=== PATIENT | female | born 1965 | race Caucasian/White ===

== ENCOUNTER 2017-11-13 08:45 | Emergency (ER) | payer OTHER, MEDICAID, SELFPAY ==
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
[2017-11-13 08:58] VITALS: BMI 23.4
--- NOTE | 2017-11-13 09:51 | DI.RAD.S_ITS ---
PROCEDURE: XR LUMBAR SPINE 2-3V INDICATIONS: low back pain x3 days TECHNIQUE: 3 views of the lumbar spine were acquired. COMPARISON: [facility], CR, L-SPINE 2-3 VIEWS, 08/19/2007, 12:39. [facility], CR, L-SPINE 2-3 VIEWS, 07/17/2010, 22:30. FINDINGS: Bones: 5 taz-yaq-mxrurdw vertebrae are present. There is normal bony alignment. No vertebral body compression fractures. No suspicious bony lesions. The disc heights are well-preserved. Lower lumbar spine facet arthropathy is seen. Soft tissues: Overlying bowel gas pattern is normal. No suspicious soft tissue calcifications. Cholecystectomy clips are seen. IMPRESSION: Unremarkable imaging examination for age. No significant change from prior. Dictated by: Gordo Shabazz M.D. on 11/13/2017 at 9:11 Approved by: Gordo Shabazz M.D. on 11/13/2017 at 9:19
[2017-11-13] MEDS: diazePAM 5 MG TABLET PO (11:54)
[2017-11-13] MEDS: HYDROCODONE/ACET 5/325 TABLET 2 TAB PO (11:54)
[2017-11-13] MEDS: KETOROLAC 60 MG/2 ML VIAL 30 MG IM (11:55)
[2017-11-13 12:10] VITALS: BP 151/86; PULSE 72; RESP 16; O2SAT 100
== END 2017-11-13 12:26 | disposition home or self-care (01) ==
PROVIDERS: Emergency Provider Emergency Medicine
DX: M54.5 Low back pain (principal)
CPT/HCPCS: 72100; 81003; 96372; 99282; 99283; J1885

== ENCOUNTER 2020-04-10 10:50 | Emergency (ER) | payer OTHER, MEDICAID, SELFPAY ==
[2020-04-10 11:09] VITALS: BP 132/85; PULSE 89; RESP 15; TEMP 37; O2SAT 95; BMI 23.3
--- NOTE | 2020-04-10 11:22 | DI.RAD.S_ITS ---
PROCEDURE: XR HAND LT MIN 3V INDICATIONS: L thumb injury, pain, swelling TECHNIQUE: 3 views of the hand(s) acquired. COMPARISON: [facility], , XR HAND 3V LEFT, 10/05/1999, 12:45. FINDINGS: Bones: No fractures or dislocations. Carpal bones are normally aligned. No suspicious bony lesions. Degenerative changes are seen throughout, which are most prominent involving the 1st carpometacarpal joint. Milder degenerative changes are seen elsewhere. Soft tissues: No suspicious soft tissue calcifications. IMPRESSION: No displaced fractures are seen. Age-appropriate degenerative changes can be seen. Dictated by: Gordo Shabazz M.D. on 04/10/2020 at 10:55 Approved by: Gordo Shabazz M.D. on 04/10/2020 at 10:56
--- NOTE | 2020-04-10 11:40 | ED.UPPEXIN ---
HPI - Extremity Injury (Upper) <ROSI Parham - Last Filed: 04/11/20 02:06> General Chief Complaint: Extremity Injury, Upper Stated Complaint: THINKS SHE BROKE LEFT HAND THUMB Time Seen by Provider: 04/10/20 11:07 Source: patient Mode of arrival: Ambulatory Limitations: no limitations History of Present Illness HPI narrative: This is a 54-year-old male, current vapor, who is currently taking Suboxone and gabapentin for nerve pain presents to ED with her significant other with chief complain of left, non dominant hand, thumb pain since yesterday. Patient reports she started to work out again and was doing a push ups and while she could not do anymore and she fell and injured her thumb. She is not quite sure the exact mechanism of injury. She reports significant pain with movements and swelling and light bruise on base of affected thumb. Patient reports difficulty flexing and extending left thumb and making thumbs up or O sign. Patient reports intact sensation distally. Patient denies previous injury to affected hand or thumb in the past. She denies using ice pack or taking additional medications for pain at home. Related Data Home Medications Medication Instructions Recorded Confirmed gabapentin [Neurontin] 600 mg PO TID #0 02/19/16 11/13/17 buprenorphine-naloxone [Suboxone] film 04/10/20 Allergies Allergy/AdvReac Type Severity Reaction Status Date / Time codeine Allergy Unknown Verified 11/13/17 09:01 droperidol Allergy Unknown Verified 11/13/17 09:01 Sulfa (Sulfonamide Allergy Unknown Verified 11/13/17 09:01 Antibiotics) Review of Systems <ROSI Parham - Last Filed: 04/11/20 02:06> Review of Systems Narrative: General: Denies fever, chills, fatigue, malaise, sweats. Respiratory: Denies dyspnea, cough, wheezing, hemoptysis, sputum. Cardiovascular: Denies chest pain, palpitations, orthopnea, edema. Musculoskeletal: See HPI Skin: Denies rash, skin lesions, or other. Neurologic: Denies weakness, headache, numbness, change in speech, confusion, seizures, incoordination. Psychiatric: No concerning psychosocial issues. Patient History <ROSI Parham - Last Filed: 04/11/20 02:06> Medical History (Updated 04/10/20 @ 12:31 by ROSI Parham) Leg pain (Acute) TBI (traumatic brain injury) (Acute) Social History Smoking Status: Current some day smoker Smoking Status: Current some day smoker alcohol intake frequency: 0-2 drinks per day Substance Use Type: does not use Exam <ROSI Parham - Last Filed: 04/11/20 02:06> Narrative Exam Narrative: General appearance: well developed, well nourished, in no acute distress. Head: normocephalic, atraumatic, no scalp lesions, non-tender. ENT: Hearing grossly intact. Airway patent. Neck/Thyroid: neck supple, full range of motion, no visible masses or meningeal signs. No JVD, non-tender without lymphadenopathy. Skin: no suspicious rashes, lesions over visible areas. Warm and dry and appropriate color for ethnicity. Heart: no clubbing, no cyanosis, no edema. Lungs: Breathing even and unlabored. No stridor. No accessory muscles used. Able to speak in full sentences. Chest: normal shape and expansion. Abdomen: non-obese, non-distended. Neurologic: alert and oriented. Cognitive exam, [employer] and PNS grossly intact on informal exam. Psych: good eye contact, normal affect. Initial Vital Signs Initial Vital Signs: Vital Signs Temperature 98.6 F 04/10/20 11:09 Pulse Rate 89 04/10/20 11:09 Respiratory Rate 15 04/10/20 11:09 Blood Pressure 132/85 04/10/20 11:09 Pulse Oximetry 95 04/10/20 11:09 Extrem Left upper extremity: wrist Details: normal to inspection and normal ROM; no tenderness and no swelling and hand Details: abnormal to inspection, normal capillary refill, neuromotor exam abnormal Details: thumb opposition abnormal, thumb IP flexion abnormal and thumb ADduction abnormal, neurosensory exam normal, tenderness Location: of the thumb Location: at the MCP joint, at the proximal phalanx and on the dorsal aspect, vascular exam Details: radial pulse present and normal capillary refill, abnormal ROM of finger Details: pain with active ROM, pain with passive ROM and unable to flex or extend, swelling Location: of the thumb Location: at the MCP joint, at the proximal phalanx and on the dorsal aspect and ecchymosis Location: of the thumb; no crepitus <Micah Byers MD - Last Filed: 04/13/20 12:59> Initial Vital Signs Initial Vital Signs: Vital Signs Temperature 98.6 F 04/10/20 11:09 Pulse Rate 89 04/10/20 11:09 Respiratory Rate 15 04/10/20 11:09 Blood Pressure 132/85 04/10/20 11:09 Pulse Oximetry 95 04/10/20 11:09 Procedures <ROSI Parham - Last Filed: 04/11/20 02:06> Orthopedic Splinting/Casting Injury #1: Side: left Upper Extremity Injury Location: finger (proximal thumb and metacarpal) Upper Extremity Immobilizer: thumb spica (Prefabricated) Post splinting neuro exam: intact Post splinting vascular exam: intact Placed by: Nursing Scores <ROSI Parham - Last Filed: 04/11/20 02:06> GCS [place] coma scale eye opening: Spontaneous [place] coma scale verbal response: Orientated Sathish coma scale motor response: Obey commands Sathish coma scale total score: 15 Course <ROSI Parham - Last Filed: 04/11/20 02:06> Orders Ordered: ED Orders 04/10/20 11:22 XR hand LT min 3V Stat Complete Blood Count AUTO DIFF Stat Comprehensive Metabolic Panel Stat Lipase Stat Partial Thromboplastin Time Stat Prothrombin Time INR Stat Vital Signs Vital signs: Vital Signs - 8 hr 04/10/20 11:09 Temperature 98.6 F Pulse Rate 89 Respiratory Rate 15 Blood Pressure 132/85 Pulse Oximetry 95 <Micah Byers MD - Last Filed: 04/13/20 12:59> Orders Ordered: ED Orders 04/10/20 11:22 XR hand LT min 3V Stat Complete Blood Count AUTO DIFF Stat Comprehensive Metabolic Panel Stat Lipase Stat Partial Thromboplastin Time Stat Prothrombin Time INR Stat Vital Signs Vital signs: Vital Signs - 8 hr 04/10/20 11:09 Temperature 98.6 F Pulse Rate 89 Respiratory Rate 15 Blood Pressure 132/85 Pulse Oximetry 95 MDM - Extremity Injury (Upper) <ROSI Parham - Last Filed: 04/11/20 02:06> Differential Diagnosis Differential diagnosis: Likely other (Thumb fracture, thumb sprain/ strain) Medical Records Attestation: I reviewed the patient's medical records. Lab Data Result diagrams: 04/10/20 10:50 04/10/20 10:50 Labs: Lab Results 04/10/20 04/10/20 04/10/20 Range/Units 10:50 10:50 10:50 WBC Cancelled RBC Cancelled Hgb Cancelled Hct Cancelled MCV Cancelled MCH Cancelled MCHC Cancelled RDW Cancelled Plt Count Cancelled Neut % (Auto) Cancelled Lymph % (Auto) Cancelled [place] % (Auto) Cancelled Eos % (Auto) Cancelled Baso % (Auto) Cancelled Neut # (Auto) Cancelled Lymph # (Auto) Cancelled [place] # (Auto) Cancelled Eos # (Auto) Cancelled Baso # (Auto) Cancelled PT Cancelled INR Cancelled APTT Cancelled Sodium Cancelled Potassium Cancelled Chloride Cancelled Carbon Dioxide Cancelled BUN Cancelled Creatinine Cancelled Estimated GFR Cancelled BUN/Creatinine Ratio Cancelled Glucose Cancelled Calcium Cancelled Total Bilirubin Cancelled AST Cancelled ALT Cancelled Alkaline Phosphatase Cancelled Total Protein Cancelled Albumin Cancelled Globulin Cancelled Albumin/Globulin Ratio Cancelled Lipase Cancelled Imaging Data XR-Hand LT: Radiologist's Impression: [place] [id number] XRay Report Signed Patient: Jenni Rosales [facility]#: [id number] : 1965Acct:[id number] Age/Sex: 54 / FDate of Service: 04/10/20 Loc: ED Accession Number: [id number] Procedure: XR hand LT min 3V Ordering Provider: Howard Lewis PROCEDURE: XR HAND LT MIN 3V INDICATIONS: L thumb injury, pain, swelling TECHNIQUE: 3 views of the hand(s) acquired. COMPARISON: [facility], , XR HAND 3V LEFT, 10/05/1999, 12:45. FINDINGS: Bones: No fractures or dislocations. Carpal bones are normally aligned. No suspicious bony lesions. Degenerative changes are seen throughout, which are most prominent involving the 1st carpometacarpal joint. Milder degenerative changes are seen elsewhere. Soft tissues: No suspicious soft tissue calcifications. IMPRESSION: No displaced fractures are seen. Age-appropriate degenerative changes can be seen. Dictated by: Gordo Shabazz M.D. on 04/10/2020 at 10:55 Approved by: Gordo Shabazz M.D. on 04/10/2020 at 10:56 [facility] Narrative Medical decision making narrative: This is a 54-year-old female who presents to ED with left, non dominant hand, thumb and metacarpal pain and swelling after she was doing push of and somehow injured affected hand/finger. Sensation and pulses are intact distally. There was moderate swelling and ecchymosis to affected site. Patient had limited range of motion due to pain. X-ray test does not show acute findings such as fractures or dislocation. Patient provided with prefabricated thumb spica splint for comfort and immobilization. Advised to use RICE therapy and [id number] Tylenol and or Motrin as needed in addition to her pain medication Suboxone as needed. Patient advised to follow-up with primary care physician consider reimaging test if pain persists with limited range of motion in 10 days to 14 days. Patient provided with [facility] orthopedist information as needed follow up. Return precautions were discussed with patient and she verbalized understanding and agreement with the treatment plan. <Micah Byers MD - Last Filed: 04/13/20 12:59> Lab Data Labs: Lab Results 04/10/20 04/10/20 04/10/20 Range/Units 10:50 10:50 10:50 WBC Cancelled RBC Cancelled Hgb Cancelled Hct Cancelled MCV Cancelled MCH Cancelled MCHC Cancelled RDW Cancelled Plt Count Cancelled Neut % (Auto) Cancelled Lymph % (Auto) Cancelled [place] % (Auto) Cancelled Eos % (Auto) Cancelled Baso % (Auto) Cancelled Neut # (Auto) Cancelled Lymph # (Auto) Cancelled [place] # (Auto) Cancelled Eos # (Auto) Cancelled Baso # (Auto) Cancelled PT Cancelled INR Cancelled APTT Cancelled Sodium Cancelled Potassium Cancelled Chloride Cancelled Carbon Dioxide Cancelled BUN Cancelled Creatinine Cancelled Estimated GFR Cancelled BUN/Creatinine Ratio Cancelled Glucose Cancelled Calcium Cancelled Total Bilirubin Cancelled AST Cancelled ALT Cancelled Alkaline Phosphatase Cancelled Total Protein Cancelled Albumin Cancelled Globulin Cancelled Albumin/Globulin Ratio Cancelled Lipase Cancelled Discharge Plan Departure Patient Disposition: Home Clinical Impression: Left thumb sprain Qualifiers: Encounter type: initial encounter Sprain of finger site: unspecified site Qualified Code(s): S63.602A - Unspecified sprain of left thumb, initial encounter Discharge Date/Time: 04/10/20 12:44 Instructions: DI for Finger Sprain Activity Restrictions/Additional Instructions: You have been diagnosed with [left non dominant hand thumb pain likely from sprain. X-ray test does not show acute findings such as fractures or dislocations.]. What to do: *Take your medications as directed. Please use [id number] Tylenol and or Motrin as needed in addition to your daily Suboxone use. Please use cool pack on affected hand for next 2 days and use splint that has been provided to you for pain and immobilization. *Follow up with your primary care provider in 2-3 days, call for an appointment. Let them know you were seen in the ED and that we asked you to be seen in follow up. If pain persists greater than 10 days to 2 weeks, if you have decreased mobility on affected finger, you may be to follow-up with orthopedist. *Return to ED if you have any new, worsening, or concerning symptoms, such as [worsening pain, swelling, redness, weakness/tingling/numbness to affected hand or any acute concerns]. Prescriptions: No Action gabapentin [Neurontin] 300 MG capsule 600 mg PO TID Qty: 0 RF: 0 buprenorphine-naloxone [Suboxone] 8-2 mg film RF: 0 Referrals: [facility] [Provider Group] Ej Jimenez MD [Primary Care Provider] - <Micah Byers MD - Last Filed: 04/13/20 12:59> Cosign ED Attending Porshaature Attestation: I was immediately available in the department for consultation. This documentation has been reviewed and I agree with assessment and plan. Supervised by Micah Byers MD
== END 2020-04-10 12:44 | disposition home or self-care (01) ==
PROVIDERS: Emergency Provider Nurse Practitioner Family; PCP Family Medicine
DX: S63.602A Unspecified sprain of left thumb, initial encounter (principal)
CPT/HCPCS: 73130; 99283

== ENCOUNTER 2020-10-16 15:10 | Emergency (ER) | payer OTHER, MEDICAID, SELFPAY ==
[2020-10-16 15:21] VITALS: BP 165/102; PULSE 92; RESP 14; TEMP 36.3; O2SAT 98; BMI 25.0
--- NOTE | 2020-10-16 16:40 | ED.WOUNDLAC ---
HPI - Wound/Laceration General Chief Complaint: Wound/Laceration Stated Complaint: STEPPED ON A PIECE OF GLASS LEFT FOOT Time Seen by Provider: 10/16/20 16:40 Source: patient and family ( at bedside) Mode of arrival: Wheelchair Limitations: no limitations History of Present Illness HPI narrative: This is a 54-year-old female comes to the emergency department with complaint of laceration to the medial side of her left foot. Patient states that she was outside in their yd yesterday. She noticed a piece of glass picked it up and then realized that she had stepped and had a cut on her foot from a large decorative glass ball in their yard. Patient states that she did not think she needed stitches so she deferred until her son told her it needed to be evaluated. She thought there may be a piece of glass in the laceration but states it looks liked a white string. Her son told her he thought it may be tendon. Patient states that it is a little bit more painful today. She states it has been continuing to ooze and bleed intermittently. She denies any new numbness or tingling down her foot. She states she has had a little bit of discomfort and tingling her calf. Patient tetanus is not up-to-date. Patient is on Suboxone as well as Neurontin daily. She is allergic to sulfa. Related Data Home Medications Medication Instructions Recorded Confirmed gabapentin [Neurontin] 600 mg PO TID #0 02/19/16 11/13/17 buprenorphine-naloxone [Suboxone] film 04/10/20 Previous Rx's Medication Instructions Recorded cephalexin 500 mg PO QID #20 cap 10/16/20 Allergies Allergy/AdvReac Type Severity Reaction Status Date / Time codeine Allergy Unknown Verified 10/16/20 15:20 droperidol Allergy Unknown Verified 10/16/20 15:20 Sulfa (Sulfonamide Allergy Unknown Verified 10/16/20 15:20 Antibiotics) Review of Systems Review of Systems ROS Unobtainable: All systems reviewed & are unremarkable except as noted in HPI and below Patient History Medical History Leg pain TBI (traumatic brain injury) Social History Smoking Status: Current some day smoker Smoking Status: Current some day smoker alcohol intake frequency: 0-2 drinks per day Substance Use Type: does not use Exam Narrative Exam Narrative: GENERAL: Alert and oriented x three, well-nourished female in mild distress. HEENT: Head normocephalic, atraumatic, EOMI, pupils reactive, face symmetric, moist mucous membranes NECK: Supple, full range of motion EXTREMITIES: Normal range of motion, no clubbing or edema. Neurovascularly intact. Patient has a 1.5 cm laceration on the medial foot between the ankle and heel. Does appear to be through the subcutaneous. I am unable to visualize any obvious tendon or ligamentous involvement. Patient does not have any erythema, warmth or drainage noted. She has normal sensation throughout the foot. Cap refill less than 2 seconds in all 5 toes. Dorsalis pedis is 2+. Patient has full range of motion. NEUROLOGICAL: Cranial nerves II through XII grossly intact. Moving all extremities SKIN: Warm, dry, no petechiae, no rashes or lesions. Initial Vital Signs Initial Vital Signs: Vital Signs Temperature 97.3 F L 10/16/20 15:21 Pulse Rate 92 H 10/16/20 15:21 Respiratory Rate 14 10/16/20 15:21 Blood Pressure 165/102 H 10/16/20 15:21 Pulse Oximetry 98 10/16/20 15:21 Procedures Laceration Repair Laceration 1: Side (If applicable): left (foot) Description: linear Depth: simple, single layer Local Anesthetic: lidocaine 1% Amount of anesthesia used (mL): 2 Pre-repair: wound explored, irrigated extensively and deep structures intact Skin layer closed with: nylon Size (cm): 4-0 Number of sutures: 4 Technique: simple, interrupted Course Orders Ordered: ED Orders 10/16/20 16:51 XR foot LT min 3V Stat Discontinued Medications Diphtheria/Tetanus/Acell Pertussis (Tet,Diph,Pertuss(Acell),Vac/Pf 0.5 Ml Syringe) 0.5 ml IM .ONCE ONE Stop: 10/16/20 16:52 Last Admin: 10/16/20 17:36 Dose: 0.5 ml Documented by: Lidocaine/Sodium Bicarbonate (Lido 1%/Sod Bicarb 8.4% (10ml) 10 Ml Syringe) 10 ml INJ NOW ONE Stop: 10/16/20 16:52 Last Admin: 10/16/20 17:37 Dose: 10 ml Documented by: Vital Signs Vital signs: Vital Signs - 8 hr 10/16/20 15:21 Temperature 97.3 F L Pulse Rate 92 H Respiratory Rate 14 Blood Pressure 165/102 H Pulse Oximetry 98 [facility] - Wound/Laceration Imaging Data Extremity x-ray #1: Radiologist's Impression: [address] [id number] ReportSigned Patient: Jenni Rosales MMR#: [id number]: 1965Acct:[id number]/Sex: 54 / FDate of Service: 10/16/20Loc: EDAccession Number: [id number] Procedure: XR foot LT min 3V Ordering Provider: Daylin Martines D.O. PROCEDURE: XR FOOT LT MIN 3V INDICATIONS: lac medial heel/ankle from glass, ? FB TECHNIQUE: 3 views of the foot were acquired. COMPARISON: None. FINDINGS: Bones: No fractures or dislocations. No suspicious bony lesions. Soft tissues: No tibiotalar joint effusion. Achilles tendon appears normal. No radiopaque foreign bodies are seen. IMPRESSION: No radiopaque foreign bodies are seen. Dictated by: Gordo Shabazz M.D. on 10/16/2020 at 16:06 Approved by: Gordo Shabazz M.D. on 10/16/2020 at 16:06 [facility] Narrative Medical decision making narrative: This is a 54-year-old female who comes to the emergency department with complaint of laceration to the inside of the left foot. Patient laceration occurred yesterday, she is within 24 of laceration. She did wash it herself. The wound does not appear visibly dirty it was irrigated and repaired with plan for oral antibiotics and watchful waiting for infection. Discharge Plan Departure Patient Disposition: Home Clinical Impression: Laceration of foot Instructions: DI for Laceration Repair -- Simple Activity Restrictions/Additional Instructions: Follow up for removal of your sutures in 7-10 days. You may follow-up with primary care, urgent care or the emergency department. Take antibiotics until they are completely gone. Prescription to [facility] in [place]. Wound Care: Keep wound(s) clean and dry. Wash twice daily with soap and water only or if visibly dirty. Do not use over the counter products (alcohol or peroxide)on the wounds unless instructed by a physician. If wound condition worsens (increased/expanding redness, developing fluid blisters, or worsening pain), either contact your doctor for an urgent re-assessment , or return to the Emergency Department. Return to the Emergency Department for any new or worsening symptoms. Return to the ED, urgent care, or vist a primary care doctor for removal or suture or paulino in 7-10 days. Return if fever greater than 100.4 Fahrenheit, increased swelling, increasing pain or worsening symptoms such as increased discharge or spreading redness. Prescriptions: New cephalexin 500 mg capsule 500 mg PO QID Qty: 20 RF: 0 No Action gabapentin [Neurontin] 300 MG capsule 600 mg PO TID Qty: 0 RF: 0 buprenorphine-naloxone [Suboxone] 8-2 mg film RF: 0 Referrals: Ej Jimenez MD [Primary Care Provider] -
--- NOTE | 2020-10-16 16:51 | DI.RAD.S_ITS ---
PROCEDURE: XR FOOT LT MIN 3V INDICATIONS: lac medial heel/ankle from glass, ? FB TECHNIQUE: 3 views of the foot were acquired. COMPARISON: None. FINDINGS: Bones: No fractures or dislocations. No suspicious bony lesions. Soft tissues: No tibiotalar joint effusion. Achilles tendon appears normal. No radiopaque foreign bodies are seen. IMPRESSION: No radiopaque foreign bodies are seen. Dictated by: Gordo Shabazz M.D. on 10/16/2020 at 16:06 Approved by: Gordo Shabazz M.D. on 10/16/2020 at 16:06
[2020-10-16] MEDS: TET,DIPH,PERTUSS(ACELL),VAC/PF 0.5 ML SYRINGE IM (17:36)
[2020-10-16] MEDS: LIDO 1%/SOD BICARB 8.4% (10ML) 10 ML SYRINGE INJ (17:37)
--- NOTE | 2020-10-16 19:23 | PC.NURSE ---
bandaid used over pt sutures.
[2020-10-16 19:25] VITALS: BP 147/96; PULSE 85; RESP 16; O2SAT 98
== END 2020-10-16 18:35 | disposition home or self-care (01) ==
PROVIDERS: Emergency Provider Emergency Medicine; PCP Family Medicine
DX: S91.312A Laceration without foreign body, left foot, initial encounter (principal); W25.XXXA Contact with sharp glass, initial encounter; Z23 Encounter for immunization
CPT/HCPCS: 12001; 73630; 90471; 99283; 99284; 90715

== ENCOUNTER 2020-10-22 17:54 | Emergency (ER) | payer OTHER, MEDICAID, SELFPAY ==
--- NOTE | 2020-10-22 18:04 | ED_ITS ---
HPI - Extremity Injury (Lower) General Chief Complaint: Wound/Laceration Stated Complaint: LEFT ANKLE SWELLING Time Seen by Provider: 10/22/20 18:01 Source: patient Mode of arrival: Ambulatory Limitations: no limitations History of Present Illness HPI Narrative: 54-year-old female smoker with history of opioid abuse presents with a chief complaint of pain and swelling of her left ankle. She was seen and evaluated last week after haven cut her foot on a piece of broken glass. She was hoping it wouldn't need repair and delayed her arrival by upwards of 24 hours. Xray nor exam suggested foreign body. Discussion with patient regarding the risk of delayed closure was had and sutures were placed with ABX Rx. Patient states today she is having pain and some swelling. She denies drainage, redness, red streaks or systemic symptoms such as fever, chills nor nausea or vomiting. MD complaint: ankle injury Onset (ago): day(s) Type of Injury: laceration Place: street/outdoors Severity: mild Relieving factors: nothing Exacerbating factors: weight bearing Context: walking Associated symptoms: swelling and ambulatory Other symptoms: none Related Data Home Medications Medication Instructions Recorded Confirmed gabapentin [Neurontin] 600 mg PO TID #0 02/19/16 11/13/17 buprenorphine-naloxone [Suboxone] film 04/10/20 Previous Rx's Medication Instructions Recorded cephalexin 500 mg PO QID #20 cap 10/16/20 doxycycline hyclate 100 mg PO BID #20 tab 10/22/20 Allergies Allergy/AdvReac Type Severity Reaction Status Date / Time codeine Allergy Unknown Verified 10/16/20 15:20 droperidol Allergy Unknown Verified 10/16/20 15:20 Sulfa (Sulfonamide Allergy Unknown Verified 10/16/20 15:20 Antibiotics) Review of Systems Constitutional Constitutional: Denies chills, Denies fatigue, Denies fever(s), Denies frequent falls, Denies lethargy and Denies weakness Eyes Eyes: Denies change in vision, Denies eye discharge, Denies irritation and Denies loss of vision ENT Ears, Nose, Mouth, and Throat: Denies change in voice, Denies dizziness, Denies neck pain, Denies sore throat and Denies throat swelling Cardiovascular Cardiovascular: Denies chest pain, Denies irregular heart rhythm, Denies lightheadedness, Denies palpitations, Denies dyspnea, Denies dyspnea on exertion and Denies orthopnea Respiratory Respiratory: Denies cough, Denies dyspnea, Denies dyspnea on exertion and Denies wheezing Gastrointestinal Gastrointestinal: Denies abdominal pain, Denies change in bowel habits, Denies diarrhea, Denies nausea and Denies vomiting Musculoskeletal Musculoskeletal: Denies neck pain and Denies numbness Integumentary/Breasts Skin/Breast: Denies pruritus, Reports erythema, Denies rash and Reports wounds Neurologic Neurologic: Denies behavioral changes, Denies confusion, Denies dizziness, Denies frequent falls, Denies loss of vision, Denies numbness and Denies weakness Psychiatric Psychiatric: Denies anxiety, Denies behavioral changes, Denies confusion, Denies depression, Denies homicidal ideation and Denies suicidal ideation Endocrine Endocrine: Denies fatigue, Denies flushing and Denies palpitations Hematologic/Lymphatic Hematologic/Lymphatic: Denies easy bruising Allergic/Immunologic Allergic/Immunologic: Denies urticaria, Denies throat swelling and Denies wheezing Patient History Medical History Leg pain TBI (traumatic brain injury) Social History Smoking Status: Current some day smoker Smoking Status: Current some day smoker alcohol intake frequency: 0-2 drinks per day Substance Use Type: does not use Exam Narrative Exam Narrative: GEN: AOx3 and in mild distress EYES: Pupils are equal, round, and reactive to light and accommodation. Extraoccular muscles are intact bilaterally. There is no subconjunctival hemorrhage or exudate. CHEST: Lungs are clear to auscultation bilaterally and free of wheezes, rales, or rhonchi. Heart rate is regular rhythm, there are no murmurs, clicks, rubs, or gallops. There is no chest wall tenderness. ABD: Abdomen is soft and nontender. There is no guarding or rebound. Bowel sounds are normal in all 4 quadrants. There is no mass or organomegaly. EXT: Full but painful range of motion of left ankle with minimal swelling overl muriel medial malleolus, no erythema, warmth. There is very minor amount of dehiscence of the superior aspect of the wound with the drainage of a minimal amount of serous fluid. The upper 2 sutures were removed, area cleansed with chlorhexidine, probed and no foreign body noted. X-ray reviewed, no foreign body noted. Quick use of ultrasound and no obvious foreign body or fluid pockets noted. SKIN: Warm, pink, and dry. No erythema or rash Initial Vital Signs Initial Vital Signs: Vital Signs Temperature 98.4 F 10/22/20 18:11 Pulse Rate 92 H 10/22/20 18:11 Respiratory Rate 16 10/22/20 18:11 Blood Pressure 136/88 10/22/20 18:11 Pulse Oximetry 92 10/22/20 18:11 Course Vital Signs Vital signs: Vital Signs - 8 hr 10/22/20 18:11 Temperature 98.4 F Pulse Rate 92 H Respiratory Rate 16 Blood Pressure 136/88 Pulse Oximetry 92 MDM - Extremity Injury (Lower) MDM Narrative Medical decision making narrative: Patient with minimal wound infection and minor dehiscence after delayed wound closure. There is potential for small piece of glass but not detected by palpation, probing, ultrasound or x-ray. Sutures removed, antibiotics which, extensive return precautions given to the patient. Questions answered to their apparent satisfaction. Discharge Plan Departure Patient Disposition: Home Clinical Impression: Infected wound Laceration of foot Qualifiers: Encounter type: subsequent encounter Laterality: left Qualified Code(s): S91.312D - Laceration without foreign body, left foot, subsequent encounter Instructions: DI for Wound Infection Activity Restrictions/Additional Instructions: *You have been diagnosed with [mild infection of laceration, a few sutures were removed.] *What to do: *Take medications as directed: Stop taking her Keflex. Please start taking the doxycycline which has been sent to [email or web address] in [place] at your request *Follow up with your primary care provider in 2-3 days, call for an appointment. Let them know you were seen in the Emergency Department and that we ask that you be seen in follow up *Return to ER if you should have any new, worsening or concerning symptoms, such as [increasing redness, swelling or fever, shaking chills or other bothersome symptoms] Prescriptions: New doxycycline hyclate 100 mg tablet 100 mg PO BID Qty: 20 RF: 0 No Action gabapentin [Neurontin] 300 MG capsule 600 mg PO TID Qty: 0 RF: 0 buprenorphine-naloxone [Suboxone] 8-2 mg film RF: 0 cephalexin 500 mg capsule 500 mg PO QID Qty: 20 RF: 0 Referrals: Ej Jimenez MD [Primary Care Provider] -
[2020-10-22 18:11] VITALS: BP 136/88; PULSE 92; RESP 16; TEMP 36.9; O2SAT 92; BMI 23.3
== END 2020-10-22 18:49 | disposition home or self-care (01) ==
PROVIDERS: Emergency Provider Emergency Medicine; PCP Family Medicine
DX: S91.312A Laceration without foreign body, left foot, initial encounter (principal)
CPT/HCPCS: 99281; 99282

== ENCOUNTER 2020-10-26 15:58 | Emergency (ER) | payer OTHER, MEDICAID, SELFPAY ==
[2020-10-26 16:21] VITALS: BP 129/75; PULSE 93; RESP 16; TEMP 36.6; O2SAT 96; BMI 25.0
--- NOTE | 2020-10-26 17:05 | ED.LOWEXIN ---
HPI - Extremity Injury (Lower) General Chief Complaint: Extremity Injury, Lower Stated Complaint: stitches in foot, pain moving up Left leg Time Seen by Provider: 10/26/20 16:29 Source: patient Mode of arrival: Ambulatory Limitations: no limitations History of Present Illness HPI Narrative: Patient is a 54-year-old female here for evaluation of pain in her left leg. She states she has had a cut in her left leg he then was on antibiotics for that seems to have improved but over the past 24 hours she has noticed pain in her left knee that is then moved up to her left hip and then up to her left kidney. There has been no specific trauma. Related Data Home Medications Medication Instructions Recorded Confirmed gabapentin [Neurontin] 600 mg PO TID #0 02/19/16 11/13/17 buprenorphine-naloxone [Suboxone] film 04/10/20 Previous Rx's Medication Instructions Recorded cephalexin 500 mg PO QID #20 cap 10/16/20 doxycycline hyclate 100 mg PO BID #20 tab 10/22/20 Allergies Allergy/AdvReac Type Severity Reaction Status Date / Time codeine Allergy Unknown Verified 10/26/20 16:31 droperidol Allergy Unknown Verified 10/26/20 16:31 Sulfa (Sulfonamide Allergy Unknown Verified 10/26/20 16:31 Antibiotics) Review of Systems Constitutional Constitutional: Denies fever(s) and Denies headache(s) ENT Ears, Nose, Mouth, and Throat: Denies headache(s) Gastrointestinal Gastrointestinal: Denies abdominal pain Genitourinary Genitourinary: Denies dysuria Genitourinary: Denies dysuria and Denies vaginal discharge Musculoskeletal Comments: Left leg pain Integumentary/Breasts Comments: Cut to left foot Neurologic Neurologic: Denies behavioral changes and Denies headache(s) Psychiatric Psychiatric: Denies behavioral changes Hematologic/Lymphatic On Anticoagulants: No Allergic/Immunologic Allergic/Immunologic: Denies urticaria Patient History Medical History Leg pain TBI (traumatic brain injury) Social History Smoking Status: Current some day smoker Smoking Status: Current some day smoker alcohol intake frequency: 0-2 drinks per day Substance Use Type: prescription drug and other Exam Initial Vital Signs Initial Vital Signs: Vital Signs Temperature 97.8 F 10/26/20 16:21 Pulse Rate 93 H 10/26/20 16:21 Respiratory Rate 16 10/26/20 16:21 Blood Pressure 129/75 10/26/20 16:21 Pulse Oximetry 96 10/26/20 16:21 Const General: cooperative, comfortable and well developed Limitations: mental status not altered HENVA Head: normal to inspection and normocephalic Cardio Pulses: dorsalis pedis present on the left GI Palpation: soft Skin Other: The cut on the inside of her left foot appears well. There is 1 stitch still remaining there is no surrounding erythema. Neuro General: patient alert and patient awake Extrem Other: Patient has tenderness to palpation along the lateral quadriceps muscle from her knee up to her lateral hip. This is where she is describing the discomfort. Psych Appearance: grossly normal and well kempt Course Vital Signs Vital signs: Vital Signs - 8 hr 10/26/20 16:21 10/26/20 17:13 Temperature 97.8 F Pulse Rate 93 H 89 Respiratory Rate 16 14 Blood Pressure 129/75 123/81 Pulse Oximetry 96 89 L MDM - Extremity Injury (Lower) MDM Narrative Medical decision making narrative: I did remove the 1 remaining stitch. The wound looks well. No signs of infection. She is tender along the quadriceps muscle on the left and this is what brought her in. I suspect that her symptoms today are musculoskeletal. She does have a history of opioid abuse. She will take Tylenol/ibuprofen. We also discussed stretching. She is given return precautions. She expressed understanding and agreement. Discharge Plan Departure Patient Disposition: Home Clinical Impression: Strain of left quadriceps muscle Instructions: DI for Muscle Strain Activity Restrictions/Additional Instructions: With regard to the cut on your foot it does appear well. There are no signs of infections. You can shower like normal use soap and water like normal. With regard to your thigh and hip pain this is fairly consistent with a muscle spasm. I recommend stretching and heat/ice and also anti-inflammatories. Contact your primary provider for follow-up. Prescriptions: No Action gabapentin [Neurontin] 300 MG capsule 600 mg PO TID Qty: 0 RF: 0 buprenorphine-naloxone [Suboxone] 8-2 mg film RF: 0 cephalexin 500 mg capsule 500 mg PO QID Qty: 20 RF: 0 doxycycline hyclate 100 mg tablet 100 mg PO BID Qty: 20 RF: 0 Referrals: Jimenez,Ej, MD [Primary Care Provider] -
[2020-10-26 17:13] VITALS: BP 123/81; PULSE 89; RESP 14; O2SAT 89
== END 2020-10-26 17:15 | disposition home or self-care (01) ==
PROVIDERS: Emergency Provider Emergency Medicine; PCP Family Medicine
DX: S76.912A Strain of unspecified muscles, fascia and tendons at thigh level, left thigh, initial encounter (principal)
CPT/HCPCS: 99281

== ENCOUNTER 2020-11-24 19:46 | Observation (INO) | payer OTHER, MEDICAID, SELFPAY ==
[2020-11-24] VITALS (7 sets, daily range): BP systolic 118–140; BP diastolic 70–102; PULSE 88–100; RESP 12–18; TEMP 35.9–37.2; O2SAT 94–98; BMI 26.4; BMI 25.4
--- NOTE | 2020-11-24 20:01 | DI.CT.S_ITS ---
PROCEDURE: CT ANGIO HEAD AND NECK INDICATIONS: speech difficulty TECHNIQUE: After the administration of intravenous contrast, 1 mm thick sections acquired from the aortic arch through the [place] of Max. Post-contrast 4.5 mm thick sections then re-acquired from the foramen magnum to the vertex. 3-dimensional ynoatxm-ksxzxuthx-zaupwbliup (MIP) and/or volume rendering reformats were acquired of the central intracranial vasculature and neck separately. COMPARISON: [facility], CT, CT STROKE, 11/24/2020, 20:05. FINDINGS: Image quality: Excellent. BRAIN: CSF spaces: Ventricles are normal in size and shape. Basal cisterns are patent. No extra-axial fluid collections. Brain: No midline shift. No intracranial bleeds or masses. Fuentes-white matter interface appears intact. Skull and face: Calvarium and facial bones appear intact, without suspicious lesions. Orbits appear normal. Sinuses: Sinuses and mastoids are clear. HEAD CT ANGIOGRAPHY: Anterior circulation: Intracranial internal carotid arteries are normal in size and flow. The flow within the paired anterior cerebral arteries is normal and symmetric. The flow within the middle cerebral arteries is normal and symmetric. The anterior communicating artery is seen. No aneurysms are seen. Posterior circulation: Visualized portions of the vertebral arteries demonstrate normal caliber. The vertebral artery terminates in a right posterior inferior cerebral artery. Flow within the posterior cerebral arteries is normal and symmetric. No aneurysms are seen. Dural sinuses demonstrate normal postcontrast enhancement. NECK CT ANGIOGRAPHY: Carotid system: The great vessels demonstrate bovine variant anatomy as they arise from the aortic arch. The origins of the common carotid arteries appear patent. The common carotid arteries demonstrate normal caliber and courses. The bifurcation regions are both widely patent. The internal carotid arteries demonstrate normal calibers and courses. Posterior circulation: The origins of the vertebral arteries both appear widely patent. Patient is left vertebral artery dominant. The right vertebral artery is congenitally hypoplastic and terminates in a right posterior inferior cerebral artery. The more superior extracranial portions of both vertebral arteries also demonstrate normal courses and calibers. They join to form a normal appearing basilar artery. Soft tissues: Visualized neck soft tissues demonstrate no suspicious abnormalities. Bones: No suspicious bony lesions. Spine degenerative disc disease and facet arthropathy. Visualized cervical spine appears normally aligned. IMPRESSION: 1. No acute intracranial disease process. 2. No large vessel occlusion, vascular stenosis, vascular dissection or aneurysm. Any quantitative measurements of stenosis were performed using NASCET criteria. Dictated by: Simin Tomlinson MD, PhD on 11/24/2020 at 20:20 Approved by: Simin Tomlinson MD, PhD on 11/24/2020 at 20:27
--- NOTE | 2020-11-24 20:01 | DI.CT.S_ITS ---
PROCEDURE: CT STROKE INDICATIONS: speech difficulty TECHNIQUE: Noncontrast 4.5 mm thick angled axial sections acquired from the foramen magnum to the vertex, with coronal reformats. For radiation dose reduction, the following was used: automated exposure control, adjustment of mA and/or kV according to patient size. COMPARISON: None. FINDINGS: Image quality: Excellent. CSF spaces: Basal cisterns are patent. No extra-axial fluid collections. The ventricles are symmetric in size and shape. Brain: No intracranial bleeds or masses. There is cerebral volume loss for age, with resultant ventricular and sulcal prominence. There are periventricular and deep white matter chronic small vessel ischemic changes. There is intracranial internal carotid artery atherosclerosis. Skull and face: Calvarium and visualized facial bones appear intact, without suspicious lesions. Sinuses: Visualized sinuses and mastoids are clear. IMPRESSION: No acute intracranial disease process. This study fulfills neurological imaging criteria for inclusion or exclusion of acute stroke therapies based on available published neurological guidelines. Dictated by: Simin Tomlinson MD, PhD on 11/24/2020 at 20:11 Approved by: Simin Tomlinson MD, PhD on 11/24/2020 at 20:13
--- NOTE | 2020-11-24 20:07 | ED_ITS ---
HPI - Neuro Symptoms/Deficit General Chief Complaint: Neuro Symptoms/Deficit Stated Complaint: states stroke Time Seen by Provider: 11/24/20 20:01 Source: patient Mode of arrival: Wheelchair Limitations: altered mental status History of Present Illness HPI Narrative: Patient is a 54-year-old female who presents as a code stroke spouse states that her last known well was 7:00 p.m. she was sitting at the table eating pizza. He when out to the yd to do a few things by the time he came back she had some difficulty speaking and some generalized weakness. She admits to drinking 2 truly alcoholic beverages. As she is generally weak and has obvious speech difficulty and complains of her lips being numb. She is able to answer questions and follow commands. No prior history of stroke but has history of TBI. Patient also states that she has had diarrhea ongoing for the last 7 days. She has also been on antibiotics for a facial rash and wound infections including Keflex and doxycycline. Related Data Home Medications Medication Instructions Recorded Confirmed gabapentin [Neurontin] 600 mg PO TID #0 02/19/16 11/24/20 buprenorphine-naloxone [Suboxone] 8 film SUBLINGUAL TID 04/10/20 11/24/20 Allergies Allergy/AdvReac Type Severity Reaction Status Date / Time codeine Allergy Unknown Verified 10/26/20 16:31 droperidol Allergy Unknown Verified 10/26/20 16:31 Sulfa (Sulfonamide Allergy Unknown Verified 10/26/20 16:31 Antibiotics) Review of Systems Review of Systems ROS Unobtainable: All systems reviewed & are unremarkable except as noted in HPI and below Constitutional Constitutional: Denies chills, Denies fever(s), Denies lethargy and Denies weakness Cardiovascular Cardiovascular: Denies dyspnea and Denies dyspnea on exertion Respiratory Respiratory: Denies cough, Denies dyspnea, Denies dyspnea on exertion and Denies wheezing Gastrointestinal Gastrointestinal: Reports as per HPI, Denies abdominal pain, Denies change in bowel habits, Reports diarrhea, Denies nausea and Denies vomiting Musculoskeletal Musculoskeletal: Denies back pain, Denies arthralgias and Denies joint swelling Integumentary/Breasts Skin/Breast: Denies pruritus, Denies erythema, Denies rash and Denies wounds Neurologic Neurologic: Reports as per HPI and Denies weakness Allergic/Immunologic Allergic/Immunologic: Denies wheezing Patient History Medical History (Updated 11/24/20 @ 23:56 [facility] Alcohol abuse History of narcotic addiction Leg pain Peripheral neuropathy TBI (traumatic brain injury) Tobacco abuse Surgical History (Updated 11/24/20 @ 23:56 by AVANI Santizo-JAZMYNE) History of cholecystectomy Family History Mother History of recurrent TIAs Father Heart disease Social History household members: spouse Smoking Status: Current some day smoker Smoking Status: Current some day smoker alcohol intake frequency: 0-2 drinks per day Substance Use Type: prescription drug and other Exam Initial Vital Signs Initial Vital Signs: Vital Signs Temperature 98.9 F 11/24/20 19:50 Pulse Rate 93 H 11/24/20 19:50 Respiratory Rate 16 11/24/20 19:50 Blood Pressure 140/102 H 11/24/20 19:50 Pulse Oximetry 97 11/24/20 19:50 GENERAL: Alert female appears generally weak HEENT: Head atraumatic,EOMI, pupils reactive, left facial droop CARDIOVASCULAR: Regular rate and rhythm without murmurs, rubs or gallops. RESPIRATORY: Breath sounds equal bilaterally, no wheezes rales or rhonchi. ABDOMEN: Soft, nontender. Normoactive bowel sounds all 4 quadrants. No guarding or rebound. EXTREMITIES: Normal range of motion, no clubbing or edema. Neurovascularly in tact NEUROLOGICAL: Alert and oriented x4. Moving all extremities appears generally weak slurring of speech left facial droop right leg drifting to gurney SKIN: Warm, dry, no laceration, no petechiae, no rashes or lesions. Scores NIH Stroke Scale Level of Conciousness: Alert, keenly responsive Ask month/age: Answers both questions correctly. Open/close eyes, close hand: Performs both tasks correctly Best gaze horizontal: Normal Visual jaquez: No visual loss Facial palsy: Minor paralysis, flattened nasolabial fold, asymmetry on smiling Left arm drift: No drift for full 10 sec Right arm drift: No drift for full 10 sec Left leg drift: No drift for full 5 sec Right leg drift: Drifts down, not to bed Limb ataxia: Absent Sensory on face/arms/legs: Normal, no sensory loss Best language: Mild to moderate, slurs some words Dysarthria: Normal Extinction or inattention: No abnormality Total NIH Stroke scale score: 3 Course Orders Ordered: ED Orders 11/24/20 20:00 Complete Blood Count AUTO DIFF Stat Comprehensive Metabolic Panel Stat Ethanol (ETOH) Stat Troponin & CK Cardiac Panel Stat 11/24/20 20:[address] angio head and neck Stat EKG-12 Lead Stat 11/24/20 20:36 Clostridium Difficile Tox PCR Stat GI Panel (Film Array) Stat 11/24/20 20:45 Urinalysis and Microscopic Stat Urine Drug Screen, Rapid Stat 11/24/20 21:28 Consult to Discharge Planning Routine Consult to Occupational Therapy Evaluate & Treat Consult to Physical Therapy Evaluate & Treat Consult to Speech Therapy Evaluate & Treat MR stroke Stat Education, smoking cessation ONGOING 11/25/20 05:00 Complete Blood Count AUTO DIFF Routine Comprehensive Metabolic Panel Routine Hemoglobin A1C% w Est Avg Glu Routine Prothrombin Time INR Routine Troponin I Routine Acetaminophen (Acetaminophen 325 Mg Tablet) 650 mg PO Q6HR PRN PRN Reason: Fever/Mild Pain (1-3) Aspirin (Aspirin Ec 325 Mg Tablet) 325 mg PO DAILY [facility] Atorvastatin Calcium (Atorvastatin 20 Mg Tablet) 80 mg PO BEDTIME LAURA Clopidogrel Bisulfate (Clopidogrel 75 Mg Tablet) 75 mg PO DAILY [facility] Folic Acid (Folic Acid 1 Mg Tablet) 1 mg PO DAILY [facility] Gabapentin (Gabapentin 300 Mg Capsule) 600 mg PO TID [facility] Sodium Chloride (Normal Saline 0.9%) 1,000 mls @ 100 mls/hr IV CONT [facility] Last Admin: 11/24/20 22:58 Dose: 100 mls/hr Documented by: GISELA Multivitamins (Multivitamin 1 Tablet) 1 tab PO DAILY [facility] Naloxone HCl (Naloxone 0.4 Mg/Ml Vial) 0.2 mg IV Q2MIN PRN PRN Reason: Opiate Reversal (Buprenorphine- Naloxone [Suboxone] 8-2 Mg Film) 8 film SL TID [facility] Ondansetron HCl (Ondansetron 4 Mg/2 Ml Inj) 4 mg IV Q6HR PRN PRN Reason: Nausea And Vomiting Thiamine HCl (Thiamine 100 Mg Tablet) 100 mg PO DAILY [facility] Stop: 11/28/20 09:01 Discontinued Medications Aspirin (Aspirin 81 Mg Chew Tab) 324 mg PO NOW ONE Stop: 11/24/20 21:05 Last Admin: 11/24/20 21:07 Dose: 324 mg Documented by: MARVEL Sodium Chloride (Normal Saline 0.9%) 1,000 mls @ 1,000 mls/hr IV BOLUS ONE Stop: 11/24/20 21:47 Last Infusion: 11/24/20 22:08 Dose: 0 mls/hr Documented by: Admin: 11/24/20 20:55 Dose: 1,000 mls/hr Documented by: MARVEL Consultations Time: 20:24 Vital Signs Vital signs: Vital Signs - 8 hr 11/24/20 19:50 11/24/20 20:01 11/24/20 20:17 Temperature 98.9 F Pulse Rate 93 H 100 H 97 H Respiratory Rate 16 18 Blood Pressure 140/102 H 139/85 126/75 Pulse Oximetry 97 94 96 11/24/20 20:30 11/24/20 21:00 11/24/20 21:30 Temperature Pulse Rate 96 H 88 90 Respiratory Rate 13 12 12 Blood Pressure 121/72 124/70 118/71 Pulse Oximetry 95 97 MDM - Neuro Symptoms/Deficit Lab Data Attestation: I reviewed the patient's lab results. Result diagrams: 11/24/20 20:00 11/24/20 20:00 Labs: Lab Results 11/24/20 11/24/20 11/24/20 Range/Units 20:00 20:00 20:00 WBC 5.5 (4.5-11.0) X10^3/uL RBC 3.68 L (4.0-5.2) X10^6/uL Hgb 13.4 (12.0-16.0) g/dL Hct 38.9 (36-46) % MCV 105.9 H (80-100) fL MCH 36.4 H (26-34) PG MCHC 34.4 (30-36) % RDW 17.9 H (11.6-14.8) % Plt Count 159 (150-400) X10^3/uL Neut % (Auto) 40.8 L (50-75) % Lymph % (Auto) 47.8 H (25-40) % [place] % (Auto) 9.1 (3-14) % Eos % (Auto) 1.5 L (2-4) % Baso % (Auto) 0.8 (0-2) % Neut # (Auto) 2300 (5011-0260) /uL Lymph # (Auto) 2600 (1908-3261) /uL [place] # (Auto) 500 (0-900) /uL Eos # (Auto) 100 (0-450) /uL Baso # (Auto) 0 (0-100) /uL Sodium 137 (137-145) mmol/L Potassium 3.7 (3.4-5.1) mmol/L Chloride 100 (98-107) mmol/L Carbon Dioxide 27 (22-32) mmol/L BUN 8 (7-17) mg/dL Creatinine 0.53 (0.52-1.04) mg/dL Estimated GFR > 60.0 (>60) mL/min BUN/Creatinine Ratio 15.1 (6-22) Glucose 125 H (70-100) mg/dL Calcium 8.9 (8.4-10.2) mg/dL Magnesium 1.9 (1.6-2.3) mg/dL Total Bilirubin 0.4 (0.2-1.3) mg/dL AST 114 H (14-36) IU/L ALT 34 (<35) IU/L Alkaline Phosphatase 90 (38-126) U/L Total Creatine Kinase 68 (30-135) U/L CK-MB (CK-2) TNP CK-MB (CK-2) Rel Index TNP Troponin I 0.016 (0.01-0.034) ng/mL Total Protein 8.0 (6.3-8.2) g/dL Albumin 4.1 (3.5-5.0) g/dL Globulin 3.9 (1.7-4.1) g/dL Albumin/Globulin Ratio 1.1 (1.0-2.8) Urine Color Urine Appearance Urine pH (4.5-8.0) Ur Specific [place] (1.000-1.035) Urine Protein (Negative) Urine Glucose (UA) (Negative) g/dL Urine Ketones (NEGATIVE) Urine Occult Blood (Negative) Urine Nitrate (Negative) Urine Bilirubin (NEGATIVE) Urine Urobilinogen (0.2) E.U./dL Ur Leukocyte Esterase (NEGATIVE) Urine RBC (0-5/HPF) Urine WBC (0-5/HPF) Ur Squamous Epith Cells (0-5/HPF) Urine Bacteria (None) Ur Culture Indicated? Micro UA Comment U Opiates 300ng/mL cut (Negative) Ur Oxycodone Screen (Negative) Urine Methadone Screen (Negative) Ur Barbiturates Screen (Negative) U Tricyclic Antidepress (Negative) Ur Phencyclidine Scrn (Negative) Ur Amphetamines Screen (Negative) U Methamphetamines Scrn (Negative) Ur MDMA Scrn (Ecstasy) (Negative) U Benzodiazepines Scrn (Negative) Urine Cocaine Screen (Negative) U Marijuana (THC) Screen (Negative) Ethyl Alcohol 290 H ( - 10) mg/dL 11/24/20 11/24/20 Range/Units 20:45 20:45 WBC (4.5-11.0) X10^3/uL RBC (4.0-5.2) X10^6/uL Hgb (12.0-16.0) g/dL Hct (36-46) % MCV (80-100) fL MCH (26-34) PG MCHC (30-36) % RDW (11.6-14.8) % Plt Count (150-400) X10^3/uL Neut % (Auto) (50-75) % Lymph % (Auto) (25-40) % [place] % (Auto) (3-14) % Eos % (Auto) (2-4) % Baso % (Auto) (0-2) % Neut # (Auto) (3960-3961) /uL Lymph # (Auto) (2582-0033) /uL [place] # (Auto) (0-900) /uL Eos # (Auto) (0-450) /uL Baso # (Auto) (0-100) /uL Sodium (137-145) mmol/L Potassium (3.4-5.1) mmol/L Chloride (98-107) mmol/L Carbon Dioxide (22-32) mmol/L BUN (7-17) mg/dL Creatinine (0.52-1.04) mg/dL Estimated GFR (>60) mL/min BUN/Creatinine Ratio (6-22) Glucose (70-100) mg/dL Calcium (8.4-10.2) mg/dL Magnesium (1.6-2.3) mg/dL Total Bilirubin (0.2-1.3) mg/dL AST (14-36) IU/L ALT (<35) IU/L Alkaline Phosphatase (38-126) U/L Total Creatine Kinase (30-135) U/L CK-MB (CK-2) CK-MB (CK-2) Rel Index Troponin I (0.01-0.034) ng/mL Total Protein (6.3-8.2) g/dL Albumin (3.5-5.0) g/dL Globulin (1.7-4.1) g/dL Albumin/Globulin Ratio (1.0-2.8) Urine Color Yellow Urine Appearance Clear Urine pH 6.0 (4.5-8.0) Ur Specific [place] <=1.005 (1.000-1.035) Urine Protein Negative (Negative) Urine Glucose (UA) Negative (Negative) g/dL Urine Ketones Negative (NEGATIVE) Urine Occult Blood Negative (Negative) Urine Nitrate Negative (Negative) Urine Bilirubin Negative (NEGATIVE) Urine Urobilinogen 0.2 (0.2) E.U./dL Ur Leukocyte Esterase Negative (NEGATIVE) Urine RBC None seen (0-5/HPF) Urine WBC None seen (0-5/HPF) Ur Squamous Epith Cells 0-1 /hpf (0-5/HPF) Urine Bacteria None seen (None) Ur Culture Indicated? Cult not indicated Micro UA Comment Microscopic normal U Opiates 300ng/mL cut Negative (Negative) Ur Oxycodone Screen Negative (Negative) Urine Methadone Screen Negative (Negative) Ur Barbiturates Screen Negative (Negative) U Tricyclic Antidepress Negative (Negative) Ur Phencyclidine Scrn Negative (Negative) Ur Amphetamines Screen Negative (Negative) U Methamphetamines Scrn Negative (Negative) Ur MDMA Scrn (Ecstasy) Negative (Negative) U Benzodiazepines Scrn Negative (Negative) Urine Cocaine Screen Negative (Negative) U Marijuana (THC) Screen Negative (Negative) Ethyl Alcohol ( - 10) mg/dL Point of Care Testing Glucose POC [address] scan - head: Radiologist's Impression: PROCEDURE: CT STROKE INDICATIONS: speech difficulty TECHNIQUE: Noncontrast 4.5 mm thick angled axial sections acquired from the foramen magnum to the vertex, with coronal reformats. For radiation dose reduction, the following was used: automated exposure control, adjustment of mA and/or kV according to patient size. COMPARISON: None. FINDINGS: Image quality: Excellent. CSF spaces: Basal cisterns are patent. No extra-axial fluid collections. The ventricles are symmetric in size and shape. Brain: No intracranial bleeds or masses. There is cerebral volume loss for age, with resultant ventricular and sulcal prominence. There are periventricular and deep white matter chronic small vessel ischemic changes. There is intracranial internal carotid artery atherosclerosis. Skull and face: Calvarium and visualized facial bones appear intact, without suspicious lesions. Sinuses: Visualized sinuses and mastoids are clear. IMPRESSION: No acute intracranial disease process. This study fulfills neurological imaging criteria for inclusion or exclusion of acute stroke therapies based on available published neurological guidelines. Dictated by: Simin Tomlinson MD, PhD on 11/24/2020 at 20:11 Approved by: Simin Tomlinson MD, PhD on 11/24/2020 at 20:13 CTA - brain/neck: Radiologist's Impression: PROCEDURE: CT ANGIO HEAD AND NECK INDICATIONS: speech difficulty TECHNIQUE: After the administration of intravenous contrast, 1 mm thick sections acquired from the aortic arch through the [place] of [place]. Post-contrast 4.5 mm thick sections then re-acquired from the foramen magnum to the vertex. 3-dimensional dtscasc-tyebptmra-gstczwpkdy (MIP) and/or volume rendering reformats were acquired of the central intracranial vasculature and neck separately. COMPARISON: [facility], CT, CT STROKE, 11/24/2020, 20:05. FINDINGS: Image quality: Excellent. BRAIN: CSF spaces: Ventricles are normal in size and shape. Basal cisterns are patent. No extra-axial fluid collections. Brain: No midline shift. No intracranial bleeds or masses. Fuentes-white matter interface appears intact. Skull and face: Calvarium and facial bones appear intact, without suspicious lesions. Orbits appear normal. Sinuses: Sinuses and mastoids are clear. HEAD CT ANGIOGRAPHY: Anterior circulation: Intracranial internal carotid arteries are normal in size and flow. The flow within the paired anterior cerebral arteries is normal and symmetric. The flow within the middle cerebral arteries is normal and symmetric. The anterior communicating artery is seen. No aneurysms are seen. Posterior circulation: Visualized portions of the vertebral arteries demonstrate normal caliber. The vertebral artery terminates in a right posterior inferior cerebral artery. Flow within the posterior cerebral arteries is normal and symmetric. No aneurysms are seen. Dural sinuses demonstrate normal postcontrast enhancement. NECK CT ANGIOGRAPHY: Carotid system: The great vessels demonstrate bovine variant anatomy as they arise from the aortic arch. The origins of the common carotid arteries appear patent. The common carotid arteries demonstrate normal caliber and courses. The bifurcation regions are both widely patent. The internal carotid arteries demonstrate normal calibers and courses. Posterior circulation: The origins of the vertebral arteries both appear widely patent. Patient is left vertebral artery dominant. The right vertebral artery is congenitally hypoplastic and terminates in a right posterior inferior cerebral artery. The more superior extracranial portions of both vertebral arteries also demonstrate normal courses and calibers. They join to form a normal appearing basilar artery. Soft tissues: Visualized neck soft tissues demonstrate no suspicious abnormalities. Bones: No suspicious bony lesions. Spine degenerative disc disease and facet arthropathy. Visualized cervical spine appears normally aligned. IMPRESSION: 1. No acute intracranial disease process. 2. No large vessel occlusion, vascular stenosis, vascular dissection or ane urysm. Any quantitative measurements of stenosis were performed using NASCET criteria. Dictated by: Simin Tomlinson MD, PhD on 11/24/2020 at 20:20 Approved by: Simin Tomlinson MD, PhD on 11/24/2020 at 20:27 ECG Data Attestation: I personally reviewed and interpreted this ECG as follows: Interpretation: Normal sinus rhythm rate 95 p.r. interval [address] changes or T-wave inversions. MDM Narrative Medical decision making narrative: 2020 neurologist and stroke doctor discussed symptoms in test results. At this time patient does not have significant disability or warrant tPA. Patient's symptoms are also improving. Patient is having improving speech however she continues to have persistent left facial droop. She is actually a to get on the phone and play a game next. The patient is intoxicated with a blood alcohol of almost 300 this may be contributing to her slurred speech and weakness. However patient distant left facial droop with right lower extremity weakness greater than the left. Concern for still having a stroke. Discussed case with hospitalist who have flex patient for admission Discharge Plan Departure Patient Disposition: Admitted as Observation Clinical Impression: Transient cerebral ischemia, Alcohol intoxication Admit Date/Time: 11/24/20 21:31 Admit Provider: Renetta Bettencourt
[2020-11-24 20:23] LABS: Add Manual Diff / Slide Review NO; Basophils Absolute Auto 0 /uL (0-100); Basophils Percent Auto 0.8 % (0-2); Eosinophils Absolute Auto 100 /uL (0-450); Eosinophils Percent Auto 1.5 % (2-4); Hematocrit 38.9 % (36-46); Hemoglobin 13.4 g/dL (12.0-16.0); Lymphocytes Absolute Auto 2600 /uL (1100-4500); Lymphocytes Percent Auto 47.8 % (25-40); Mean Corpuscular HGB Conc 34.4 % (30-36); Mean Corpuscular Hemoglobin 36.4 PG (26-34); Mean Corpuscular Volume 105.9 fL (80-100); Monocytes Absolute Auto 500 /uL (0-900); Monocytes Percent Auto 9.1 % (3-14); Neutrophils Absolute Auto 2300 /uL (1500-7000); Neutrophils Percent Auto 40.8 % (50-75); Platelet Count 159 X10^3/uL (150-400); Red Blood Cell Count 3.68 X10^6/uL (4.0-5.2); Red Cell Distribution Width 17.9 % (11.6-14.8); White Blood Cell Count 5.5 X10^3/uL (4.5-11.0)
[2020-11-24 20:27] LABS: Alanine Aminotransferase 34 IU/L (<35); Albumin 4.1 g/dL (3.5-5.0); Albumin Globulin Ratio 1.1 (1.0-2.8); Alkaline Phosphatase 90 U/L (38-126); Aspartate Aminotransferase 114 IU/L (14-36); BUN Creatinine Ratio 15.1 (6-22); Bilirubin Total 0.4 mg/dL (0.2-1.3); Blood Urea Nitrogen 8 mg/dL (7-17); Calcium 8.9 mg/dL (8.4-10.2); Carbon Dioxide 27 mmol/L (22-32); Chloride 100 mmol/L (98-107); Creatine Kinase 68 U/L (30-135); Estimated Glomerular Filt Rate > 60.0 mL/min (>60); Ethanol (ETOH) 290 mg/dL; Globulin 3.9 g/dL (1.7-4.1); Glucose 125 mg/dL (70-100); HEMOLYSIS < 15 (0-50); Potassium 3.7 mmol/L (3.4-5.1); Sodium 137 mmol/L (137-145)
[2020-11-24 20:38] LABS: Troponin I 0.016 ng/mL (0.01-0.034)
[2020-11-24 20:51] LABS: Bacteria Urine None Seen; RBC Urine None Seen (0-5/HPF); WBC Urine None Seen (0-5/HPF)
[2020-11-24] MEDS: SODIUM CHLORIDE 0.9% 1,000 ML 1000 ML IV (20:55)
[2020-11-24] MEDS: ASPIRIN 81 MG CHEW TAB 324 MG PO (21:07)
[2020-11-24 21:11] LABS: Appearance Urine UA CLEAR; Bilirubin Urine UA NEGATIVE (NEGATIVE); Color Urine UA YELLOW; Glucose Urine UA NEGATIVE (Negative); Ketones Urine UA NEGATIVE (NEGATIVE); Leukocyte Esterase Urine UA NEGATIVE (NEGATIVE); Nitrite Urine UA NEGATIVE (Negative); Occult Blood Urine UA NEGATIVE (Negative); Protein Urine UA NEGATIVE (Negative); Specific Gravity Urine UA <=1.005 (1.000-1.035); Urobilinogen Urine UA 0.2 E.U./dL (0.2)
[2020-11-24 21:15] LABS: UR Morphine/Opiate cutoff 300 Negative (Negative); Ur Creatinine Normal (Normal); Ur Specific Gravity Normal (Normal); Urine Amphetamines Negative (Negative); Urine Barbiturates Negative (Negative); Urine Benzodiazepines Negative (Negative); Urine Cocaine Negative (Negative); Urine MDMA Negative (Negative); Urine Methadone Negative (Negative); Urine Methamphetamines Negative (Negative); Urine Oxycodone Negative (Negative); Urine Phencyclidine Negative (Negative); Urine Tetrahydrocannabinol Negative (Negative); Urine Tricyclic Antidepressant Negative (Negative); Urine pH Normal (Normal)
[2020-11-24 21:22] LABS: Culture Indicated Urine Cult Not Indicated; Squamous Epithelial Cell Urine 0-1 /HPF (0-5/HPF); Urine Comments Microscopic Normal
--- NOTE | 2020-11-24 21:28 | DI.MRI.S_ITS ---
PROCEDURE: MR STROKE Pre- and post-contrast brain MRI, non-contrast brain MR angiogram, pre- and postcontrast neck MR angiogram INDICATIONS: Presenting with speech difficulty. Clinical concern for Stroke TECHNIQUE: Brain: Noncontrast axial T1 spin echo, axial T2 fast spin echo, sagittal and axial FLAIR, coronal T2 fast spin echo, axial gradient echo, axial diffusion and ADC through the brain. After the administration of contrast, axial 3D VIBE of the cranial vasculature and brain. Brain MRA: Non-contrast 3-D time of flight MR angiogram, with multiple oynbfuc-pwrnnhihc-dbcmauidog (MIP) reformats performed. Neck MRA: Axial and sagittal TruFISP through the neck. Coronal dynamic MR angiogram during administration of contrast in the arterial and venous phases, with 3-dimenstional zaxvqhl-wemqputic-lllboliepg (MIP) reformats constructed from subtraction images. COMPARISON: [facility], MR, MR BRAIN WITH/WITHOUT CONTRAST, 02/19/2018, 9:45. [facility], MR, MR SEIZURE BRAIN W&WO CON, 09/26/2016, 10:15. [facility], MR, MS BRAIN W & W/O CONT, 01/18/2014, 13:46. [facility], CT, CT ANGIO HEAD AND NECK, 11/24/2020, 20:05. [facility], CT, CT STROKE, 11/24/2020, 20:05. FINDINGS: Image quality: Excellent. BRAIN: CSF spaces: Ventricles are normal in size and shape. Basal cisterns are patent. No extra-axial fluid collections. Brain: No intracranial bleeds or mass effects. Fuentes-white matter interface is normal. Minimal foci of T2 weighted hyperintensity can be seen within the white matter. These are similar to prior examinations. Diffusion weighted images show no acute ischemic insults. Brainstem appears normal. Normal intravascular flow voids are present. No abnormal intracranial enhancement. Skull and face: Calvarial marrow signal is normal. Orbits appear normal. Sinuses: Sinuses and mastoids are clear. BRAIN MR ANGIOGRAM: Anterior circulation: Intracranial internal carotid arteries are normal in size and enhancement. The flow within the paired anterior cerebral arteries is normal and symmetric. The flow within the middle cerebral arteries is normal and symmetric. The anterior communicating artery is not well seen. No stenoses, occlusions, or aneurysms. Posterior circulation: The left vertebral artery is normal. The right vertebral artery largely terminates in the right posterior inferior cerebellar artery. There is a normal appearing basilar artery. There is a prominent left posterior communicating artery seen, with an accompanying diminutive left P1 segment. This is attributed to a type origin of the left posterior cerebral artery, which is considered to be a normal developmental variant of typically no clinical consequence. The flow within the posterior cerebral arteries is normal and symmetric. No stenoses, occlusions, or aneurysms. NECK MR ANGIOGRAM: Carotids: Incidental note is made of a common origin of the right brachiocephalic artery and the left common carotid artery (bovine type arch). This is considered to be a developmental variant of no clinical consequence. The origins of the common carotid arteries appear patent. The calibers and courses of both common carotid arteries are normal. The bifurcation regions appear normal bilaterally. The internal carotid arteries demonstrate normal course and caliber. Posterior circulation: The origins of the vertebral arteries appear patent. More superior portions of both vertebral arteries demonstrate normal course and caliber. Miscellaneous: Subclavian arteries appear patent. Pre-contrast images through the neck show no soft tissue abnormalities. IMPRESSION: BRAIN MRI: No findings of acute or subacute infarction can be seen. Minimal foci of T2 weighted hyperintensity can again be seen within the white matter, which are similar to prior studies. BRAIN MR ANGIOGRAM: No significant intracranial arterial abnormality is seen. Qiszen-lo-Zwksrw developmental anomalies are incidentally noted. NECK MR ANGIOGRAM: Within the arteries of the neck, no hemodynamically significant stenosis can be seen. Bovine type aortic branching pattern incidentally noted. Dictated by: Gordo Shabazz M.D. on 11/25/2020 at 8:06 Approved by: Gordo Shabazz M.D. on 11/25/2020 at 8:13
[2020-11-24 21:53] LABS: Magnesium 1.9 mg/dL (1.6-2.3)
--- NOTE | 2020-11-24 22:39 | PM.HP.1 ---
History of Present Illness History of Present Illness Date Patient Seen: 11/24/20 Time Patient Seen: 21:39 Chief complaint: states stroke Narrative: Patient is a 54-year-old female Jenni Rosales who presented to the ED as a code stroke. The patients spouse stated that her last known well was 7:00 p.m. she was sitting at the table eating pizza. He went outside for an unknown period of time, when he came back inside she had some difficulty speaking and some generalized weakness. She admits to drinking 2 alcoholic beverages only. Patient complians of generalized weakness, with obvious speech difficulty and complains of her lips being numb. She is able to answer questions and follow commands. No prior history of stroke but has history of TBI with resulting memory issues and peripheral neuropathy. Patient also states that she has had diarrhea ongoing for the last 7 days. She has also been on antibiotics for a facial rash and wound infections including Keflex and doxycycline. Patient denies chest pain, shortness of breath, vomiting, recent injury or trauma. Patient has a history of substance(Vicodin), tobacco and alcohol abuse. Patient states that she no longer abuses Vicodin, and is prescribed Suboxone 8 mg 3 times daily, and she switched cigarettes to vaping a few years ago and verbalizes she no longer drinks alcohol. Patient is complaining of some chronic mild low back pain and abdominal pain and bloating. The patient states that she is had severe diarrhea x6 days with occasional blood in her stool to the point that she has had to wear a diaper that began after she started the antibiotics she was given for a sutured left foot laceration that became infected. The patient then developed an allergic facial rash to the antibiotics in which she was seen by dermatology and then changed to another antibiotic. Patient states that she has been on antibiotics for approximately 1 month. Patient has a history of substance(Vicodin), tobacco and alcohol abuse. Patient states that she no longer abuses Vicodin, and is prescribed Suboxone 8 mg 3 times daily, and she switched cigarettes to vaping a few years ago and verbalizes she no longer drinks alcohol. Patient was found to have alcohol level of 290 on admit. Patient's vitals at the time of admit temp 98.9?, BP 124/70, HR 88, RR 12, O2 saturation 95% on room air. Patient's CBC and chemistries are unremarkable with the exception of glucose of 125, AST of 114, troponin 0.016, urinalysis is negative,alcohol of 290, patient's head neck CTA and brain CT are unremarkable. Patient is admitted for neurological deficit rule out TIA versus stroke, possible alcohol intoxication. NIH score:3 EKG: Normal sinus rhythm, ventricular rate 94, with low voltage QRS, and prolonged QT interval. Patient History Medical History (Updated 11/24/20 @ 23:56 by AVANI Santizo-JAZMYNE) Alcohol abuse History of narcotic addiction Leg pain Peripheral neuropathy TBI (traumatic brain injury) Tobacco abuse Surgical History (Updated 11/24/20 @ 23:56 by KATHERINE Santizo) History of cholecystectomy Family & Social History Family History Mother History of recurrent TIAs Father Heart disease Safety & Behavioral: Feels Safe in Current Yes Environment Been Physically Hurt or No Threatened By a Person Tobacco & Substance use: Smoking Status Current some day smoker (changed from cigarettes to vaping if years ago) alcohol intake frequency 0-2 drinks per day (history of alcohol dependence/abuse) Substance Use Type reports history of narcotic abuse (Vicodin)-currently taking Suboxone TID Meds Home Medications and Allergies Home Medications Medication Instructions Recorded Confirmed Type gabapentin [Neurontin] 600 mg PO TID #0 02/19/16 11/24/20 History buprenorphine-naloxone [Suboxone] 8 film SUBLINGUAL TID 04/10/20 11/24/20 History Allergies Allergy/AdvReac Type Severity Reaction Status Date / Time codeine Allergy Unknown Verified 10/26/20 16:31 droperidol Allergy Unknown Verified 10/26/20 16:31 Sulfa (Sulfonamide Allergy Unknown Verified 10/26/20 16:31 Antibiotics) Review of Systems Review of Systems ROS: Yes All systems reviewed with the patient and are negative except as otherwise documented Gastrointestinal Gastrointestinal: Reports abdominal pain (Mild ), Reports change in stool character, Reports fecal incontinence and Reports loose stools Musculoskeletal Musculoskeletal: Reports back pain (Mild-chronic) Exam Vital Signs (past 8 hours): - 11/24/20 19:50 11/24/20 20:01 11/24/20 20:17 Temperature 98.9 F Pulse Rate 93 H 100 H 97 H Respiratory Rate 16 18 Blood Pressure 140/102 H 139/85 126/75 Pulse Oximetry 97 94 96 11/24/20 20:30 11/24/20 21:00 11/24/20 21:30 Temperature Pulse Rate 96 H 88 90 Respiratory Rate 13 12 12 Blood Pressure 121/72 124/70 118/71 Pulse Oximetry 95 97 11/24/20 22:33 Temperature 96.6 F L Pulse Rate 98 H Respiratory Rate 18 Blood Pressure 140/84 Pulse Oximetry 98 Oxygen Delivery Method Room Air Narrative Exam Narrative: General: Patient is a well-developed, well-nourished pleasant female who appears intoxicated, in no distress at this time. HEENT: Normocephalic, atraumatic, extraocular muscles intact, oral pharynx is clear and mucous membranes are moist. Neck is supple and symmetric, trachea is midline, no adenopathy, no thyroid enlargement, nontender, no masses palpated. Negative for JVD Chest: Normal AP diameter and contour without kyphoscoliosis, no nasal flaring, retractions, or tachypneic labored Lungs: Auscultation of all lung jaquez are clear without adventitious sounds, wheezes, rhonchi, or rales. Cardio: S1 & S2 with regular rate and rhythm without murmur, rubs, or gallops, no carotid bruit, no cardiac pulsations present. Abdomen: Soft, distended, mild lower left tenderness with palpation, negative for organomegaly, or masses. Bowel sounds hyperactive are present in all 4 quadrants without guarding or rebound, no CVA tenderness. Musculoskeletal: Muscle strength and tone are equal within normal limits, no deformity, crepitus, effusions, cyanosis, clubbing or edema present. Full range of motion intact radial and pedal pulses are normal. Skin: Warm dry and intact without ulcerations or petechiae. With the exception of the erythematous macular rash to bilateral cheeks. Neuro: Alert and orientated x3, strength is +5/5 in all extremities, sensation to touch intact, no gross deficits noted of cranial nerves. Psych: Patient has a well-kept appearance, appropriate affect. Objective Labs Result Diagrams: 11/24/20 20:00 11/24/20 20:00 Labs: Laboratory Results - last 24 hr 11/24/20 11/24/20 11/24/20 20:00 20:00 20:00 WBC 5.5 RBC 3.68 L Hgb 13.4 Hct 38.9 MCV 105.9 H MCH 36.4 H MCHC 34.4 RDW 17.9 H Plt Count 159 Neut % (Auto) 40.8 L Lymph % (Auto) 47.8 H [place] % (Auto) 9.1 Eos % (Auto) 1.5 L Baso % (Auto) 0.8 Neut # (Auto) 2300 Lymph # (Auto) 2600 [place] # (Auto) 500 Eos # (Auto) 100 Baso # (Auto) 0 Sodium 137 Potassium 3.7 Chloride 100 Carbon Dioxide 27 BUN 8 Creatinine 0.53 Estimated GFR > 60.0 BUN/Creatinine Ratio 15.1 Glucose 125 H Calcium 8.9 Magnesium 1.9 Total Bilirubin 0.4 AST 114 H ALT 34 Alkaline Phosphatase 90 Total Creatine Kinase 68 CK-MB (CK-2) TNP CK-MB (CK-2) Rel Index TNP Troponin I 0.016 Total Protein 8.0 Albumin 4.1 Globulin 3.9 Albumin/Globulin Ratio 1.1 Urine Color Urine Appearance Urine pH Ur Specific [place] Urine Protein Urine Glucose (UA) Urine Ketones Urine Occult Blood Urine Nitrate Urine Bilirubin Urine Urobilinogen Ur Leukocyte Esterase Urine RBC Urine WBC Ur Squamous Epith Cells Urine Bacteria Ur Culture Indicated? Micro UA Comment U Opiates 300ng/mL cut Ur Oxycodone Screen Urine Methadone Screen Ur Barbiturates Screen U Tricyclic Antidepress Ur Phencyclidine Scrn Ur Amphetamines Screen U Methamphetamines Scrn Ur MDMA Scrn (Ecstasy) U Benzodiazepines Scrn Urine Cocaine Screen U Marijuana (THC) Screen Ethyl Alcohol 290 H 11/24/20 11/24/20 20:45 20:45 WBC RBC Hgb Hct MCV MCH MCHC RDW Plt Count Neut % (Auto) Lymph % (Auto) [place] % (Auto) Eos % (Auto) Baso % (Auto) Neut # (Auto) Lymph # (Auto) [place] # (Auto) Eos # (Auto) Baso # (Auto) Sodium Potassium Chloride Carbon Dioxide BUN Creatinine Estimated GFR BUN/Creatinine Ratio Glucose Calcium Magnesium Total Bilirubin AST ALT Alkaline Phosphatase Total Creatine Kinase CK-MB (CK-2) CK-MB (CK-2) Rel Index Troponin I Total Protein Albumin Globulin Albumin/Globulin Ratio Urine Color Yellow Urine Appearance Clear Urine pH 6.0 Ur Specific [place] <=1.005 Urine Protein Negative Urine Glucose (UA) Negative Urine Ketones Negative Urine Occult Blood Negative Urine Nitrate Negative Urine Bilirubin Negative Urine Urobilinogen 0.2 Ur Leukocyte Esterase Negative Urine RBC None seen Urine WBC None seen Ur Squamous Epith Cells 0-1 /hpf Urine Bacteria None seen Ur Culture Indicated? Cult not indicated Micro UA Comment Microscopic normal U Opiates 300ng/mL cut Negative Ur Oxycodone Screen Negative Urine Methadone Screen Negative Ur Barbiturates Screen Negative U Tricyclic Antidepress Negative Ur Phencyclidine Scrn Negative Ur Amphetamines Screen Negative U Methamphetamines Scrn Negative Ur MDMA Scrn (Ecstasy) Negative U Benzodiazepines Scrn Negative Urine Cocaine Screen Negative U Marijuana (THC) Screen Negative Ethyl Alcohol Assessment & Plan Assessment & Plan narrative: This patient requires acute care inpatient hospital management for neurological deficits to rule out TIA versus stroke. The patient is at much higher risk for medical and surgical complications because of her alcohol intoxication. These factors increase the difficulty and complexity of medical and surgical interventions and increases the chances of poor outcomes such as morbidity and mortality, as well as complications resulting from alcohol withdrawal. The patient's history of tobacco abuse and vaping will impact her oxygenation, which contribute to cardiovascular and cardiopulmonary disease risks. Patient's expected length of stay no longer than 2 midnights. 1. Neurological deficit (Left-sided facial droop/slurred speech/ left leg weakness) rule out possible TIA vs Stroke in the setting of alcohol intoxication and history of TBI, acute, guarded, present on admission -During report from Dr. Thomas (ED) she had consulted with tele stroke who determined that the patient's symptoms were not significant enough to warrant tPA or further interventions and it was recommended that the patient be admitted for MR stroke protocol. -differential diagnosis TIA, stroke symptoms lasting greater than 24 hours, ischemic stroke, intracranial hemorrhage, subdural hematoma, epidural hematoma, seizure, brain tumor, migraine, vertigo, hypoglycemia, Yue [place] syndrome, multiple sclerosis, aortic dissection -I suspect this is a TIA exacerbated by chronic alcohol abuse and Suboxone management. Vital signs q.4 hours, neuro checks q shift, notify provider for temp greater than 38 C, heart rate >100 -treat systolic blood pressure>220 or diastolic blood pressure> 120 -activity bed rest until initial physical therapy assessment is performed, then mobilize KA[place]LYN as guided by Physical therapy, strict fall precautions. -supplemental O2 to maintain> 94%, check capillary blood glucose q.6 hours. -Diet NPO until swallow evaluation is done, then Regular Diet if cleared -fluids:NS 100cc/hr -Medications: Aspirin 325 mg p.o. q.day within 48 hours, Plavix 75 mg daily, atorvastatin 80 mg daily -labs CBC with platelets, PT/PTT/INR, CMP, TSH, troponins, glucose, hemoglobin A1c, Lipid panel -neurology consult, PT/OT evaluations -ABCD 2 score, NIH:3 -diagnostics, non-contrast Brain CT: No acute intracranial disease process. CTA head & neck: No acute intracranial disease process, No large vessel occlusion, vascular stenosis, vascular dissection or aneurysm. negative for acute processes. MR ordered for tomorrow -discharge planning establish patient has a safe home environment if going home 2. Alcohol intoxication, acute on chronic, present on admission -as evidenced by ethanol alcohol level of 290 on admit. -patient placed telemed: EKG in the ED demonstrated normal sinus rhythm with a ventricular rate of 94, low-voltage QRSs and prolonged QT interval. -patient admit under [facility] protocol to monitor and manage alcohol withdrawal. -consideration will be given to alcohol cessation education at the time of discharge. 3. History of narcotic abuse, on Suboxone management, chronic, not present on admission -continue patient's Suboxone 8 mg films sublingually 3 times daily, patient to continue follow up with Dr. Fajardo from [facility]. 4. History of traumatic brain injury with resulting peripheral neuropathy, chronic, not present on admission -continue patient's gabapentin 600 mg t.i.d. 5. History of tobacco abuse/current vaping with nicotine dependence, acute on chronic, present on admission -patient education provided regarding vaping and tobacco cessation. Code status: Full code Surrogate decision maker:Sister Mary Campbell COVID PCR: Negative VTE/DVT prophylaxis: Medication Contraindicated Plavix 75 mg provided and SCD's Scores GCS Sathish coma scale eye opening: Spontaneous Sathish coma scale verbal response: Orientated [place] coma scale motor response: Obey commands Sathish coma scale total score: 15 ABCD2 Age >= 60 years: no Initial BP. Either SBP >= 140 or DBP >= 90.: no Clinical features of the TIA: unilateral weakness Duration of symptoms: >= 60 minutes History of diabetes: no ABCD2 Score: 4 NIHSS Level of Conciousness: Alert, keenly responsive Ask month/age: Answers both questions correctly. Open/close eyes, close hand: Performs both tasks correctly Best gaze horizontal: Normal Visual jaquez: No visual loss Facial palsy: Minor paralysis, flattened nasolabial fold, asymmetry on smiling Left arm drift: No drift for full 10 sec Right arm drift: No drift for full 10 sec Left leg drift: No drift for full 5 sec Right leg drift: No drift for full 5 sec Limb ataxia: Absent Sensory on face/arms/legs: Normal, no sensory loss Best language: Mild to moderate, slurs some words Dysarthria: Mild to mod,some slurring Extinction or inattention: No abnormality Total NIH Stroke scale score: 3 Quality Stroke Contraindication Not Initiating IV-Tpa: Not indicated Onset of Symptoms Date: 11/24/20 Onset of Symptoms Time: 19:31 MIPS - Admit I confirm the patient?s Advance Care Plan is present, Code status is documented, Surrogate decision maker is in patient?s record [If Yes, STOP here]: Yes
[2020-11-24 22:44] LABS: COVID19 - ADMIT (NP swab/PCR) Negative (Negative)
[2020-11-24] MEDS: SODIUM CHLORIDE 0.9% 1,000 ML 100 ML IV (22:58)
--- NOTE | 2020-11-25 00:01 | PC.NURSE ---
pt A&OX3, oriented pt to room. c/o back pain but tolerable. refused pain meds. admission assessment and skin assessment done.bed alarm active. tele. seizure precautions.
[2020-11-25 02:00] VITALS: BP 138/80; PULSE 88; RESP 18; TEMP 37.1; O2SAT 98
--- NOTE | 2020-11-25 02:17 | PC.NURSE ---
Pt to room 212 just prior to start of NOC shift. Side rails padded per CIWA protocol. Pt is alert and oriented. Swallow screen performed and Pt passed without difficulty. CIWA positive for occasional slurring of words and mild headache. NIH positive for slight slurring of words. Slightly unsteady when walking to the bathroom. Spouse Jaret is rooming in. Pt and Spouse oriented to room, call light, bed controls, and tv controls. Bed alarm on for safety and Pt agrees to call for assistance as needed and to not get up without assistance.
[2020-11-25 06:00] VITALS: BP 135/88; PULSE 84; RESP 20; TEMP 36.8; O2SAT 99
[2020-11-25 06:12] LABS: Add Manual Diff / Slide Review NO; Basophils Absolute Auto 0 /uL (0-100); Basophils Percent Auto 0.9 % (0-2); Eosinophils Absolute Auto 100 /uL (0-450); Eosinophils Percent Auto 2.6 % (2-4); Hemoglobin 11.6 g/dL (12.0-16.0); Lymphocytes Absolute Auto 1700 /uL (1100-4500); Mean Corpuscular HGB Conc 34.2 % (30-36); Mean Corpuscular Hemoglobin 36.1 PG (26-34); Mean Corpuscular Volume 105.6 fL (80-100); Monocytes Absolute Auto 300 /uL (0-900); Monocytes Percent Auto 8.1 % (3-14); Neutrophils Absolute Auto 1100 /uL (1500-7000); Neutrophils Percent Auto 35.4 % (50-75); Platelet Count 121 X10^3/uL (150-400); Red Blood Cell Count 3.22 X10^6/uL (4.0-5.2); Red Cell Distribution Width 17.5 % (11.6-14.8); White Blood Cell Count 3.2 X10^3/uL (4.5-11.0)
[2020-11-25 06:15] LABS: INR 1.2 (0.9-1.3); Prothrombin Time 13.7 SECONDS (10.1-12.7)
[2020-11-25 06:20] LABS: Alanine Aminotransferase 27 IU/L (<35); Albumin 3.1 g/dL (3.5-5.0); Alkaline Phosphatase 66 U/L (38-126); Aspartate Aminotransferase 83 IU/L (14-36); BUN Creatinine Ratio 15.9 (6-22); Bilirubin Total 0.3 mg/dL (0.2-1.3); Blood Urea Nitrogen 7 mg/dL (7-17); Calcium 8.1 mg/dL (8.4-10.2); Carbon Dioxide 29 mmol/L (22-32); Chloride 106 mmol/L (98-107); Cholesterol 121 mg/dL (140-199); Estimated Glomerular Filt Rate > 60.0 mL/min (>60); Globulin 3.1 g/dL (1.7-4.1); Glucose 83 mg/dL (70-100); HDL Cholesterol 24 mg/dL (40-60); HEMOLYSIS < 15 (0-50); Sodium 141 mmol/L (137-145); Total Protein 6.2 g/dL (6.3-8.2)
[2020-11-25 06:32] LABS: NT-proBNP (BNP-Adult 18+) 144 pg/mL (<125); Troponin I 0.014 ng/mL (0.01-0.034)
[2020-11-25 06:33] LABS: Hemoglobin A1C% w Est Avg Glu 5.1 % (4.0-6.0)
[2020-11-25 06:36] LABS: Triglycerides 777 mg/dL (35-150)
[2020-11-25 07:43] LABS: Adenovirus F 40/41 Not Detected (Not Detect); Astrovirus Not Detected (Not Detect); Campylobacter Not Detected (Not Detect); Clostridium difficile toxin AB Not Detected (Not Detect); Cryptosporidium Not Detected (Not Detect); Cyclospora cayetanensis Not Detected (Not Detect); Entamoeba histolytica Not Detected (Not Detect); Enteroaggregative E.coli Not Detected (Not Detect); Enteropathogenic E.coli Not Detected (Not Detect); Enterotoxigenic E.coli It/st Not Detected (Not Detect); Giardia lamblia Not Detected (Not Detect); Norovirus GI/GII Not Detected (Not Detect); Plesiomonsa shigelloides Not Detected (Not Detect); Rotavirus A Not Detected (Not Detect); Salmonella Not Detected (Not Detect); Sapovirus Not Detected (Not Detect); Shiga-like toxin-prod E.coli Not Detected (Not Detect); Shigella/Enteroinvasive E.coli Not Detected (Not Detect); Vibrio Not Detected (Not Detect); Vibrio cholerae Not Detected (Not Detect); Yersinia enterocolitica Not Detected (Not Detect)
[2020-11-25] MEDS: GABAPENTIN 300 MG CAPSULE 600 MG PO (07:45)
[2020-11-25] MEDS: BUPRENORPHINE/NALOXONE 8MG/2MG 1 TAB SL (07:45)
[2020-11-25] MEDS: MULTIVITAMIN 1 TABLET 1 TAB PO (09:06)
[2020-11-25] MEDS: FOLIC ACID 1 MG TABLET PO (09:06)
[2020-11-25] MEDS: THIAMINE 100 MG TABLET PO (09:06)
[2020-11-25] MEDS: ASPIRIN EC 325 MG TABLET PO (09:06)
[2020-11-25] MEDS: CLOPIDOGREL 75 MG TABLET PO (09:09)
[2020-11-25 09:11] VITALS: BP 128/89; PULSE 84; RESP 14; TEMP 36.2; O2SAT 98
--- NOTE | 2020-11-25 09:34 | PM.DS.1 ---
History of Present Illness History of Present Illness Date Patient Seen: 11/25/20 Time Patient Seen: 09:34 Chief complaint: states stroke Narrative: Per Renetta Bettencourt, WAFER FABRICATION OPERATOR-JAZMYNE: Patient is a 54-year-old female Jenni Rosales who presented to the ED as a code stroke. The patients spouse stated that her last known well was 7:00 p.m. she was sitting at the table eating pizza. He went outside for an unknown period of time, when he came back inside she had some difficulty speaking and some generalized weakness. She admits to drinking 2 alcoholic beverages only. Patient complians of generalized weakness, with obvious speech difficulty and complains of her lips being numb. She is able to answer questions and follow commands. No prior history of stroke but has history of TBI with resulting memory issues and peripheral neuropathy. Patient also states that she has had diarrhea ongoing for the last 7 days. She has also been on antibiotics for a facial rash and wound infections including Keflex and doxycycline. Patient denies chest pain, shortness of breath, vomiting, recent injury or trauma. Patient has a history of substance(Vicodin), tobacco and alcohol abuse. Patient states that she no longer abuses Vicodin, and is prescribed Suboxone 8 mg 3 times daily, and she switched cigarettes to vaping a few years ago and verbalizes she no longer drinks alcohol. Patient is complaining of some chronic mild low back pain and abdominal pain and bloating. The patient states that she is had severe diarrhea x6 days with occasional blood in her stool to the point that she has had to wear a diaper that began after she started the antibiotics she was given for a sutured left foot laceration that became infected. The patient then developed an allergic facial rash to the antibiotics in which she was seen by dermatology and then changed to another antibiotic. Patient states that she has been on antibiotics for approximately 1 month. Patient has a history of substance(Vicodin), tobacco and alcohol abuse. Patient states that she no longer abuses Vicodin, and is prescribed Suboxone 8 mg 3 times daily, and she switched cigarettes to vaping a few years ago and verbalizes she no longer drinks alcohol. Patient was found to have alcohol level of 290 on admit. Patient's vitals at the time of admit temp 98.9?, BP 124/70, HR 88, RR 12, O2 saturation 95% on room air. Patient's CBC and chemistries are unremarkable with the exception of glucose of 125, AST of 114, troponin 0.016, urinalysis is negative,alcohol of 290, patient's head neck CTA and brain CT are unremarkable. Patient is admitted for neurological deficit rule out TIA versus stroke, possible alcohol intoxication. NIH score:3 EKG: Normal sinus rhythm, ventricular rate 94, with low voltage QRS, and prolonged QT interval. Discharge Providers Provider Date of admission: 11/24/20 21:31 Discharge Date: 11/25/20 Primary care physician: Ej Jimenez MD Consults: 11/24/20 21:28 Consult to Discharge Planning Routine Comment: Consult to Occupational Therapy Evaluate & Treat Comment: Physician Instructions: Evaluate and treat Consult to Physical Therapy Evaluate & Treat Comment: Physician Instructions: Evaluate and Treat Consult to Speech Therapy Evaluate & Treat Comment: Physician Instructions: Evaluate and treat 11/24/20 21:33 Consult to Dietitian, Adult Routine Comment: Reason For Exam: Alcohol abuse Discharge provider: Jose A Duffy DO Summary Hospital Course Discharge Diagnosis: 1. slurred speech, weakness, resolved. 2. Alcohol intoxication, acute, present on admission 3. History of narcotic abuse, on Suboxone management, chronic, not present on admission 4. History of traumatic brain injury with resulting peripheral neuropathy, chronic, not present on admission 5. History of tobacco abuse/current vaping with nicotine dependence, acute on chronic, present on admission 6. diarrhea, improved. Hospital Course: This is a 54 year old female with PMH of alcohol use, narcotic abuse, prior TBI who was admitted with concern from the ER provider for a TIA. Symptoms had resolved by time of admission to the hospital floor. Per ER documentation, she had R leg weakness and left sided facial droop, which would not clincially correlate to one territory. She also received a point for slurred speech on her NIHSS. The following morning, she had no deficits other than continued slurred speech and she appeared to be still slightly intoxicated. Alcohol level on admission was 290. Her MRI stroke protocol was negative for acute infarcts. While it may is possible this was due to a TIA, most likely etiology of her symptoms remain alcohol intoxication. Given potential benefit she was started on aspirin and statin therapy for possible secondary prevention and encouraged to quit drinking alcohol. She can follow up with her PCP in the next month or so to determine if these medications should be continued. For her diarrhea she had a negative GI panel. Her symptoms improved and the following morning she was tolerating a diet. Given negative GI panel loperamide can be taken at home for symptom relief. Exam Vital Signs (past 8 hours): - 11/25/20 02:00 11/25/20 06:00 11/25/20 09:11 Temperature 98.8 F 98.2 F 97.2 F L Pulse Rate 88 84 84 Respiratory Rate 18 20 14 Blood Pressure 138/80 135/88 128/89 Pulse Oximetry 98 99 98 Oxygen Delivery Method Room Air Oxygen Flow Rate 0 Narrative Exam Narrative: General: Patient is a well-developed, well-nourished pleasant female who appears still mildly intoxicated, in no distress at this time. HEENT: Normocephalic, atraumatic, extraocular muscles intact, oral pharynx is clear and mucous membranes are moist. Neck is supple and symmetric, trachea is midline Chest: Normal AP diameter and contour without kyphoscoliosis, no nasal flaring, retractions, or tachypneic labored Lungs: Auscultation of all lung jaquez are clear without adventitious sounds, wheezes, rhonchi, or rales. Cardio: S1 & S2 with regular rate and rhythm without murmur, rubs, or gallops, no carotid bruit, no cardiac pulsations present. Abdomen: Soft, distended, mild lower left tenderness with palpation, negative for organomegaly, or masses. Bowel sounds hyperactive are present in all 4 quadrants without guarding or rebound, no CVA tenderness. Musculoskeletal: Muscle strength and tone are equal within normal limits, no deformity, crepitus, effusions, cyanosis, clubbing or edema present. Full range of motion intact radial and pedal pulses are normal. Skin: Warm dry and intact without ulcerations or petechiae. With the exception of the erythematous macular rash to bilateral cheeks. Neuro: Alert and orientated x3, strength is +5/5 in all extremities, sensation to touch intact, no gross deficits noted of cranial nerves. Psych: Patient has a slightly disheveled appearance, appropriate affect. Objective Labs Result Diagrams: 11/25/20 05:30 11/25/20 05:30 Labs: Laboratory Results - last 24 hr 11/24/20 11/24/20 11/24/20 20:00 20:00 20:00 WBC 5.5 RBC 3.68 L Hgb 13.4 Hct 38.9 MCV 105.9 H MCH 36.4 H MCHC 34.4 RDW 17.9 H Plt Count 159 Neut % (Auto) 40.8 L Lymph % (Auto) 47.8 H [place] % (Auto) 9.1 Eos % (Auto) 1.5 L Baso % (Auto) 0.8 Neut # (Auto) 2300 Lymph # (Auto) 2600 [place] # (Auto) 500 Eos # (Auto) 100 Baso # (Auto) 0 PT INR Sodium 137 Potassium 3.7 Chloride 100 Carbon Dioxide 27 BUN 8 Creatinine 0.53 Estimated GFR > 60.0 BUN/Creatinine Ratio 15.1 Glucose 125 H Hemoglobin A1c Calcium 8.9 Magnesium 1.9 Total Bilirubin 0.4 AST 114 H ALT 34 Alkaline Phosphatase 90 Total Creatine Kinase 68 CK-MB (CK-2) TNP CK-MB (CK-2) Rel Index TNP Troponin I 0.016 NT-Pro-B Natriuret Pep Total Protein 8.0 Albumin 4.1 Globulin 3.9 Albumin/Globulin Ratio 1.1 Triglycerides Cholesterol LDL Cholesterol, Calc HDL Cholesterol Urine Color Urine Appearance Urine pH Ur Specific [place] Urine Protein Urine Glucose (UA) Urine Ketones Urine Occult Blood Urine Nitrate Urine Bilirubin Urine Urobilinogen Ur Leukocyte Esterase Urine RBC Urine WBC Ur Squamous Epith Cells Urine Bacteria Ur Culture Indicated? Micro UA Comment Stl C. cayetanensis PCR Stool Rotavirus (PCR) Stool Adenovirus (PCR) Stool Astrovirus (PCR) Stool Cryptosporidium PCR Stl E.coli Shiga Tox PCR St Sh/Enteroin Ecoli PCR Stool E coli O157 PCR Stl Enterotoxigenic E PCR Stool EPEC (PCR) Stl E. histolytica PCR Stool Giardia Lamblia PCR Stool Sapovirus (PCR) Stl P. shigelloides PCR St Y.enterocolitica PCR Stool Vibrio (PCR) Stl Vibrio cholerae PCR Stl Enteroaggr Ecoli PCR Stl Norovirus GI/GII PCR U Opiates 300ng/mL cut Ur Oxycodone Screen Urine Methadone Screen Ur Barbiturates Screen U Tricyclic Antidepress Ur Phencyclidine Scrn Ur Amphetamines Screen U Methamphetamines Scrn Ur MDMA Scrn (Ecstasy) U Benzodiazepines Scrn Urine Cocaine Screen U Marijuana (THC) Screen Ethyl Alcohol 290 H Campylobacter (PCR) C. difficile Tox (PCR) SARS-CoV-2 (PCR) Salmonella (PCR) 11/24/20 11/24/20 11/24/20 20:45 20:45 21:47 WBC RBC Hgb Hct MCV MCH MCHC RDW Plt Count Neut % (Auto) Lymph % (Auto) [place] % (Auto) Eos % (Auto) Baso % (Auto) Neut # (Auto) Lymph # (Auto) [place] # (Auto) Eos # (Auto) Baso # (Auto) PT INR Sodium Potassium Chloride Carbon Dioxide BUN Creatinine Estimated GFR BUN/Creatinine Ratio Glucose Hemoglobin A1c Calcium Magnesium Total Bilirubin AST ALT Alkaline Phosphatase Total Creatine Kinase CK-MB (CK-2) CK-MB (CK-2) Rel Index Troponin I NT-Pro-B Natriuret Pep Total Protein Albumin Globulin Albumin/Globulin Ratio Triglycerides Cholesterol LDL Cholesterol, Calc HDL Cholesterol Urine Color Yellow Urine Appearance Clear Urine pH 6.0 Ur Specific [place] <=1.005 Urine Protein Negative Urine Glucose (UA) Negative Urine Ketones Negative Urine Occult Blood Negative Urine Nitrate Negative Urine Bilirubin Negative Urine Urobilinogen 0.2 Ur Leukocyte Esterase Negative Urine RBC None seen Urine WBC None seen Ur Squamous Epith Cells 0-1 /hpf Urine Bacteria None seen Ur Culture Indicated? Cult not indicated Micro UA Comment Microscopic normal Stl C. cayetanensis PCR Stool Rotavirus (PCR) Stool Adenovirus (PCR) Stool Astrovirus (PCR) Stool Cryptosporidium PCR Stl E.coli Shiga Tox PCR St Sh/Enteroin Ecoli PCR Stool E coli O157 PCR Stl Enterotoxigenic E PCR Stool EPEC (PCR) Stl E. histolytica PCR Stool Giardia Lamblia PCR Stool Sapovirus (PCR) Stl P. shigelloides PCR St Y.enterocolitica PCR Stool Vibrio (PCR) Stl Vibrio cholerae PCR Stl Enteroaggr Ecoli PCR Stl Norovirus GI/GII PCR U Opiates 300ng/mL cut Negative Ur Oxycodone Screen Negative Urine Methadone Screen Negative Ur Barbiturates Screen Negative U Tricyclic Antidepress Negative Ur Phencyclidine Scrn Negative Ur Amphetamines Screen Negative U Methamphetamines Scrn Negative Ur MDMA Scrn (Ecstasy) Negative U Benzodiazepines Scrn Negative Urine Cocaine Screen Negative U Marijuana (THC) Screen Negative Ethyl Alcohol Campylobacter (PCR) C. difficile Tox (PCR) SARS-CoV-2 (PCR) Negative Salmonella (PCR) 11/25/20 11/25/20 11/25/20 05:30 05:30 05:30 WBC 3.2 L RBC 3.22 L Hgb 11.6 L Hct 34.0 L MCV 105.6 H MCH 36.1 H MCHC 34.2 RDW 17.5 H Plt Count 121 L Neut % (Auto) 35.4 L Lymph % (Auto) 53.0 H [place] % (Auto) 8.1 Eos % (Auto) 2.6 Baso % (Auto) 0.9 Neut # (Auto) 1100 L Lymph # (Auto) 1700 [place] # (Auto) 300 Eos # (Auto) 100 Baso # (Auto) 0 PT 13.7 H INR 1.2 Sodium 141 Potassium 4.0 Chloride 106 Carbon Dioxide 29 BUN 7 Creatinine 0.44 L Estimated GFR > 60.0 BUN/Creatinine Ratio 15.9 Glucose 83 Hemoglobin A1c Calcium 8.1 L Magnesium Total Bilirubin 0.3 AST 83 H ALT 27 Alkaline Phosphatase 66 Total Creatine Kinase CK-MB (CK-2) CK-MB (CK-2) Rel Index Troponin I 0.014 NT-Pro-B Natriuret Pep 144 H Total Protein 6.2 L Albumin 3.1 L Globulin 3.1 Albumin/Globulin Ratio 1.0 Triglycerides 777 H Cholesterol 121 L LDL Cholesterol, Calc TNP HDL Cholesterol 24 L Urine Color Urine Appearance Urine pH Ur Specific [place] Urine Protein Urine Glucose (UA) Urine Ketones Urine Occult Blood Urine Nitrate Urine Bilirubin Urine Urobilinogen Ur Leukocyte Esterase Urine RBC Urine WBC Ur Squamous Epith Cells Urine Bacteria Ur Culture Indicated? Micro UA Comment Stl C. cayetanensis PCR Stool Rotavirus (PCR) Stool Adenovirus (PCR) Stool Astrovirus (PCR) Stool Cryptosporidium PCR Stl E.coli Shiga Tox PCR St Sh/Enteroin Ecoli PCR Stool E coli O157 PCR Stl Enterotoxigenic E PCR Stool EPEC (PCR) Stl E. histolytica PCR Stool Giardia Lamblia PCR Stool Sapovirus (PCR) Stl P. shigelloides PCR St Y.enterocolitica PCR Stool Vibrio (PCR) Stl Vibrio cholerae PCR Stl Enteroaggr Ecoli PCR Stl Norovirus GI/GII PCR U Opiates 300ng/mL cut Ur Oxycodone Screen Urine Methadone Screen Ur Barbiturates Screen U Tricyclic Antidepress Ur Phencyclidine Scrn Ur Amphetamines Screen U Methamphetamines Scrn Ur MDMA Scrn (Ecstasy) U Benzodiazepines Scrn Urine Cocaine Screen U Marijuana (THC) Screen Ethyl Alcohol Campylobacter (PCR) C. difficile Tox (PCR) SARS-CoV-2 (PCR) Salmonella (PCR) 11/25/20 11/25/20 11/25/20 05:30 06:10 06:10 WBC RBC Hgb Hct MCV MCH MCHC RDW Plt Count Neut % (Auto) Lymph % (Auto) [place] % (Auto) Eos % (Auto) Baso % (Auto) Neut # (Auto) Lymph # (Auto) [place] # (Auto) Eos # (Auto) Baso # (Auto) PT INR Sodium Potassium Chloride Carbon Dioxide BUN Creatinine Estimated GFR BUN/Creatinine Ratio Glucose Hemoglobin A1c 5.1 Calcium Magnesium Total Bilirubin AST ALT Alkaline Phosphatase Total Creatine Kinase CK-MB (CK-2) CK-MB (CK-2) Rel Index Troponin I NT-Pro-B Natriuret Pep Total Protein Albumin Globulin Albumin/Globulin Ratio Triglycerides Cholesterol LDL Cholesterol, Calc HDL Cholesterol Urine Color Urine Appearance Urine pH Ur Specific [place] Urine Protein Urine Glucose (UA) Urine Ketones Urine Occult Blood Urine Nitrate Urine Bilirubin Urine Urobilinogen Ur Leukocyte Esterase Urine RBC Urine WBC Ur Squamous Epith Cells Urine Bacteria Ur Culture Indicated? Micro UA Comment Stl C. cayetanensis PCR Not detected Stool Rotavirus (PCR) Not detected Stool Adenovirus (PCR) Not detected Stool Astrovirus (PCR) Not detected Stool Cryptosporidium PCR Not detected Stl E.coli Shiga Tox PCR Not detected St Sh/Enteroin Ecoli PCR Not detected Stool E coli O157 PCR Not detected Stl Enterotoxigenic E PCR Not detected Stool EPEC (PCR) Not detected Stl E. histolytica PCR Not detected Stool Giardia Lamblia PCR Not detected Stool Sapovirus (PCR) Not detected Stl P. shigelloides PCR Not detected St Y.enterocolitica PCR Not detected Stool Vibrio (PCR) Not detected Stl Vibrio cholerae PCR Not detected Stl Enteroaggr Ecoli PCR Not detected Stl Norovirus GI/GII PCR Not detected U Opiates 300ng/mL cut Ur Oxycodone Screen Urine Methadone Screen Ur Barbiturates Screen U Tricyclic Antidepress Ur Phencyclidine Scrn Ur Amphetamines Screen U Methamphetamines Scrn Ur MDMA Scrn (Ecstasy) U Benzodiazepines Scrn Urine Cocaine Screen U Marijuana (THC) Screen Ethyl Alcohol Campylobacter (PCR) Not detected C. difficile Tox (PCR) Cancelled Not detected SARS-CoV-2 (PCR) Salmonella (PCR) Not detected [facility] Medical History (Updated 11/24/20 @ 23:56 by KATHERINE Santizo) Alcohol abuse History of narcotic addiction Leg pain Peripheral neuropathy TBI (traumatic brain injury) Tobacco abuse Surgical History (Updated 11/24/20 @ 23:56 by KATHERINE Santizo) History of cholecystectomy Family History Mother History of recurrent TIAs Father Heart disease Social History household members: spouse Smoking Status: Current some day smoker Discharge Plan Discharge Plan Patient Disposition: Home Provider Discharge Comment: You were admitted to the hospital with facial weakness concerning for a TIA. Your MRI did not show any strokes. Please follow up with your PCP in the next few weeks to review your symptoms and for further refills of these medications. The medications prescribed are to help reduce the risk of having another stroke or TIA. Please try and cut down on alcohol use as well. Discharge orders & Medications Prescriptions: New aspirin 81 mg tablet,delayed release (DR/EC) 81 mg PO DAILY 30 Days Qty: 30 RF: 0 atorvastatin 40 mg tablet 40 mg PO BEDTIME 30 Days Qty: 30 RF: 0 Continued gabapentin [Neurontin] 300 MG capsule 600 mg PO TID Qty: 0 RF: 0 buprenorphine-naloxone [Suboxone] 8-2 mg film 8 film sublingual TID RF: 0 Follow up/Referrals: Ej Jimenez MD [Primary Care Provider] - Diet/Activity/Treatments Diet: Diet as Tolerated Activity: As tolerated Discharge Data Primary Care Provider: Ej Jimenez Attending Provider: Renetta Bettencourt Quality Stroke Contraindication Not Initiating IV-Tpa: Not indicated Onset of Symptoms Date: 11/24/20 Onset of Symptoms Time: 19:31
--- NOTE | 2020-11-25 10:10 | PC.NURSE ---
Discharge note: Patient discharged home per MD order. Independent in room, dressed self. NIH 0. CIWA 0. Discussed importance of F/U with PMD, new RX, medication adherence, dietary modifications, lifestyle changes, and s/sx of stroke. Home via private vehicle, accompanied by Gisselle Baker.
--- NOTE | 2020-11-25 12:23 | CM.DANOTE ---
Discharge Planning/Care Management DCP: Note: case received, EMR reviewed and discuss in Team Rounds. Pt is a 54 year old female who admitted to care of hospitalist team last night. Dr. Duffy stated that he had already cleared pt for d/c to home. A check in shows that pt left for home with her partner Samuel before Rounds ended. Payer: [facility]/Medicaid PCP: listed as Ej Jimenez CM Discharge Assessment Start: 11/25/20 12:22 Freq: Status: Active Protocol: Document 11/25/20 12:22 ITV (Rec: 11/25/20 12:23 ITV [id number]) Discharge Planning Assessment Advance Directives? No History Provided By Medical Record Prior Living Arrangements House Household Members spouse Discharge Plan Home
== END 2020-11-25 10:44 | disposition home or self-care (01) ==
LOC: ED 21:25 → AC 21:32
PROVIDERS: Admitting Provider Nurse Practitioner Family; Emergency Provider Emergency Medicine; PCP Family Medicine; Referring Provider Emergency Medicine; Visit Provider Nurse Practitioner Family
DX: R53.1 Weakness (principal); R47.89 Other speech disturbances; F10.129 Alcohol abuse with intoxication, unspecified; Y90.8 Blood alcohol level of 240 mg/100 ml or more; F17.290 Nicotine dependence, other tobacco product, uncomplicated; Z87.820 Personal history of traumatic brain injury; F11.11 Opioid abuse, in remission; G62.9 Polyneuropathy, unspecified; Z20.822 Contact with and (suspected) exposure to COVID-19
CPT/HCPCS: 36415; 70450; 70496; 70498; 70548; 70553; 80053; 80061; 80305; 80320; 81001; 82550; 82962; 83036; 83735; 83880; 84484; 85025; 85610; 87507; 87635; 93005; 96360; 99285; C9803; G0378; A9579; Q9967

== ENCOUNTER → 2021-03-13 17:21 | Outpatient (CLI) | payer OTHER, MEDICAID, SELFPAY ==
[2020-11-24 22:40] VITALS: BMI 25.4
--- NOTE | 2021-03-13 17:26 | DI.RAD.S_ITS ---
PROCEDURE: XR HAND LT MIN 3V INDICATIONS: fingers 4-5 slammed in door TECHNIQUE: 3 views of the hand(s) acquired. COMPARISON: [facility], CR, XR HAND LT MIN 3V, 04/10/2020, 11:32. FINDINGS: Bones: Acute comminuted fractures involving 4th and 5th distal phalangeal ashley are seen with minimal displacement at fracture site. Carpal bones are normally aligned. No suspicious bony lesions. Soft tissues: No suspicious soft tissue calcifications. IMPRESSION: Minimally displaced and comminuted fractures involving 4th and 5th distal phalangeal tuft. Dictated by: Joey Richey M.D. on 03/13/2021 at 17:45 Approved by: Joey Richey M.D. on 03/13/2021 at 17:47
== END ==
PROVIDERS: PCP Family Medicine; Referring Provider Nurse Practitioner Family; Visit Provider Nurse Practitioner Family
DX: S69.90XA Unspecified injury of unspecified wrist, hand and finger(s), initial encounter (principal); S62.635A Displaced fracture of distal phalanx of left ring finger, initial encounter for closed fracture; S62.637A Displaced fracture of distal phalanx of left little finger, initial encounter for closed fracture
CPT/HCPCS: 73130

== ENCOUNTER 2021-08-01 12:44 | Emergency (ER) | payer OTHER, MEDICAID, SELFPAY ==
[2020-11-24 22:40] VITALS: BMI 25.4
[2021-08-01 12:59] VITALS: BP 140/86; PULSE 100; RESP 14; TEMP 36.2; O2SAT 97; BMI 22.3
--- NOTE | 2021-08-01 13:04 | DI.RAD.S_ITS ---
PROCEDURE: XR CHEST 1V INDICATIONS: chest pain TECHNIQUE: One view of the chest was acquired. COMPARISON: [facility], CR, XR CHEST 1 VIEW, 12/14/2019, 18:03. [facility], CR, XR CHEST 1 VIEW, 02/14/2021, 15:32. FINDINGS: Surgical changes and devices: In the containing impression there is no enlarged the Lungs and pleura: Lungs are clear. No pleural effusions or pneumothorax. Mediastinum: Mediastinal contours appear normal. Heart size is normal. Bones and chest wall: No suspicious bony lesions. Overlying soft tissues appear unremarkable. IMPRESSION: No acute cardiopulmonary disease. Dictated by: Janee Charles M.D. on 08/01/2021 at 13:58 Approved by: Janee Charles M.D. on 08/01/2021 at 14:00
[2021-08-01 13:24] LABS: Add Manual Diff / Slide Review NO; Basophils Absolute Auto 0 /uL (0-100); Basophils Percent Auto 1.3 % (0-2); Eosinophils Absolute Auto 100 /uL (0-450); Eosinophils Percent Auto 2.9 % (2-4); Hematocrit 36.6 % (36-46); Hemoglobin 12.5 g/dL (12.0-16.0); Lymphocytes Absolute Auto 1900 /uL (1100-4500); Lymphocytes Percent Auto 56.6 % (25-40); Mean Corpuscular HGB Conc 34.1 % (30-36); Mean Corpuscular Hemoglobin 34.3 PG (26-34); Mean Corpuscular Volume 100.7 fL (80-100); Monocytes Absolute Auto 400 /uL (0-900); Monocytes Percent Auto 12.2 % (3-14); Neutrophils Absolute Auto 900 /uL (1500-7000); Platelet Count 160 X10^3/uL (150-400); Red Blood Cell Count 3.63 X10^6/uL (4.0-5.2); Red Cell Distribution Width 18.8 % (11.6-14.8); White Blood Cell Count 3.3 X10^3/uL (4.5-11.0)
[2021-08-01 13:31] LABS: Prothrombin Time 11.7 SECONDS (10.1-12.7)
[2021-08-01 13:34] LABS: PTT Partial Thromboplastin Tim 35 SECONDS (26.4-36.2)
[2021-08-01 13:35] LABS: Alanine Aminotransferase 26 IU/L (<35); Albumin 4.3 g/dL (3.5-5.0); Albumin Globulin Ratio 1.2 (1.0-2.8); Alkaline Phosphatase 71 U/L (38-126); Aspartate Aminotransferase 64 IU/L (14-36); BUN Creatinine Ratio 5.8 (6-22); Bilirubin Total 0.3 mg/dL (0.2-1.3); Blood Urea Nitrogen 3 mg/dL (7-17); Calcium 8.9 mg/dL (8.4-10.2); Carbon Dioxide 34 mmol/L (22-32); Chloride 103 mmol/L (98-107); Creatine Kinase 50 U/L (30-135); Estimated Glomerular Filt Rate > 60.0 mL/min (>60); Globulin 3.6 g/dL (1.7-4.1); Glucose 95 mg/dL (70-100); HEMOLYSIS < 15 (0-50); Lipase 123 U/L (23-300); Magnesium 1.7 mg/dL (1.6-2.3); Potassium 3.9 mmol/L (3.4-5.1); Sodium 146 mmol/L (137-145); Total Protein 7.9 g/dL (6.3-8.2)
[2021-08-01 13:46] LABS: Troponin I < 0.012 ng/mL (0.01-0.034)
--- NOTE | 2021-08-01 16:00 | PC.NURSE ---
Unable to locate pt. Madonna went to lobby to bring pt to room and she was no longer out in lobby. I looked outside did not see her.
--- NOTE | 2021-08-01 16:15 | PC.NURSE ---
Pt returned to [facility]. I explained to her that we attempted to look for her and were unable to find her. She said I was right outside. I told her I looked outside for her. Another person in the [facility] spoke up and also told her that his went outside looking for her. She stood up as if to come into the ED,I explained to her that because I couldn't find her that I used her room for another patient and that she would be seen next.
--- NOTE | 2021-08-01 17:17 | ED.CHESTPAIN ---
HPI - Chest Pain General Chief Complaint: Chest Pain Stated Complaint: Numbness in left side of body Time Seen by Provider: 08/01/21 17:03 Source: patient Mode of arrival: Ambulatory Limitations: no limitations History of Present Illness HPI narrative: 55-year-old female here for evaluation of neck discomfort and numbness on her left arm. Has been going on for the past 2 weeks. No specific trauma. Has never had anything like this in the past. Has not tried anything for it prior to arrival. Related Data Home Medications Medication Instructions Recorded Confirmed gabapentin 300 mg capsule 600 mg PO TID #0 02/19/16 11/24/20 (Neurontin) buprenorphine 8 mg-naloxone 2 mg 8 film SUBLINGUAL TID 04/10/20 11/24/20 sublingual film (Suboxone) Allergies Allergy/AdvReac Type Severity Reaction Status Date / Time codeine Allergy Unknown Verified 08/01/21 12:59 droperidol Allergy Unknown Verified 08/01/21 12:59 Sulfa (Sulfonamide Allergy Unknown Verified 08/01/21 12:59 Antibiotics) Review of Systems Constitutional Constitutional: Denies fever(s) Cardiovascular Cardiovascular: Denies chest pain and Denies dyspnea Respiratory Respiratory: Denies dyspnea Musculoskeletal Musculoskeletal: Reports system reviewed and no additional complaints, except as documented and Reports as per HPI Integumentary/Breasts Skin/Breast: Reports system reviewed and no additional complaints, except as documented Neurologic Neurologic: Reports system reviewed and no additional complaints, except as documented Hematologic/Lymphatic On Anticoagulants: No Patient History Medical History Alcohol abuse History of narcotic addiction Leg pain Peripheral neuropathy TBI (traumatic brain injury) Tobacco abuse Surgical History (Updated 11/24/20 @ 23:56 by KATHERINE Santizo) History of cholecystectomy Family History Mother History of recurrent TIAs Father Heart disease Social History household members: spouse Smoking Status: Current some day smoker Smoking Status: Current some day smoker tobacco type: vaping alcohol intake frequency: 3 or more drinks per day Alcohol type: beer, wine and hard liquor Substance Use Type: prescription drug and other Exam Initial Vital Signs Initial Vital Signs: Vital Signs Temperature 97.1 F L 08/01/21 12:59 Pulse Rate 100 H 08/01/21 12:59 Respiratory Rate 14 08/01/21 12:59 Blood Pressure 140/86 08/01/21 12:59 Pulse Oximetry 97 08/01/21 12:59 HENMT Head: normal to inspection and normocephalic Resp Effort & Inspection: normal respiratory effort Cardio Rate: regular rate Back/Spine/Pelvis Other: Tenderness to palpation left paraspinal cervical region. Skin General: no rashes or lesions noted Neuro Other: Decreased sensation to light touch left hand and somewhat on her left forearm but minimal on the left upper extremity compared to the right. Extrem Other: Full range of motion left upper extremity Psych Appearance: grossly normal Course Orders Ordered: ED Orders 08/01/21 13:04 XR chest 1V Stat EKG-12 Lead Stat 08/01/21 13:10 Complete Blood Count AUTO DIFF Stat Comprehensive Metabolic Panel Stat Lipase Stat Magnesium Stat Partial Thromboplastin Time Stat Prothrombin Time INR Stat Troponin & CK Cardiac Panel Stat Vital Signs Vital signs: Vital Signs - 8 hr 08/01/21 12:59 08/01/21 17:28 Temperature 97.1 F L Pulse Rate 100 H 87 Respiratory Rate 14 16 Blood Pressure 140/86 135/96 H Pulse Oximetry 97 98 MDM - Chest Pain Lab Data Attestation: I reviewed the patient's lab results. Result diagrams: 08/01/21 13:10 08/01/21 13:10 Labs: Lab Results 08/01/21 08/01/21 08/01/21 Range/Units 13:10 13:10 13:10 WBC 3.3 L (4.5-11.0) X10^3/uL RBC 3.63 L (4.0-5.2) X10^6/uL Hgb 12.5 (12.0-16.0) g/dL Hct 36.6 (36-46) % MCV 100.7 H (80-100) fL MCH 34.3 H (26-34) PG MCHC 34.1 (30-36) % RDW 18.8 H (11.6-14.8) % Plt Count 160 (150-400) X10^3/uL Neut % (Auto) 27.0 L (50-75) % Lymph % (Auto) 56.6 H (25-40) % [place] % (Auto) 12.2 (3-14) % Eos % (Auto) 2.9 (2-4) % Baso % (Auto) 1.3 (0-2) % Neut # (Auto) 900 L (0221-9663) /uL Lymph # (Auto) 1900 (2012-5923) /uL [place] # (Auto) 400 (0-900) /uL Eos # (Auto) 100 (0-450) /uL Baso # (Auto) 0 (0-100) /uL PT 11.7 (10.1-12.7) SECONDS INR 1.0 (0.9-1.3) APTT 35 (26.4-36.2) SECONDS Sodium 146 H (137-145) mmol/L Potassium 3.9 (3.4-5.1) mmol/L Chloride 103 (98-107) mmol/L Carbon Dioxide 34 H (22-32) mmol/L BUN 3 L (7-17) mg/dL Creatinine 0.52 (0.52-1.04) mg/dL Estimated GFR > 60.0 (>60) mL/min BUN/Creatinine Ratio 5.8 L (6-22) Glucose 95 (70-100) mg/dL Calcium 8.9 (8.4-10.2) mg/dL Magnesium 1.7 (1.6-2.3) mg/dL Total Bilirubin 0.3 (0.2-1.3) mg/dL AST 64 H (14-36) IU/L ALT 26 (<35) IU/L Alkaline Phosphatase 71 (38-126) U/L Total Creatine Kinase 50 (30-135) U/L CK-MB (CK-2) TNP CK-MB (CK-2) Rel Index TNP Troponin I < 0.012 (0.01-0.034) ng/mL Total Protein 7.9 (6.3-8.2) g/dL Albumin 4.3 (3.5-5.0) g/dL Globulin 3.6 (1.7-4.1) g/dL Albumin/Globulin Ratio 1.2 (1.0-2.8) Lipase 123 (23-300) U/L Urine Dip Bedside Urine Glucose Negative Bedside Urine Bilirubin - Negative Bedside Urine Ketone - Negative Urine Specific Lena 1.010 Bedside Urine Occult Blood - Negative Bedside Urine pH 6.0 Bedside Urine Protein - Negative Bedside Urine Urobilinogen - Negative Bedside Urine Nitrite - Negative Bedside Urine Leukocytes - Negative Esterase Imaging Data Chest x-ray: Radiologist's Impression: [address] [address] XRay Report Signed Patient: Jenni Rosales MR#: [id number] : 1965 Acct:[id number] Age/Sex: 55 / F Date of Service: 08/01/21 Loc: ED Accession Number: [id number] ?? Procedure: XR chest 1V Ordering Provider: Andrews Clifton D.O. PROCEDURE:? XR CHEST 1V ? INDICATIONS:? chest pain ? TECHNIQUE:? One view of the chest was acquired.? ? COMPARISON:? [facility], CR, XR CHEST 1 VIEW, 12/14/2019, 18:03.? [facility], CR, XR CHEST 1 VIEW, 02/14/2021, 15:32. ? FINDINGS:? ? Surgical changes and devices:? In the containing impression there is no enlarged the ? Lungs and pleura:? Lungs are clear.? No pleural effusions or pneumothorax.? ? Mediastinum:? Mediastinal contours appear normal.? Heart size is normal.? ? Bones and chest wall:? No suspicious bony lesions.? Overlying soft tissues appear unremarkable.? ? IMPRESSION:? No acute cardiopulmonary disease. ? ? Dictated by: Janee Charles M.D. on 08/01/2021 at 13:58 ? ? Approved by: Janee Charles M.D. on 08/01/2021 at 14:00? ECG Data Attestation: I personally reviewed and interpreted this ECG as follows: Interpretation: Sinus rhythm Ventricular rate 92 Normal axis Normal QRS Normal QTC No ST T wave changes MDM Narrative Medical decision making narrative: History and physical today consistent with musculoskeletal etiology most likely cervical radiculopathy given her presentation. We did discuss conservative treatments for this. Will have her talk with her primary doctor about follow-up and any further interventions if needed. She expressed understanding agreement. Discharge Plan Departure Patient Disposition: Home Clinical Impression: Cervical radiculopathy Activity Restrictions/Additional Instructions: You can take anti-inflammatories such as Motrin or Naprosyn. You can purchase this [id number]. Be sure to take it with some food. Contact your primary doctor for a follow-up. Return to the emergency department for any new or worsening symptoms. Prescriptions: No Action gabapentin [Neurontin] 300 MG capsule 600 mg PO TID Qty: 0 0RF buprenorphine-naloxone [Suboxone] 8-2 mg film 8 film sublingual TID 0RF Label Comments: dissolve 1 FILM under the tongue every 8 hours Referrals: Ej Jimenez MD [Primary Care Provider] -
[2021-08-01 17:28] VITALS: BP 135/96; PULSE 87; RESP 16; O2SAT 98
--- NOTE | 2021-08-01 17:30 | PC.NURSE ---
pt discharged before nursing was able to do an assessment. assessment deferred to MD. denied chest pain upon discharge. delclined vital signs .
== END 2021-08-01 17:29 | disposition home or self-care (01) ==
PROVIDERS: Emergency Provider Emergency Medicine; PCP Family Medicine
DX: M54.12 Radiculopathy, cervical region (principal); F17.290 Nicotine dependence, other tobacco product, uncomplicated
CPT/HCPCS: 36415; 71045; 80053; 81003; 82550; 83690; 83735; 84484; 85025; 85610; 85730; 93005; 99283; 99284

== ENCOUNTER 2021-10-06 01:51 | Emergency (ER) | payer MEDICARE, MEDICAID, SELFPAY ==
[2020-11-24 22:40] VITALS: BMI 25.4
[2021-10-06 01:59] VITALS: BP 137/76; PULSE 92; RESP 16; TEMP 36.6; O2SAT 95; BMI 23.3
--- NOTE | 2021-10-06 02:13 | ED.FALL ---
HPI - Fall General Chief Complaint: Back Pain/Injury Stated Complaint: Pt. fell/ tail bone hurt Time Seen by Provider: 10/06/21 01:57 Source: patient and family () Mode of arrival: Ambulatory Limitations: no limitations History of Present Illness HPI Narrative: This is a 55-year-old female with history of TBI, drug and alcohol addiction and chronic neuropathy comes in with complaint of low back pain tailbone pain. Patient states she was in the bathroom she slipped on something wet and fell landing against the toilet and then onto the floor of the bathroom at the [facility]. Patient states she has pain in her lower back and tailbone. She has pain that radiates down her left leg. Patient denies any weakness. She denies any bowel or bladder incontinence. She denies striking her head or other injuries. Patient denies any other symptoms. No chest pain or shortness of breath. No nausea or vomiting. She does normally take Suboxone for pain and gabapentin for neuropathy in her legs. Patient denies any prior back surgeries. She has had a cholecystectomy. She does smoke, she drinks alcohol daily and states she had several drinks tonight, she denies illicit. She is accompanied by her life partner. Related Data Home Medications Medication Instructions Recorded Confirmed gabapentin 300 mg capsule 600 mg PO TID #0 02/19/16 11/24/20 (Neurontin) buprenorphine 8 mg-naloxone 2 mg 8 film SUBLINGUAL TID 04/10/20 11/24/20 sublingual film (Suboxone) Previous Rx's Medication Instructions Recorded lidocaine 5 % topical patch 1 patch TOPICAL DAILY PRN #15 ea 10/06/21 Allergies Allergy/AdvReac Type Severity Reaction Status Date / Time codeine Allergy Unknown Verified 08/01/21 12:59 droperidol Allergy Unknown Verified 08/01/21 12:59 Sulfa (Sulfonamide Allergy Unknown Verified 08/01/21 12:59 Antibiotics) Review of Systems Review of Systems ROS Unobtainable: All systems reviewed & are unremarkable except as noted in HPI and below Patient History Medical History Alcohol abuse History of narcotic addiction Leg pain Peripheral neuropathy TBI (traumatic brain injury) Tobacco abuse Surgical History History of cholecystectomy Family History Mother History of recurrent TIAs Father Heart disease Social History household members: spouse Smoking Status: Current some day smoker Smoking Status: Current some day smoker tobacco type: vaping alcohol intake frequency: 3 or more drinks per day Alcohol type: beer, wine and hard liquor Substance Use Type: prescription drug and other Exam Narrative Exam Narrative: GENERAL: Alert and oriented x three, female in [id number] distress HEENT: Head normocephalic, atraumatic, EOMI, pupils reactive, face symmetric, moist mucous membranes NECK: Supple, full range of motion CARDIOVASCULAR: Regular rate and rhythm without murmurs, rubs or gallops. RESPIRATORY: Breath sounds equal bilaterally, no wheezes rales or rhonchi. ABDOMEN: Soft, nontender. Normoactive bowel sounds all 4 quadrants. No guarding or rebound, rigidity, no mass : No CVA tenderness BACK: No cervical, thoracic or vertebral point tenderness. Patient has some mild L4/L5 tenderness. Patient has 2cm area of ecchymosis over the left SI joint. No deformity of coccyx. No hematoma. Patient has decreased range of motion. Patient's gait is slightly off balance. Rectal exam is deferred. Muscle strength is 5/5 in lower extremities, DTRs are 2/4 and lower extremities. Dorsalis pedis and tibialis pulses are 2+ and lower extremities. Sensation is intact in the lower extremities. EXTREMITIES: Normal range of motion, no clubbing or edema. Neurovascularly intact NEUROLOGICAL: Cranial nerves II through XII grossly intact. Moving all extremities SKIN: Warm, dry, no petechiae, no rashes or lesions. Initial Vital Signs Initial Vital Signs: Vital Signs Temperature 97.8 F 10/06/21 01:59 Pulse Rate 92 H 10/06/21 01:59 Respiratory Rate 16 10/06/21 01:59 Blood Pressure 137/76 10/06/21 01:59 Pulse Oximetry 95 10/06/21 01:59 Course Orders Ordered: ED Orders 10/06/21 02:23 XR lumbar spine 2-3V Stat Discontinued Medications Ketorolac Tromethamine (Ketorolac 30 Mg/Ml Vial) 30 mg IM NOW ONE Stop: 10/06/21 02:24 Last Admin: 10/06/21 02:36 Dose: 30 mg Documented by: STORM Vital Signs Vital signs: Vital Signs - 8 hr 10/06/21 01:59 Temperature 97.8 F Pulse Rate 92 H Respiratory Rate 16 Blood Pressure 137/76 Pulse Oximetry 95 MDM - Fall Imaging Data Lspine xray: Radiologist's Impression: Nondisplaced fracture involving the inferior aspect of the sacrum and S5. Degenerative changes within the lumbar spine including mild disc space narrowing present at L4/L5 and L5/S1. Severe disc space facet degenerative changes and most pronounced at levels of L3 through S1. [facility] Narrative Medical decision making narrative: This is a 55-year-old female who had a ground level fall onto her buttocks complaining of lower lumbar and sacral pain. Patient has pain radiating down left leg but has 5/5 muscle strength with no acute neurologic changes. Patient ambulated into the department. Gait is slightly wobbly but patient has had alcoholic drinks this evening and is somewhat intoxicated. Patient had medication for pain. Was found to have tenderness on exam at L4-L5 L-spine x-ray shows fracture which appears nondisplaced the inferior aspect of the sacrum at S5 and significant degenerative changes but no other fractures or breaks noted. Case discussed with orthopedics surgery, Dr. Tanner who recommends conservative management, donut pillow and will take quite some time to fully heal. No additional images required at this time. Images were viewed directly by Dr. Tanner. Discharge Plan Departure Patient Disposition: Home Clinical Impression: Sacral fracture, closed, Fall Activity Restrictions/Additional Instructions: Follow-up with your physician. Your imaging was reviewed with Orthopedic surgery, conservative measures are treatment including orthopedic or donut pillow. Pain management and time to allow healing of the bone. You may continue home medications as prescribed. You can take Tylenol up to a 1000 mg every 8 hours and or ibuprofen up to 800 mg every 8 hours as needed for pain. Prescription sent to [facility]. Return for rapidly worsening symptoms, loss of bowel or bladder control, inability to lift or move your leg, new weakness, loss of sensation or other new or concerning symptoms. Prescriptions: New lidocaine 5 % adhesive patch,medicated 1 patch topical DAILY PRN (Reason: pain) Qty: 15 0RF Rx Instructions: leave on most painful area for up to 12 hrs No Action gabapentin [Neurontin] 300 MG capsule 600 mg PO TID Qty: 0 0RF buprenorphine-naloxone [Suboxone] 8-2 mg film 8 film sublingual TID 0RF Label Comments: dissolve 1 FILM under the tongue every 8 hours Referrals: Nanette Tanner MD [Physician] - Ej Jimenez MD [Primary Care Provider] -
--- NOTE | 2021-10-06 02:23 | DI.RAD.S_ITS ---
PROCEDURE: XR LUMBAR SPINE 2-3V INDICATIONS: fell L4/L5 tender. TECHNIQUE: 3 views of the lumbar spine were acquired. COMPARISON: [facility], CR, XR LUMBAR SPINE 2 OR 3VW, 06/12/2015, 10:58. [facility], CR, XR LUMBAR SPINE 2-3V, 11/13/2017, 9:33. [facility], MR, MR LUMBAR SPINE WITHOUT CONTRAST, 10/07/2018, 7:19. [facility], CR, XR LUMBAR SPINE WITH FLEXION EXTENSION 5 VIEWS, 10/15/2018, 8:31. [facility], MR, MR LUMBAR SPINE WITHOUT CONTRAST, 05/11/2019, 7:38. FINDINGS: Bones: 5 [id number] vertebrae are present. There is normal bony alignment. There is a nondisplaced fracture seen at the S5 level. No vertebral body compression fractures. No suspicious bony lesions. Mild disc space narrowing is seen at L4-L5 and L5-S1. Facet arthropathy is seen throughout, which is worst inferiorly. Soft tissues: Overlying bowel gas pattern is normal. No suspicious soft tissue calcifications. Cholecystectomy clips are seen. IMPRESSION: Nondisplaced S5 fracture. Degenerative changes are seen, which are worst inferiorly. Incidental note is made of: Cholecystectomy clips Note: No significant discrepancy from the preliminary report. Dictated by: Gordo Shabazz M.D. on 10/06/2021 at 7:27 Approved by: Gordo Shabazz M.D. on 10/06/2021 at 7:30
[2021-10-06] MEDS: KETOROLAC 30 MG/ML VIAL IM (02:36)
[2021-10-06 04:56] VITALS: BP 125/72; PULSE 60; RESP 20; O2SAT 98
== END 2021-10-06 04:35 | disposition home or self-care (01) ==
PROVIDERS: Emergency Provider Emergency Medicine; PCP Family Medicine
DX: S32.19XA Other fracture of sacrum, initial encounter for closed fracture (principal); W01.198A Fall on same level from slipping, tripping and stumbling with subsequent striking against other object, initial encounter
CPT/HCPCS: 72100; 96372; 99283; J1885

== ENCOUNTER 2021-11-26 14:16 | Emergency (ER) | payer MEDICARE, MEDICAID, SELFPAY ==
[2020-11-24 22:40] VITALS: BMI 25.4
[2021-11-26 14:45] VITALS: BP 154/92; PULSE 84; RESP 22; TEMP 36.8; O2SAT 95; BMI 23.3
--- NOTE | 2021-11-26 14:50 | DI.RAD.S_ITS ---
PROCEDURE: XR RIBS LT MIN 3V W CXR1V INDICATIONS: fall, injured L side ribs TECHNIQUE: 2 views of the left ribs were acquired, along with a single view chest. COMPARISON: [facility], CR, XR CHEST 1V, 08/01/2021, 13:20. [facility], CT, CT ANGIO CHEST PE, 02/14/2021, 19:45. FINDINGS: Surgical changes and devices: Cholecystectomy clips. Bones and chest wall: No fractures or dislocations. No suspicious bony lesions. Overlying soft tissues appear unremarkable. Lungs and pleura: No pleural effusions or pneumothorax. Lungs appear clear. Mediastinum: Mediastinal contours appear normal. Heart size is normal. IMPRESSION: No displaced left-sided rib fractures. Dictated by: Truman Sanchez M.D. on 11/26/2021 at 15:14 Approved by: Truman Sanchez M.D. on 11/26/2021 at 15:16
[2021-11-26] MEDS: ACETAMINOPHEN 325 MG TABLET 650 MG PO (19:21)
[2021-11-26] MEDS: LIDOCAINE PATCH 1 EACH ADH..PATCH TOP (19:21)
[2021-11-26] MEDS: KETOROLAC 30 MG/ML VIAL 15 MG IM (19:21)
[2021-11-26] MEDS: HYDROCODONE/ACET 5/325 TABLET 1 TAB PO (19:21)
--- NOTE | 2021-11-26 19:22 | ED.FALL ---
HPI - Fall <Kimberly Bess, [facility] - Last Filed: 11/26/21 19:45> General Chief Complaint: Fall Stated Complaint: thinks cracked ribs on left side- fell in tub Time Seen by Provider: 11/26/21 18:48 Source: patient and family Mode of arrival: Wheelchair History of Present Illness HPI Narrative: This is a 55-year-old female who presents to the emergency department after a fall out of the bathtub three days ago. She states that she has pain on her left rib area with bruising, endorses having loose stool as well but is not sure if this is related. Patient denies having any blood in her urine, states that she is in menopause and having some spotting currently but otherwise denies any blood in her urine, denies any blood in her stool and states that she is having frequent bowel movements but nothing abnormal in them. She denies any symptoms of illness including cough, sore throat, fever, shortness of breath. She states that she is safe at home, denies any injuries caused by another. Patient denies any nausea vomiting, denies any head injury, she denies hitting her head, she did any other abnormal symptom at this time. She states that it is painful to touch, denies any pain with deep inspiration, denies any shortness of breath or chest pain. Related Data Home Medications Medication Instructions Recorded Confirmed gabapentin 300 mg capsule 600 mg PO TID #0 02/19/16 11/24/20 (Neurontin) buprenorphine 8 mg-naloxone 2 mg 8 film SUBLINGUAL TID 04/10/20 11/24/20 sublingual film (Suboxone) Previous Rx's Medication Instructions Recorded lidocaine 5 % topical patch 1 patch TOPICAL DAILY PRN #15 ea 10/06/21 diclofenac sodium 3 % topical gel 1 applic TOPICAL BID PRN #100 g 11/26/21 diclofenac sodium 3 % topical gel 1 applic TOPICAL BID PRN #100 g 11/26/21 hydrocodone 5 mg-acetaminophen 325 1 tab PO BID PRN #10 tab 11/26/21 mg tablet lidocaine 5 % topical patch 1 patch TOPICAL DAILY PRN #15 ea 11/26/21 (Lidoderm) lidocaine 5 % topical patch 1 patch TOPICAL DAILY PRN #15 ea 11/26/21 (Lidoderm) Allergies Allergy/AdvReac Type Severity Reaction Status Date / Time codeine Allergy Unknown Verified 11/26/21 14:48 droperidol Allergy Unknown Verified 11/26/21 14:48 metoclopramide [From Reglan] Allergy Unknown Verified 11/26/21 14:49 Sulfa (Sulfonamide Allergy Unknown Verified 11/26/21 14:48 Antibiotics) Review of Systems <ROSI Le - Last Filed: 11/26/21 19:45> Review of Systems Narrative: General: denies fever, chills Head/Neck: denies headache, neck pain Eyes: denies visual changes, eye pain Cardio: denies chest pain, palpitations Respiratory: denies shortness of breath, cough GI: denies abdominal pain, nausea, vomiting, or diarrhea : denies dysuria, hematuria or flank pain MSK: denies new joint pain, muscle weakness or swelling, endorses of large bruise on her left ribs/upper abdomen area, states it is painful to the touch Skin: denies rash, itching or wound Neuro: denies numbness, tingling, dizziness Patient History <ROSI Le - Last Filed: 11/26/21 19:45> Medical History Alcohol abuse History of narcotic addiction Leg pain Peripheral neuropathy TBI (traumatic brain injury) Tobacco abuse Surgical History History of cholecystectomy Family History Mother History of recurrent TIAs Father Heart disease Social History household members: spouse Smoking Status: Current some day smoker Smoking Status: Current some day smoker tobacco type: vaping alcohol intake frequency: 3 or more drinks per day Alcohol type: beer, wine and hard liquor Substance Use Type: prescription drug and other Exam <ROSI Le - Last Filed: 11/26/21 19:45> Narrative Exam Narrative: Independently reviewed vitals signs and nursing notes. General: cooperative, comfortable, in no acute distress, well groomed, patient very sleepy, had to wake her with physical stimulation Head: atraumatic, symmetrical facial expressions Neck: supple Eyes: equal round and reactive, EOMI, conjunctiva normal Nose: nares patent, no rhinorrhea Mouth/Throat: moist mucus membranes Cardiovascular: regular rate and rhythm, no peripheral edema, warm extremities Respiratory: normal effort, able to speak in complete sentences, no audible wheezing, stridor, or rales. No retractions or tachypnea. GI: abdomen soft, nontender to palpation, nondistended, no masses, no exquisite tenderness with exam, without guarding or rebound. Contusion to left upper quadrant likely dependent from her left rib contusion which is slightly above there, no crepitus, no deformity, no pain with deep inspiration, breath sounds clear throughout, tenderness to palpation of contusion, no bony abnormality palpable, no large hematoma palpable. MSK: moves all extremities, neurovascularly intact, no weakness, normal tone Skin: brisk capillary refill, no rash, no erythema Neuro: normal speech and cognition, A&O x3 Psych: mental status is grossly normal, congruent mood, normal affect, pleasant and cooperative Initial Vital Signs Initial Vital Signs: Vital Signs Temperature 98.2 F 11/26/21 14:45 Pulse Rate 84 11/26/21 14:45 Respiratory Rate 22 11/26/21 14:45 Blood Pressure 154/92 H 11/26/21 14:45 Pulse Oximetry 95 11/26/21 14:45 <Edgar Casas DO - Last Filed: 12/01/21 04:05> Initial Vital Signs Initial Vital Signs: Vital Signs Temperature 98.2 F 11/26/21 14:45 Pulse Rate 84 11/26/21 14:45 Respiratory Rate 22 11/26/21 14:45 Blood Pressure 154/92 H 11/26/21 14:45 Pulse Oximetry 95 11/26/21 14:45 Course <ROSI Le - Last Filed: 11/26/21 19:45> Orders Ordered: Discontinued Medications Acetaminophen (Acetaminophen 325 Mg Tablet) 650 mg PO NOW ONE Stop: 11/26/21 19:10 Last Admin: 11/26/21 19:21 Dose: 650 mg Documented by: [email or web address] Hydrocodone Bitart/Acetaminophen (Hydrocodone/Acet 5/325 Tablet) 1 tab PO NOW ONE Stop: 11/26/21 19:10 Last Admin: 11/26/21 19:21 Dose: 1 tab Documented by: [email or web address] Ketorolac Tromethamine (Ketorolac 30 Mg/Ml Vial) 15 mg IM NOW ONE Stop: 11/26/21 19:10 Last Admin: 11/26/21 19:21 Dose: 15 mg Documented by: [email or web address] Lidocaine (Lidocaine Patch 1 Each Adh..Patch) 1 each TOP NOW ONE Stop: 11/26/21 19:10 Last Admin: 11/26/21 19:21 Dose: 1 each Documented by: [email or web address] Vital Signs Vital signs: Vital Signs - 8 hr 11/26/21 14:45 Temperature 98.2 F Pulse Rate 84 Respiratory Rate 22 Blood Pressure 154/92 H Pulse Oximetry 95 <Edgar Casas DO - Last Filed: 12/01/21 04:05> Orders Ordered: Discontinued Medications Acetaminophen (Acetaminophen 325 Mg Tablet) 650 mg PO NOW ONE Stop: 11/26/21 19:10 Last Admin: 11/26/21 19:21 Dose: 650 mg Documented by: [email or web address] Hydrocodone Bitart/Acetaminophen (Hydrocodone/Acet 5/325 Tablet) 1 tab PO NOW ONE Stop: 11/26/21 19:10 Last Admin: 11/26/21 19:21 Dose: 1 tab Documented by: [email or web address] Ketorolac Tromethamine (Ketorolac 30 Mg/Ml Vial) 15 mg IM NOW ONE Stop: 11/26/21 19:10 Last Admin: 11/26/21 19:21 Dose: 15 mg Documented by: [email or web address] Lidocaine (Lidocaine Patch 1 Each Adh..Patch) 1 each TOP NOW ONE Stop: 11/26/21 19:10 Last Admin: 11/26/21 19:21 Dose: 1 each Documented by: [email or web address] Vital Signs Vital signs: Vital Signs - 8 hr 11/26/21 14:45 Temperature 98.2 F Pulse Rate 84 Respiratory Rate 22 Blood Pressure 154/92 H Pulse Oximetry 95 MDM - Fall <ROSI Le - Last Filed: 11/26/21 19:45> Imaging Data xray ribs: Radiologist's Impression: PROCEDURE:? XR RIBS LT MIN 3V W CXR1V ? INDICATIONS:? fall, injured L side ribs ? TECHNIQUE:? 2 views of the left ribs were acquired, along with a single view chest.? ? COMPARISON:? [facility], CR, XR CHEST 1V, 08/01/2021, 13:20.? [facility], CT, CT ANGIO CHEST PE, 02/14/2021, 19:45. ? FINDINGS:? ? Surgical changes and devices:? Cholecystectomy clips. ? Bones and chest wall:? No fractures or dislocations.? No suspicious bony lesions.? Overlying soft tissues appear unremarkable.? ? Lungs and pleura:? No pleural effusions or pneumothorax.? Lungs appear clear.? ? Mediastinum:? Mediastinal contours appear normal.? Heart size is normal.? ? IMPRESSION:? No displaced left-sided rib fractures. ? ? Dictated by: Truman Sanchez M.D. on 11/26/2021 at 15:14 ? ? Approved by: Truman Sanchez M.D. on 11/26/2021 at 15:16 ? MDM Narrative Medical decision making narrative: This is a 55-year-old female who has a history of substance abuse, on Suboxone, she presents to the emergency department for left rib pain after a fall three days ago out of the hot tub. She denies any safety concerns at home, states her was not there, she slipped and fell out of the bathtub, did not hit her head. She has a contusion on her left lower ribs days, it dependent bruising in her left upper quadrant with no palpable hematoma, contusion over her left ribs is tender to palpation. She denies any open wound, denies any other injury, denies any nausea, vomiting, lightheadedness, shortness of breath, difficulty breathing, or pain with deep inspiration. X-ray of her left ribs showed no displaced left-sided rib fractures, no pleural effusion or pneumothorax. Overlying soft tissue appeared unremarkable. Patient was very drowsy, when I tried to arouse her for an assessment, it took physical stimulation, she denies taking any medication prior to her arrival today, denies taking any pain medication. She states that she took ibuprofen last night. When asked why she was so sleepy and difficult to wake up because it took approximately 5 minutes for her to open her eyes, she states that she had a head injury five years ago when a ceiling fan fell on her head and she sees Dr. Mota for our Neurology for this. Patient requests pain control, that is why she came to the emergency department she says. She did not take anything for pain today. When writing her prescriptions, it is notable that patient recently had her Suboxone filled, and she denies being for pain at baseline. Because she was not forthright about this, I discontinued the order for hydrocodone, this will not work for her anyway while on Suboxone. Encouraged her to use ice, alternate with heat, topical modalities like diclofenac gel, lidocaine patches, or CBD cream. With Tylenol and ibuprofen. She was given Toradol in the emergency department, she was given hydrocodone prior to my knowing that she is on Suboxone, she was informed that this not the practice for her while on a medication that because it is a pain contract that she has with her prescriber. Patient states understanding, encouraged her to establish primary care with a provider, she is given a phone number to do this. She is given strict return precautions, denies any blood in her urine or her stool. She has not had any vomiting. Patient is appropriate and amenable to discharge home. Vital signs are stable on repeat examination is unremarkable. Patient has been informed of results. Patient has been given strict return to ER precautions for any new or worsening symptoms. Patient understands to follow up closely with outpatient providers as instructed. Patient understands plan and agrees to discharge home. All questions and concerns answered at this time. Discharge Plan Departure Patient Disposition: Home Clinical Impression: Rib pain on left side Contusion Qualifiers: Encounter type: initial encounter Contusion area: thoracic wall Front or back of thoracic wall: front Thoracic wall location detail: left Qualified Code(s): S20.212A - Contusion of left front wall of thorax, initial encounter Fall Qualifiers: Encounter type: initial encounter Qualified Code(s): W19.XXXA - Unspecified fall, initial encounter Instructions: Contusion, DI for Rib Contusion Activity Restrictions/Additional Instructions: *You have been diagnosed with a fall with a contusion on your left ribs and upper abdomen. Please continue to use her Suboxone for your pain control, combine that with topical modalities like lidocaine patches, diclofenac gel, ibuprofen and Tylenol. Your given Toradol in the emergency department, please do not take any ibuprofen today and hydrate when you get home. Since you are on Suboxone, hydrocodone will not work for you so I did not order you some because you did not say that you took any pain medication today. I am sorry for your pain, this looks uncomfortable, please alternate with warm and cool compresses, do not do any strenuous activity for a couple of days but light activity like walking may help this improve faster. I hope you feel better soon, I have sent in some medications to [email or web address], please call the number listed below to establish care with a primary care provider. *What to do: *Please continue to take your regular medications as directed. [x ] New medication prescriptions sent to your pharmacy: [[facility] ] [ ] New medication written as a paper prescription [ ] No new medications given *Please follow up with your primary care provider in 2-3 days, call for an appointment. Let them know you were seen in the Emergency Department and that we asked that you be seen for follow-up. We will electronically transmit a record of today's note if your PCP is in our system *If you do not have a primary care provider please contact [phone] to establish care with one of [facility] primary care providers. *Return to Emergency Department if you should have any new, worsening or concerning symptoms, such as [fever greater than 101F, chills, worsening pain, persistent vomiting or other bothersome symptoms] Prescriptions: New hydrocodone-acetaminophen 5-325 mg tablet 1 tab PO BID PRN (Reason: pain) Qty: 10 0RF diclofenac sodium 3 % gel 1 applic topical BID PRN (Reason: pain) Qty: 100 0RF Rx Instructions: Please apply to left rib area 1-4 times daily as needed using the applicator and dose it according to the applicator. lidocaine [Lidoderm] 5 % adhesive patch,medicated 1 patch topical DAILY PRN (Reason: pain) Qty: 15 0RF Rx Instructions: leave on most painful area for up to 12 hrs diclofenac sodium 3 % gel 1 applic topical BID PRN (Reason: pain) Qty: 100 0RF Rx Instructions: Please apply to left rib area where it is painful using the dosing applicator up to 4 times daily. lidocaine [Lidoderm] 5 % adhesive patch,medicated 1 patch topical DAILY PRN (Reason: pain) Qty: 15 0RF Rx Instructions: leave on most painful area for up to 12 hrs No Action gabapentin [Neurontin] 300 MG capsule 600 mg PO TID Qty: 0 0RF buprenorphine-naloxone [Suboxone] 8-2 mg film 8 film sublingual TID 0RF Label Comments: dissolve 1 FILM under the tongue every 8 hours lidocaine 5 % adhesive patch,medicated 1 patch topical DAILY PRN (Reason: pain) Qty: 15 0RF Rx Instructions: leave on most painful area for up to 12 hrs Referrals: Ej Jimenez MD [Primary Care Provider] - <Edgar Casas DO - Last Filed: 12/01/21 04:05> Cosign ED Attending Cosignature Attestation: I was immediately available in the department for consultation. This documentation has been reviewed and I agree with assessment and plan. Supervised by Edgar Casas DO
[2021-11-26 19:47] VITALS: BP 148/77; PULSE 90; RESP 18; O2SAT 98
== END 2021-11-26 19:47 | disposition home or self-care (01) ==
PROVIDERS: Emergency Provider Nurse Practitioner Critical Care Medicine; PCP Family Medicine
DX: S20.212A Contusion of left front wall of thorax, initial encounter (principal); W18.2XXA Fall in (into) shower or empty bathtub, initial encounter
CPT/HCPCS: 71101; 96372; 99283; J1885

== ENCOUNTER 2022-07-03 15:26 | Emergency (ER) | payer MEDICARE, MEDICAID, SELFPAY ==
[2020-11-24 22:40] VITALS: BMI 25.4
[2022-07-03 15:43] VITALS: BP 145/86; PULSE 115; RESP 18; TEMP 36.5; O2SAT 97; BMI 22.4
--- NOTE | 2022-07-03 15:55 | DI.RAD.S_ITS ---
PROCEDURE: XR CHEST 2V INDICATIONS: left rib pain. s/p fall TECHNIQUE: 2 views of the chest were acquired. COMPARISON: [facility], CR, XR CHEST 1V, 08/01/2021, 13:20. FINDINGS: Surgical changes and devices: Cholecystectomy clips. Lungs and pleura: Lungs are clear. No pleural effusions or pneumothorax. Mediastinum: Mediastinal contours are normal. Heart size is normal. Bones and chest wall: No suspicious bony abnormalities. Soft tissues appear unremarkable. IMPRESSION: No acute pulmonary process.No visualized acute fracture or dislocation. However, if clinical concern and/or pain persist, short interval imaging followup in 7-10 days is recommended, as occult injury cannot be definitively excluded. Dictated by: Tamar Ochoa M.D. on 07/03/2022 at 16:28 Approved by: Tamar Ochoa M.D. on 07/03/2022 at 16:29
--- NOTE | 2022-07-03 17:11 | DI.RAD.S_ITS ---
PROCEDURE: XR RIBS LT MIN 3V W CXR1V INDICATIONS: lateral lower rib pain, with c/f fracture TECHNIQUE: 2 views of the left ribs were acquired, along with a single view chest. COMPARISON: [facility], CR, XR RIBS LT MIN 3V W CXR1V, 11/26/2021, 14:44. FINDINGS: Surgical changes and devices: None. Bones and chest wall: No fractures or dislocations. No suspicious bony lesions. Overlying soft tissues appear unremarkable. Lungs and pleura: No pleural effusions or pneumothorax. Lungs appear clear. Mediastinum: Mediastinal contours appear normal. Heart size is normal. IMPRESSION: Chest without acute cardiopulmonary abnormalities. No acute rib fractures identified. Dictated by: Reji Gillette M.D. on 07/03/2022 at 17:38 Approved by: Reji Gillette M.D. on 07/03/2022 at 17:39
[2022-07-03] MEDS: BUPRENORPHINE/NALOXONE 8MG/2MG 1 TAB SL (17:55)
[2022-07-03] MEDS: KETOROLAC 30 MG/ML VIAL 15 MG IM (17:55)
[2022-07-03] MEDS: LIDOCAINE PATCH 1 EACH ADH..PATCH TOP (17:55)
--- NOTE | 2022-07-03 18:03 | PC.NURSE ---
Incentive Spirometry education provided by RT Minaya.
[2022-07-03 18:10] VITALS: BP 141/80; PULSE 109; O2SAT 96
--- NOTE | 2022-07-03 20:48 | ED_ITS ---
HPI - Fall <ROSI Le - Last Filed: 07/03/22 21:34> General Chief Complaint: Fall Stated Complaint: rib pain s/p fall a week ago Time Seen by Provider: 07/03/22 17:04 Source: patient Mode of arrival: Family Vehicle History of Present Illness HPI Narrative: This is a 56-year-old female who presents to the emergency department with complaint of left-sided rib pain after mechanical fall 1 week ago, states that she feels her bones moving in the lower left lateral ribs. Denies shortness of breath, wheezing, difficulty breathing, but states that she feels pain with palpation and with deep inspiration. Patient has a chronic pain agreement and is on Suboxone 8 mg sublingual TID. States that she is had this today, also has history of alcohol abuse, falls, and tobacco use. Patient denies fever, chills, productive cough. Related Data Home Medications Medication Instructions Recorded Confirmed gabapentin 300 mg capsule 600 mg PO TID ##0 02/19/16 11/24/20 (Neurontin) buprenorphine 8 mg-naloxone 2 mg 8 film sublingual TID 04/10/20 11/24/20 sublingual film (Suboxone) Previous Rx's Medication Instructions Recorded lidocaine 5 % topical patch 1 patch topical DAILY PRN pain #15 10/06/21 ea diclofenac sodium 3 % topical gel 1 applic topical BID PRN pain #100 11/26/21 grams diclofenac sodium 3 % topical gel 1 applic topical BID PRN pain #100 11/26/21 grams hydrocodone 5 mg-acetaminophen 325 1 tab PO BID PRN pain #10 tabs 11/26/21 mg tablet lidocaine 5 % topical patch 1 patch topical DAILY PRN pain #15 11/26/21 (Lidoderm) ea lidocaine 5 % topical patch 1 patch topical DAILY PRN pain #15 11/26/21 (Lidoderm) ea Allergies Allergy/AdvReac Type Severity Reaction Status Date / Time codeine Allergy Unknown Verified 07/03/22 15:53 droperidol Allergy Unknown Verified 07/03/22 15:53 metoclopramide [From Reglan] Allergy Unknown Verified 07/03/22 15:53 Sulfa (Sulfonamide Allergy Unknown Verified 07/03/22 15:53 Antibiotics) Review of Systems <ROSI Le - Last Filed: 07/03/22 21:34> Review of Systems ROS Unobtainable: All systems reviewed & are unremarkable except as noted in HPI and below Patient History <ROSI Le - Last Filed: 07/03/22 21:34> Medical History Alcohol abuse History of narcotic addiction Leg pain Peripheral neuropathy TBI (traumatic brain injury) Tobacco abuse Surgical History History of cholecystectomy Family History Mother History of recurrent TIAs Father Heart disease Social History household members: spouse Smoking Status: Current some day smoker Smoking Status: Current some day smoker tobacco type: cigarettes and vaping alcohol intake frequency: 0-2 drinks per day Alcohol type: beer, wine and hard liquor Substance Use Type: does not use and prescription drug Exam <ROSI Le - Last Filed: 07/03/22 21:34> Narrative Exam Narrative: Reviewed vitals signs and nursing notes. General: cooperative, comfortable, sitting in chair, appears uncomfortable and frustrated HEENT: symmetrical facial expressions, dry mucous membranes, neck with normal range of motion Cardiovascular: regular rate and rhythm, no peripheral edema, warm extremities Respiratory: normal effort, able to speak in complete sentences, without wheezing, stridor, or abnormal breath sounds. No retractions or tachypnea. Without decreased breath sounds, rhonchi, a symmetrical chest rise, crepitus or other palpable abnormality GI: abdomen soft, nontender to palpation, nondistended, without masses, rebound tenderness or exquisite tenderness with exam. MSK: moves all extremities, neurovascularly intact, no weakness, normal tone Skin: brisk capillary refill, without pallor or erythema Neuro: normal speech and cognition, A&O x3, ambulatory, clear speech Psych: mental status is grossly normal, congruent mood, normal affect, pleasant and cooperative Initial Vital Signs Initial Vital Signs: Vital Signs Temperature 97.7 F 07/03/22 15:43 Pulse Rate 115 H 07/03/22 15:43 Respiratory Rate 18 07/03/22 15:43 Blood Pressure 145/86 H 07/03/22 15:43 Pulse Oximetry 97 07/03/22 15:43 Oxygen Delivery Method 07/03/22 15:43 <Edgar Casas DO - Last Filed: 07/05/22 11:44> Initial Vital Signs Initial Vital Signs: Vital Signs Temperature 97.7 F 07/03/22 15:43 Pulse Rate 115 H 07/03/22 15:43 Respiratory Rate 18 07/03/22 15:43 Blood Pressure 145/86 H 07/03/22 15:43 Pulse Oximetry 97 07/03/22 15:43 Oxygen Delivery Method 07/03/22 15:43 Course <ROSI Le - Last Filed: 07/03/22 21:34> Orders Ordered: Discontinued Medications Buprenorphine/Naloxone (Buprenorphine/Naloxone 8mg/2mg 1 Tab) 1 tab SL NOW ONE Stop: 07/03/22 17:13 Last Admin: 07/03/22 17:55 Dose: 1 tab Documented By: AT Ketorolac Tromethamine (Ketorolac 30 Mg/Ml Vial) 15 mg IM NOW ONE Stop: 07/03/22 17:12 Last Admin: 07/03/22 17:55 Dose: 15 mg Documented By: AT Lidocaine (Lidocaine Patch 1 Each Adh..Patch) 1 each TOP NOW ONE Stop: 07/03/22 17:12 Last Admin: 07/03/22 17:55 Dose: 1 each Documented By: AT Vital Signs Vital signs: Vital Signs - 8 hr 07/03/22 15:43 07/03/22 18:10 Temperature 97.7 F Pulse Rate 115 H 109 H Respiratory Rate 18 Blood Pressure 145/86 H 141/80 H Pulse Oximetry 97 96 Oxygen Delivery Method Room Air Room Air <Edgar Casas DO - Last Filed: 07/05/22 11:44> Orders Ordered: Discontinued Medications Buprenorphine/Naloxone (Buprenorphine/Naloxone 8mg/2mg 1 Tab) 1 tab SL NOW ONE Stop: 07/03/22 17:13 Last Admin: 07/03/22 17:55 Dose: 1 tab Documented By: AT Ketorolac Tromethamine (Ketorolac 30 Mg/Ml Vial) 15 mg IM NOW ONE Stop: 07/03/22 17:12 Last Admin: 01/05/23 17:55 Dose: 15 mg Documented By: AT Lidocaine (Lidocaine Patch 1 Each Adh..Patch) 1 each TOP NOW ONE Stop: 07/03/22 17:12 Last Admin: 07/03/22 17:55 Dose: 1 each Documented By: AT Vital Signs Vital signs: Vital Signs - 8 hr 07/03/22 15:43 07/03/22 18:10 Temperature 97.7 F Pulse Rate 115 H 109 H Respiratory Rate 18 Blood Pressure 145/86 H 141/80 H Pulse Oximetry 97 96 Oxygen Delivery Method Room Air Room Air MDM - Fall <Kimberly Bess, [facility] - Last Filed: 07/03/22 21:34> Imaging Data Chest x-ray: Radiologist's Impression: PROCEDURE:? XR CHEST 2V ? INDICATIONS:? left rib pain. s/p fall ? TECHNIQUE:? 2 views of the chest were acquired.? ? COMPARISON:? [facility], , XR CHEST 1V, 08/01/2021, 13:20. ? FINDINGS:? ? Surgical changes and devices:? Cholecystectomy clips. ? Lungs and pleura:? Lungs are clear.? No pleural effusions or pneumothorax.? ? Mediastinum:? Mediastinal contours are normal.? Heart size is normal.? ? Bones and chest wall:? No suspicious bony abnormalities.? Soft tissues appear unremarkable.? ? IMPRESSION:? No acute pulmonary process.No visualized acute fracture or dislocation. However, if clinical concern and/or pain persist, short interval imaging followup in 7-10 days is recommended, as occult injury cannot be definitively excluded. ? ? Dictated by: Tamar Ochoa M.D. on 07/03/2022 at 16:28 ? ? Approved by: Tamar Ochoa M.D. on 07/03/2022 at 16:29 ? Rib XR: Radiologist's Impression: PROCEDURE:? XR RIBS LT MIN 3V W CXR1V ? INDICATIONS:? lateral lower rib pain, with c/f fracture ? TECHNIQUE:? 2 views of the left ribs were acquired, along with a single view chest.? ? COMPARISON:? [facility], , XR RIBS LT MIN 3V W CXR1V, 11/26/2021, 14:44. ? FINDINGS:? ? Surgical changes and devices:? None.? ? Bones and chest wall:? No fractures or dislocations.? No suspicious bony lesions.? Overlying soft tissues appear unremarkable.? ? Lungs and pleura:? No pleural effusions or pneumothorax.? Lungs appear clear.? ? Mediastinum:? Mediastinal contours appear normal.? Heart size is normal.? ? IMPRESSION:? Chest without acute cardiopulmonary abnormalities.? No acute rib fractures identified. ? ? Dictated by: Reji Gillette M.D. on 07/03/2022 at 17:38 ? ? Approved by: Reji Gillette M.D. on 07/03/2022 at 17:39 ? MDM Narrative Medical decision making narrative: This is a 56-year-old female who is presenting to the ED via POV with history of a fall on her left side 1 week ago complaining of left lower lateral rib pain with concern for fracture. Patient does not have shortness of breath, wheezing, hypoxia, she has history of TBI, alcohol abuse, chronic pain and is on Suboxone 8 mg TID. Differential diagnoses include, but are not limited to: Rib fracture, pneumothorax, costochondritis, muscle strain, floating rib, dislocated rib, pneumonitis, pulmonary contusion I performed a preliminary independent interpretation of the following imaging studies: Chest x-ray and left rib x-ray without obvious fracture or focal opacity Course of Care: Chest x-ray does not show any fracture or left rib abnormality, on exam, patient does have erythema, ecchymosis, open wound, crepitus or abnormal breath sounds, ordered left ribs dry as patient feels concerned as she has a fracture and the chest x-ray does not fully show her left lateral ribs space Ordered pain control including Toradol and Suboxone dose with lidocaine patch and incentive spirometer with education. Patient's symptoms improved over duration of stay with above-stated therapies. Left lateral rib x-ray is negative for acute fracture, pneumothorax or other abnormality acutely. Patient is without shortness of breath, hypoxia, abnormal breath sounds or symptoms of pneumothorax or pulmonary contusion. Recommend Tylenol and ibuprofen in addition to her chronic pain medication with something topical. Using the incentive spirometer, cool and warm compresses, hydration and following up with PCP for another evaluation. MIPS: This encounter doesn't have any diagnosis associated with MIPS criteria. Social determinants of health that may impact treatment or disposition: Vital Signs: I, the ED provider, reviewed the patient?s vital signs, past medical records and encounters if available, and nursing notes. I have spoken with the patient/family and discussed today?s findings whom verbalize understanding. Counseling was provided regarding the diagnosis and prognosis, and specific details were provided for the plan of care. Questions are addressed and there is agreement with the plan and for follow-up. Patient is appropriate for outpatient management. Portions of this chart have been created with [employer] voice recognition software. Occasional wrong word or sound alike substitutions may have occurred due to the inherent limitations of this software. I, ROSI Goel, personally performed the services described in the documentation, and it accurately records my words and actions. I collaborated with the ED attending physician for SUKUMAR level 2, 3, and some level 4s as needed Electronically signed by: ROSI Goel Discharge Plan Departure Patient Disposition: Home Clinical Impression: Pain in rib Fall Qualifiers: Encounter type: initial encounter Qualified Code(s): W19.XXXA - Unspecified fall, initial encounter Instructions: DI for Rib Contusion Activity Restrictions/Additional Instructions: *You have been diagnosed with rib pain but without evidence of acute fracture. Please continue taking deep breaths, clear in your lungs, use the incentive spirometer frequently to prevent pneumonia. There is no signs of pneumonia today, take ibuprofen 800 mg with food and water every 8 hours with your Suboxone, please also take 975 mg of Tylenol at that same time. This should provide view better pain control with topical modalities like lidocaine patches, CBD cream, diclofenac gel. These are all available [id number], I hope you feel better soon, please return for any new or worsening symptoms. *What to do: *Please continue to take your regular medications as directed. [ ] New medication prescriptions sent to your pharmacy: [ ] [ ] New medication written as a paper prescription [x ] No new medications given *Please follow up with your primary care provider in 2-3 days, call for an appointment. Let them know you were seen in the Emergency Department and that we asked that you be seen for follow-up. We will electronically transmit a record of today's note if your PCP is in our system *If you do not have a primary care provider please contact [phone] to establish care with one of the [facility] primary care providers. *Return to Emergency Department if you should have any new, worsening, or con cerning symptoms, such as [fever greater than 101F, chills, worsening pain, persistent vomiting or other bothersome symptoms]. Prescriptions: No Action gabapentin [Neurontin] 300 MG capsule 600 mg PO TID Qty: 0 buprenorphine-naloxone [Suboxone] 8-2 mg film 8 film sublingual TID Label Comments: dissolve 1 FILM under the tongue every 8 hours lidocaine 5 % adhesive patch,medicated 1 patch topical DAILY PRN (Reason: pain) Qty: 15 0RF Rx Instructions: leave on most painful area for up to 12 hrs hydrocodone-acetaminophen 5-325 mg tablet 1 tab PO BID PRN (Reason: pain) Qty: 10 0RF diclofenac sodium 3 % gel 1 applic topical BID PRN (Reason: pain) Qty: 100 0RF Rx Instructions: Please apply to left rib area 1-4 times daily as needed using the applicator and dose it according to the applicator. lidocaine [Lidoderm] 5 % adhesive patch,medicated 1 patch topical DAILY PRN (Reason: pain) Qty: 15 0RF Rx Instructions: leave on most painful area for up to 12 hrs diclofenac sodium 3 % gel 1 applic topical BID PRN (Reason: pain) Qty: 100 0RF Rx Instructions: Please apply to left rib area where it is painful using the dosing applicator up to 4 times daily. lidocaine [Lidoderm] 5 % adhesive patch,medicated 1 patch topical DAILY PRN (Reason: pain) Qty: 15 0RF Rx Instructions: leave on most painful area for up to 12 hrs Referrals: Ej Jimenez MD [Primary Care Provider] - Stand Alone Forms: Patient Portal/API <Edgar Casas DO - Last Filed: 07/05/22 11:44> [facility] Attestation: I was immediately available in the department for consultation. This documentation has been reviewed and I agree with assessment and plan. Supervised by Edgar Casas DO
== END 2022-07-03 18:12 | disposition home or self-care (01) ==
PROVIDERS: Emergency Provider Nurse Practitioner Critical Care Medicine; PCP Family Medicine
DX: R07.81 Pleurodynia (principal); W18.30XA Fall on same level, unspecified, initial encounter
CPT/HCPCS: 71046; 71101; 96372; 99283; J1885

== ENCOUNTER 2022-08-13 08:05 | Emergency (ER) | payer MEDICARE, MEDICAID, SELFPAY ==
[2020-11-24 22:40] VITALS: BMI 25.4
[2022-08-13 08:21] VITALS: BP 153/95; PULSE 103; RESP 18; TEMP 36.4; O2SAT 98; BMI 21.1
[2022-08-13 08:37] VITALS: PULSE 91; O2SAT 94
[2022-08-13 08:56] VITALS: PULSE 92; O2SAT 95
[2022-08-13 09:00] VITALS: BP 146/91
--- NOTE | 2022-08-13 09:03 | DI.MRI.S_ITS ---
PROCEDURE: MR LUMBAR SPINE WO/W CON INDICATIONS: Lower back pain/incontinence TECHNIQUE: Noncontrast sagittal T1 spin echo and T2 fast spin echo, sagittal STIR, axial T1 and T2 fast spin echo through the lumbar spine. In cases with scoliosis, additional coronal T2 fast spin echo may be performed. After the administration of contrast, sagittal and axial T1 spin echo with fat saturation through the lumbar spine. COMPARISON: None. FINDINGS: Image quality: Excellent. Alignment and curvature: There is normal bony alignment. Marrow: Marrow is of normal overall signal. No acute vertebral body compression fractures. No suspicious marrow enhancement. Spinal cord: Conus medullaris terminates at the L1 level. Visualized spinal cord demonstrates normal signal, without suspicious enhancement. Paraspinous soft tissues: No paravertebral masses or abnormal enhancement. At the disc levels, mild degenerative disc disease and arthropathy results in [id number] central stenosis at L3-4, L4-5 IMPRESSION: No evidence of cord compression, cauda equina syndrome, or mass lesion. Mild multilevel degenerative disc disease and arthropathy in the lower lumbar spine Approved by: Shant Francisco M.D. on 08/13/2022 at 9:21
--- NOTE | 2022-08-13 09:14 | DI.CT.S_ITS ---
PROCEDURE: CT ABDOMEN PELVIS W CON INDICATIONS: Diarrhea/GI bleed TECHNIQUE: After the administration of oral and IV contrast, axial sections were acquired from the lung bases to the pubic symphysis. Coronal and sagittal reformats were performed. For radiation dose reduction, the following was used: automated exposure control, adjustment of mA and/or kV according to patient size. COMPARISON: [facility], MR, MR LUMBAR SPINE WO/W CON, 08/13/2022, 9:32. [facility], CT, CT ABDOMEN PELVIS WITHOUT CONTRAST, 12/19/2021, 0:42. FINDINGS: Image quality: Excellent. Lung bases: Unremarkable. Heart: No significant findings. ABDOMEN: Liver: Diffuse fatty liver infiltration is noted. The liver is normal in size and demonstrates no suspicious lesions. A likely hemangioma is again seen within the inferior posterior right liver (segment 6). Gallbladder: Removed. Biliary ducts: Unremarkable for a post cholecystectomy patient. Pancreas: Unremarkable. Spleen: Unremarkable. Adrenal Glands: Unremarkable. Kidneys and Ureters: Unremarkable. Stomach and Bowel: Multiple areas of moderate colonic wall thickening can be seen. No overt colonic masses are seen on these images. Minimal surrounding inflammatory change can be seen. No dilated loops of small bowel are seen. The stomach is relatively decompressed, limiting its evaluation. Peritoneum: No abnormal intraperitoneal fluid. No free air. Ventral Wall: No hernia. Abdominal Nodes: No retroperitoneal or mesenteric adenopathy by size criteria. Vessels: Aorta and inferior vena cava are normal in size. PELVIS: Pelvic Organs: Unremarkable. Bladder: Unremarkable. Pelvic Nodes: No enlarged lymph nodes. Miscellaneous: No inguinal hernias are seen. Bones: Focal lower lumbar spine degenerative changes are seen. Milder degenerative changes are seen elsewhere. IMPRESSION: Segments of moderate colonic wall thickening can be seen. Please correlate with potential infectious and inflammatory causes of colitis. (The appearance is overall slightly improved compared to the prior CT, 12/19/2021.) No findings of perforation or abscess can be seen. Additional findings: Diffuse fatty liver infiltration Presumed liver hemangioma Cholecystectomy Focal lower lumbar spine degenerative change Dictated by: Gordo Shabazz M.D. on 08/13/2022 at 9:40 Approved by: Gordo Shabazz M.D. on 08/13/2022 at 9:45
--- NOTE | 2022-08-13 09:18 | PC.NURSE ---
pt up to bathroom when NaCl ordered, then gone to MRI and CT. NaCl to be started when patient returns from imaging.
--- NOTE | 2022-08-13 09:20 | ED.RECABL ---
HPI - Recheck/Abnormal Lab/Rx General Chief Complaint: Recheck/Abnormal Lab/Rx Stated Complaint: sent by DR/Diarrhea/blood in stool/back pain Time Seen by Provider: 08/13/22 08:48 Source: patient Mode of arrival: Ambulatory History of Present Illness HPI narrative: Patient brought here by for complaints of bloody diarrhea urinary incontinence bowel incontinence with lower back pain. Seen by [facility] yesterday and instructed to come here for MRI of the lower spine to rule out cauda equina. No prior history of back surgery or MRI. No IV drug use. Does drink alcohol daily. No new fall or injury. Has chronic bilateral lower leg and feet neuropathy and has been evaluated by neurologist. Is on gabapentin for this. No saddle paresthesia. Patient states about 3 or 4 weeks ago had Holly took MiraLax and then 7 days later had urinary and stool incontinence with blood in stool at times. Has been dizzy at times as well. Has had lower abdominal cramping. No chest pain. No dyspnea. Still able to walk. Has chronic arthritis of the joints. This is not new. Related Data Home Medications Medication Instructions Recorded Confirmed gabapentin 300 mg capsule 600 mg PO TID ##0 02/19/16 11/24/20 (Neurontin) buprenorphine 8 mg-naloxone 2 mg 8 film sublingual TID 04/10/20 11/24/20 sublingual film (Suboxone) Previous Rx's Medication Instructions Recorded lidocaine 5 % topical patch 1 patch topical DAILY PRN pain #15 10/06/21 ea diclofenac sodium 3 % topical gel 1 applic topical BID PRN pain #100 11/26/21 grams diclofenac sodium 3 % topical gel 1 applic topical BID PRN pain #100 11/26/21 grams hydrocodone 5 mg-acetaminophen 325 1 tab PO BID PRN pain #10 tabs 11/26/21 mg tablet lidocaine 5 % topical patch 1 patch topical DAILY PRN pain #15 11/26/21 (Lidoderm) ea lidocaine 5 % topical patch 1 patch topical DAILY PRN pain #15 11/26/21 (Lidoderm) ea nitrofurantoin macrocrystal 100 mg 100 mg PO BID #10 caps 08/13/22 capsule Allergies Allergy/AdvReac Type Severity Reaction Status Date / Time codeine Allergy Unknown Verified 08/13/22 08:44 droperidol Allergy Unknown Verified 08/13/22 08:44 metoclopramide [From Reglan] Allergy Unknown Verified 08/13/22 08:44 Sulfa (Sulfonamide Allergy Unknown Verified 08/13/22 08:44 Antibiotics) Review of Systems Review of Systems Narrative: GENERAL: negative chills, fatigue, malaise, fever, sweats. HEENT: negative sinus pain, ear pain, sore throat RESPIRATORY: negative dyspnea, cough CARDIOVASCULAR: negative chest pain, palpitations GASTROINTESTINAL: negative nausea, vomiting, positive abdominal pain : negative dysuria, frequency, hematuria MUSCULOSKELETAL: Positive back and muscle or bony pain SKIN: negative rash, skin lesions NEUROLOGIC: negative weakness, numbness, chronic leg tingling, positive bowel and bladder incontinence ROS Unobtainable: All systems reviewed & are unremarkable except as noted in HPI and below Patient History Medical History Alcohol abuse History of narcotic addiction Leg pain Peripheral neuropathy TBI (traumatic brain injury) Tobacco abuse Surgical History History of cholecystectomy Family History Mother History of recurrent TIAs Father Heart disease Social History household members: spouse Smoking Status: Current some day smoker Smoking Status: Current some day smoker tobacco type: cigarettes and vaping alcohol intake frequency: 0-2 drinks per day Alcohol type: beer, wine and hard liquor Substance Use Type: does not use and prescription drug Exam Narrative Exam Narrative: GENERAL: in no distress, not toxic not dyspneic HEAD: Normocephalic. EYES: Pupils equal round ENT: Mucous membranes moist. NECK: Trachea midline. CARDIOVASCULAR: Regular rate and rhythm without murmurs RESPIRATORY: Clear to auscultation. Breath sounds equal bilaterally. No wheezes, rales, or rhonchi. GASTROINTESTINAL: Abdomen soft, non-tender EXTREMITIES: No gross deformities. BACK: No flank tenderness. There is no midline tenderness or step-off of the cervical thoracic or lumbar spine. Able to rotate left and right and leaned forward and back at the waist without any back pain. No rash. NEURO: AOx4. Baseline neuropathy with bilateral legs and feet but able to feel light touch to feet and toes. Strong bilateral patellar reflexes and ankle flexion-extension. Able to lift each leg off the bed individually without difficulty. SKIN: Warm and dry PSYCH: Not anxious, is cooperative Initial Vital Signs Initial Vital Signs: Vital Signs Temperature 97.5 F L 08/13/22 08:21 Pulse Rate 103 H 08/13/22 08:21 Respiratory Rate 18 08/13/22 08:21 Blood Pressure 153/95 H 08/13/22 08:21 Pulse Oximetry 98 08/13/22 08:21 Oxygen Delivery Method 08/13/22 08:21 Course Orders Ordered: Discontinued Medications Sodium Chloride (Normal Saline 0.9%) 500 mls @ 1,000 mls/hr IV BOLUS ONE Stop: 08/13/22 09:33 Last Infusion: 08/13/22 13:14 Dose: 0 mls/hr Documented By: Admin: 08/13/22 12:25 Dose: 1,000 mls/hr Documented By: NR Nitrofurantoin Macrocrystals (Nitrofurantoin Er 100 Mg Capsule) 100 mg PO NOW ONE Stop: 08/13/22 13:17 Last Admin: 08/13/22 13:33 Dose: 100 mg Documented By: NR Vital Signs Vital signs: Vital Signs - 8 hr 08/13/22 08:21 08/13/22 08:37 08/13/22 08:56 Temperature 97.5 F L Pulse Rate 103 H 91 H 92 H Respiratory Rate 18 Blood Pressure 153/95 H Pulse Oximetry 98 94 95 Oxygen Delivery Method Room Air 08/13/22 09:00 08/13/22 12:21 08/13/22 12:21 Temperature Pulse Rate 85 Respiratory Rate Blood Pressure 146/91 H 106/72 Pulse Oximetry 97 Oxygen Delivery Method MDM - Recheck/Abnormal Lab/Rx Lab Data 08/13/22 08:35 08/13/22 08:35 Labs: Lab Results 08/13/22 08/13/22 08/13/22 Range/Units 08:35 08:35 08:35 WBC 2.4 L (4.5-11.0) X10^3/uL RBC 3.04 L (4.0-5.2) X10^6/uL Hgb 11.8 L (12.0-16.0) g/dL Hct 34.0 L (36-46) % MCV 111.6 H (80-100) fL MCH 38.8 H (26-34) PG MCHC 34.8 (30-36) % RDW 18.6 H (11.6-14.8) % Plt Count 105 L (150-400) X10^3/uL Neut % (Auto) 48.6 L (50-75) % Lymph % (Auto) 38.0 (25-40) % [place] % (Auto) 9.5 (3-14) % Eos % (Auto) 3.3 (2-4) % Baso % (Auto) 0.6 (0-2) % Neut # (Auto) 1200 L (6734-7088) /uL Lymph # (Auto) 900 L (4904-3779) /uL [place] # (Auto) 200 (0-900) /uL Eos # (Auto) 100 (0-450) /uL Baso # (Auto) 0 (0-100) /uL RBC Morphology See below Anisocytosis 2+ H Macrocytosis 2+ H Target Cells 2+ H PT 14.8 H (10.1-12.7) SECONDS INR 1.3 (0.9-1.3) APTT 36 (26-36) SECONDS Sodium 141 (137-145) mmol/L Potassium 3.1 L (3.4-5.1) mmol/L Chloride 93 L (98-107) mmol/L Carbon Dioxide 38 H (22-32) mmol/L BUN 3 L (7-17) mg/dL Creatinine 0.35 L (0.52-1.04) mg/dL Estimated GFR > 60 (>60) mL/min BUN/Creatinine Ratio 8.6 (6-22) Glucose 105 H (70-100) mg/dL Calcium 8.1 L (8.4-10.2) mg/dL Total Bilirubin 0.9 (0.2-1.3) mg/dL AST 349 H (14-36) IU/L ALT 79 H (<35) IU/L Alkaline Phosphatase 214 H (38-126) U/L Total Protein 7.7 (6.3-8.2) g/dL Albumin 3.7 (3.5-5.0) g/dL Globulin 4.0 (1.7-4.1) g/dL Albumin/Globulin Ratio 0.9 L (1.0-2.8) Urine Color Urine Appearance Urine pH (4.5-8.0) Ur Specific [place] (1.000-1.035) Urine Protein (Negative) Urine Glucose (UA) (Negative) g/dL Urine Ketones (NEGATIVE) Urine Occult Blood (Negative) Urine Nitrate (Negative) Urine Bilirubin (NEGATIVE) Urine Urobilinogen (0.2) E.U./dL Ur Leukocyte Esterase (NEGATIVE) Urine RBC (0-5/HPF) Urine WBC (0-5/HPF) Ur Squamous Epith Cells (0-5/HPF) Ur Transition Epith Cell Ur Renal Epithelial Cell Calcium Oxalate Crystal Uric Acid Crystals Triple Phos Crystals Other Crystals Amorphous Sediment Urine Bacteria (None) Hyaline Casts Granular Casts RBC Casts WBC Casts Other Casts Urine Mucus Urine Trichomonas Urine Yeast Urine Sperm Ur Culture Indicated? Micro UA Comment Ethyl Alcohol ( - 10) mg/dL 08/13/22 08/13/22 08/13/22 Range/Units 08:35 09:30 09:30 WBC (4.5-11.0) X10^3/uL RBC (4.0-5.2) X10^6/uL Hgb (12.0-16.0) g/dL Hct (36-46) % MCV (80-100) fL MCH (26-34) PG MCHC (30-36) % RDW (11.6-14.8) % Plt Count (150-400) X10^3/uL Neut % (Auto) (50-75) % Lymph % (Auto) (25-40) % [place] % (Auto) (3-14) % Eos % (Auto) (2-4) % Baso % (Auto) (0-2) % Neut # (Auto) (6077-8166) /uL Lymph # (Auto) (4128-9075) /uL [place] # (Auto) (0-900) /uL Eos # (Auto) (0-450) /uL Baso # (Auto) (0-100) /uL RBC Morphology Anisocytosis Macrocytosis Target Cells PT (10.1-12.7) SECONDS INR (0.9-1.3) APTT (26-36) SECONDS Sodium (137-145) mmol/L Potassium (3.4-5.1) mmol/L Chloride (98-107) mmol/L Carbon Dioxide (22-32) mmol/L BUN (7-17) mg/dL Creatinine (0.52-1.04) mg/dL Estimated GFR (>60) mL/min BUN/Creatinine Ratio (6-22) Glucose (70-100) mg/dL Calcium (8.4-10.2) mg/dL Total Bilirubin (0.2-1.3) mg/dL AST (14-36) IU/L ALT (<35) IU/L Alkaline Phosphatase (38-126) U/L Total Protein (6.3-8.2) g/dL Albumin (3.5-5.0) g/dL Globulin (1.7-4.1) g/dL Albumin/Globulin Ratio (1.0-2.8) Urine Color Yellow Urine Appearance Clear Urine pH 6.5 (4.5-8.0) Ur Specific [place] <=1.005 (1.000-1.035) Urine Protein Negative (Negative) Urine Glucose (UA) Negative (Negative) g/dL Urine Ketones Negative (NEGATIVE) Urine Occult Blood Negative (Negative) Urine Nitrate Negative (Negative) Urine Bilirubin Negative (NEGATIVE) Urine Urobilinogen 0.2 (0.2) E.U./dL Ur Leukocyte Esterase 2+ H (NEGATIVE) Urine RBC 0-1/hpf Cancelled (0-5/HPF) Urine WBC 10-30/hpf H Cancelled (0-5/HPF) Ur Squamous Epith Cells 1-5 /hpf Cancelled (0-5/HPF) Ur Transition Epith Cell Cancelled Ur Renal Epithelial Cell Cancelled Calcium Oxalate Crystal Cancelled Uric Acid Crystals Cancelled Triple Phos Crystals Cancelled Other Crystals Cancelled Amorphous Sediment Cancelled Urine Bacteria None seen Cancelled (None) Hyaline Casts Cancelled Granular Casts Cancelled RBC Casts Cancelled WBC Casts Cancelled Other Casts Cancelled Urine Mucus Cancelled Urine Trichomonas Cancelled Urine Yeast Cancelled Urine Sperm Cancelled Ur Culture Indicated? Specimen cultured Cancelled Micro UA Comment Cancelled Ethyl Alcohol 291 H ( - 10) mg/dL Urine Dip Bedside Urine Glucose Negative Bedside Urine Bilirubin - Negative Bedside Urine Ketone - Negative Urine Specific [place] 1.010 Bedside Urine Occult Blood - Negative Bedside Urine pH 6.0 Bedside Urine Protein - Negative Bedside Urine Urobilinogen - Negative Bedside Urine Nitrite - Negative Bedside Urine Leukocytes + [address] scan - abdomen/pelvis: Radiologist's Impression: [address] [address] [address] Scan Report Signed Patient: Jenni Rosales MR#: [id number] : 1965 Acct:[id number] Age/Sex: 56 / F Date of Service: 08/13/22 Loc: ED Accession Number: [id number] ?? Procedure: CT abdomen pelvis w con Ordering Provider: Micah Byers MD PROCEDURE:? CT ABDOMEN PELVIS W CON ? INDICATIONS:? Diarrhea/GI bleed ? TECHNIQUE:? After the administration of oral and IV contrast, axial sections were acquired from the lung bases to the pubic symphysis.? Coronal and sagittal reformats were performed.? For radiation dose reduction, the following was used:? automated exposure control, adjustment of mA and/or kV according to patient size. ? COMPARISON:? [facility], MR, MR LUMBAR SPINE WO/W CON, 08/13/2022, 9:32.? [facility], CT, CT ABDOMEN PELVIS WITHOUT CONTRAST, 12/19/2021, 0:42. ? FINDINGS:? Image quality:? Excellent.? ? Lung bases:? Unremarkable.? ? Heart:? No significant findings. ? ? ABDOMEN: Liver: Diffuse fatty liver infiltration is noted.? The liver is normal in size and demonstrates no suspicious lesions.? A likely hemangioma is again seen within the inferior posterior right liver (segment 6). Gallbladder:? Removed.? ? Biliary ducts:? Unremarkable for a post cholecystectomy patient.? ? Pancreas:? Unremarkable.? ? Spleen:? Unremarkable.? ? Adrenal Glands:? Unremarkable.? ? Kidneys and Ureters:? Unremarkable.? ? ? Stomach and Bowel:? Multiple areas of moderate colonic wall thickening can be seen.? No overt colonic masses are seen on these images.? Minimal surrounding inflammatory change can be seen. No dilated loops of small bowel are seen. The stomach is relatively decompressed, limiting its evaluation. Peritoneum:? No abnormal intraperitoneal fluid.? No free air.? ? Ventral Wall: ? No hernia.? Abdominal Nodes:? No retroperitoneal or mesenteric adenopathy by size criteria.? Vessels:? Aorta and inferior vena cava are normal in size.? ? PELVIS: Pelvic Organs:? Unremarkable.? ? Bladder:? Unremarkable.? ? Pelvic Nodes: No enlarged lymph nodes.? Miscellaneous: No inguinal hernias are seen. ? ? ? Bones:? Focal lower lumbar spine degenerative changes are seen.? Milder degenerative changes are seen elsewhere.? ? ? IMPRESSION:? ? Segments of moderate colonic wall thickening can be seen.? Please correlate with potential infectious and inflammatory causes of colitis.? (The appearance is overall slightly improved compared to the prior CT, 12/19/2021.) ? No findings of perforation or abscess can be seen. ? Additional findings:? Diffuse fatty liver infiltration Presumed liver hemangioma Cholecystectomy Focal lower lumbar spine degenerative change ? Dictated by: Gordo Shabazz M.D. on 08/13/2022 at 9:40 ? ? Approved by: Gordo Shabazz M.D. on 08/13/2022 at 9:45 ? MRI lumbar spine: Radiologist's Impression: [place] [address] Magnetic Resonance Report Signed Patient: Jenni Rosales MR#: [id number] : 1965 Acct:[id number] Age/Sex: 56 / F Date of Service: 08/13/22 Loc: ED Accession Number: [id number] ?? Procedure: MR lumbar spine wo/w con Ordering Provider: Mciah Byers MD PROCEDURE:? MR LUMBAR SPINE WO/W CON ? INDICATIONS:? Lower back pain/incontinence ? TECHNIQUE:? Noncontrast sagittal T1 spin echo and T2 fast spin echo, sagittal STIR, axial T1 and T2 fast spin echo through the lumbar spine.? In cases with scoliosis, additional coronal T2 fast spin echo may be performed.? After the administration of contrast, sagittal and axial T1 spin echo with fat saturation through the lumbar spine.? ? COMPARISON:? None. ? FINDINGS:? Image quality:? Excellent.? ? Alignment and curvature:? There is normal bony alignment.? ? Marrow:? Marrow is of normal overall signal.? No acute vertebral body compression fractures.? No suspicious marrow enhancement.? ? Spinal cord:? Conus medullaris terminates at the L1 level.? Visualized spinal cord demonstrates normal signal, without suspicious enhancement.? ? Paraspinous soft tissues:? No paravertebral masses or abnormal enhancement.? ? At the disc levels, mild degenerative disc disease and arthropathy results in [id number] central stenosis at L3-4, L4-5 ? ? IMPRESSION:? ? No evidence of cord compression, cauda equina syndrome, or mass lesion. ? Mild multilevel degenerative disc disease and arthropathy in the lower lumbar spine ? Approved by: Shant Francisco M.D. on 08/13/2022 at 9:21? [facility] Narrative Medical decision making narrative: Patient brought here by for complaints of bloody diarrhea urinary incontinence bowel incontinence with lower back pain. Seen by [facility] yesterday and instructed to come here for MRI of the lower spine to rule out cauda equina. No prior history of back surgery or MRI. No IV drug use. Does drink alcohol daily. No new fall or injury. Has chronic bilateral lower leg and feet neuropathy and has been evaluated by neurologist. Is on gabapentin for this. No saddle paresthesia. Patient states about 3 or 4 weeks ago had Holly took MiraLax and then 7 days later had urinary and stool incontinence with blood in stool at times. Has been dizzy at times as well. Has had lower abdominal cramping. No chest pain. No dyspnea. Still able to walk. Has chronic arthritis of the joints. This is not new. Patient does drink alcohol daily After history and exam CBC CMP CT scan abdomen and pelvis MRI lumbar spine have been ordered as well as GI panel and urinalysis [facility] CC: Back pain/incontinence/diarrhea/urinary incontinence Complicating co-morbidities: No diabetes no IV drug use, daily alcohol use Data collected from: Patient and Medical records reviewed: No previous ED visits for this complaint Differential considered: Includes but not limited to cauda equina/lumbar radiculopathy/colitis/UTI Exam documented above, pertinent findings include: No lumbar tenderness., strong bilateral hip knee flexion-extension and strong patellar reflexes Lab Test results independently reviewed as above. Pertinent findings: CBC white cell count 2.4 hemoglobin 11.8 hematocrit 34 platelets 105, sodium 131 potassium 3.1 bicarb 38 AST 349 ALT 79 likely related to alcohol, alcohol levels are 291 l consumption Imaging studies independently reviewed: MRI lumbar spine no acute process no signs of cord compression/cauda equina. CT abdomen pelvis shows colitis Treatments: Macrobid/IV fluids Re-evaluations: Reviewed results with patient and . At this time they are reassuring. Colitis nonspecific. However patient unable to provide appropriate amount of stool for GI panel. Treatment for UTI reviewed with patient and she agrees. Nontoxic at discharge. Return precautions reviewed with her. Discussion: Appropriate for discharge home. Nontoxic at discharge. Reassuring laboratory studies and imaging otherwise. Macrobid started here. Encouraged patient to decrease her alcohol consumption. She does have a family doctor to follow up with. Not toxic at discharge. Diagnosis: Colitis/alcohol abuse Discharge Plan Departure Patient Disposition: Home Clinical Impression: Colitis, Diarrhea, UTI (urinary tract infection) Instructions: DI for Urinary Tract Infection (UTI), DI for Alcohol Use Disorder, DI for Colitis Activity Restrictions/Additional Instructions: Please decrease your alcohol consumption. It can make diarrhea worse. Please see family doctor this week for re-evaluation. Prescription for antibiotic for treatment of urinary tract infection has been provided for you. Be sure to complete the full course. Return if worse if any questions or concerns. May continue home medications. You may need to schedule colonoscopy outpatient procedure through your family doctor. You will need referral. Prescriptions: New nitrofurantoin macrocrystal 100 mg capsule 100 mg PO BID Qty: 10 0RF Rx Instructions: must administer with a meal/food No Action gabapentin [Neurontin] 300 MG capsule 600 mg PO TID Qty: 0 buprenorphine-naloxone [Suboxone] 8-2 mg film 8 film sublingual TID Label Comments: dissolve 1 FILM under the tongue every 8 hours lidocaine 5 % adhesive patch,medicated 1 patch topical DAILY PRN (Reason: pain) Qty: 15 0RF Rx Instructions: leave on most painful area for up to 12 hrs hydrocodone-acetaminophen 5-325 mg tablet 1 tab PO BID PRN (Reason: pain) Qty: 10 0RF diclofenac sodium 3 % gel 1 applic topical BID PRN (Reason: pain) Qty: 100 0RF Rx Instructions: Please apply to left rib area 1-4 times daily as needed using the applicator and dose it according to the applicator. lidocaine [Lidoderm] 5 % adhesive patch,medicated 1 patch topical DAILY PRN (Reason: pain) Qty: 15 0RF Rx Instructions: leave on most painful area for up to 12 hrs diclofenac sodium 3 % gel 1 applic topical BID PRN (Reason: pain) Qty: 100 0RF Rx Instructions: Please apply to left rib area where it is painful using the dosing applicator up to 4 times daily. lidocaine [Lidoderm] 5 % adhesive patch,medicated 1 patch topical DAILY PRN (Reason: pain) Qty: 15 0RF Rx Instructions: leave on most painful area for up to 12 hrs Referrals: Ej Jimenez MD [Primary Care Provider] - Stand Alone Forms: Patient Portal/API
[2022-08-13 09:32] LABS: Basophils Absolute Auto 0 /uL (0-100); Basophils Percent Auto 0.6 % (0-2); Eosinophils Absolute Auto 100 /uL (0-450); Eosinophils Percent Auto 3.3 % (2-4); Hemoglobin 11.8 g/dL (12.0-16.0); Lymphocytes Absolute Auto 900 /uL (1100-4500); Mean Corpuscular HGB Conc 34.8 % (30-36); Mean Corpuscular Hemoglobin 38.8 PG (26-34); Mean Corpuscular Volume 111.6 fL (80-100); Monocytes Absolute Auto 200 /uL (0-900); Monocytes Percent Auto 9.5 % (3-14); Neutrophils Absolute Auto 1200 /uL (1500-7000); Neutrophils Percent Auto 48.6 % (50-75); Platelet Count 105 X10^3/uL (150-400); Red Blood Cell Count 3.04 X10^6/uL (4.0-5.2); Red Cell Distribution Width 18.6 % (11.6-14.8); White Blood Cell Count 2.4 X10^3/uL (4.5-11.0)
[2022-08-13 09:33] LABS: Add Manual Diff / Slide Review SLIDE REVIEW; INR 1.3 (0.9-1.3); Prothrombin Time 14.8 SECONDS (10.1-12.7)
[2022-08-13 09:36] LABS: PTT Partial Thromboplastin Tim 36 SECONDS (26-36)
[2022-08-13 10:11] LABS: Macrocytosis 2+; Target Cells 2+
[2022-08-13 10:11] LABS: Appearance Urine UA CLEAR; Bilirubin Urine UA NEGATIVE (NEGATIVE); Color Urine UA YELLOW; Glucose Urine UA NEGATIVE (Negative); Ketones Urine UA NEGATIVE (NEGATIVE); Leukocyte Esterase Urine UA 2+ (NEGATIVE); Nitrite Urine UA NEGATIVE (Negative); Occult Blood Urine UA NEGATIVE (Negative); Protein Urine UA NEGATIVE (Negative); Specific Gravity Urine UA <=1.005 (1.000-1.035); Urobilinogen Urine UA 0.2 E.U./dL (0.2)
[2022-08-13 10:12] LABS: Anisocytosis 2+
[2022-08-13 10:13] LABS: Alanine Aminotransferase 79 IU/L (<35); Albumin 3.7 g/dL (3.5-5.0); Albumin Globulin Ratio 0.9 (1.0-2.8); Alkaline Phosphatase 214 U/L (38-126); Aspartate Aminotransferase 349 IU/L (14-36); BUN Creatinine Ratio 8.6 (6-22); Bilirubin Total 0.9 mg/dL (0.2-1.3); Blood Urea Nitrogen 3 mg/dL (7-17); Calcium 8.1 mg/dL (8.4-10.2); Carbon Dioxide 38 mmol/L (22-32); Chloride 93 mmol/L (98-107); Estimated Glomerular Filt Rate > 60 mL/min (>60); Glucose 105 mg/dL (70-100); HEMOLYSIS < 15 (0-50); Potassium 3.1 mmol/L (3.4-5.1); Sodium 141 mmol/L (137-145); Total Protein 7.7 g/dL (6.3-8.2)
[2022-08-13 10:15] LABS: pH Urine UA 6.5 (4.5-8.0)
[2022-08-13 10:20] LABS: RBC Urine 0-1/HPF (0-5/HPF)
[2022-08-13 10:22] LABS: Bacteria Urine None Seen; Culture Indicated Urine Specimen Cultured; Squamous Epithelial Cell Urine 1-5 /HPF (0-5/HPF); WBC Urine 10-30/HPF (0-5/HPF)
[2022-08-13 11:40] LABS: Ethanol (ETOH) 291 mg/dL
[2022-08-13 12:21] VITALS: BP 106/72; PULSE 85; O2SAT 97
[2022-08-13] MEDS: SODIUM CHLORIDE 0.9% 500 ML 1000 ML IV (12:25)
--- NOTE | 2022-08-13 12:58 | PC.NURSE ---
pt attempted to leave stool sample. one small pebble of feces provided, lab called and verified this is not enough to preform testing on. provider notified
--- NOTE | 2022-08-13 13:14 | PC.NURSE ---
pt spoke with who informed her she would be going home. pt thought she was okay to leave and pulled out her infusing IV. pt began screaming for help. RN ran into help. IV was spilling out onto floor pt was bleeding onto bed. gauze and bandage applied to pt and towel laid on floor. pt thought since the dr said she could go home, she was okay to disconnect herself and leave.
[2022-08-13] MEDS: NITROFURANTOIN ER 100 MG CAPSULE PO (13:33)
--- NOTE | 2022-08-13 13:33 | PC.NURSE ---
discharge instructions gone over with patient, out of room. instructions included decreasing alcohol consumption, pt asked me to be quiet and not tell her . instructions given to pt, verbalized that would be driving when he came back into the room
== END 2022-08-13 13:36 | disposition home or self-care (01) ==
PROVIDERS: Emergency Provider Emergency Medicine; PCP Family Medicine
DX: K52.9 Noninfective gastroenteritis and colitis, unspecified (principal); N39.0 Urinary tract infection, site not specified; F10.129 Alcohol abuse with intoxication, unspecified; Y90.8 Blood alcohol level of 240 mg/100 ml or more
CPT/HCPCS: 36415; 72158; 74177; 80053; 80320; 81001; 81003; 85025; 85610; 85730; 87077; 87086; 87186; 96360; 99284; 99285; Q9967

== ENCOUNTER 2022-09-01 18:17 | Emergency (ER) | payer MEDICARE, MEDICAID, SELFPAY ==
[2020-11-24 22:40] VITALS: BMI 25.4
[2022-09-01 19:00] VITALS: BP 119/71; PULSE 92; RESP 16; TEMP 36.6; O2SAT 96
--- NOTE | 2022-09-01 19:16 | DI.CT.S_ITS ---
PROCEDURE: CT HEAD/BRAIN WO CON INDICATIONS: fall hit head with confusion TECHNIQUE: Noncontrast 4.5 mm thick angled axial sections acquired from the foramen magnum to the vertex, with coronal and sagittal reformats. For radiation dose reduction, the following was used: automated exposure control, adjustment of mA and/or kV according to patient size. COMPARISON: MR, MR STROKE, 11/25/2020, 7:41. [facility], CT, HEAD WITHOUT CONTRAST, 08/09/2014, 19:01. FINDINGS: Image quality: Excellent. CSF spaces: Basal cisterns are patent. No extra-axial fluid collections. The ventricles are symmetric in size and shape. Brain: No intracranial bleeds or masses. There is cerebral volume loss for age, with resultant ventricular and sulcal prominence. There are periventricular and deep white matter chronic small vessel ischemic changes. There is intracranial internal carotid artery atherosclerosis. Skull and face: Calvarium and visualized facial bones appear intact, without suspicious lesions. Sinuses: Visualized sinuses and mastoids are clear. IMPRESSION: 1. No acute intracranial abnormalities. 2. Cerebral volume loss and chronic microvascular ischemic changes. Dictated by: Janee Charles M.D. on 09/01/2022 at 19:45 Approved by: Janee Charles M.D. on 09/01/2022 at 19:46
--- NOTE | 2022-09-01 20:23 | ED.HEATRA ---
HPI - Head Injury General Chief complaint: Head Injury Stated complaint: fell hit head last possible concussion Time Seen by Provider: 09/01/22 20:08 Source: patient Mode of arrival: Wheelchair Limitations: no limitations History of Present Illness HPI Narrative: Patient is a 56-year-old female. Not on anticoagulation who approximately 1 week ago had an episode of vertigo when she was getting out of her car and she fell backwards hitting her head on the ground. She thinks that there was a loss of consciousness for a short period of time however she quickly regained consciousness. Has been ambulatory since then. States she has had some bleeding from some abrasions on the back of her head. Since that time in his reported that she has had nausea, mood swings, vision changes and confusion. Is also having headaches. She states she does not like to take Tylenol and ibuprofen because of what she has read that it does to your body. She reports no neck pain. No extremity pain. Related Data Home Medications Medication Instructions Recorded Confirmed gabapentin 300 mg capsule 600 mg PO TID ##0 02/19/16 11/24/20 (Neurontin) buprenorphine 8 mg-naloxone 2 mg 8 film sublingual TID 04/10/20 11/24/20 sublingual film (Suboxone) Previous Rx's Medication Instructions Recorded lidocaine 5 % topical patch 1 patch topical DAILY PRN pain #15 10/06/21 ea diclofenac sodium 3 % topical gel 1 applic topical BID PRN pain #100 11/26/21 grams diclofenac sodium 3 % topical gel 1 applic topical BID PRN pain #100 11/26/21 grams hydrocodone 5 mg-acetaminophen 325 1 tab PO BID PRN pain #10 tabs 11/26/21 mg tablet lidocaine 5 % topical patch 1 patch topical DAILY PRN pain #15 11/26/21 (Lidoderm) ea lidocaine 5 % topical patch 1 patch topical DAILY PRN pain #15 11/26/21 (Lidoderm) ea nitrofurantoin macrocrystal 100 mg 100 mg PO BID #10 caps 08/13/22 capsule ondansetron 4 mg disintegrating 4 mg PO Q6H PRN nausea and 09/01/22 tablet vomiting #14 tabs Allergies Allergy/AdvReac Type Severity Reaction Status Date / Time codeine Allergy Unknown Verified 09/01/22 19:06 droperidol Allergy Unknown Verified 09/01/22 19:06 metoclopramide [From Reglan] Allergy Unknown Verified 09/01/22 19:06 Sulfa (Sulfonamide Allergy Unknown Verified 09/01/22 19:06 Antibiotics) Review of Systems Review of Systems ROS Unobtainable: All systems reviewed & are unremarkable except as noted in HPI and below Patient History Medical History Alcohol abuse History of narcotic addiction Leg pain Peripheral neuropathy TBI (traumatic brain injury) Tobacco abuse Surgical History History of cholecystectomy Family History Mother History of recurrent TIAs Father Heart disease Social History household members: spouse Smoking Status: Current some day smoker Smoking Status: Current some day smoker tobacco type: cigarettes and vaping alcohol intake frequency: 0-2 drinks per day Alcohol type: beer, wine and hard liquor Substance Use Type: does not use and prescription drug Exam Initial Vital Signs Initial Vital Signs: Vital Signs Temperature 98 F 09/01/22 19:00 Pulse Rate 92 H 09/01/22 19:00 Respiratory Rate 16 09/01/22 19:00 Blood Pressure 119/71 09/01/22 19:00 Pulse Oximetry 96 09/01/22 19:00 Oxygen Delivery Method Room Air 09/01/22 19:00 HENMT Head: abrasion (An abrasion to the back of the head that is not bleeding) Resp Effort & Inspection: normal respiratory effort Cardio Rate: regular rate Skin Other: Abrasion to posterior aspect of scalp Neuro General: patient alert, patient awake and moves all extremities Extrem General: normal to inspection Course Orders Ordered: ED Orders 09/01/22 19:16 CT head/brain wo con Stat Vital Signs Vital signs: Vital Signs - 8 hr 09/01/22 19:00 09/01/22 20:38 Temperature 98 F Pulse Rate 92 H 89 Respiratory Rate 16 16 Blood Pressure 119/71 114/65 Pulse Oximetry 96 99 Oxygen Delivery Method Room Air Room Air MDM - Head Injury Imaging Data CT scan - head: Radiologist's Impression: ROCEDURE:? CT HEAD/BRAIN WO CON ? INDICATIONS:? fall hit head with confusion ? TECHNIQUE:? Noncontrast 4.5 mm thick angled axial sections acquired from the foramen magnum to the vertex, with coronal and sagittal reformats.? For radiation dose reduction, the following was used:? automated exposure control, adjustment of mA and/or kV according to patient size.? ? COMPARISON:? , STROKE, 11/25/2020, 7:41.? [facility], CT, HEAD WITHOUT CONTRAST, 08/09/2014, 19:01. ? FINDINGS:? Image quality:? Excellent.? ? CSF spaces:? Basal cisterns are patent.? No extra-axial fluid collections.? The ventricles are symmetric in size and shape.? ? Brain:? No intracranial bleeds or masses.? There is cerebral volume loss for age, with resultant ventricular and sulcal prominence.? There are periventricular and deep white matter chronic small vessel ischemic changes.? There is intracranial internal carotid artery atherosclerosis.? ? Skull and face:? Calvarium and visualized facial bones appear intact, without suspicious lesions.? ? Sinuses:? Visualized sinuses and mastoids are clear.? ? IMPRESSION:? ? 1. No acute intracranial abnormalities. ? 2. Cerebral volume loss and chronic microvascular ischemic changes. MDM Narrative Medical decision making narrative: Patient's injury was approximately 1 week ago. The head CT today his unremarkable. She is an abrasion with scabbing over the back of her head that needs specific intervention here in the ER. She is no neck pain. No extremity pain. Patient's presenting symptoms today are consistent with a concussion/postconcussive syndrome. I did discuss this with her. We discussed the importance of her avoiding situations where she could hit her head again. We discussed use of Tylenol and ibuprofen. Will have her contact her primary doctor for follow-up. She was given return precautions. She expressed understanding and agreement. Discharge Plan Departure Patient Disposition: Home Clinical Impression: Concussion Instructions: Concussion Activity Restrictions/Additional Instructions: You can take Tylenol or ibuprofen for any headaches. A prescription for nausea medicine was sent to [facility] per your request. I recommend you contact your primary doctor for a follow-up. Prescriptions: New ondansetron 4 mg tablet,disintegrating 4 mg PO Q6H PRN (Reason: nausea and vomiting) Qty: 14 0RF No Action gabapentin [Neurontin] 300 MG capsule 600 mg PO TID Qty: 0 buprenorphine-naloxone [Suboxone] 8-2 mg film 8 film sublingual TID Patient Comments: dissolve 1 FILM under the tongue every 8 hours lidocaine 5 % adhesive patch,medicated 1 patch topical DAILY PRN (Reason: pain) Qty: 15 0RF Rx Instructions: leave on most painful area for up to 12 hrs hydrocodone-acetaminophen 5-325 mg tablet 1 tab PO BID PRN (Reason: pain) Qty: 10 0RF diclofenac sodium 3 % gel 1 applic topical BID PRN (Reason: pain) Qty: 100 0RF Rx Instructions: Please apply to left rib area 1-4 times daily as needed using the applicator and dose it according to the applicator. lidocaine [Lidoderm] 5 % adhesive patch,medicated 1 patch topical DAILY PRN (Reason: pain) Qty: 15 0RF Rx Instructions: leave on most painful area for up to 12 hrs diclofenac sodium 3 % gel 1 applic topical BID PRN (Reason: pain) Qty: 100 0RF Rx Instructions: Please apply to left rib area where it is painful using the dosing applicator up to 4 times daily. lidocaine [Lidoderm] 5 % adhesive patch,medicated 1 patch topical DAILY PRN (Reason: pain) Qty: 15 0RF Rx Instructions: leave on most painful area for up to 12 hrs nitrofurantoin macrocrystal 100 mg capsule 100 mg PO BID Qty: 10 0RF Rx Instructions: must administer with a meal/food Referrals: Ej Jimenez MD [Primary Care Provider] - Stand Alone Forms: Patient Portal/API
[2022-09-01 20:38] VITALS: BP 114/65; PULSE 89; RESP 16; O2SAT 99
== END 2022-09-01 20:39 | disposition home or self-care (01) ==
PROVIDERS: Emergency Provider Emergency Medicine; PCP Family Medicine
DX: S06.0X0A Concussion without loss of consciousness, initial encounter (principal); W18.30XA Fall on same level, unspecified, initial encounter
CPT/HCPCS: 70450; 99281; 99284

== ENCOUNTER 2022-10-03 15:29 | Emergency (ER) | payer MEDICARE, MEDICAID, SELFPAY ==
[2020-11-24 22:40] VITALS: BMI 25.4
[2022-10-03] VITALS (32 sets, daily range): BP systolic 104–146; BP diastolic 63–91; PULSE 85–115; RESP 7–23; TEMP 37.1; O2SAT 87–100; BMI 23.3
[2022-10-03 16:44] LABS: Add Manual Diff / Slide Review NO; Basophils Absolute Auto 100 /uL (0-100); Basophils Percent Auto 0.6 % (0-2); Eosinophils Absolute Auto 0 /uL (0-450); Eosinophils Percent Auto 0.2 % (2-4); Hemoglobin 10.3 g/dL (12.0-16.0); Lymphocytes Absolute Auto 900 /uL (1100-4500); Lymphocytes Percent Auto 9.4 % (25-40); Mean Corpuscular HGB Conc 35.7 % (30-36); Mean Corpuscular Hemoglobin 41.4 PG (26-34); Monocytes Absolute Auto 1300 /uL (0-900); Monocytes Percent Auto 13.7 % (3-14); Neutrophils Absolute Auto 7200 /uL (1500-7000); Neutrophils Percent Auto 76.1 % (50-75); Platelet Count 160 X10^3/uL (150-400); Red Cell Distribution Width 15.8 % (11.6-14.8); White Blood Cell Count 9.5 X10^3/uL (4.5-11.0)
[2022-10-03 16:46] LABS: INR 2.4 (0.9-1.3); Prothrombin Time 28.1 SECONDS (10.1-12.7)
[2022-10-03 16:55] LABS: Alanine Aminotransferase 77 IU/L (<35); Albumin 2.9 g/dL (3.5-5.0); Albumin Globulin Ratio 0.5 (1.0-2.8); Alkaline Phosphatase 460 U/L (38-126); Ammonia (NH3) 36 umol/L (9-30); Aspartate Aminotransferase 270 IU/L (14-36); BUN Creatinine Ratio 16.7 (6-22); Bilirubin Total 19.1 mg/dL (0.2-1.3); Blood Urea Nitrogen 9 mg/dL (7-17); Calcium 7.8 mg/dL (8.4-10.2); Carbon Dioxide 31 mmol/L (22-32); Chloride 89 mmol/L (98-107); Estimated Glomerular Filt Rate > 60 mL/min (>60); Globulin 5.3 g/dL (1.7-4.1); Glucose 89 mg/dL (70-100); HEMOLYSIS < 15 (0-50); Lipase 129 U/L (23-300); Sodium 129 mmol/L (137-145); Total Protein 8.2 g/dL (6.3-8.2)
[2022-10-03 17:07] LABS: PTT Partial Thromboplastin Tim 47 SECONDS (26-36)
[2022-10-03 17:15] LABS: COVID19 -Nasal RAPID Negative (Negative)
--- NOTE | 2022-10-03 17:16 | DI.US.S_ITS ---
PROCEDURE: US ABDOMEN COMPLETE INDICATIONS: JAUNDICE TECHNIQUE: Real-time scanning was performed of the abdominal and retroperitoneal organs, with image documentation. COMPARISON: [facility], CT, CT ABDOMEN PELVIS W CON, 08/13/2022, 9:59. FINDINGS: This study is limited by body habitus. Liver: The liver demonstrates enlarged size. The liver demonstrates generalized moderately increased echogenicity. This decreases ultrasound sensitivity for detection of hepatic masses. Free fluid can be seen adjacent to the liver and adjacent to the right kidney. The main portal vein is demonstrated to be patent, although there is limited, weak flow seen within it. Gallbladder: Removed. Biliary ducts: Intrahepatic bile ducts are non-dilated. Extrahepatic bile duct caliber measures 3-4 mm. Normal is 6-7 mm or less in diameter, or 10 mm or less post-cholecystectomy. Pancreas: Visualized portions of the pancreas are sonographically normal. Spleen: Spleen is normal in size and homogeneous in echotexture. Kidneys: Kidneys are normal in size and echotexture. Right kidney measures 10.3 cm long; left kidney measures 11 cm long. No hydronephrosis or nephrolithiasis. No solid masses. Aorta: Visualized aorta is normal in caliber at less than 3 cm. Iliacs: Not well seen, obscured by overlying bowel gas. IVC: Not well seen. Miscellaneous: No free abdominal fluid. IMPRESSION: Enlarged liver, with increased echogenicity, which is attributed to fatty infiltration. There is new ascites seen adjacent to the liver. The main portal vein is demonstrated to be patent, although there is only a small amount of flow seen within it. Status post cholecystectomy, without biliary dilatation. Dictated by: Gordo Shabazz M.D. on 10/03/2022 at 18:08 Approved by: Gordo Shabazz M.D. on 10/03/2022 at 18:10
[2022-10-03 17:19] LABS: Macrocytosis 3+; Platelet Estimate Adequate on smear
--- NOTE | 2022-10-03 17:19 | ED_ITS ---
HPI - Abdominal Pain <Daylin Lui Conrad, DO - Last Filed: 10/04/22 08:25> General Chief Complaint: Abdominal Pain Stated Complaint: COVID+T-14/Stomach bloating Time Seen by Provider: 10/03/22 16:23 Source: patient Mode of arrival: Ambulatory Limitations: no limitations History of Present Illness HPI narrative: This is a 56-year-old female with prior history of alcohol abuse, on Suboxone, gabapentin for neuropathy clonazepam as needed. Patient states she developed COVID symptoms about 2-2 and half weeks ago developed some fevers about 3 days into it is some nasal congestion and then more recently has developed increasing swelling, yellowing of her skin in the last 2-3 days with some abdominal discomfort. Patient states no fevers for the past week she denies chest pain or shortness of breath. She denies nausea or vomiting. She states she is had diarrhea and constipation intermittently but most recently some constipation but with bowel movements. No black or bloody stools. She wrist her urine has been dark but denies dysuria, urgency or frequency. She is noticed little bit more bruising on her arms. Patient states she is had a prior cholecystectomy, allergic to sulfa, anapsyn, and codeine. Denies tobacco, patient states she used to drink alcohol regularly she states she has not in the last at least several months. She denies illicit or IV drugs. She states no known history of hepatitis she believes she is been immunized for hepatitis-B she is unsure about hepatitis-C. She states she was taking some Tylenol about 8 tablets of 325 mg every 24 hours for a couple days but not on a regular basis. Related Data Home Medications Medication Instructions Recorded Confirmed gabapentin 300 mg capsule 600 mg PO TID ##0 02/19/16 10/03/22 (Neurontin) buprenorphine 8 mg-naloxone 2 mg 8 film sublingual TID 04/10/20 10/03/22 sublingual film (Suboxone) atorvastatin 20 mg tablet 20 mg PO QPM 10/03/22 10/03/22 clonazepam 0.5 mg tablet 0.25 - 0.5 mg PO DAILY PRN Anxiety 10/03/22 10/03/22 Previous Rx's Medication Instructions Recorded ondansetron 4 mg disintegrating 4 mg PO Q6H PRN nausea and 09/01/22 tablet vomiting #14 tabs Allergies Allergy/AdvReac Type Severity Reaction Status Date / Time codeine Allergy Unknown Verified 10/03/22 20:37 droperidol Allergy Unknown Verified 10/03/22 20:37 metoclopramide [From Reglan] Allergy Unknown Verified 10/03/22 20:37 Sulfa (Sulfonamide Allergy Unknown Verified 10/03/22 20:37 Antibiotics) abciximab AdvReac Intermediate Muscle Pain Verified 10/03/22 20:37 Review of Systems <Daylin Martines DO - Last Filed: 10/04/22 08:25> Review of Systems ROS Unobtainable: All systems reviewed & are unremarkable except as noted in HPI and below Patient History <Daylin Martines DO - Last Filed: 10/04/22 08:25> Medical History Alcohol abuse History of narcotic addiction Leg pain Peripheral neuropathy TBI (traumatic brain injury) Tobacco abuse Surgical History History of cholecystectomy Family History Mother History of recurrent TIAs Father Heart disease Social History household members: spouse Smoking Status: Current some day smoker Smoking Status: Current some day smoker tobacco type: cigarettes and vaping alcohol intake frequency: a few times a week Alcohol type: beer, wine and hard liquor Substance Use Type: does not use and prescription drug Exam <DO Laurie Donnelly Last Filed: 10/04/22 08:25> Narrative Exam Narrative: GEN: Jaundiced female, alert and oriented x 3, patient appears to be in mild distress. Patient is slightly slow to respond but answers with the appropriate questions and responses. HEENT: Atraumatic, pupils are equal round reactive to light, extraocular movements are intact, nares are clear, patient has scleral icterus. Throat is clear without any exudates, erythema, tonsillar enlargement or uvular deviation HEART: Regular rate and rhythm without murmur, clicks, rubs. Pulses are equal in upper and lower extremities LUNGS:Lungs clear to auscultation, no wheezes, rales, crackles, chest moves symmetrically, no tachypnea accessory muscle use ABD:bowel sounds normal, soft, distended, mild generalized tenderness, no guarding, rebound, rigidity, no masses noted, no hepatosplenomegaly :No CVA tenderness MSCL: Non-tender, no muscle atrophy, muscles strength 5/5 upper and lower extremities, full range of motion, normal gait NEURO:CN 2-12 intact, sensation normal, no asterixis noted. SKIN: Patient had some mild bruising upper extremities and right flank. Initial Vital Signs Initial Vital Signs: Vital Signs Temperature 98.7 F 10/03/22 15:53 Pulse Rate 115 H 10/03/22 15:53 Respiratory Rate 20 10/03/22 15:53 Blood Pressure 146/76 H 10/03/22 15:53 Pulse Oximetry 96 10/03/22 15:53 Oxygen Delivery Method Room Air 10/03/22 15:53 <Edgar Casas DO - Last Filed: 10/04/22 06:45> Initial Vital Signs Initial Vital Signs: Vital Signs Temperature 98.7 F 10/03/22 15:53 Pulse Rate 115 H 10/03/22 15:53 Respiratory Rate 20 10/03/22 15:53 Blood Pressure 146/76 H 10/03/22 15:53 Pulse Oximetry 96 10/03/22 15:53 Oxygen Delivery Method Room Air 10/03/22 15:53 Course <Daylin Martines, - Last Filed: 10/04/22 08:25> Orders Ordered: ED Orders 10/04/22 07:05 CBC Auto Diff [Complete Blood Count AUTO DIFF] Stat CMP [Comprehensive Metabolic Panel] Stat Discontinued Medications Hydromorphone HCl (Hydromorphone 0.5 Mg Inj) 0.5 mg IV NOW ONE Stop: 10/04/22 00:02 Last Admin: 10/04/22 00:20 Dose: 0.5 mg Documented By: GC POTASSIUM CHLORIDE IN WATER (Potassium Cl 10 Meq/100 Ml Nora) 10 meq in 100 mls @ 100 mls/hr IV Q1H LAURA Stop: 10/04/22 05:14 Last Infusion: 10/04/22 06:58 Dose: 0 mls/hr Documented By: Admin: 10/04/22 05:58 Dose: 100 mls/hr Documented By: Infusion: 10/04/22 05:38 Dose: 0 mls/hr Documented By: Admin: 10/04/22 04:23 Dose: 75 mls/hr Documented By: Infusion: 10/04/22 04:16 Dose: 75 mls/hr Documented By: Admin: 10/04/22 02:56 Dose: 75 mls/hr Documented By: Infusion: 10/04/22 02:55 Dose: 0 mls/hr Documented By: Admin: 10/04/22 01:47 Dose: 75 mls/hr Documented By: WILLIAM Ondansetron HCl (Ondansetron 4 Mg Odt) 4 mg PO NOW PRN PRN Reason: Nausea And Vomiting Ondansetron HCl (Ondansetron 4 Mg/2 Ml Inj) 4 mg IV NOW PRN PRN Reason: Nausea And Vomiting Vital Signs Vital signs: Vital Signs - 8 hr 10/04/22 00:30 10/04/22 00:30 10/04/22 00:45 Pulse Rate 108 H Respiratory Rate 17 Blood Pressure 137/83 127/73 Pulse Oximetry 96 Oxygen Delivery Method Room Air 10/04/22 00:45 10/04/22 01:00 10/04/22 01:00 Pulse Rate 106 H 102 H Respiratory Rate 19 Blood Pressure 125/74 Pulse Oximetry 96 95 Oxygen Delivery Method 10/04/22 01:15 10/04/22 01:15 10/04/22 01:30 Pulse Rate 100 H Respiratory Rate 10 L Blood Pressure 123/73 123/74 Pulse Oximetry 94 Oxygen Delivery Method 10/04/22 01:30 10/04/22 01:45 10/04/22 01:45 Pulse Rate 100 H 99 H Respiratory Rate 15 Blood Pressure 127/79 Pulse Oximetry 96 94 Oxygen Delivery Method 10/04/22 02:00 10/04/22 02:00 10/04/22 02:15 Pulse Rate 96 H Respiratory Rate 11 L Blood Pressure 114/72 120/71 Pulse Oximetry 95 Oxygen Delivery Method 10/04/22 02:15 10/04/22 02:30 10/04/22 02:30 Pulse Rate 92 H 89 Respiratory Rate 12 11 L Blood Pressure 115/67 Pulse Oximetry 94 91 Oxygen Delivery Method 10/04/22 02:45 10/04/22 02:45 10/04/22 03:00 Pulse Rate 91 H Respiratory Rate Blood Pressure 123/77 125/79 Pulse Oximetry 95 Oxygen Delivery Method 10/04/22 03:00 10/04/22 04:09 Pulse Rate 91 H Respiratory Rate 18 Blood Pressure Pulse Oximetry 95 Oxygen Delivery Method Room Air <Edgar Casas, - Last Filed: 10/04/22 06:45> Orders Ordered: ED Orders 10/04/22 07:05 CBC Auto Diff [Complete Blood Count AUTO DIFF] Stat CMP [Comprehensive Metabolic Panel] Stat Discontinued Medications Hydromorphone HCl (Hydromorphone 0.5 Mg Inj) 0.5 mg IV NOW ONE Stop: 10/04/22 00:02 Last Admin: 10/04/22 00:20 Dose: 0.5 mg Documented By: GC POTASSIUM CHLORIDE IN WATER (Potassium Cl 10 Meq/100 Ml Nora) 10 meq in 100 mls @ 100 mls/hr IV Q1H LAURA Stop: 10/04/22 05:14 Last Infusion: 10/04/22 06:58 Dose: 0 mls/hr Documented By: Admin: 10/04/22 05:58 Dose: 100 mls/hr Documented By: Infusion: 10/04/22 05:38 Dose: 0 mls/hr Documented By: Admin: 10/04/22 04:23 Dose: 75 mls/hr Documented By: Infusion: 10/04/22 04:16 Dose: 75 mls/hr Documented By: Admin: 10/04/22 02:56 Dose: 75 mls/hr Documented By: Infusion: 10/04/22 02:55 Dose: 0 mls/hr Documented By: Admin: 10/04/22 01:47 Dose: 75 mls/hr Documented By: GC Ondansetron HCl (Ondansetron 4 Mg Odt) 4 mg PO NOW PRN PRN Reason: Nausea And Vomiting Ondansetron HCl (Ondansetron 4 Mg/2 Ml Inj) 4 mg IV NOW PRN PRN Reason: Nausea And Vomiting Vital Signs Vital signs: Vital Signs - 8 hr 10/04/22 00:30 10/04/22 00:30 10/04/22 00:45 Pulse Rate 108 H Respiratory Rate 17 Blood Pressure 137/83 127/73 Pulse Oximetry 96 Oxygen Delivery Method Room Air 10/04/22 00:45 10/04/22 01:00 10/04/22 01:00 Pulse Rate 106 H 102 H Respiratory Rate 19 Blood Pressure 125/74 Pulse Oximetry 96 95 Oxygen Delivery Method 10/04/22 01:15 10/04/22 01:15 10/04/22 01:30 Pulse Rate 100 H Respiratory Rate 10 L Blood Pressure 123/73 123/74 Pulse Oximetry 94 Oxygen Delivery Method 10/04/22 01:30 10/04/22 01:45 10/04/22 01:45 Pulse Rate 100 H 99 H Respiratory Rate 15 Blood Pressure 127/79 Pulse Oximetry 96 94 Oxygen Delivery Method 10/04/22 02:00 10/04/22 02:00 10/04/22 02:15 Pulse Rate 96 H Respiratory Rate 11 L Blood Pressure 114/72 120/71 Pulse Oximetry 95 Oxygen Delivery Method 10/04/22 02:15 10/04/22 02:30 10/04/22 02:30 Pulse Rate 92 H 89 Respiratory Rate 12 11 L Blood Pressure 115/67 Pulse Oximetry 94 91 Oxygen Delivery Method 10/04/22 02:45 10/04/22 02:45 10/04/22 03:00 Pulse Rate 91 H Respiratory Rate Blood Pressure 123/77 125/79 Pulse Oximetry 95 Oxygen Delivery Method 10/04/22 03:00 10/04/22 04:09 Pulse Rate 91 H Respiratory Rate 18 Blood Pressure Pulse Oximetry 95 Oxygen Delivery Method Room Air MDM - Abdominal Pain <Daylin Martines, DO - Last Filed: 10/04/22 08:25> Lab Data 10/04/22 07:05 10/04/22 07:05 Labs: Lab Results 10/03/22 10/03/22 10/03/22 Range/Units 16:15 16:15 16:15 WBC 9.5 (4.5-11.0) X10^3/uL RBC 2.50 L (4.0-5.2) X10^6/uL Hgb 10.3 L (12.0-16.0) g/dL Hct 29.0 L (36-46) % MCV 116.0 H (80-100) fL MCH 41.4 H (26-34) PG MCHC 35.7 (30-36) % RDW 15.8 H (11.6-14.8) % Plt Count 160 (150-400) X10^3/uL Neut % (Auto) 76.1 H (50-75) % Lymph % (Auto) 9.4 L (25-40) % [place] % (Auto) 13.7 (3-14) % Eos % (Auto) 0.2 L (2-4) % Baso % (Auto) 0.6 (0-2) % Neut # (Auto) 7200 H (0750-9877) /uL Lymph # (Auto) 900 L (7865-3345) /uL [place] # (Auto) 1300 H (0-900) /uL Eos # (Auto) 0 (0-450) /uL Baso # (Auto) 100 (0-100) /uL Platelet Estimate Adequate on smear RBC Morphology See below Macrocytosis 3+ H Target Cells PT 28.1 H (10.1-12.7) SECONDS INR 2.4 H (0.9-1.3) APTT (26-36) SECONDS Sodium 129 L (137-145) mmol/L Potassium 3.0 L (3.4-5.1) mmol/L Chloride 89 L (98-107) mmol/L Carbon Dioxide 31 (22-32) mmol/L BUN 9 (7-17) mg/dL Creatinine 0.54 (0.52-1.04) mg/dL Estimated GFR > 60 (>60) mL/min BUN/Creatinine Ratio 16.7 (6-22) Glucose 89 (70-100) mg/dL Lactate (0.7-2.1) mmol/L Calcium 7.8 L (8.4-10.2) mg/dL Total Bilirubin 19.1 H (0.2-1.3) mg/dL AST 270 H (14-36) IU/L ALT 77 H (<35) IU/L Alkaline Phosphatase 460 H (38-126) U/L Ammonia (9-30) umol/L Total Protein 8.2 (6.3-8.2) g/dL Albumin 2.9 L (3.5-5.0) g/dL Globulin 5.3 H (1.7-4.1) g/dL Albumin/Globulin Ratio 0.5 L (1.0-2.8) Lipase 129 (23-300) U/L Procalcitonin (<0.5) ng/mL Urine Color Urine Appearance Urine pH (4.5-8.0) Ur Specific [place] (1.000-1.035) Urine Protein (Negative) Urine Glucose (UA) (Negative) g/dL Urine Ketones (NEGATIVE) Urine Occult Blood (Negative) Urine Nitrate (Negative) Urine Bilirubin (NEGATIVE) Ur Bilirubin Confirm (Negative) Urine Urobilinogen (0.2) E.U./dL Ur Leukocyte Esterase (NEGATIVE) Urine RBC (0-5/HPF) Urine WBC (0-5/HPF) Ur Squamous Epith Cells (0-5/HPF) Ur Transition Epith Cell (0-5/HPF) Ur Renal Epithelial Cell (0-1/HPF) Urine Bacteria (None) Ur Culture Indicated? U Opiates 300ng/mL cut (Negative) Ur Oxycodone Screen (Negative) Urine Methadone Screen (Negative) Acetaminophen (10-30) ug/mL Ur Barbiturates Screen (Negative) U Tricyclic Antidepress (Negative) Ur Phencyclidine Scrn (Negative) Ur Amphetamines Screen (Negative) U Methamphetamines Scrn (Negative) Ur MDMA Scrn (Ecstasy) (Negative) U Benzodiazepines Scrn (Negative) Urine Cocaine Screen (Negative) U Marijuana (THC) Screen (Negative) Ethyl Alcohol ( - 10) mg/dL SARS-CoV-2 (PCR) (Negative) 10/03/22 10/03/22 10/03/22 Range/Units 16:15 16:30 16:30 WBC (4.5-11.0) X10^3/uL RBC (4.0-5.2) X10^6/uL Hgb (12.0-16.0) g/dL Hct (36-46) % MCV (80-100) fL MCH (26-34) PG MCHC (30-36) % RDW (11.6-14.8) % Plt Count (150-400) X10^3/uL Neut % (Auto) (50-75) % Lymph % (Auto) (25-40) % [place] % (Auto) (3-14) % Eos % (Auto) (2-4) % Baso % (Auto) (0-2) % Neut # (Auto) (0394-4351) /uL Lymph # (Auto) (6022-0533) /uL [place] # (Auto) (0-900) /uL Eos # (Auto) (0-450) /uL Baso # (Auto) (0-100) /uL Platelet Estimate RBC Morphology Macrocytosis Target Cells PT (10.1-12.7) SECONDS INR (0.9-1.3) APTT (26-36) SECONDS Sodium (137-145) mmol/L Potassium (3.4-5.1) mmol/L Chloride (98-107) mmol/L Carbon Dioxide (22-32) mmol/L BUN (7-17) mg/dL Creatinine (0.52-1.04) mg/dL Estimated GFR (>60) mL/min BUN/Creatinine Ratio (6-22) Glucose (70-100) mg/dL Lactate (0.7-2.1) mmol/L Calcium (8.4-10.2) mg/dL Total Bilirubin (0.2-1.3) mg/dL AST (14-36) IU/L ALT (<35) IU/L Alkaline Phosphatase (38-126) U/L Ammonia 36 H (9-30) umol/L Total Protein (6.3-8.2) g/dL Albumin (3.5-5.0) g/dL Globulin (1.7-4.1) g/dL Albumin/Globulin Ratio (1.0-2.8) Lipase (23-300) U/L Procalcitonin (<0.5) ng/mL Urine Color Urine Appearance Urine pH (4.5-8.0) Ur Specific [place] (1.000-1.035) Urine Protein (Negative) Urine Glucose (UA) (Negative) g/dL Urine Ketones (NEGATIVE) Urine Occult Blood (Negative) Urine Nitrate (Negative) Urine Bilirubin (NEGATIVE) Ur Bilirubin Confirm (Negative) Urine Urobilinogen (0.2) E.U./dL Ur Leukocyte Esterase (NEGATIVE) Urine RBC (0-5/HPF) Urine WBC (0-5/HPF) Ur Squamous Epith Cells (0-5/HPF) Ur Transition Epith Cell (0-5/HPF) Ur Renal Epithelial Cell (0-1/HPF) Urine Bacteria (None) Ur Culture Indicated? U Opiates 300ng/mL cut (Negative) Ur Oxycodone Screen (Negative) Urine Methadone Screen (Negative) Acetaminophen < 10 (10-30) ug/mL Ur Barbiturates Screen (Negative) U Tricyclic Antidepress (Negative) Ur Phencyclidine Scrn (Negative) Ur Amphetamines Screen (Negative) U Methamphetamines Scrn (Negative) Ur MDMA Scrn (Ecstasy) (Negative) U Benzodiazepines Scrn (Negative) Urine Cocaine Screen (Negative) U Marijuana (THC) Screen (Negative) Ethyl Alcohol < 10 ( - 10) mg/dL SARS-CoV-2 (PCR) Negative (Negative) 10/03/22 10/03/22 10/03/22 Range/Units 16:32 16:54 16:54 WBC (4.5-11.0) X10^3/uL RBC (4.0-5.2) X10^6/uL Hgb (12.0-16.0) g/dL Hct (36-46) % MCV (80-100) fL MCH (26-34) PG MCHC (30-36) % RDW (11.6-14.8) % Plt Count (150-400) X10^3/uL Neut % (Auto) (50-75) % Lymph % (Auto) (25-40) % [place] % (Auto) (3-14) % Eos % (Auto) (2-4) % Baso % (Auto) (0-2) % Neut # (Auto) (8163-0973) /uL Lymph # (Auto) (4971-1211) /uL [place] # (Auto) (0-900) /uL Eos # (Auto) (0-450) /uL Baso # (Auto) (0-100) /uL Platelet Estimate RBC Morphology Macrocytosis Target Cells PT (10.1-12.7) SECONDS INR (0.9-1.3) APTT 47 H (26-36) SECONDS Sodium (137-145) mmol/L Potassium (3.4-5.1) mmol/L Chloride (98-107) mmol/L Carbon Dioxide (22-32) mmol/L BUN (7-17) mg/dL Creatinine (0.52-1.04) mg/dL Estimated GFR (>60) mL/min BUN/Creatinine Ratio (6-22) Glucose (70-100) mg/dL Lactate 1.8 (0.7-2.1) mmol/L Calcium (8.4-10.2) mg/dL Total Bilirubin (0.2-1.3) mg/dL AST (14-36) IU/L ALT (<35) IU/L Alkaline Phosphatase (38-126) U/L Ammonia (9-30) umol/L Total Protein (6.3-8.2) g/dL Albumin (3.5-5.0) g/dL Globulin (1.7-4.1) g/dL Albumin/Globulin Ratio (1.0-2.8) Lipase (23-300) U/L Procalcitonin 0.47 (<0.5) ng/mL Urine Color Urine Appearance Urine pH (4.5-8.0) Ur Specific [place] (1.000-1.035) Urine Protein (Negative) Urine Glucose (UA) (Negative) g/dL Urine Ketones (NEGATIVE) Urine Occult Blood (Negative) Urine Nitrate (Negative) Urine Bilirubin (NEGATIVE) Ur Bilirubin Confirm (Negative) Urine Urobilinogen (0.2) E.U./dL Ur Leukocyte Esterase (NEGATIVE) Urine RBC (0-5/HPF) Urine WBC (0-5/HPF) Ur Squamous Epith Cells (0-5/HPF) Ur Transition Epith Cell (0-5/HPF) Ur Renal Epithelial Cell (0-1/HPF) Urine Bacteria (None) Ur Culture Indicated? U Opiates 300ng/mL cut (Negative) Ur Oxycodone Screen (Negative) Urine Methadone Screen (Negative) Acetaminophen (10-30) ug/mL Ur Barbiturates Screen (Negative) U Tricyclic Antidepress (Negative) Ur Phencyclidine Scrn (Negative) Ur Amphetamines Screen (Negative) U Methamphetamines Scrn (Negative) Ur MDMA Scrn (Ecstasy) (Negative) U Benzodiazepines Scrn (Negative) Urine Cocaine Screen (Negative) U Marijuana (THC) Screen (Negative) Ethyl Alcohol ( - 10) mg/dL SARS-CoV-2 (PCR) (Negative) 10/03/22 10/03/22 10/04/22 Range/Units 18:39 18:39 07:05 WBC 8.7 (4.5-11.0) X10^3/uL RBC 2.57 L (4.0-5.2) X10^6/uL Hgb 10.6 L (12.0-16.0) g/dL Hct 30.1 L (36-46) % MCV 117.0 H (80-100) fL MCH 41.3 H (26-34) PG MCHC 35.3 (30-36) % RDW 16.1 H (11.6-14.8) % Plt Count 173 (150-400) X10^3/uL Neut % (Auto) 71.5 (50-75) % Lymph % (Auto) 13.8 L (25-40) % [place] % (Auto) 13.4 (3-14) % Eos % (Auto) 0.3 L (2-4) % Baso % (Auto) 1.0 (0-2) % Neut # (Auto) 6200 (8527-7944) /uL Lymph # (Auto) 1200 (0915-9351) /uL [place] # (Auto) 1200 H (0-900) /uL Eos # (Auto) 0 (0-450) /uL Baso # (Auto) 100 (0-100) /uL Platelet Estimate RBC Morphology Not Reportable Macrocytosis 3+ H Target Cells 2+ H PT (10.1-12.7) SECONDS INR (0.9-1.3) APTT (26-36) SECONDS Sodium (137-145) mmol/L Potassium (3.4-5.1) mmol/L Chloride (98-107) mmol/L Carbon Dioxide (22-32) mmol/L BUN (7-17) mg/dL Creatinine (0.52-1.04) mg/dL Estimated GFR (>60) mL/min BUN/Creatinine Ratio (6-22) Glucose (70-100) mg/dL Lactate (0.7-2.1) mmol/L Calcium (8.4-10.2) mg/dL Total Bilirubin (0.2-1.3) mg/dL AST (14-36) IU/L ALT (<35) IU/L Alkaline Phosphatase (38-126) U/L Ammonia (9-30) umol/L Total Protein (6.3-8.2) g/dL Albumin (3.5-5.0) g/dL Globulin (1.7-4.1) g/dL Albumin/Globulin Ratio (1.0-2.8) Lipase (23-300) U/L Procalcitonin (<0.5) ng/mL Urine Color Dark yellow Urine Appearance Clear Urine pH 6.5 (4.5-8.0) Ur Specific [place] <=1.005 (1.000-1.035) Urine Protein Negative (Negative) Urine Glucose (UA) Negative (Negative) g/dL Urine Ketones 1+ H (NEGATIVE) Urine Occult Blood Negative (Negative) Urine Nitrate Negative (Negative) Urine Bilirubin 3+ H (NEGATIVE) Ur Bilirubin Confirm Positive H (Negative) Urine Urobilinogen 1.0 (0.2) E.U./dL Ur Leukocyte Esterase Negative (NEGATIVE) Urine RBC 0-1/hpf (0-5/HPF) Urine WBC 0-1/hpf (0-5/HPF) Ur Squamous Epith Cells 1-5 /hpf (0-5/HPF) Ur Transition Epith Cell 5-10/hpf H (0-5/HPF) Ur Renal Epithelial Cell 1-5/hpf H (0-1/HPF) Urine Bacteria None seen (None) Ur Culture Indicated? Cult not indicated U Opiates 300ng/mL cut Negative (Negative) Ur Oxycodone Screen Negative (Negative) Urine Methadone Screen Negative (Negative) Acetaminophen (10-30) ug/mL Ur Barbiturates Screen Negative (Negative) U Tricyclic Antidepress Negative (Negative) Ur Phencyclidine Scrn Negative (Negative) Ur Amphetamines Screen Negative (Negative) U Methamphetamines Scrn Negative (Negative) Ur MDMA Scrn (Ecstasy) Negative (Negative) U Benzodiazepines Scrn Positive H (Negative) Urine Cocaine Screen Negative (Negative) U Marijuana (THC) Screen Negative (Negative) Ethyl Alcohol ( - 10) mg/dL SARS-CoV-2 (PCR) (Negative) 10/04/22 Range/Units 07:05 WBC (4.5-11.0) X10^3/uL RBC (4.0-5.2) X10^6/uL Hgb (12.0-16.0) g/dL Hct (36-46) % MCV (80-100) fL MCH (26-34) PG MCHC (30-36) % RDW (11.6-14.8) % Plt Count (150-400) X10^3/uL Neut % (Auto) (50-75) % Lymph % (Auto) (25-40) % [place] % (Auto) (3-14) % Eos % (Auto) (2-4) % Baso % (Auto) (0-2) % Neut # (Auto) (0244-2336) /uL Lymph # (Auto) (3398-4685) /uL [place] # (Auto) (0-900) /uL Eos # (Auto) (0-450) /uL Baso # (Auto) (0-100) /uL Platelet Estimate RBC Morphology Macrocytosis Target Cells PT (10.1-12.7) SECONDS INR (0.9-1.3) APTT (26-36) SECONDS Sodium 132 L (137-145) mmol/L Potassium 4.5 D (3.4-5.1) mmol/L Chloride 92 L (98-107) mmol/L Carbon Dioxide 31 (22-32) mmol/L BUN 8 (7-17) mg/dL Creatinine 0.55 (0.52-1.04) mg/dL Estimated GFR > 60 (>60) mL/min BUN/Creatinine Ratio 14.5 (6-22) Glucose 71 (70-100) mg/dL Lactate (0.7-2.1) mmol/L Calcium 8.1 L (8.4-10.2) mg/dL Total Bilirubin 19.8 H (0.2-1.3) mg/dL AST 255 H (14-36) IU/L ALT 78 H (<35) IU/L Alkaline Phosphatase 395 H (38-126) U/L Ammonia (9-30) umol/L Total Protein 8.2 (6.3-8.2) g/dL Albumin 3.0 L (3.5-5.0) g/dL Globulin 5.2 H (1.7-4.1) g/dL Albumin/Globulin Ratio 0.6 L (1.0-2.8) Lipase (23-300) U/L Procalcitonin (<0.5) ng/mL Urine Color Urine Appearance Urine pH (4.5-8.0) Ur Specific [place] (1.000-1.035) Urine Protein (Negative) Urine Glucose (UA) (Negative) g/dL Urine Ketones (NEGATIVE) Urine Occult Blood (Negative) Urine Nitrate (Negative) Urine Bilirubin (NEGATIVE) Ur Bilirubin Confirm (Negative) Urine Urobilinogen (0.2) E.U./dL Ur Leukocyte Esterase (NEGATIVE) Urine RBC (0-5/HPF) Urine WBC (0-5/HPF) Ur Squamous Epith Cells (0-5/HPF) Ur Transition Epith Cell (0-5/HPF) Ur Renal Epithelial Cell (0-1/HPF) Urine Bacteria (None) Ur Culture Indicated? U Opiates 300ng/mL cut (Negative) Ur Oxycodone Screen (Negative) Urine Methadone Screen (Negative) Acetaminophen (10-30) ug/mL Ur Barbiturates Screen (Negative) U Tricyclic Antidepress (Negative) Ur Phencyclidine Scrn (Negative) Ur Amphetamines Screen (Negative) U Methamphetamines Scrn (Negative) Ur MDMA Scrn (Ecstasy) (Negative) U Benzodiazepines Scrn (Negative) Urine Cocaine Screen (Negative) U Marijuana (THC) Screen (Negative) Ethyl Alcohol ( - 10) mg/dL SARS-CoV-2 (PCR) (Negative) MDM Narrative Medical decision making narrative: This is a 56-year-old female who is quite jaundiced, she has a ascites although no respiratory distress or changes requiring paracentesis. Patient has si gnificant lab changes her MELD score is 30. CBC shows a chronic anemia close to baseline, macrocytosis, platelets are 160, coags show an INR of 2.4 with a PT of 28 PTT of 47, sodium was 129 potassium was 3 chloride was 89 renal function normal at 0.54, glucose is 89 with a lactate of 1.8, bilirubin is 19, AST is 270 with ALT of 77 alk-phos of 460 ammonia is 36, albumin 2.9 lipase is 129. ETOH is asleep into negative, Tylenol level is negative. Patient is COVID negative. Hepatitis panel was sent. Patient signed out to Dr. Casas while awaiting imaging results. Patient likely needs transfer for gi/hepatology. [1900] (Augusto) Patient received in sign out from [Conrad]. I have reviewed the clinical course and performed an independent history and physical exam. Currently resting comfortably, ultrasound pending 2299 -CT without significant acute findings. Discussed with hospitalist, can not keep patient here given complexity of presentation, lack of access to GI or hepatology. 0300 - calls have been placed to [facility], [place], [facility], , [facility], [facility], [place], [facility]. No beds, on various wait lists 0400 - Hospitalist (Dr. Carey) called. We have discussed history, physical, labs and imaging. She is happy to accept. They will call back with bed assignment. <Edgar Augusto, DO - Last Filed: 10/04/22 06:45> Lab Data Labs: Lab Results 10/03/22 10/03/22 10/03/22 Range/Units 16:15 16:15 16:15 WBC 9.5 (4.5-11.0) X10^3/uL RBC 2.50 L (4.0-5.2) X10^6/uL Hgb 10.3 L (12.0-16.0) g/dL Hct 29.0 L (36-46) % MCV 116.0 H (80-100) fL MCH 41.4 H (26-34) PG MCHC 35.7 (30-36) % RDW 15.8 H (11.6-14.8) % Plt Count 160 (150-400) X10^3/uL Neut % (Auto) 76.1 H (50-75) % Lymph % (Auto) 9.4 L (25-40) % [place] % (Auto) 13.7 (3-14) % Eos % (Auto) 0.2 L (2-4) % Baso % (Auto) 0.6 (0-2) % Neut # (Auto) 7200 H (5876-2433) /uL Lymph # (Auto) 900 L (3624-8990) /uL [place] # (Auto) 1300 H (0-900) /uL Eos # (Auto) 0 (0-450) /uL Baso # (Auto) 100 (0-100) /uL Platelet Estimate Adequate on smear RBC Morphology See below Macrocytosis 3+ H Target Cells PT 28.1 H (10.1-12.7) SECONDS INR 2.4 H (0.9-1.3) APTT (26-36) SECONDS Sodium 129 L (137-145) mmol/L Potassium 3.0 L (3.4-5.1) mmol/L Chloride 89 L (98-107) mmol/L Carbon Dioxide 31 (22-32) mmol/L BUN 9 (7-17) mg/dL Creatinine 0.54 (0.52-1.04) mg/dL Estimated GFR > 60 (>60) mL/min BUN/Creatinine Ratio 16.7 (6-22) Glucose 89 (70-100) mg/dL Lactate (0.7-2.1) mmol/L Calcium 7.8 L (8.4-10.2) mg/dL Total Bilirubin 19.1 H (0.2-1.3) mg/dL AST 270 H (14-36) IU/L ALT 77 H (<35) IU/L Alkaline Phosphatase 460 H (38-126) U/L Ammonia (9-30) umol/L Total Protein 8.2 (6.3-8.2) g/dL Albumin 2.9 L (3.5-5.0) g/dL Globulin 5.3 H (1.7-4.1) g/dL Albumin/Globulin Ratio 0.5 L (1.0-2.8) Lipase 129 (23-300) U/L Procalcitonin (<0.5) ng/mL Urine Color Urine Appearance Urine pH (4.5-8.0) Ur Specific [place] (1.000-1.035) Urine Protein (Negative) Urine Glucose (UA) (Negative) g/dL Urine Ketones (NEGATIVE) Urine Occult Blood (Negative) Urine Nitrate (Negative) Urine Bilirubin (NEGATIVE) Ur Bilirubin Confirm (Negative) Urine Urobilinogen (0.2) E.U./dL Ur Leukocyte Esterase (NEGATIVE) Urine RBC (0-5/HPF) Urine WBC (0-5/HPF) Ur Squamous Epith Cells (0-5/HPF) Ur Transition Epith Cell (0-5/HPF) Ur Renal Epithelial Cell (0-1/HPF) Urine Bacteria (None) Ur Culture Indicated? U Opiates 300ng/mL cut (Negative) Ur Oxycodone Screen (Negative) Urine Methadone Screen (Negative) Acetaminophen (10-30) ug/mL Ur Barbiturates Screen (Negative) U Tricyclic Antidepress (Negative) Ur Phencyclidine Scrn (Negative) Ur Amphetamines Screen (Negative) U Methamphetamines Scrn (Negative) Ur MDMA Scrn (Ecstasy) (Negative) U Benzodiazepines Scrn (Negative) Urine Cocaine Screen (Negative) U Marijuana (THC) Screen (Negative) Ethyl Alcohol ( - 10) mg/dL SARS-CoV-2 (PCR) (Negative) 10/03/22 10/03/22 10/03/22 Range/Units 16:15 16:30 16:30 WBC (4.5-11.0) X10^3/uL RBC (4.0-5.2) X10^6/uL Hgb (12.0-16.0) g/dL Hct (36-46) % MCV (80-100) fL MCH (26-34) PG MCHC (30-36) % RDW (11.6-14.8) % Plt Count (150-400) X10^3/uL Neut % (Auto) (50-75) % Lymph % (Auto) (25-40) % Metcalfe % (Auto) (3-14) % Eos % (Auto) (2-4) % Baso % (Auto) (0-2) % Neut # (Auto) (4792-9777) /uL Lymph # (Auto) (1581-1890) /uL Metcalfe # (Auto) (0-900) /uL Eos # (Auto) (0-450) /uL Baso # (Auto) (0-100) /uL Platelet Estimate RBC Morphology Macrocytosis Target Cells PT (10.1-12.7) SECONDS INR (0.9-1.3) APTT (26-36) SECONDS Sodium (137-145) mmol/L Potassium (3.4-5.1) mmol/L Chloride (98-107) mmol/L Carbon Dioxide (22-32) mmol/L BUN (7-17) mg/dL Creatinine (0.52-1.04) mg/dL Estimated GFR (>60) mL/min BUN/Creatinine Ratio (6-22) Glucose (70-100) mg/dL Lactate (0.7-2.1) mmol/L Calcium (8.4-10.2) mg/dL Total Bilirubin (0.2-1.3) mg/dL AST (14-36) IU/L ALT (<35) IU/L Alkaline Phosphatase (38-126) U/L Ammonia 36 H (9-30) umol/L Total Protein (6.3-8.2) g/dL Albumin (3.5-5.0) g/dL Globulin (1.7-4.1) g/dL Albumin/Globulin Ratio (1.0-2.8) Lipase (23-300) U/L Procalcitonin (<0.5) ng/mL Urine Color Urine Appearance Urine pH (4.5-8.0) Ur Specific [place] (1.000-1.035) Urine Protein (Negative) Urine Glucose (UA) (Negative) g/dL Urine Ketones (NEGATIVE) Urine Occult Blood (Negative) Urine Nitrate (Negative) Urine Bilirubin (NEGATIVE) Ur Bilirubin Confirm (Negative) Urine Urobilinogen (0.2) E.U./dL Ur Leukocyte Esterase (NEGATIVE) Urine RBC (0-5/HPF) Urine WBC (0-5/HPF) Ur Squamous Epith Cells (0-5/HPF) Ur Transition Epith Cell (0-5/HPF) Ur Renal Epithelial Cell (0-1/HPF) Urine Bacteria (None) Ur Culture Indicated? U Opiates 300ng/mL cut (Negative) Ur Oxycodone Screen (Negative) Urine Methadone Screen (Negative) Acetaminophen < 10 (10-30) ug/mL Ur Barbiturates Screen (Negative) U Tricyclic Antidepress (Negative) Ur Phencyclidine Scrn (Negative) Ur Amphetamines Screen (Negative) U Methamphetamines Scrn (Negative) Ur MDMA Scrn (Ecstasy) (Negative) U Benzodiazepines Scrn (Negative) Urine Cocaine Screen (Negative) U Marijuana (THC) Screen (Negative) Ethyl Alcohol < 10 ( - 10) mg/dL SARS-CoV-2 (PCR) Negative (Negative) 10/03/22 10/03/22 10/03/22 Range/Units 16:32 16:54 16:54 WBC (4.5-11.0) X10^3/uL RBC (4.0-5.2) X10^6/uL Hgb (12.0-16.0) g/dL Hct (36-46) % MCV (80-100) fL MCH (26-34) PG MCHC (30-36) % RDW (11.6-14.8) % Plt Count (150-400) X10^3/uL Neut % (Auto) (50-75) % Lymph % (Auto) (25-40) % Metcalfe % (Auto) (3-14) % Eos % (Auto) (2-4) % Baso % (Auto) (0-2) % Neut # (Auto) (7912-4097) /uL Lymph # (Auto) (8656-1468) /uL Metcalfe # (Auto) (0-900) /uL Eos # (Auto) (0-450) /uL Baso # (Auto) (0-100) /uL Platelet Estimate RBC Morphology Macrocytosis Target Cells PT (10.1-12.7) SECONDS INR (0.9-1.3) APTT 47 H (26-36) SECONDS Sodium (137-145) mmol/L Potassium (3.4-5.1) mmol/L Chloride (98-107) mmol/L Carbon Dioxide (22-32) mmol/L BUN (7-17) mg/dL Creatinine (0.52-1.04) mg/dL Estimated GFR (>60) mL/min BUN/Creatinine Ratio (6-22) Glucose (70-100) mg/dL Lactate 1.8 (0.7-2.1) mmol/L Calcium (8.4-10.2) mg/dL Total Bilirubin (0.2-1.3) mg/dL AST (14-36) IU/L ALT (<35) IU/L Alkaline Phosphatase (38-126) U/L Ammonia (9-30) umol/L Total Protein (6.3-8.2) g/dL Albumin (3.5-5.0) g/dL Globulin (1.7-4.1) g/dL Albumin/Globulin Ratio (1.0-2.8) Lipase (23-300) U/L Procalcitonin 0.47 (<0.5) ng/mL Urine Color Urine Appearance Urine pH (4.5-8.0) Ur Specific [place] (1.000-1.035) Urine Protein (Negative) Urine Glucose (UA) (Negative) g/dL Urine Ketones (NEGATIVE) Urine Occult Blood (Negative) Urine Nitrate (Negative) Urine Bilirubin (NEGATIVE) Ur Bilirubin Confirm (Negative) Urine Urobilinogen (0.2) E.U./dL Ur Leukocyte Esterase (NEGATIVE) Urine RBC (0-5/HPF) Urine WBC (0-5/HPF) Ur Squamous Epith Cells (0-5/HPF) Ur Transition Epith Cell (0-5/HPF) Ur Renal Epithelial Cell (0-1/HPF) Urine Bacteria (None) Ur Culture Indicated? U Opiates 300ng/mL cut (Negative) Ur Oxycodone Screen (Negative) Urine Methadone Screen (Negative) Acetaminophen (10-30) ug/mL Ur Barbiturates Screen (Negative) U Tricyclic Antidepress (Negative) Ur Phencyclidine Scrn (Negative) Ur Amphetamines Screen (Negative) U Methamphetamines Scrn (Negative) Ur MDMA Scrn (Ecstasy) (Negative) U Benzodiazepines Scrn (Negative) Urine Cocaine Screen (Negative) U Marijuana (THC) Screen (Negative) Ethyl Alcohol ( - 10) mg/dL SARS-CoV-2 (PCR) (Negative) 10/03/22 10/03/22 10/04/22 Range/Units 18:39 18:39 07:05 WBC 8.7 (4.5-11.0) X10^3/uL RBC 2.57 L (4.0-5.2) X10^6/uL Hgb 10.6 L (12.0-16.0) g/dL Hct 30.1 L (36-46) % MCV 117.0 H (80-100) fL MCH 41.3 H (26-34) PG MCHC 35.3 (30-36) % RDW 16.1 H (11.6-14.8) % Plt Count 173 (150-400) X10^3/uL Neut % (Auto) 71.5 (50-75) % Lymph % (Auto) 13.8 L (25-40) % [place] % (Auto) 13.4 (3-14) % Eos % (Auto) 0.3 L (2-4) % Baso % (Auto) 1.0 (0-2) % Neut # (Auto) 6200 (4056-3229) /uL Lymph # (Auto) 1200 (7736-8404) /uL [place] # (Auto) 1200 H (0-900) /uL Eos # (Auto) 0 (0-450) /uL Baso # (Auto) 100 (0-100) /uL Platelet Estimate RBC Morphology Not Reportable Macrocytosis 3+ H Target Cells 2+ H PT (10.1-12.7) SECONDS INR (0.9-1.3) APTT (26-36) SECONDS Sodium (137-145) mmol/L Potassium (3.4-5.1) mmol/L Chloride (98-107) mmol/L Carbon Dioxide (22-32) mmol/L BUN (7-17) mg/dL Creatinine (0.52-1.04) mg/dL Estimated GFR (>60) mL/min BUN/Creatinine Ratio (6-22) Glucose (70-100) mg/dL Lactate (0.7-2.1) mmol/L Calcium (8.4-10.2) mg/dL Total Bilirubin (0.2-1.3) mg/dL AST (14-36) IU/L ALT (<35) IU/L Alkaline Phosphatase (38-126) U/L Ammonia (9-30) umol/L Total Protein (6.3-8.2) g/dL Albumin (3.5-5.0) g/dL Globulin (1.7-4.1) g/dL Albumin/Globulin Ratio (1.0-2.8) Lipase (23-300) U/L Procalcitonin (<0.5) ng/mL Urine Color Dark yellow Urine Appearance Clear Urine pH 6.5 (4.5-8.0) Ur Specific [place] <=1.005 (1.000-1.035) Urine Protein Negative (Negative) Urine Glucose (UA) Negative (Negative) g/dL Urine Ketones 1+ H (NEGATIVE) Urine Occult Blood Negative (Negative) Urine Nitrate Negative (Negative) Urine Bilirubin 3+ H (NEGATIVE) Ur Bilirubin Confirm Positive H (Negative) Urine Urobilinogen 1.0 (0.2) E.U./dL Ur Leukocyte Esterase Negative (NEGATIVE) Urine RBC 0-1/hpf (0-5/HPF) Urine WBC 0-1/hpf (0-5/HPF) Ur Squamous Epith Cells 1-5 /hpf (0-5/HPF) Ur Transition Epith Cell 5-10/hpf H (0-5/HPF) Ur Renal Epithelial Cell 1-5/hpf H (0-1/HPF) Urine Bacteria None seen (None) Ur Culture Indicated? Cult not indicated U Opiates 300ng/mL cut Negative (Negative) Ur Oxycodone Screen Negative (Negative) Urine Methadone Screen Negative (Negative) Acetaminophen (10-30) ug/mL Ur Barbiturates Screen Negative (Negative) U Tricyclic Antidepress Negative (Negative) Ur Phencyclidine Scrn Negative (Negative) Ur Amphetamines Screen Negative (Negative) U Methamphetamines Scrn Negative (Negative) Ur MDMA Scrn (Ecstasy) Negative (Negative) U Benzodiazepines Scrn Positive H (Negative) Urine Cocaine Screen Negative (Negative) U Marijuana (THC) Screen Negative (Negative) Ethyl Alcohol ( - 10) mg/dL SARS-CoV-2 (PCR) (Negative) 10/04/22 Range/Units 07:05 WBC (4.5-11.0) X10^3/uL RBC (4.0-5.2) X10^6/uL Hgb (12.0-16.0) g/dL Hct (36-46) % MCV (80-100) fL MCH (26-34) PG MCHC (30-36) % RDW (11.6-14.8) % Plt Count (150-400) X10^3/uL Neut % (Auto) (50-75) % Lymph % (Auto) (25-40) % [place] % (Auto) (3-14) % Eos % (Auto) (2-4) % Baso % (Auto) (0-2) % Neut # (Auto) (6708-0919) /uL Lymph # (Auto) (7373-4679) /uL [place] # (Auto) (0-900) /uL Eos # (Auto) (0-450) /uL Baso # (Auto) (0-100) /uL Platelet Estimate RBC Morphology Macrocytosis Target Cells PT (10.1-12.7) SECONDS INR (0.9-1.3) APTT (26-36) SECONDS Sodium 132 L (137-145) mmol/L Potassium 4.5 D (3.4-5.1) mmol/L Chloride 92 L (98-107) mmol/L Carbon Dioxide 31 (22-32) mmol/L BUN 8 (7-17) mg/dL Creatinine 0.55 (0.52-1.04) mg/dL Estimated GFR > 60 (>60) mL/min BUN/Creatinine Ratio 14.5 (6-22) Glucose 71 (70-100) mg/dL Lactate (0.7-2.1) mmol/L Calcium 8.1 L (8.4-10.2) mg/dL Total Bilirubin 19.8 H (0.2-1.3) mg/dL AST 255 H (14-36) IU/L ALT 78 H (<35) IU/L Alkaline Phosphatase 395 H (38-126) U/L Ammonia (9-30) umol/L Total Protein 8.2 (6.3-8.2) g/dL Albumin 3.0 L (3.5-5.0) g/dL Globulin 5.2 H (1.7-4.1) g/dL Albumin/Globulin Ratio 0.6 L (1.0-2.8) Lipase (23-300) U/L Procalcitonin (<0.5) ng/mL Urine Color Urine Appearance Urine pH (4.5-8.0) Ur Specific [place] (1.000-1.035) Urine Protein (Negative) Urine Glucose (UA) (Negative) g/dL Urine Ketones (NEGATIVE) Urine Occult Blood (Negative) Urine Nitrate (Negative) Urine Bilirubin (NEGATIVE) Ur Bilirubin Confirm (Negative) Urine Urobilinogen (0.2) E.U./dL Ur Leukocyte Esterase (NEGATIVE) Urine RBC (0-5/HPF) Urine WBC (0-5/HPF) Ur Squamous Epith Cells (0-5/HPF) Ur Transition Epith Cell (0-5/HPF) Ur Renal Epithelial Cell (0-1/HPF) Urine Bacteria (None) Ur Culture Indicated? U Opiates 300ng/mL cut (Negative) Ur Oxycodone Screen (Negative) Urine Methadone Screen (Negative) Acetaminophen (10-30) ug/mL Ur Barbiturates Screen (Negative) U Tricyclic Antidepress (Negative) Ur Phencyclidine Scrn (Negative) Ur Amphetamines Screen (Negative) U Methamphetamines Scrn (Negative) Ur MDMA Scrn (Ecstasy) (Negative) U Benzodiazepines Scrn (Negative) Urine Cocaine Screen (Negative) U Marijuana (THC) Screen (Negative) Ethyl Alcohol ( - 10) mg/dL SARS-CoV-2 (PCR) (Negative) [facility] Narrative Medical decision making narrative: This is a 56-year-old female who is quite jaundiced, she has a ascites although no respiratory distress or changes requiring paracentesis. Patient has significant lab changes her MELD score is 30. CBC shows a chronic anemia close to baseline, macrocytosis, platelets are 160, coags show an INR of 2.4 with a PT of 28 PTT of 47, sodium was 129 potassium was 3 chloride was 89 renal function normal at 0.54, glucose is 89 with a lactate of 1.8, bilirubin is 19, AST is 270 with ALT of 77 alk-phos of 460 ammonia is 36, albumin 2.9 lipase is 129. ETOH is asleep into negative, Tylenol level is negative. Patient is COVID negative. Hepatitis panel was sent. [1900] (Augusto) Patient received in sign out from [Conrad]. I have reviewed the clinical course and performed an independent history and physical exam. Currently resting comfortably, ultrasound pending 2300 -CT without significant acute findings. Discussed with hospitalist, can not keep patient here given complexity of presentation, lack of access to GI or hepatology. 0300 - calls have been placed to [facility], [place], [facility], , [facility], [facility], [place], [facility]. No beds, on various wait lists 0400 - Hospitalist (Dr. Carey) called. We have discussed history, physical, labs and imaging. She is happy to accept. They will call back with bed assignmen t. <Edgar Augusto, DO - Last Filed: 10/04/22 06:45> Critical Care Time Critical Care Time: Yes Total Critical Care Time: 45 Attestation: The high probability of a clinically significant, sudden or life threatening deterioration of the [GI] system(s) required my full and direct attention, intervention and personal management. The aggregate critical care time was [45] minutes. This time is in addition to time spent performing reported procedures b ut includes the following: [x] Data Review and interpretation [x Patient assessment and monitoring of vital signs [x] Documentation [x] Medication orders and management Discharge Plan Departure Patient Disposition: [facility] Clinical Impression: Acute liver failure, Acute hypokalemia Prescriptions: No Action gabapentin [Neurontin] 300 MG capsule 600 mg PO TID Qty: 0 buprenorphine-naloxone [Suboxone] 8-2 mg film 8 film sublingual TID Patient Comments: dissolve 1 FILM under the tongue every 8 hours ondansetron 4 mg tablet,disintegrating 4 mg PO Q6H PRN (Reason: nausea and vomiting) Qty: 14 0RF atorvastatin 20 mg tablet 20 mg PO QPM Patient Comments: take 1 tablet by mouth every evening clonazepam 0.5 mg tablet 0.25 - 0.5 mg PO DAILY PRN (Reason: Anxiety) Patient Comments: take 1/2 to 1 tablet by mouth once daily if needed for VERTIGO Referrals: Ej Jimenez MD [Primary Care Provider] -
[2022-10-03 17:20] LABS: Lactate (Lactic Acid) 1.8 mmol/L (0.7-2.1)
[2022-10-03 17:30] LABS: Acetaminophen < 10 ug/mL (10-30); Ethanol (ETOH) < 10 mg/dL
[2022-10-03 17:38] LABS: Procalcitonin 0.47 ng/mL (<0.5)
[2022-10-03 18:47] LABS: Appearance Urine UA CLEAR; Bilirubin Urine UA 3+ (NEGATIVE); Glucose Urine UA NEGATIVE (Negative); Ketones Urine UA 1+ (NEGATIVE); Leukocyte Esterase Urine UA NEGATIVE (NEGATIVE); Nitrite Urine UA NEGATIVE (Negative); Occult Blood Urine UA NEGATIVE (Negative); Protein Urine UA NEGATIVE (Negative); Specific Gravity Urine UA <=1.005 (1.000-1.035)
[2022-10-03 18:57] LABS: Color Urine UA Dark Yellow; pH Urine UA 6.5 (4.5-8.0)
[2022-10-03 19:00] LABS: Ictotest Urine Positive (Negative); UR Morphine/Opiate cutoff 300 Negative (Negative); Ur Creatinine Normal (Normal); Ur Specific Gravity Normal (Normal); Urine Amphetamines Negative (Negative); Urine Cocaine Negative (Negative); Urine Methamphetamines Negative (Negative); Urine Tetrahydrocannabinol Negative (Negative); Urine pH Normal (Normal)
[2022-10-03 19:01] LABS: Urine Barbiturates Negative (Negative); Urine Benzodiazepines Positive (Negative); Urine MDMA Negative (Negative); Urine Methadone Negative (Negative); Urine Oxycodone Negative (Negative); Urine Phencyclidine Negative (Negative); Urine Tricyclic Antidepressant Negative (Negative)
[2022-10-03 19:18] LABS: Bacteria Urine None Seen; Culture Indicated Urine Cult Not Indicated; RBC Urine 0-1/HPF (0-5/HPF); Renal Epithelial Cells Urine 1-5/HPF (0-1/HPF); Squamous Epithelial Cell Urine 1-5 /HPF (0-5/HPF); Transitional Epi Cells Urine 5-10/HPF (0-5/HPF); WBC Urine 0-1/HPF (0-5/HPF)
--- NOTE | 2022-10-03 21:56 | DI.CT.S_ITS ---
PROCEDURE: CT CHEST ABD PEL W CON INDICATIONS: new onset liver failure TECHNIQUE: After the administration of intravenous contrast, axial sections acquired from the supraclavicular neck to the pubic symphysis. Coronal and sagittal reformats were performed. For radiation dose reduction, the following was used: automated exposure control, adjustment of mA and/or kV according to patient size. COMPARISON: [facility], CT, CT ANGIO CHEST PE, 12/19/2021, 3:16. [facility], CT, CT ABDOMEN PELVIS W CON, 08/13/2022, 9:59. [facility], US, US ABDOMEN COMPLETE, 10/03/2022, 17:28. FINDINGS: Image quality: Excellent. CHEST: Lower Neck: No enlarged lymph nodes. Thyroid: Within normal limits. Axillae: No enlarged lymph nodes. Chest Wall: Unremarkable. Lungs and Airways: No consolidation or suspicious nodules. Pleura: No pneumothorax or pleural effusions. Heart: Heart size is normal. No pericardial effusion. Thoracic Vessels: The aorta and pulmonary arteries demonstrate normal size. Mediastinum and Zuleima: No enlarged lymph nodes. Esophagus: No wall thickening. No hiatal hernia. ABDOMEN: Liver: An enlarged, hypodense liver can be seen. A stable presumed hemangioma is again seen within segment 6, as on series 2, image 70. No additional focal liver lesions are seen. Gallbladder: Removed. Biliary ducts: Unremarkable. Pancreas: Unremarkable. Spleen: Unremarkable. Adrenal Glands: Unremarkable. Kidneys and Ureters: Unremarkable. Stomach and Bowel: Stomach, small bowel loops, and colon are unremarkable. Peritoneum: A small amount of free fluid can be seen adjacent to the liver and also layering dependently within the pelvis. No free air is seen. Ventral Wall: No hernia. Abdominal Nodes: No retroperitoneal or mesenteric adenopathy by size criteria. Vessels: Aorta and inferior vena cava are normal in size. Scrutiny is given to the portal vein. A demonstrates normal size, without thrombosis. The hepatic veins are likewise unremarkable. The panic arteries are unremarkable. PELVIS: Pelvic Organs: The uterus appears normal for age. No adnexal masses are seen. Bladder: Unremarkable. Pelvic Nodes: No enlarged lymph nodes. Miscellaneous: No inguinal hernias are seen. Bones: Mild levoconvex scoliotic curvature is noted. Age-appropriate bony degenerative changes are seen, which are worst at L5-S1. IMPRESSION: An enlarged, fatty infiltrated liver can be seen. No focally suspicious liver lesion can be seen. A presumed liver hemangioma is again seen, stable. The hepatic vasculature is within normal limits. Mild ascites, which is new from the prior CT. Additional findings: Cholecystectomy Dictated by: Gordo Shabazz M.D. on 10/03/2022 at 21:44 Approved by: Gordo Shabazz M.D. on 10/03/2022 at 21:50
[2022-10-04] VITALS (15 sets, daily range): BP systolic 114–137; BP diastolic 67–83; PULSE 89–111; RESP 10–19; O2SAT 91–98
[2022-10-04] MEDS: HYDROMORPHONE 0.5 MG INJ IV (00:20)
[2022-10-04] MEDS: POTASSIUM CHLORIDE IN WATER 10 MEQ/100 ML PIGGYBACK 75 MEQ IV ×3 (01:47→04:23)
--- NOTE | 2022-10-04 04:20 | PC.NURSE ---
Addendum entered by Kulwinder Ndiaye R.N. 10/04/22 04:31: Patient is scheduled to be picked up by [facility] at 0715 BLS 10/04/22 with arrival time approximately 0920 @ [facility] (bed given upon arrival). Dr. Hamilton accepting provider Original Note: Patient has just been accepted by [facility] and was told by Lashanda we could arrange transportation.
[2022-10-04] MEDS: POTASSIUM CHLORIDE IN WATER 10 MEQ/100 ML PIGGYBACK 100 MEQ IV (05:58)
[2022-10-04 07:24] LABS: Add Manual Diff / Slide Review NO; Basophils Absolute Auto 100 /uL (0-100); Eosinophils Absolute Auto 0 /uL (0-450); Eosinophils Percent Auto 0.3 % (2-4); Hematocrit 30.1 % (36-46); Hemoglobin 10.6 g/dL (12.0-16.0); Lymphocytes Absolute Auto 1200 /uL (1100-4500); Lymphocytes Percent Auto 13.8 % (25-40); Mean Corpuscular HGB Conc 35.3 % (30-36); Mean Corpuscular Hemoglobin 41.3 PG (26-34); Monocytes Absolute Auto 1200 /uL (0-900); Monocytes Percent Auto 13.4 % (3-14); Neutrophils Absolute Auto 6200 /uL (1500-7000); Neutrophils Percent Auto 71.5 % (50-75); Platelet Count 173 X10^3/uL (150-400); Red Blood Cell Count 2.57 X10^6/uL (4.0-5.2); Red Cell Distribution Width 16.1 % (11.6-14.8); White Blood Cell Count 8.7 X10^3/uL (4.5-11.0)
[2022-10-04 07:32] LABS: Alanine Aminotransferase 78 IU/L (<35); Albumin Globulin Ratio 0.6 (1.0-2.8); Alkaline Phosphatase 395 U/L (38-126); Aspartate Aminotransferase 255 IU/L (14-36); BUN Creatinine Ratio 14.5 (6-22); Bilirubin Total 19.8 mg/dL (0.2-1.3); Blood Urea Nitrogen 8 mg/dL (7-17); Calcium 8.1 mg/dL (8.4-10.2); Carbon Dioxide 31 mmol/L (22-32); Chloride 92 mmol/L (98-107); Estimated Glomerular Filt Rate > 60 mL/min (>60); Globulin 5.2 g/dL (1.7-4.1); Glucose 71 mg/dL (70-100); HEMOLYSIS < 15 (0-50); Potassium 4.5 mmol/L (3.4-5.1); Sodium 132 mmol/L (137-145); Total Protein 8.2 g/dL (6.3-8.2)
[2022-10-04 08:00] LABS: Macrocytosis 3+; Target Cells 2+
[2022-10-09 07:09] LABS: HBsAg Screen Negative (Negative); Hepatitis A Antibody IgM Negative (Negative); Hepatitis B Core Antibody IgM Negative (Negative); Hepatitis C Antibody Non Reactive (Non Reactive)
== END 2022-10-04 07:11 | disposition short-term general hospital (02) ==
PROVIDERS: Emergency Medicine; Emergency Provider Emergency Medicine; PCP Family Medicine
DX: K72.00 Acute and subacute hepatic failure without coma (principal); E87.6 Hypokalemia; Z20.822 Contact with and (suspected) exposure to COVID-19
CPT/HCPCS: 36415; 71260; 74177; 76700; 80053; 80074; 80305; 80320; 80329; 81001; 82140; 83605; 83690; 84145; 85025; 85610; 85730; 87040; 87635; 96365; 96366; 96375; 99284; C9803; G0480; J1170; Q9967

== ENCOUNTER 2022-10-13 07:45 | Emergency (ER) | payer MEDICARE, MEDICAID, SELFPAY ==
[2020-11-24 22:40] VITALS: BMI 25.4
[2022-10-13] VITALS (8 sets, daily range): BP systolic 110–144; BP diastolic 65–83; PULSE 81–94; RESP 18; TEMP 36.6; O2SAT 96–97; BMI 22.8
--- NOTE | 2022-10-13 07:56 | ED_ITS ---
HPI - General Adult General Chief complaint: Recheck/Abnormal Lab/Rx Stated complaint: bleeding out from liver biospy main artery Time Seen by Provider: 10/13/22 07:47 Source: patient Mode of arrival: Ambulatory Limitations: no limitations History of Present Illness HPI narrative: Patient is a 56-year-old female. Was seen here in this emergency department approximately 2 weeks ago when subsequently sent to [facility] for issues concerning her liver and hyperbilirubinemia and other issues. During that time she had a trans jugular biopsy of her liver. She comes in the emergency department this morning stating she is bleeding from the insertion site in her neck. She states this is the 3rd time that this has happened. First 2 times occurred while she was at the hospital. She states that she woke up this morning with a blood-soaked bandage and also blood in her bed. According to the records that came with her the biopsy occurred approximately 1 week ago. She states she is supposed to follow-up with her primary doctor today. Related Data Home Medications Medication Instructions Recorded Confirmed gabapentin 300 mg capsule 600 mg PO TID ##0 02/19/16 10/03/22 (Neurontin) buprenorphine 8 mg-naloxone 2 mg 8 film sublingual TID 04/10/20 10/03/22 sublingual film (Suboxone) atorvastatin 20 mg tablet 20 mg PO QPM 10/03/22 10/03/22 clonazepam 0.5 mg tablet 0.25 - 0.5 mg PO DAILY PRN Anxiety 10/03/22 10/03/22 Previous Rx's Medication Instructions Recorded ondansetron 4 mg disintegrating 4 mg PO Q6H PRN nausea and 09/01/22 tablet vomiting #14 tabs Allergies Allergy/AdvReac Type Severity Reaction Status Date / Time codeine Allergy Unknown Verified 10/13/22 08:04 droperidol Allergy Unknown Verified 10/13/22 08:04 metoclopramide [From Reglan] Allergy Unknown Verified 10/13/22 08:04 Sulfa (Sulfonamide Allergy Unknown Verified 10/13/22 08:04 Antibiotics) abciximab AdvReac Intermediate Muscle Pain Verified 10/13/22 08:04 Review of Systems Constitutional Constitutional: Reports system reviewed and no additional complaints, except as documented Respiratory Respiratory: Reports system reviewed and no additional complaints, except as documented Integumentary/Breasts Skin/Breast: Reports system reviewed and no additional complaints, except as documented Hematologic/Lymphatic On Anticoagulants: No Patient History Medical History Alcohol abuse History of narcotic addiction Leg pain Peripheral neuropathy TBI (traumatic brain injury) Tobacco abuse Surgical History History of cholecystectomy Family History Mother History of recurrent TIAs Father Heart disease Social History household members: spouse Smoking Status: Current some day smoker Smoking Status: Current some day smoker tobacco type: cigarettes and vaping alcohol intake frequency: a few times a week Alcohol type: beer, wine and hard liquor Substance Use Type: does not use and prescription drug Exam Initial Vital Signs Initial Vital Signs: Vital Signs Blood Pressure 144/83 H 10/13/22 07:49 Const General: cooperative and comfortable HENMT Head: normal to inspection Neck Other: Insertion site noted right lateral neck. Bandage over the area soaked with blood. This was removed and there was small oozing. Resp Effort & Inspection: normal respiratory effort Cardio Rate: regular rate GI Other: Discomfort to palpation right upper quadrant Skin Other: Jaundiced skin, slight oozing from the insertion site in the right lateral neck. Neuro General: patient alert, patient awake and moves all extremities Extrem General: normal to inspection Course Orders Ordered: ED Orders 10/13/22 07:58 Basic Metabolic Panel Stat Complete Blood Count AUTO DIFF Stat Hepatic (Liver) Panel Stat Lipase Stat PTT Partial Thromboplastin Star Stat Prothrombin Time INR Stat Vital Signs Vital signs: Vital Signs - 8 hr 10/13/22 07:56 10/13/22 07:49 10/13/22 07:50 Temperature 97.8 F Pulse Rate 93 H 94 H Respiratory Rate 18 Blood Pressure 144/83 H 144/83 H Pulse Oximetry 97 97 Oxygen Delivery Method Room Air 10/13/22 08:00 10/13/22 08:00 10/13/22 08:30 Temperature Pulse Rate 91 H Respiratory Rate Blood Pressure 137/77 128/77 Pulse Oximetry 96 Oxygen Delivery Method 10/13/22 08:30 10/13/22 09:00 10/13/22 09:00 Temperature Pulse Rate 90 87 Respiratory Rate Blood Pressure 118/67 Pulse Oximetry 96 96 Oxygen Delivery Method 10/13/22 09:30 10/13/22 09:30 Temperature Pulse Rate 81 Respiratory Rate Blood Pressure 110/66 Pulse Oximetry 97 Oxygen Delivery Method Medical Decision Making Lab Data 10/13/22 07:58 10/13/22 07:58 Labs: Lab Results 10/13/22 10/13/22 10/13/22 Range/Units 07:58 07:58 07:58 WBC 11.3 H (4.5-11.0) X10^3/uL RBC 2.34 L (4.0-5.2) X10^6/uL Hgb 9.9 L (12.0-16.0) g/dL Hct 28.0 L (36-46) % MCV 119.5 H (80-100) fL MCH 42.2 H (26-34) PG MCHC 35.3 (30-36) % RDW 15.7 H (11.6-14.8) % Plt Count 176 (150-400) X10^3/uL Neut % (Auto) 75.8 H (50-75) % Lymph % (Auto) 13.6 L (25-40) % [place] % (Auto) 9.0 (3-14) % Eos % (Auto) 1.1 L (2-4) % Baso % (Auto) 0.5 (0-2) % Neut # (Auto) 8500 H (5961-2490) /uL Lymph # (Auto) 1500 (1186-3667) /uL [place] # (Auto) 1000 H (0-900) /uL Eos # (Auto) 100 (0-450) /uL Baso # (Auto) 100 (0-100) /uL RBC Morphology See below Macrocytosis 2+ H Target Cells 1+ H PT 20.5 H D (10.1-12.7) SECONDS INR 1.8 H (0.9-1.3) APTT 40 H (26-36) SECONDS Sodium 131 L (137-145) mmol/L Potassium 3.1 L D (3.4-5.1) mmol/L Chloride 98 (98-107) mmol/L Carbon Dioxide 29 (22-32) mmol/L BUN 11 (7-17) mg/dL Creatinine 0.67 (0.52-1.04) mg/dL Estimated GFR > 60 (>60) mL/min BUN/Creatinine Ratio 16.4 (6-22) Glucose 99 (70-100) mg/dL Calcium 7.9 L (8.4-10.2) mg/dL Total Bilirubin 14.5 H (0.2-1.3) mg/dL Conjugated Bilirubin 4.5 H (0.0-0.3) md/dL Unconjugated Bilirubin 1.7 H (0.0-1.1) mg/dL AST 150 H (14-36) IU/L ALT 71 H (<35) IU/L Alkaline Phosphatase 291 H (38-126) U/L Total Protein 7.9 (6.3-8.2) g/dL Albumin 2.7 L (3.5-5.0) g/dL Globulin 5.2 H (1.7-4.1) g/dL Albumin/Globulin Ratio 0.5 L (1.0-2.8) Lipase (23-300) U/L 10/13/22 Range/Units 07:58 WBC (4.5-11.0) X10^3/uL RBC (4.0-5.2) X10^6/uL Hgb (12.0-16.0) g/dL Hct (36-46) % MCV (80-100) fL MCH (26-34) PG MCHC (30-36) % RDW (11.6-14.8) % Plt Count (150-400) X10^3/uL Neut % (Auto) (50-75) % Lymph % (Auto) (25-40) % [place] % (Auto) (3-14) % Eos % (Auto) (2-4) % Baso % (Auto) (0-2) % Neut # (Auto) (6521-0457) /uL Lymph # (Auto) (1356-4788) /uL [place] # (Auto) (0-900) /uL Eos # (Auto) (0-450) /uL Baso # (Auto) (0-100) /uL RBC Morphology Macrocytosis Target Cells PT (10.1-12.7) SECONDS INR (0.9-1.3) APTT (26-36) SECONDS Sodium (137-145) mmol/L Potassium (3.4-5.1) mmol/L Chloride (98-107) mmol/L Carbon Dioxide (22-32) mmol/L BUN (7-17) mg/dL Creatinine (0.52-1.04) mg/dL Estimated GFR (>60) mL/min BUN/Creatinine Ratio (6-22) Glucose (70-100) mg/dL Calcium (8.4-10.2) mg/dL Total Bilirubin (0.2-1.3) mg/dL Conjugated Bilirubin (0.0-0.3) md/dL Unconjugated Bilirubin (0.0-1.1) mg/dL AST (14-36) IU/L ALT (<35) IU/L Alkaline Phosphatase (38-126) U/L Total Protein (6.3-8.2) g/dL Albumin (3.5-5.0) g/dL Globulin (1.7-4.1) g/dL Albumin/Globulin Ratio (1.0-2.8) Lipase 292 D (23-300) U/L MDM Narrative Medical decision making narrative: Patient was oozing from the insertion site of the right IJ where she reportedly had the liver biopsy catheter inserted. The saturated bandage was removed and there was a large clot in this area. It was cleaned. Some Surgicel was placed and then a bandage over top of it. She was observed in the emergency department for period of time without any continued bleeding. Her labs today are either baseline or somewhat improved from the last time that she was here. I was able to contact her primary doctor's office and she does have an appointment on Thursday of this week at 0730 in the morning. The patient stated that she was able to get this clarified and knows this appointment. She was instructed that her primary doctor will have to provide long-term pain control for her. No indication for admission to the hospital today. No indication for transfer today. She was given a small amount of Gelfoam that she can take home and instructions for use this if she continues to get some oozing from the area. Patient was given return precautions. She expressed understanding and agreement with plan. Discharge Plan Departure Patient Disposition: Home Clinical Impression: Haemorrhage postprocedure Activity Restrictions/Additional Instructions: I do recommend that you leave the bandage that was placed today in place until you follow-up with your primary doctor on Thursday. You do have a appointment on ThursdayOctober 15 at 0730 in the morning with Chelsi Zavala. This is in the [place] office. Continue to follow all of the post procedure instructions given to you. Return to the emergency department for new or worsening symptoms like we discussed. Prescriptions: No Action gabapentin [Neurontin] 300 MG capsule 600 mg PO TID Qty: 0 buprenorphine-naloxone [Suboxone] 8-2 mg film 8 film sublingual TID Patient Comments: dissolve 1 FILM under the tongue every 8 hours ondansetron 4 mg tablet,disintegrating 4 mg PO Q6H PRN (Reason: nausea and vomiting) Qty: 14 0RF atorvastatin 20 mg tablet 20 mg PO QPM Patient Comments: take 1 tablet by mouth every evening clonazepam 0.5 mg tablet 0.25 - 0.5 mg PO DAILY PRN (Reason: Anxiety) Patient Comments: take 1/2 to 1 tablet by mouth once daily if needed for VERTIGO Referrals: Anayeli Mauricio, MELVIC [Primary Care Provider] - Stand Alone Forms: Patient Portal/API
--- NOTE | 2022-10-13 08:00 | PC.NURSE ---
Dr. Clifton removed original dressing. Large blood clot came off with bandage. Surgicell and sterile 4x4 and tegaderm placed by Dr. Clifton. Site being checked frequently by RN for bleeding
[2022-10-13 08:14] LABS: Add Manual Diff / Slide Review NO; Basophils Absolute Auto 100 /uL (0-100); Basophils Percent Auto 0.5 % (0-2); Eosinophils Absolute Auto 100 /uL (0-450); Eosinophils Percent Auto 1.1 % (2-4); Hemoglobin 9.9 g/dL (12.0-16.0); Lymphocytes Absolute Auto 1500 /uL (1100-4500); Lymphocytes Percent Auto 13.6 % (25-40); Mean Corpuscular HGB Conc 35.3 % (30-36); Mean Corpuscular Hemoglobin 42.2 PG (26-34); Mean Corpuscular Volume 119.5 fL (80-100); Monocytes Absolute Auto 1000 /uL (0-900); Neutrophils Absolute Auto 8500 /uL (1500-7000); Neutrophils Percent Auto 75.8 % (50-75); Platelet Count 176 X10^3/uL (150-400); Red Blood Cell Count 2.34 X10^6/uL (4.0-5.2); Red Cell Distribution Width 15.7 % (11.6-14.8); White Blood Cell Count 11.3 X10^3/uL (4.5-11.0)
[2022-10-13 08:27] LABS: Alanine Aminotransferase 71 IU/L (<35); Albumin 2.7 g/dL (3.5-5.0); Albumin Globulin Ratio 0.5 (1.0-2.8); Alkaline Phosphatase 291 U/L (38-126); Aspartate Aminotransferase 150 IU/L (14-36); BUN Creatinine Ratio 16.4 (6-22); Bilirubin Conjugated 4.5 md/dL (0.0-0.3); Bilirubin Total 14.5 mg/dL (0.2-1.3); Bilirubin Unconjugated 1.7 mg/dL (0.0-1.1); Blood Urea Nitrogen 11 mg/dL (7-17); Calcium 7.9 mg/dL (8.4-10.2); Carbon Dioxide 29 mmol/L (22-32); Chloride 98 mmol/L (98-107); Estimated Glomerular Filt Rate > 60 mL/min (>60); Globulin 5.2 g/dL (1.7-4.1); Glucose 99 mg/dL (70-100); HEMOLYSIS < 15 (0-50); Potassium 3.1 mmol/L (3.4-5.1); Sodium 131 mmol/L (137-145); Total Protein 7.9 g/dL (6.3-8.2)
[2022-10-13 08:36] LABS: INR 1.8 (0.9-1.3); Prothrombin Time 20.5 SECONDS (10.1-12.7)
[2022-10-13 08:38] LABS: Lipase 292 U/L (23-300)
[2022-10-13 08:39] LABS: Macrocytosis 2+; PTT Partial Thromboplastin Tim 40 SECONDS (26-36); Target Cells 1+
[2022-10-13] MEDS: HYDROMORPHONE 0.5 MG INJ IV (09:47)
--- NOTE | 2022-10-13 10:38 | PC.NURSE ---
Had to wait on pt's to d/c. Pt left at 1030. Dressing still C/D/I
== END 2022-10-13 10:30 | disposition home or self-care (01) ==
PROVIDERS: Emergency Provider Emergency Medicine; PCP Student in an Organized Health Care Education/Training Program
DX: L76.22 Postprocedural hemorrhage of skin and subcutaneous tissue following other procedure (principal); R10.11 Right upper quadrant pain; R79.89 Other specified abnormal findings of blood chemistry
CPT/HCPCS: 36415; 80048; 80076; 83690; 85025; 85610; 85730; 96374; 99284; J1170

== ENCOUNTER 2022-10-14 03:22 | Emergency (ER) | payer MEDICARE, MEDICAID, SELFPAY ==
[2020-11-24 22:40] VITALS: BMI 25.4
[2022-10-14 03:29] VITALS: BP 120/63; PULSE 93; RESP 18; O2SAT 97
--- NOTE | 2022-10-14 03:51 | ED.NECK ---
HPI - Neck Pain/Injury General Chief Complaint: Neck Pain/Injury Stated Complaint: bleeding from main artery in neck Time Seen by Provider: 10/14/22 03:50 Mode of arrival: Wheelchair History of Present Illness HPI Narrative: 56-year-old woman with liver failure recently at [facility] for liver biopsy and hyperbilirubinemia. She had a transjugular biopsy of her liver with complications at the time including bleeding at the site. She was discharged home with a dressing in place. She was seen in this emergency department almost 24 hours ago with concerns for bleeding at the site. The dressing was removed a clot was removed Surgicel was placed she was observed, blood work did not seem to indicate that she was more anemic and she was discharged home. During the day she is been lying on her left side so the right was not irritated she sat up today and began having significant bleeding she is holding a large towel to the area with dressing still in place. Estimates of close to 500 cc of blood saturating the towel with venous blood still seeping up from the completely saturated bandage with a large clot under the bandage is appreciated. Related Data Home Medications Medication Instructions Recorded Confirmed gabapentin 300 mg capsule 600 mg PO TID ##0 02/19/16 10/03/22 (Neurontin) buprenorphine 8 mg-naloxone 2 mg 8 film sublingual TID 04/10/20 10/03/22 sublingual film (Suboxone) atorvastatin 20 mg tablet 20 mg PO QPM 10/03/22 10/03/22 clonazepam 0.5 mg tablet 0.25 - 0.5 mg PO DAILY PRN Anxiety 10/03/22 10/03/22 Previous Rx's Medication Instructions Recorded ondansetron 4 mg disintegrating 4 mg PO Q6H PRN nausea and 09/01/22 tablet vomiting #14 tabs Allergies Allergy/AdvReac Type Severity Reaction Status Date / Time codeine Allergy Unknown Verified 10/13/22 08:04 droperidol Allergy Unknown Verified 10/13/22 08:04 metoclopramide [From Reglan] Allergy Unknown Verified 10/13/22 08:04 Sulfa (Sulfonamide Allergy Unknown Verified 10/13/22 08:04 Antibiotics) abciximab AdvReac Intermediate Muscle Pain Verified 10/13/22 08:04 Review of Systems Review of Systems Narrative: Dizziness when standing, abdominal distention, mild abdominal pain Patient History Medical History Alcohol abuse History of narcotic addiction Leg pain Peripheral neuropathy TBI (traumatic brain injury) Tobacco abuse Surgical History History of cholecystectomy Family History Mother History of recurrent TIAs Father Heart disease Social History household members: spouse Smoking Status: Current some day smoker Smoking Status: Current some day smoker tobacco type: cigarettes and vaping alcohol intake frequency: a few times a week Alcohol type: beer, wine and hard liquor Substance Use Type: does not use and prescription drug Exam Initial Vital Signs Initial Vital Signs: Vital Signs Pulse Rate 93 H 10/14/22 03:29 Respiratory Rate 18 10/14/22 03:29 Blood Pressure 120/63 10/14/22 03:29 Pulse Oximetry 97 10/14/22 03:29 Oxygen Delivery Method Room Air 10/14/22 03:29 General: Ill-appearing with significant jaundice, scleral icterus, fully saturated towels being held to her neck for hemostasis. Neck: Saturated dressing with large clot in place over the right side. There is oozing up and around. Cardiac: Tachycardic with no murmurs no bruits Abdomen: Soft, nontender, mild distention with ascites Skin: Icteric with multiple bruises Neurologic: Globally weak but Grossly neurologically intact with no obvious asymmetries or abnormalities Psych: Cooperative, appropriate insight and affect Once patient is placed in a room, the neck is more thoroughly examined. Saturated towels and dressings removed with significant amount of blood soaked into towels, clothing and dressing estimated 5-600 cc total. The puncture site for the interventional radiology procedure is actively bleeding. It does appear to be venous blood that is simply freely flowing out of the puncture wound. It does stop with compression. She does not have a significant fullness or suggestion of hematoma under the skin. Hemostasis sutures placed: 3 cc of lidocaine 1% with epinephrine is injected about the bleeding area 3-0 nylon suture his used with 2 [id number] sutures placed over the bleeding site for hemostatic control Surgicel for hemostasis is placed over the wound with op-site over this for further observation. Patient tolerated the procedure well. Course Orders Ordered: ED Orders 10/14/22 04:00 CBC Auto Diff [Complete Blood Count AUTO DIFF] Stat CMP [Comprehensive Metabolic Panel] Stat D Dimer Stat Fibrinogen Stat PT [Prothrombin Time INR] Stat PTT Partial Thromboplastin Star Stat Type and Screen Stat Sodium Chloride (Normal Saline 0.9%) 1,000 mls @ 1,000 mls/hr IV BOLUS ONE Stop: 10/14/22 07:08 Last Admin: 10/14/22 06:30 Dose: 1,000 mls/hr Documented By: FARA Discontinued Medications Hydromorphone HCl (Hydromorphone 1 Mg Inj) 1 mg IV NOW ONE Stop: 10/14/22 05:31 Last Admin: 10/14/22 05:40 Dose: 1 mg Documented By: FELISHA Potassium Chloride (Potassium Chloride 20 Meq Tab) 40 meq PO NOW ONE Stop: 10/14/22 06:10 Last Admin: 10/14/22 06:30 Dose: 40 meq Documented By: FARA Vital Signs Vital signs: Vital Signs - 8 hr 10/14/22 03:29 Pulse Rate 93 H Respiratory Rate 18 Blood Pressure 120/63 Pulse Oximetry 97 Oxygen Delivery Method Room Air MDM - Neck Pain/Injury Lab Data 10/14/22 04:00 10/14/22 04:00 Labs: Lab Results 10/14/22 10/14/22 10/14/22 Range/Units 04:00 04:00 04:00 WBC 10.7 (4.5-11.0) X10^3/uL RBC 2.07 L (4.0-5.2) X10^6/uL Hgb 8.7 L (12.0-16.0) g/dL Hct 25.2 L (36-46) % MCV 122.0 H (80-100) fL MCH 42.1 H (26-34) PG MCHC 34.5 (30-36) % RDW 15.9 H (11.6-14.8) % Plt Count 163 (150-400) X10^3/uL Neut % (Auto) 75.8 H (50-75) % Lymph % (Auto) 13.3 L (25-40) % [place] % (Auto) 9.6 (3-14) % Eos % (Auto) 1.1 L (2-4) % Baso % (Auto) 0.2 (0-2) % Neut # (Auto) 8100 H (8184-2276) /uL Lymph # (Auto) 1400 (0461-5528) /uL [place] # (Auto) 1000 H (0-900) /uL Eos # (Auto) 100 (0-450) /uL Baso # (Auto) 0 (0-100) /uL RBC Morphology See below Anisocytosis 1+ H Macrocytosis 2+ H Target Cells 1+ H PT (10.1-12.7) SECONDS INR (0.9-1.3) APTT (26-36) SECONDS Fibrinogen (211-428) mg/dL D-Dimer (<500) ng/ml Sodium 129 L (137-145) mmol/L Potassium 3.1 L (3.4-5.1) mmol/L Chloride 96 L (98-107) mmol/L Carbon Dioxide 27 (22-32) mmol/L BUN 9 (7-17) mg/dL Creatinine 0.65 (0.52-1.04) mg/dL Estimated GFR > 60 (>60) mL/min BUN/Creatinine Ratio 13.8 (6-22) Glucose 97 (70-100) mg/dL Calcium 7.5 L (8.4-10.2) mg/dL Total Bilirubin 13.1 H (0.2-1.3) mg/dL AST 143 H (14-36) IU/L ALT 67 H (<35) IU/L Alkaline Phosphatase 256 H (38-126) U/L Total Protein 7.4 (6.3-8.2) g/dL Albumin 2.4 L (3.5-5.0) g/dL Globulin 5.0 H (1.7-4.1) g/dL Albumin/Globulin Ratio 0.5 L (1.0-2.8) Blood Type AB Positive Antibody Screen Negative 10/14/22 10/14/22 Range/Units 04:00 04:00 WBC (4.5-11.0) X10^3/uL RBC (4.0-5.2) X10^6/uL Hgb (12.0-16.0) g/dL Hct (36-46) % MCV (80-100) fL MCH (26-34) PG MCHC (30-36) % RDW (11.6-14.8) % Plt Count (150-400) X10^3/uL Neut % (Auto) (50-75) % Lymph % (Auto) (25-40) % [place] % (Auto) (3-14) % Eos % (Auto) (2-4) % Baso % (Auto) (0-2) % Neut # (Auto) (2947-1746) /uL Lymph # (Auto) (6410-0366) /uL [place] # (Auto) (0-900) /uL Eos # (Auto) (0-450) /uL Baso # (Auto) (0-100) /uL RBC Morphology Anisocytosis Macrocytosis Target Cells PT 20.2 H (10.1-12.7) SECONDS INR 1.8 H (0.9-1.3) APTT 38 H (26-36) SECONDS Fibrinogen 173 L (211-428) mg/dL D-Dimer 5549 H (<500) ng/ml Sodium (137-145) mmol/L Potassium (3.4-5.1) mmol/L Chloride (98-107) mmol/L Carbon Dioxide (22-32) mmol/L BUN (7-17) mg/dL Creatinine (0.52-1.04) mg/dL Estimated GFR (>60) mL/min BUN/Creatinine Ratio (6-22) Glucose (70-100) mg/dL Calcium (8.4-10.2) mg/dL Total Bilirubin (0.2-1.3) mg/dL AST (14-36) IU/L ALT (<35) IU/L Alkaline Phosphatase (38-126) U/L Total Protein (6.3-8.2) g/dL Albumin (3.5-5.0) g/dL Globulin (1.7-4.1) g/dL Albumin/Globulin Ratio (1.0-2.8) Blood Type Antibody Screen MDM Narrative Medical decision making narrative: CC: Recurrent acute bleeding from neck percutaneous liver biopsy site Complicating co-morbidities: End-stage liver disease, alcohol use disorder, opiate use disorder, recent hospitalization at [facility] Data collected from: patient, significant other Social determinants of health that may influence the patients condition: Medical records reviewed: ER notes from this morning. Have contacted [facility] to get additional details on procedures done and recommendations for treatment at this point Differential considered: DIC, significant coagulopathy, postoperative bleeding Exam documented above, pertinent findings include: Large amount of blood still oozing from the neck site some of it is clotting some of it is not clotting. Puncture wound from the interventional radiology procedure is actively bleeding venous blood. Please see above for description of hemostatic over-sewing Lab Test results independently reviewed as above. Pertinent findings: CBC shows H&H from this morning at 9.9 and 28.0 now is 8.7 and 25.2. On 10/11 at discharge from [facility] H&H was 8.8 and 25 Chemistries show a sodium low at 129, potassium low at 3.1. Remainder of labs are essentially stable with notable findings of a total bilirubin of 13 which is decreased from 24 hours ago and similar to bilirubin at discharge from [facility]. AST ALT and alk-phos are all in similar ranges with no significant changes PT is elevated at 20.2, INR is elevated at 1.8 which is what she had been at when discharged from [facility]. PTT is 38. Fibrinogen is low at 173 and D-dimer is significantly elevated. This is related to clotting in her recent biopsy rather than any concerns for pulmonary embolism. This time I am not seeing evidence for DIC Consultations: Dr Mccoy, GI at . Looking at records. Liver bx on 10/08, transjugular approach with Interventional Radiology. She was found to have severe steatosis with cirrhosis. Labs from October 11 show an H&H at 8.8 and 25. Platelets are 153. INR 1.7. AST 113, ALT 51, alk-phos 217 and bili was 13. Treatments: Bleeding site right side of her neck is oversewn with 2 horizontal mattress sutures. Given a L of fluid, 40 mEq of potassium. Observed in the department for 2 hours with no recurrent bleeding at the site of the puncture wound. Discussion: 56-year-old woman with bleeding from Interventional Radiology puncture wound site in the right neck from her transjugular liver biopsy done at [facility]. There was significant amount of straight venous bleeding was controlled with over-sewing the wound. With continued observation she is done well. Despite modest drop in her H&H she is not low enough that transfusion is required. Will have her continue with all treatments at home. Will need to have the sutures removed in about a week with 1 of her follow-ups with her gastroenterology providers. At this time I am not seeing evidence of DIC. She does have a modest coagulopathy consistent with her end-stage liver disease but nothing worse than her baseline. I believe her hyponatremia is spurious and will likely return to her chronic baseline in the low 130s. She is using lactulose regularly with fairly loose stools and this may be the source of her hypokalemia. Again, follow-up is scheduled with her outpatient providers. She is safe for discharge home Discharge Plan Departure Patient Disposition: Home Clinical Impression: Post-operative haemorrhage, End stage liver disease, Coagulopathy Activity Restrictions/Additional Instructions: Thank you for coming in today. The way that you treated this recurrent bleeding was absolutely appropriate. You did lose quite a bit of blood, I suspect close to 1-1-1/2 units. The puncture site from the liver biopsy procedure was the area of bleeding. Two stitches were used to close the wound with excellent hemostasis. At this point your labs are relatively stable. There are significant abnormalities but nothing is worse than when you were discharge from [facility] a couple of days ago You will need to have these stitches removed in 7-10 days. When you follow-up with either your primary care doctor or your j2ee programmer you can talk to them about removing stitches. In the meantime, please keep a clean and dry dressing over the stitches. Continue with all medications as prescribed If you find that you are getting worse or develop any new symptoms, please feel free to return to the emergency department for further evaluation. Prescriptions: No Action gabapentin [Neurontin] 300 MG capsule 600 mg PO TID Qty: 0 buprenorphine-naloxone [Suboxone] 8-2 mg film 8 film sublingual TID Patient Comments: dissolve 1 FILM under the tongue every 8 hours ondansetron 4 mg tablet,disintegrating 4 mg PO Q6H PRN (Reason: nausea and vomiting) Qty: 14 0RF atorvastatin 20 mg tablet 20 mg PO QPM Patient Comments: take 1 tablet by mouth every evening clonazepam 0.5 mg tablet 0.25 - 0.5 mg PO DAILY PRN (Reason: Anxiety) Patient Comments: take 1/2 to 1 tablet by mouth once daily if needed for VERTIGO Referrals: Mauricio,Anayeli N, PA-C [Primary Care Provider] - Stand Alone Forms: Patient Portal/API
[2022-10-14 04:32] LABS: Add Manual Diff / Slide Review NO; Basophils Absolute Auto 0 /uL (0-100); Basophils Percent Auto 0.2 % (0-2); Eosinophils Absolute Auto 100 /uL (0-450); Eosinophils Percent Auto 1.1 % (2-4); Hematocrit 25.2 % (36-46); Hemoglobin 8.7 g/dL (12.0-16.0); INR 1.8 (0.9-1.3); Lymphocytes Absolute Auto 1400 /uL (1100-4500); Lymphocytes Percent Auto 13.3 % (25-40); Mean Corpuscular HGB Conc 34.5 % (30-36); Mean Corpuscular Hemoglobin 42.1 PG (26-34); Monocytes Absolute Auto 1000 /uL (0-900); Monocytes Percent Auto 9.6 % (3-14); Neutrophils Absolute Auto 8100 /uL (1500-7000); Neutrophils Percent Auto 75.8 % (50-75); Platelet Count 163 X10^3/uL (150-400); Prothrombin Time 20.2 SECONDS (10.1-12.7); Red Blood Cell Count 2.07 X10^6/uL (4.0-5.2); Red Cell Distribution Width 15.9 % (11.6-14.8); White Blood Cell Count 10.7 X10^3/uL (4.5-11.0)
[2022-10-14 04:35] LABS: PTT Partial Thromboplastin Tim 38 SECONDS (26-36)
[2022-10-14 04:38] LABS: Alanine Aminotransferase 67 IU/L (<35); Albumin 2.4 g/dL (3.5-5.0); Albumin Globulin Ratio 0.5 (1.0-2.8); Alkaline Phosphatase 256 U/L (38-126); Aspartate Aminotransferase 143 IU/L (14-36); BUN Creatinine Ratio 13.8 (6-22); Bilirubin Total 13.1 mg/dL (0.2-1.3); Blood Urea Nitrogen 9 mg/dL (7-17); Calcium 7.5 mg/dL (8.4-10.2); Carbon Dioxide 27 mmol/L (22-32); Chloride 96 mmol/L (98-107); Estimated Glomerular Filt Rate > 60 mL/min (>60); Glucose 97 mg/dL (70-100); HEMOLYSIS < 15 (0-50); Potassium 3.1 mmol/L (3.4-5.1); Sodium 129 mmol/L (137-145); Total Protein 7.4 g/dL (6.3-8.2)
[2022-10-14 04:52] LABS: Fibrinogen 173 mg/dL (211-428)
[2022-10-14 04:53] LABS: D Dimer 5549 ng/ml (<500)
[2022-10-14 05:01] LABS: Macrocytosis 2+
[2022-10-14 05:03] LABS: Anisocytosis 1+
[2022-10-14 05:04] LABS: Target Cells 1+
[2022-10-14] MEDS: HYDROMORPHONE 1 MG INJ IV (05:40)
[2022-10-14] MEDS: POTASSIUM CHLORIDE 20 MEQ TAB 40 MEQ PO (06:30)
[2022-10-14] MEDS: SODIUM CHLORIDE 0.9% 1,000 ML 1000 ML IV (06:30)
[2022-10-14] MEDS: HYDROMORPHONE 0.5 MG INJ IV (08:32)
[2022-10-14 08:42] VITALS: BP 132/79; PULSE 92; RESP 18; O2SAT 99
== END 2022-10-14 08:43 | disposition home or self-care (01) ==
PROVIDERS: Emergency Provider Emergency Medicine; PCP Student in an Organized Health Care Education/Training Program
DX: L76.22 Postprocedural hemorrhage of skin and subcutaneous tissue following other procedure (principal); K72.10 Chronic hepatic failure without coma; D68.9 Coagulation defect, unspecified
CPT/HCPCS: 80053; 85025; 85379; 85384; 85610; 85730; 86850; 86900; 86901; 96374; 96376; 99284; J1170

== ENCOUNTER 2022-10-26 12:07 | Emergency (ER) | payer MEDICARE, MEDICAID, SELFPAY ==
[2020-11-24 22:40] VITALS: BMI 25.4
[2022-10-26 12:15] VITALS: BP 120/77; PULSE 90; RESP 16; TEMP 36.7; O2SAT 96; BMI 19.8
--- NOTE | 2022-10-26 12:54 | ED_ITS ---
HPI - Recheck/Abnormal Lab/Rx <ROSI Le - Last Filed: 10/26/22 12:58> General Chief Complaint: Recheck/Abnormal Lab/Rx Stated Complaint: stitches out Time Seen by Provider: 10/26/22 12:36 Source: patient and family Mode of arrival: Wheelchair History of Present Illness HPI narrative: This is a 56-year-old female who returns to emergency department 12 days after she had a central line removed in her right IJ and has 2 sutures to have removed. She denies any drainage from the site, denies recent fever, denies any bleeding. States that she is been at her baseline state of health. Related Data Home Medications Medication Instructions Recorded Confirmed gabapentin 300 mg capsule 600 mg PO TID ##0 02/19/16 10/03/22 (Neurontin) buprenorphine 8 mg-naloxone 2 mg 8 film sublingual TID 04/10/20 10/03/22 sublingual film (Suboxone) atorvastatin 20 mg tablet 20 mg PO QPM 10/03/22 10/03/22 clonazepam 0.5 mg tablet 0.25 - 0.5 mg PO DAILY PRN Anxiety 10/03/22 10/03/22 Previous Rx's Medication Instructions Recorded ondansetron 4 mg disintegrating 4 mg PO Q6H PRN nausea and 09/01/22 tablet vomiting #14 tabs mupirocin 2 % topical ointment 1 applic topical DAILY PRN wound 10/26/22 #15 grams Allergies Allergy/AdvReac Type Severity Reaction Status Date / Time codeine Allergy Unknown Verified 10/13/22 08:04 droperidol Allergy Unknown Verified 10/13/22 08:04 metoclopramide [From Reglan] Allergy Unknown Verified 10/13/22 08:04 Sulfa (Sulfonamide Allergy Unknown Verified 10/13/22 08:04 Antibiotics) abciximab AdvReac Intermediate Muscle Pain Verified 10/13/22 08:04 Review of Systems <ROSI Le - Last Filed: 10/26/22 12:58> Review of Systems ROS Unobtainable: All systems reviewed & are unremarkable except as noted in HPI and below Patient History <ROSI Le - Last Filed: 10/26/22 12:58> Medical History Alcohol abuse History of narcotic addiction Leg pain Peripheral neuropathy TBI (traumatic brain injury) Tobacco abuse Surgical History History of cholecystectomy Family History Mother History of recurrent TIAs Father Heart disease Social History household members: spouse Smoking Status: Current some day smoker Smoking Status: Current some day smoker tobacco type: cigarettes and vaping alcohol intake frequency: a few times a week Alcohol type: beer, wine and hard liquor Substance Use Type: does not use and prescription drug Exam <ROSI Le - Last Filed: 10/26/22 12:58> Narrative Exam Narrative: Reviewed vitals signs and nursing notes. General: Pleasant, sitting upright, in no acute distress, jaundice, appears chronically ill but interactive bilateral scleral icterus HEENT: symmetrical facial expressions, moist mucous membranes, neck is supple, 2 sutures to the right IJ are left present without drainage, surrounding erythema, fluctuance or evidence of infection. Skin: brisk capillary refill, grossly jaundiced, right IJ site without evidence of infection Neuro: clear speech and normal cognition at baseline A&O x3, GCS 15, no focal motor or sensation deficits Initial Vital Signs Initial Vital Signs: Vital Signs Temperature 98.0 F 10/26/22 12:15 Pulse Rate 90 10/26/22 12:15 Respiratory Rate 16 10/26/22 12:15 Blood Pressure 120/77 10/26/22 12:15 Pulse Oximetry 96 10/26/22 12:15 Oxygen Delivery Method Room Air 10/26/22 12:15 <Andrews Clifton DO - Last Filed: 10/26/22 13:27> Initial Vital Signs Initial Vital Signs: Vital Signs Temperature 98.0 F 10/26/22 12:15 Pulse Rate 90 10/26/22 12:15 Respiratory Rate 16 10/26/22 12:15 Blood Pressure 120/77 10/26/22 12:15 Pulse Oximetry 96 10/26/22 12:15 Oxygen Delivery Method Room Air 10/26/22 12:15 Course <ROSI Le - Last Filed: 10/26/22 12:58> Orders Ordered: Discontinued Medications Bacitracin (Bacitracin Oint 0.9 Gm Pckt) 1 applic TOP NOW ONE Stop: 10/26/22 12:38 Vital Signs Vital signs: Vital Signs - 8 hr 10/26/22 12:15 Temperature 98.0 F Pulse Rate 90 Respiratory Rate 16 Blood Pressure 120/77 Pulse Oximetry 96 Oxygen Delivery Method Room Air <Andrews Clifton DO - Last Filed: 10/26/22 13:27> Orders Ordered: Discontinued Medications Bacitracin (Bacitracin Oint 0.9 Gm Pckt) 1 applic TOP NOW ONE Stop: 10/26/22 12:38 Vital Signs Vital signs: Vital Signs - 8 hr 10/26/22 12:15 Temperature 98.0 F Pulse Rate 90 Respiratory Rate 16 Blood Pressure 120/77 Pulse Oximetry 96 Oxygen Delivery Method Room Air MDM - Recheck/Abnormal Lab/Rx <ROSI Le - Last Filed: 10/26/22 12:58> MDM Narrative Medical decision making narrative: Chief Complaint: Suture removal Independent historian: Patient Multiple etiologies for patient's symptoms considered including, but not limited to: Suture removal, wound infection, wound dehiscence, poor healing Pertinent records include: I have independently review 10/14/2022 hospital admission I reviewed the patient's vital signs and nursing notes as well as prior records if available. A removed 2 sutures to patient's right neck in the waiting room after cleansing with warm chlorhexidine soap and water solution, bacitracin was applied with a Band-Aid afterwards, patient was given a prescription of mupirocin to use to help prevent wound infection and her immunocompromised state. She will follow- up with her PCP as needed, return for fever, chills, evidence of swelling and redness at the wound. Social considerations that may affect disposition: none Questions are addressed and there is agreement with the plan and for follow-up. I consulted with the ED attending physician Dr. Clifton as needed for higher level of care considerations and they were available for discussion and recommendations regarding plan of care and diagnostic testing. Patient is appropriate for outpatient management. Discharge Plan Departure Patient Disposition: Home Clinical Impression: Encounter for removal of sutures Instructions: DI for Suture Removal Activity Restrictions/Additional Instructions: *You have been diagnosed with suture removal. Please keep a Band-Aid over this for as long as it has any drainage from it. I hope you feel better soon, return for any signs of infection which would be redness, swelling, pus coming from the site. Please use antibiotic ointment as needed to allow this to heal. *What to do: *Please continue to take your regular medications as directed. [x ] New medication prescriptions sent to your pharmacy: [ [facility]] [ ] New medication written as a paper prescription [ ] No new medications given *Please call and schedule follow up with your primary care provider in 2-3 days, at least for an update. Let them know you were seen in the Emergency Department for the above problem. We will electronically transmit a record of today's note if your PCP or specialist is in our system. *If you do not have a primary care provider please contact [phone] to establish care with one of the [facility] primary care providers. *Return to the Emergency Department for worsening symptoms, inability to keep liquids down, fever greater than 101F, chills, or other concerning symptom. Prescriptions: New mupirocin 2 % ointment 1 applic topical DAILY PRN (Reason: wound) Qty: 15 0RF No Action gabapentin [Neurontin] 300 MG capsule 600 mg PO TID Qty: 0 buprenorphine-naloxone [Suboxone] 8-2 mg film 8 film sublingual TID Patient Comments: dissolve 1 FILM under the tongue every 8 hours ondansetron 4 mg tablet,disintegrating 4 mg PO Q6H PRN (Reason: nausea and vomiting) Qty: 14 0RF atorvastatin 20 mg tablet 20 mg PO QPM Patient Comments: take 1 tablet by mouth every evening clonazepam 0.5 mg tablet 0.25 - 0.5 mg PO DAILY PRN (Reason: Anxiety) Patient Comments: take 1/2 to 1 tablet by mouth once daily if needed for VERTIGO Referrals: Anayeli Mauricio, RODY [Primary Care Provider] - Stand Alone Forms: Patient Portal/API <Andrews Clifton, - Last Filed: 10/26/22 13:27> [facility]: Dr Clifton Co-Sign Statement: I was available for consultation during this patient's emergency department visit. This chart is signed by myself for administrative purposes only. I did not have direct contact with this patient during this visit. They were seen independently by the APC.
== END 2022-10-26 12:49 | disposition home or self-care (01) ==
PROVIDERS: Emergency Provider Nurse Practitioner Critical Care Medicine; PCP Student in an Organized Health Care Education/Training Program
DX: Z48.02 Encounter for removal of sutures (principal)
CPT/HCPCS: 99281

== ENCOUNTER 2023-03-30 10:45 | Emergency (ER) | payer OTHER, MEDICARE, MEDICAID, SELFPAY ==
[2020-11-24 22:40] VITALS: BMI 25.4
[2023-03-30 11:06] VITALS: BP 137/82; PULSE 87; RESP 16; TEMP 36.5; O2SAT 96
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
[2023-03-30 12:42] VITALS: BP 129/84; PULSE 83; RESP 14; O2SAT 100
== END 2023-03-30 12:43 | disposition home or self-care (01) ==
PROVIDERS: Emergency Provider Emergency Medicine; PCP Internal Medicine
DX: M25.512 Pain in left shoulder (principal); V89.2XXA Person injured in unspecified motor-vehicle accident, traffic, initial encounter
CPT/HCPCS: 73030; 99281; 99283

== ENCOUNTER 2024-06-06 17:45 | Emergency (ER) | payer MEDICARE, MEDICAID, SELFPAY ==
[2020-11-24 22:40] VITALS: BMI 25.4
[2024-06-06 18:00] VITALS: BP 138/73; PULSE 88; RESP 20; TEMP 36.9; O2SAT 99; BMI 19.1
[2024-06-06 18:20] LABS: Add Manual Diff / Slide Review NO; Basophils Absolute Auto 0 /uL (0-100); Basophils Percent Auto 0.7 % (0-2); Eosinophils Absolute Auto 0 /uL (0-450); Hematocrit 34.7 % (36-46); Hemoglobin 11.5 g/dL (12.0-16.0); Lymphocytes Absolute Auto 900 /uL (1100-4500); Lymphocytes Percent Auto 22.2 % (25-40); Mean Corpuscular Hemoglobin 30.7 PG (26-34); Monocytes Absolute Auto 500 /uL (0-900); Monocytes Percent Auto 11.9 % (3-14); Neutrophils Absolute Auto 2700 /uL (1500-7000); Neutrophils Percent Auto 64.2 % (50-75); Platelet Count 246 X10^3/uL (150-400); Red Blood Cell Count 3.73 X10^6/uL (4.0-5.2); Red Cell Distribution Width 12.5 % (11.6-14.8); White Blood Cell Count 4.2 X10^3/uL (4.5-11.0)
[2024-06-06] MEDS: SODIUM CHLORIDE 0.9% 1,000 ML 1000 ML IV (18:21)
--- NOTE | 2024-06-06 18:30 | ED.NAVMDI ---
HPI - Nausea/Vomiting/Diarrhea <Latisha Serrano PA-C - Last Filed: 06/06/24 19:14> General Chief complaint: Nausea/Vomiting/Diarrhea Stated complaint: diarrhea Time Seen by Provider: 06/06/24 18:03 Source: patient Mode of arrival: Ambulatory History of Present Illness HPI Narrative: 58-year-old female with past medical history chronic pain, liver failure, alcohol abuse presents to the ED with 5 days of fecal incontinence and diarrhea. Patient states that she was in [place] when her symptoms started. Patient returned from [place] 3 days ago. Patient's symptoms have been worsening and she describes it as having stools without feeling the need to have a stool. She states that she does not know when she has having a stool. Patient describes the stool as mushy, but not watery. No blood in the stool. Patient states that she was constipated when she was in [place] to start with, took MiraLax for 2 days to resolve the constipation. No recent antibiotic use. Patient denies nausea, vomiting. Patient denies abdominal pain, cramping. Patient does endorse fevers about 2 days ago. Patient states that her chronic back pain is worse than usual. Patient states she took her maximum dosage of Dilaudid which she takes daily at home for her chronic pain. Patient is still rates the pain as 8/10. Patient also states that the pain which is usually localized to the lower back is radiating down bilateral legs. No new trauma. No chest pain, shortness of breath, abdominal pain, dysuria, urinary hesitancy, saddle paresthesia, lightheadedness, dizziness, syncope. Patient states that her alcohol abuse several years ago is what caused the liver failure, after which patient has stopped drinking any alcohol. Patient states that her liver problems have now resolved. Related Data Home Medications Medication Instructions Recorded Confirmed gabapentin 300 mg capsule 600 mg PO TID ##0 02/19/16 10/03/22 (Neurontin) buprenorphine 8 mg-naloxone 2 mg 8 film sublingual TID 04/10/20 10/03/22 sublingual film (Suboxone) atorvastatin 20 mg tablet 20 mg PO QPM 10/03/22 10/03/22 clonazepam 0.5 mg tablet 0.25 - 0.5 mg PO DAILY PRN Anxiety 10/03/22 10/03/22 Previous Rx's Medication Instructions Recorded ondansetron 4 mg disintegrating 4 mg PO Q6H PRN nausea and 09/01/22 tablet vomiting #14 tabs mupirocin 2 % topical ointment 1 applic topical DAILY PRN wound 10/26/22 #15 grams ciprofloxacin HCl 500 mg tablet 500 mg PO BID 10 days #20 tabs 06/06/24 lactulose 20 gram/30 mL oral 20 g (30 mL) PO BID #600 mL 06/06/24 solution Allergies Allergy/AdvReac Type Severity Reaction Status Date / Time codeine Allergy Unknown Verified 10/13/22 08:04 droperidol Allergy Unknown Verified 10/13/22 08:04 metoclopramide [From Reglan] Allergy Unknown Verified 10/13/22 08:04 Sulfa (Sulfonamide Allergy Unknown Verified 10/13/22 08:04 Antibiotics) abciximab AdvReac Intermediate Muscle Pain Verified 10/13/22 08:04 Review of Systems <Latisha Serrano PA-C - Last Filed: 06/06/24 19:14> Constitutional Constitutional: Denies chills, Denies fatigue, Reports fever(s), Denies frequent falls, Denies lethargy and Denies weakness Eyes Eyes: Denies change in vision, Denies eye discharge, Denies irritation and Denies loss of vision ENT Ears, Nose, Mouth, and Throat: Denies change in voice, Denies dizziness, Denies neck pain, Denies sore throat and Denies throat swelling Cardiovascular Cardiovascular: Denies chest pain, Denies irregular heart rhythm, Denies lightheadedness, Denies palpitations, Denies dyspnea, Denies dyspnea on exertion and Denies orthopnea Respiratory Respiratory: Denies cough, Denies dyspnea, Denies dyspnea on exertion and Denies wheezing Gastrointestinal Gastrointestinal: Denies abdominal pain, Denies change in bowel habits, Reports fecal incontinence, Reports diarrhea, Reports loose stools, Denies nausea and Denies vomiting Musculoskeletal Musculoskeletal: Denies neck pain and Denies numbness Integumentary/Breasts Skin/Breast: Denies pruritus, Denies erythema, Denies rash and Denies wounds Neurologic Neurologic: Denies behavioral changes, Denies confusion, Denies dizziness, Denies frequent falls, Denies loss of vision, Denies numbness and Denies weakness Psychiatric Psychiatric: Denies anxiety, Denies behavioral changes, Denies confusion, Denies depression, Denies homicidal ideation and Denies suicidal ideation Endocrine Endocrine: Denies fatigue, Denies flushing and Denies palpitations Hematologic/Lymphatic Hematologic/Lymphatic: Denies easy bruising Allergic/Immunologic Allergic/Immunologic: Denies urticaria, Denies throat swelling and Denies wheezing Patient History <Latisha Serrano PA-C - Last Filed: 06/06/24 19:14> Medical History Peripheral neuropathy Alcohol abuse Tobacco abuse History of narcotic addiction Leg pain TBI (traumatic brain injury) Surgical History History of cholecystectomy Family History Mother History of recurrent TIAs Father Heart disease Social History household members: spouse Smoking Status: Current some day smoker Smoking Status: Current some day smoker tobacco type: cigarettes and vaping alcohol intake frequency: a few times a week Alcohol type: beer, wine and hard liquor Exam <Latisha Serrano PA-C - Last Filed: 06/06/24 19:14> Narrative Exam Narrative: Const General:?cooperative, healthy appearing and comfortable [facility] Head:?normal to inspection Ears:?hearing grossly normal bilaterally Nose:?external nose normal Face and sinus:?normal facial exam and sinuses nontender Mouth:?oral mucosae normal Throat:?posterior oropharynx normal Eyes General:?appearance normal, both eyes and all related structures Neck Neck:?normal visual inspection and no lymphadenopathy noted Resp Effort & Inspection:?normal respiratory effort Auscultation:?clear to auscultation bilaterally Cardio Rate:?regular rate Rhythm:?regular rhythm GI Mild generalized tenderness to palpation of abdomen. Abdomen is soft, nondistended. Neuro General:?patient alert, patient awake and patient oriented x3 Initial Vital Signs Initial Vital Signs: Vital Signs Temperature 98.4 F 06/06/24 18:00 Pulse Rate 88 06/06/24 18:00 Respiratory Rate 20 06/06/24 18:00 Blood Pressure 138/73 06/06/24 18:00 Pulse Oximetry 99 06/06/24 18:00 Oxygen Delivery Method Room Air 06/06/24 18:00 <Brant Travis MD - Last Filed: 06/07/24 05:18> Initial Vital Signs Initial Vital Signs: Vital Signs Temperature 98.4 F 06/06/24 18:00 Pulse Rate 88 06/06/24 18:00 Respiratory Rate 20 06/06/24 18:00 Blood Pressure 138/73 06/06/24 18:00 Pulse Oximetry 99 06/06/24 18:00 Oxygen Delivery Method Room Air 06/06/24 18:00 Course <Latisha Serrano PA-C - Last Filed: 06/06/24 19:14> Orders Ordered: Discontinued Medications Ciprofloxacin (Ciprofloxacin 250 Mg Tablet) 500 mg PO NOW ONE Stop: 06/06/24 23:04 Last Admin: 06/06/24 23:33 Dose: 500 mg Documented By: AB Hydromorphone HCl (Hydromorphone 2 Mg Tablet) 4 mg PO NOW ONE Stop: 06/06/24 20:58 Last Admin: 06/06/24 21:03 Dose: 4 mg Documented By: AG Sodium Chloride (Normal Saline 0.9%) 1,000 mls @ 1,000 mls/hr IV BOLUS ONE Stop: 06/06/24 19:06 Last Infusion: 06/06/24 19:16 Dose: Infused Documented By: Admin: 06/06/24 18:21 Dose: 1,000 mls/hr Documented By: RB Lactulose (Lactulose 20 Gm/30 Ml Solution) 20 gm PO NOW ONE Stop: 06/06/24 23:04 Last Admin: 06/06/24 23:34 Dose: 20 gm Documented By: AB Vital Signs Vital signs: Vital Signs - 8 hr 06/06/24 22:18 06/06/24 23:44 Pulse Rate 69 76 Respiratory Rate 18 15 Blood Pressure 112/65 107/71 Pulse Oximetry 98 98 Oxygen Delivery Method Room Air Room Air <Brant Travis MD - Last Filed: 06/07/24 05:18> Orders Ordered: Discontinued Medications Ciprofloxacin (Ciprofloxacin 250 Mg Tablet) 500 mg PO NOW ONE Stop: 06/06/24 23:04 Last Admin: 06/06/24 23:33 Dose: 500 mg Documented By: Hydromorphone HCl (Hydromorphone 2 Mg Tablet) 4 mg PO NOW ONE Stop: 06/06/24 20:58 Last Admin: 06/06/24 21:03 Dose: 4 mg Documented By: SB Sodium Chloride (Normal Saline 0.9%) 1,000 mls @ 1,000 mls/hr IV BOLUS ONE Stop: 06/06/24 19:06 Last Infusion: 06/06/24 19:16 Dose: Infused Documented By: Admin: 06/06/24 18:21 Dose: 1,000 mls/hr Documented By: RB Lactulose (Lactulose 20 Gm/30 Ml Solution) 20 gm PO NOW ONE Stop: 06/06/24 23:04 Last Admin: 06/06/24 23:34 Dose: 20 gm Documented By: AB Vital Signs Vital signs: Vital Signs - 8 hr 06/06/24 22:18 06/06/24 23:44 Pulse Rate 69 76 Respiratory Rate 18 15 Blood Pressure 112/65 107/71 Pulse Oximetry 98 98 Oxygen Delivery Method Room Air Room Air MDM - Nausea/Vomiting/Diarrhea <Latisha Serrano PA-C - Last Filed: 06/06/24 19:14> Lab Data 06/06/24 18:11 06/06/24 18:11 Labs: Lab Results 06/06/24 06/06/24 06/06/24 Range/Units 18:11 19:05 19:05 WBC 4.2 L (4.5-11.0) X10^3/uL RBC 3.73 L (4.0-5.2) X10^6/uL Hgb 11.5 L (12.0-16.0) g/dL Hct 34.7 L (36-46) % MCV 93.0 (80-100) fL MCH 30.7 (26-34) PG MCHC 33.0 (30-36) % RDW 12.5 (11.6-14.8) % Plt Count 246 (150-400) X10^3/uL Neut % (Auto) 64.2 (50-75) % Lymph % (Auto) 22.2 L (25-40) % [place] % (Auto) 11.9 (3-14) % Eos % (Auto) 1.0 L (2-4) % Baso % (Auto) 0.7 (0-2) % Neut # (Auto) 2700 (2788-1957) /uL Lymph # (Auto) 900 L (1599-5994) /uL [place] # (Auto) 500 (0-900) /uL Eos # (Auto) 0 (0-450) /uL Baso # (Auto) 0 (0-100) /uL Sodium 131 L (137-145) mmol/L Potassium 3.5 (3.4-5.1) mmol/L Chloride 91 L (98-107) mmol/L Carbon Dioxide 33 H (22-32) mmol/L BUN 10 (7-17) mg/dL Creatinine 0.64 (0.52-1.04) mg/dL Estimated GFR > 60 (>60) mL/min BUN/Creatinine Ratio 15.6 (6-22) Glucose 115 H (70-100) mg/dL Lactate 1.7 (0.7-2.1) mmol/L Calcium 9.6 (8.4-10.2) mg/dL Total Bilirubin 0.3 (0.2-1.3) mg/dL AST 39 H (14-36) IU/L ALT 25 (<35) IU/L Alkaline Phosphatase 98 (38-126) U/L Total Protein 8.4 H (6.3-8.2) g/dL Albumin 4.7 (3.5-5.0) g/dL Globulin 3.7 (1.7-4.1) g/dL Albumin/Globulin Ratio 1.3 (1.0-2.8) Lipase 37 (23-300) U/L Urine Color Yellow Urine Appearance Clear Urine pH 6.0 (4.5-8.0) Ur Specific [place] <=1.005 (1.000-1.035) Urine Protein Negative (Negative) Urine Glucose (UA) Negative (Negative) g/dL Urine Ketones Negative (NEGATIVE) Urine Occult Blood Negative (Negative) Urine Nitrate Negative (Negative) Urine Bilirubin Negative (NEGATIVE) Urine Urobilinogen 0.2 (0.2) E.U./dL Ur Leukocyte Esterase Negative (NEGATIVE) Urine RBC None seen (0-5/HPF) Urine WBC None seen (0-5/HPF) Ur Squamous Epith Cells None seen (0-5/HPF) Urine Bacteria None seen (None) Ur Culture Indicated? Cult not indicated Vol Urine Centrifuged 10ml (spun) Stl C. cayetanensis PCR Not detected (Not Detect) Stool Rotavirus (PCR) Not detected (Not Detect) Stool Adenovirus (PCR) Not detected (Not Detect) Stool Astrovirus (PCR) Not detected (Not Detect) Stool Cryptosporidium PCR Not detected (Not Detect) Stl E.coli Shiga Tox PCR Not detected (Not Detect) St Sh/Enteroin Ecoli PCR Not detected (Not Detect) Stl Enterotoxigenic E PCR Not detected (Not Detect) Stool EPEC (PCR) Detected (Not Detect) Stl E. histolytica PCR Not detected (Not Detect) Stool Giardia Lamblia PCR Not detected (Not Detect) Stool Sapovirus (PCR) Not detected (Not Detect) Stl P. shigelloides PCR Not detected (Not Detect) St Y.enterocolitica PCR Not detected (Not Detect) Stool Vibrio (PCR) Not detected (Not Detect) Stl Vibrio cholerae PCR Not detected (Not Detect) Stl Enteroaggr Ecoli PCR Not detected (Not Detect) Stl Norovirus GI/GII PCR Not detected (Not Detect) Campylobacter (PCR) Not detected (Not Detect) C. difficile Tox (PCR) Cancelled Not detected Salmonella (PCR) Not detected (Not Detect) MDM Narrative Medical decision making narrative: 58-year-old female with past medical history chronic pain, liver failure, alcohol abuse presents to the ED with 5 days of fecal incontinence and diarrhea. Concern for traveler's diarrhea versus C diff versus constipation versus spinal injury versus dehydration versus electrolyte derangements versus other. Will obtain labs, stool studies, UA, CT abd pelvis, lumbar MRI. Will give IV fluids. Will reassess. MRI scheduled for 8:30pm. Patient signed out to Dr. Travis. Medical records reviewed: Yes <Brant Travis MD - Last Filed: 06/07/24 05:18> Lab Data Labs: Lab Results 06/06/24 06/06/24 06/06/24 Range/Units 18:11 19:05 19:05 WBC 4.2 L (4.5-11.0) X10^3/uL RBC 3.73 L (4.0-5.2) X10^6/uL Hgb 11.5 L (12.0-16.0) g/dL Hct 34.7 L (36-46) % MCV 93.0 (80-100) fL MCH 30.7 (26-34) PG MCHC 33.0 (30-36) % RDW 12.5 (11.6-14.8) % Plt Count 246 (150-400) X10^3/uL Neut % (Auto) 64.2 (50-75) % Lymph % (Auto) 22.2 L (25-40) % [place] % (Auto) 11.9 (3-14) % Eos % (Auto) 1.0 L (2-4) % Baso % (Auto) 0.7 (0-2) % Neut # (Auto) 2700 (8697-1964) /uL Lymph # (Auto) 900 L (0428-3170) /uL [place] # (Auto) 500 (0-900) /uL Eos # (Auto) 0 (0-450) /uL Baso # (Auto) 0 (0-100) /uL Sodium 131 L (137-145) mmol/L Potassium 3.5 (3.4-5.1) mmol/L Chloride 91 L (98-107) mmol/L Carbon Dioxide 33 H (22-32) mmol/L BUN 10 (7-17) mg/dL Creatinine 0.64 (0.52-1.04) mg/dL Estimated GFR > 60 (>60) mL/min BUN/Creatinine Ratio 15.6 (6-22) Glucose 115 H (70-100) mg/dL Lactate 1.7 (0.7-2.1) mmol/L Calcium 9.6 (8.4-10.2) mg/dL Total Bilirubin 0.3 (0.2-1.3) mg/dL AST 39 H (14-36) IU/L ALT 25 (<35) IU/L Alkaline Phosphatase 98 (38-126) U/L Total Protein 8.4 H (6.3-8.2) g/dL Albumin 4.7 (3.5-5.0) g/dL Globulin 3.7 (1.7-4.1) g/dL Albumin/Globulin Ratio 1.3 (1.0-2.8) Lipase 37 (23-300) U/L Urine Color Yellow Urine Appearance Clear Urine pH 6.0 (4.5-8.0) Ur Specific [place] <=1.005 (1.000-1.035) Urine Protein Negative (Negative) Urine Glucose (UA) Negative (Negative) g/dL Urine Ketones Negative (NEGATIVE) Urine Occult Blood Negative (Negative) Urine Nitrate Negative (Negative) Urine Bilirubin Negative (NEGATIVE) Urine Urobilinogen 0.2 (0.2) E.U./dL Ur Leukocyte Esterase Negative (NEGATIVE) Urine RBC None seen (0-5/HPF) Urine WBC None seen (0-5/HPF) Ur Squamous Epith Cells None seen (0-5/HPF) Urine Bacteria None seen (None) Ur Culture Indicated? Cult not indicated Vol Urine Centrifuged 10ml (spun) Stl C. cayetanensis PCR Not detected (Not Detect) Stool Rotavirus (PCR) Not detected (Not Detect) Stool Adenovirus (PCR) Not detected (Not Detect) Stool Astrovirus (PCR) Not detected (Not Detect) Stool Cryptosporidium PCR Not detected (Not Detect) Stl E.coli Shiga Tox PCR Not detected (Not Detect) St Sh/Enteroin Ecoli PCR Not detected (Not Detect) Stl Enterotoxigenic E PCR Not detected (Not Detect) Stool EPEC (PCR) Detected (Not Detect) Stl E. histolytica PCR Not detected (Not Detect) Stool Giardia Lamblia PCR Not detected (Not Detect) Stool Sapovirus (PCR) Not detected (Not Detect) Stl P. shigelloides PCR Not detected (Not Detect) St Y.enterocolitica PCR Not detected (Not Detect) Stool Vibrio (PCR) Not detected (Not Detect) Stl Vibrio cholerae PCR Not detected (Not Detect) Stl Enteroaggr Ecoli PCR Not detected (Not Detect) Stl Norovirus GI/GII PCR Not detected (Not Detect) Campylobacter (PCR) Not detected (Not Detect) C. difficile Tox (PCR) Cancelled Not detected Salmonella (PCR) Not detected (Not Detect) Imaging Data CT scan - abdomen/pelvis: Radiologist's Impression: Close Abdomen/Pelvis CT (Signed) Alex Thompson - 06/06/24 Launch?[address] [address] [address] Scan Report Signed Patient: Jenni Rosales MR#: [id number] : 1965 Acct:[id number] Age/Sex: 58 / F Date of Service: 06/06/24 Loc: ED Accession Number: [id number] Procedure: CT abdomen pelvis w con Ordering Provider: Latisha Serrano PA-C PROCEDURE: CT ABDOMEN PELVIS W CON INDICATIONS: diarrhea; fecal incontinence TECHNIQUE: After the administration of intravenous contrast, axial sections acquired from the lung bases to the pubic symphysis. Coronal and sagittal reformats were performed. For radiation dose reduction, the following was used: automated exposure control, adjustment of mA and/or kV according to patient size. COMPARISON: [facility], CT, CT ABDOMEN PELVIS W CON, 08/13/2022, 9:59. FINDINGS: Image quality: Diagnostic. Lower Chest: Mild ground-glass at the left lung base. ABDOMEN: Liver: No solid mass. Gallbladder: Surgically absent. Biliary ducts: No biliary dilation. Pancreas: No ductal dilation. Spleen: Size is within normal limits. Adrenal Glands: No adrenal nodules. Kidneys and Ureters: No hydronephrosis. No solid mass. No complex renal cystic lesion which requires follow up. Stomach and Bowel: Normal colonic caliber, without significant wall thickening. Large stool burden throughout the colon. Normal appendix. Peritoneum: No abnormal intraperitoneal fluid. No free air. Ventral Wall: No significant ventral hernia. Abdominal Nodes: No retroperitoneal or mesenteric adenopathy by size criteria. Vessels: Aorta and inferior vena cava are normal in size. PELVIS: Pelvic Organs: Unremarkable. Bladder: No bladder wall thickening, accounting for underdistention. Pelvic Nodes: No enlarged lymph nodes. Miscellaneous: No inguinal hernias are seen. Bones: No aggressive osseous abnormality. Degenerative changes of the spine. IMPRESSION: 1. No acute findings within the abdomen or pelvis to explain patient's symptoms. 2. Large burden of stool throughout the colon, correlate for constipation. Dictated by: Alex Thompson M.D. on 06/06/2024 at 20:06 Approved by: Alex Thompson M.D. on 06/06/2024 at 20:13 [facility] Narrative Medical decision making narrative: 58-year-old female with past medical history chronic pain, liver failure, alcohol abuse presents to the ED with 5 days of fecal incontinence and diarrhea. Concern for traveler's diarrhea versus C diff versus constipation versus spinal injury versus dehydration versus electrolyte derangements versus other. Will obtain labs, stool studies, UA, CT abd pelvis, lumbar MRI. Will give IV fluids. Will reassess. MRI scheduled for 8:30pm. Patient signed out to Dr. Travis. Medical records reviewed: Yes 06/06/2024 at 7:00 p.mThaddeus Christie. Sign-out MORRO Serrano. 58-year-old female with history of prior liver disease in context of alcohol use, chronic pain, taking chronic opiates, recent travel to [place], has had 5 days duration of fecal incontinence, no abdominal discomfort, no nausea or vomiting. She has been taking her oral Dilaudid doses for chronic back pain. Increased back pain noted. Concern for possible cauda equina, also consider constipation and trickling of liquid stool. CT abdomen and pelvis imaging requested. MRI lumbar spine imaging requested. Assumed care. CT abdomen and pelvis shows stool burden significant, no obstructive changes, no acute inflammatory changes. See radiology report. MRI lumbar spine shows moderate spinal canal stenosis, not severe, see radiology report. Stool specimen was positive for enteropathogenic E coli. No fever, no bloody stools. However patient is symptomatic in the sense of having otherwise unexplained fecal incontinence, we will offer antibacterial treatment, patient prefers antibacterial treatment. Oral dose ciprofloxacin now, further course oral Cipro sent to her pharmacy. Also advised further colonic clean out with oral lactulose which she has taken in the past, 1st dose now, further doses to be sent to pharmacy. Follow up with your PCP advised early next week. Return precautions discussed. Home with family. Discharge Plan Departure Patient Disposition: Home Clinical Impression: Fecal incontinence, Enteritis, enteropathogenic E. coli, Chronic low back pain, Constipation Activity Restrictions/Additional Instructions: Recent travel to [place], with new fecal incontinence. No fevers. No bloody stools. Not currently taking oral antibiotics. History of chronic back pain, history of chronic opiate medication, at risk for constipation, having used to lactulose in the past. MRI lumbar spine showed moderate spinal stenosis, although no severe stenosis to explain symptoms. CT abdomen and pelvis showed lots of colonic stool, no obstructive pattern. It is possible that liquid stool is trickling around the harder colonic stool components in causing some liquid stool, unclear if this all by itself is causing the new/recent fecal incontinence. He produced his full specimen that was evaluated by laboratory, and it was positive for enteropathogenic E coli bacteria. Without fever or bloody stools this is not necessarily treated with the antibiotics, however it might be the cause of your new/recent fecal incontinence, therefore we did discuss treatment with antibiotics. First dose of oral ciprofloxacin given, further doses sent to your pharmacy. First dose of oral lactulose in the emergency department given to help clear the stool, this will cause further loose stools and likely incontinence of stool but hopefully clear out the harder stool burden. Further lactulose sent to your pharmacy. Consider recheck if symptoms with your regular doctor next week. Consider repeat stool testing to make sure it has cleared. Return to this/nearest emergency department for any change worsening symptoms or any concerns prior Prescriptions: New ciprofloxacin HCl 500 mg tablet 500 mg PO BID 10 Days Qty: 20 0RF lactulose 20 gram/30 mL solution 20 g PO BID Qty: 600 0RF No Action gabapentin [Neurontin] 300 MG capsule 600 mg PO TID Qty: 0 buprenorphine-naloxone [Suboxone] 8-2 mg film 8 film sublingual TID Patient Comments: dissolve 1 FILM under the tongue every 8 hours ondansetron 4 mg tablet,disintegrating 4 mg PO Q6H PRN (Reason: nausea and vomiting) Qty: 14 0RF atorvastatin 20 mg tablet 20 mg PO QPM Patient Comments: take 1 tablet by mouth every evening clonazepam 0.5 mg tablet 0.25 - 0.5 mg PO DAILY PRN (Reason: Anxiety) Patient Comments: take 1/2 to 1 tablet by mouth once daily if needed for VERTIGO mupirocin 2 % ointment 1 applic topical DAILY PRN (Reason: wound) Qty: 15 0RF Referrals: Alissa Wolf MD [Primary Care Provider] - Stand Alone Forms: Patient Portal/API/Survey
[2024-06-06 18:38] LABS: Alanine Aminotransferase 25 IU/L (<35); Albumin 4.7 g/dL (3.5-5.0); Albumin Globulin Ratio 1.3 (1.0-2.8); Alkaline Phosphatase 98 U/L (38-126); Aspartate Aminotransferase 39 IU/L (14-36); BUN Creatinine Ratio 15.6 (6-22); Bilirubin Total 0.3 mg/dL (0.2-1.3); Blood Urea Nitrogen 10 mg/dL (7-17); Calcium 9.6 mg/dL (8.4-10.2); Carbon Dioxide 33 mmol/L (22-32); Chloride 91 mmol/L (98-107); Estimated Glomerular Filt Rate > 60 mL/min (>60); Globulin 3.7 g/dL (1.7-4.1); Glucose 115 mg/dL (70-100); HEMOLYSIS < 15 (0-50); Lactate (Lactic Acid) 1.7 mmol/L (0.7-2.1); Lipase 37 U/L (23-300); Potassium 3.5 mmol/L (3.4-5.1); Sodium 131 mmol/L (137-145); Total Protein 8.4 g/dL (6.3-8.2)
--- NOTE | 2024-06-06 18:39 | DI.MRI.S_ITS ---
PROCEDURE: MR LUMBAR SPINE WO CON INDICATIONS: Fecal incontinence TECHNIQUE: Noncontrast sagittal T1 spin echo and T2 fast echo, sagittal STIR, and T2 fast spin echo through the lumbar spine. In cases with scoliosis, additional coronal T2 fast spin echo may be performed. COMPARISON: [facility], CT, CT ABDOMEN PELVIS W CON, 06/06/2024, 19:42. FINDINGS: Image quality: Axial image quality is fair. Alignment and Curvature: There is normal bony alignment. Bone Marrow: Marrow is of normal overall signal. No acute vertebral body compression fractures. Spinal Cord: Conus medullaris terminates at the L1 level. Visualized cord demonstrates normal signal and size. Paraspinous Soft Tissues: No paravertebral masses. T12-L1: Normal appearance. L1-L2: Normal appearance. L2-L3: Disc desiccation. No central canal narrowing. No neural foraminal narrowing. L3-L4: Disc desiccation. Mild broad-based disc bulge. Minimal central canal narrowing. No significant neural foraminal narrowing. L4-L5: Disc desiccation. Mild to moderate broad-based disc bulge. [id number] central canal narrowing. Mild bilateral neural foraminal narrowing. L5-S1: Disc desiccation. Mild broad-based disc bulge. No significant central canal narrowing. Mild bilateral neural foraminal narrowing. IMPRESSION: No compression fracture. [id number] broad-based disc bulge at L4-L5 with mild to moderate central canal narrowing. Mild bilateral neural foraminal narrowing at this level. Dictated by: Truman Sanchez M.D. on 06/06/2024 at 21:48 Approved by: Truman Sanchez M.D. on 06/06/2024 at 21:55
--- NOTE | 2024-06-06 19:02 | DI.CT.S_ITS ---
PROCEDURE: CT ABDOMEN PELVIS W CON INDICATIONS: diarrhea; fecal incontinence TECHNIQUE: After the administration of intravenous contrast, axial sections acquired from the lung bases to the pubic symphysis. Coronal and sagittal reformats were performed. For radiation dose reduction, the following was used: automated exposure control, adjustment of mA and/or kV according to patient size. COMPARISON: [facility], CT, CT ABDOMEN PELVIS W CON, 08/13/2022, 9:59. FINDINGS: Image quality: Diagnostic. Lower Chest: Mild ground-glass at the left lung base. ABDOMEN: Liver: No solid mass. Gallbladder: Surgically absent. Biliary ducts: No biliary dilation. Pancreas: No ductal dilation. Spleen: Size is within normal limits. Adrenal Glands: No adrenal nodules. Kidneys and Ureters: No hydronephrosis. No solid mass. No complex renal cystic lesion which requires follow up. Stomach and Bowel: Normal colonic caliber, without significant wall thickening. Large stool burden throughout the colon. Normal appendix. Peritoneum: No abnormal intraperitoneal fluid. No free air. Ventral Wall: No significant ventral hernia. Abdominal Nodes: No retroperitoneal or mesenteric adenopathy by size criteria. Vessels: Aorta and inferior vena cava are normal in size. PELVIS: Pelvic Organs: Unremarkable. Bladder: No bladder wall thickening, accounting for underdistention. Pelvic Nodes: No enlarged lymph nodes. Miscellaneous: No inguinal hernias are seen. Bones: No aggressive osseous abnormality. Degenerative changes of the spine. IMPRESSION: 1. No acute findings within the abdomen or pelvis to explain patient's symptoms. 2. Large burden of stool throughout the colon, correlate for constipation. Dictated by: Alex Thompson M.D. on 06/06/2024 at 20:06 Approved by: Alex Thompson M.D. on 06/06/2024 at 20:13
[2024-06-06 19:46] LABS: Appearance Urine UA CLEAR; Bilirubin Urine UA NEGATIVE (NEGATIVE); Color Urine UA YELLOW; Glucose Urine UA NEGATIVE (Negative); Ketones Urine UA NEGATIVE (NEGATIVE); Leukocyte Esterase Urine UA NEGATIVE (NEGATIVE); Nitrite Urine UA NEGATIVE (Negative); Occult Blood Urine UA NEGATIVE (Negative); Protein Urine UA NEGATIVE (Negative); Specific Gravity Urine UA <=1.005 (1.000-1.035); Urobilinogen Urine UA 0.2 E.U./dL (0.2)
[2024-06-06 20:08] LABS: Bacteria Urine None Seen; Culture Indicated Urine Cult Not Indicated; RBC Urine None Seen (0-5/HPF); Squamous Epithelial Cell Urine None Seen (0-5/HPF); Urine Volume 10mL (spun); WBC Urine None Seen (0-5/HPF)
[2024-06-06 20:21] VITALS: BP 135/81; PULSE 79; RESP 18; O2SAT 100
[2024-06-06 20:41] LABS: Adenovirus F 40/41 Not Detected (Not Detect); Astrovirus Not Detected (Not Detect); Campylobacter Not Detected (Not Detect); Clostridium difficile toxin AB Not Detected (Not Detect); Cryptosporidium Not Detected (Not Detect); Cyclospora cayetanensis Not Detected (Not Detect); Entamoeba histolytica Not Detected (Not Detect); Enteroaggregative E.coli Not Detected (Not Detect); Enteropathogenic E.coli Detected (Not Detect); Enterotoxigenic E.coli It/st Not Detected (Not Detect); Giardia lamblia Not Detected (Not Detect); Norovirus GI/GII Not Detected (Not Detect); Plesiomonsa shigelloides Not Detected (Not Detect); Rotavirus A Not Detected (Not Detect); Salmonella Not Detected (Not Detect); Sapovirus Not Detected (Not Detect); Shiga-like toxin-prod E.coli Not Detected (Not Detect); Shigella/Enteroinvasive E.coli Not Detected (Not Detect); Vibrio Not Detected (Not Detect); Vibrio cholerae Not Detected (Not Detect); Yersinia enterocolitica Not Detected (Not Detect)
--- NOTE | 2024-06-06 20:52 | CM.MNRNOTE ---
Pt reports taking 4mg Dilaudid 3x daily for chronic joint pain and would like to take now. Provider made aware of patient current pain level and request for home med. Verbal order for 4mg PO Dilaudid given from Provider Thaddeus.
[2024-06-06] MEDS: HYDROMORPHONE 2 MG TABLET 4 MG PO (21:03)
[2024-06-06 22:18] VITALS: BP 112/65; PULSE 69; RESP 18; O2SAT 98
--- NOTE | 2024-06-06 22:40 | PC.NURSE ---
Pt reports feeling weak and dizzy since episodes of diarrhea began.
[2024-06-06] MEDS: CIPROFLOXACIN 250 MG TABLET 500 MG PO (23:33)
[2024-06-06] MEDS: LACTULOSE 20 GM/30 ML SOLUTION PO (23:34)
[2024-06-06 23:44] VITALS: BP 107/71; PULSE 76; RESP 15; O2SAT 98
== END 2024-06-06 23:49 | disposition home or self-care (01) ==
PROVIDERS: Student in an Organized Health Care Education/Training Program; Emergency Provider Emergency Medicine; PCP Internal Medicine
DX: A04.0 Enteropathogenic Escherichia coli infection (principal); K59.00 Constipation, unspecified; R15.9 Full incontinence of feces; M54.50 Low back pain, unspecified
CPT/HCPCS: 36415; 72148; 74177; 80053; 81001; 83605; 83690; 85025; 87177; 87205; 87507; 96360; 99284; Q9967

== ENCOUNTER 2024-06-10 11:35 | Emergency (ER) | payer MEDICARE, MEDICAID, SELFPAY ==
[2020-11-24 22:40] VITALS: BMI 25.4
[2024-06-10 11:45] VITALS: BP 148/83; PULSE 118; O2SAT 92
--- NOTE | 2024-06-10 11:46 | ED.URI ---
HPI - URI/Sore Throat <Daryl Swanson PA-C - Last Filed: 06/10/24 13:44> General Chief Complaint: Upper Respiratory Symptoms Stated Complaint: cough, fever Time Seen by Provider: 06/10/24 11:45 History of Present Illness HPI Narrative: This is a 58-year-old female presents to the emergency department due to a productive cough for the last 4 days as well as reported high fevers with a temperature of 104?. She states that this has improved since she has been here. She also states that she was seen about 5 days ago due to diarrhea for which she was treated with ciprofloxacin. She denies any abdominal pain, nausea, vomiting. States that she does have some back pain although this is somewhat chronic for her. Denies any changes in mental status or neck pain. Related Data Home Medications Medication Instructions Recorded Confirmed gabapentin 300 mg capsule 600 mg PO TID ##0 02/19/16 10/03/22 (Neurontin) buprenorphine 8 mg-naloxone 2 mg 8 film sublingual TID 04/10/20 10/03/22 sublingual film (Suboxone) atorvastatin 20 mg tablet 20 mg PO QPM 10/03/22 10/03/22 clonazepam 0.5 mg tablet 0.25 - 0.5 mg PO DAILY PRN Anxiety 10/03/22 10/03/22 Previous Rx's Medication Instructions Recorded ondansetron 4 mg disintegrating 4 mg PO Q6H PRN nausea and 09/01/22 tablet vomiting #14 tabs mupirocin 2 % topical ointment 1 applic topical DAILY PRN wound 10/26/22 #15 grams ciprofloxacin HCl 500 mg tablet 500 mg PO BID 10 days #20 tabs 06/06/24 lactulose 20 gram/30 mL oral 20 g (30 mL) PO BID #600 mL 06/06/24 solution Allergies Allergy/AdvReac Type Severity Reaction Status Date / Time codeine Allergy Unknown Verified 06/10/24 12:07 droperidol Allergy Unknown Verified 06/10/24 12:07 metoclopramide [From Reglan] Allergy Unknown Verified 06/10/24 12:07 Sulfa (Sulfonamide Allergy Unknown Verified 06/10/24 12:07 Antibiotics) abciximab AdvReac Intermediate Muscle Pain Verified 06/10/24 12:07 Review of Systems <Daryl Swanson PA-C - Last Filed: 06/10/24 13:44> Review of Systems Narrative: GENERAL: Denies chills, fatigue, malaise, fever, sweats. HEENT: Denies sinus pain, ear pain, sore throat, difficulty swallowing, dizziness. RESPIRATORY: reports cough Denies dyspnea,, wheezing, hemoptysis, sputum. CARDIOVASCULAR: Denies chest pain, palpitations, orthopnea, edema, GASTROINTESTINAL: Reports diarrheaDenies nausea, vomiting, abdominal pain, , constipation, melena. : Denies dysuria, frequency, incontinence, hematuria, urinary retention. MUSCULOSKELETAL: reports back paindenies weakness, joint pain, or bony pain SKIN: Denies rash, skin lesions, or other NEUROLOGIC: Denies weakness, headache, numbness, change in speech, confusion, seizures, incoordination. PSYCHIATRIC: No concerning psychosocial issues. 12 point review of systems is negative except for those stated above Patient History <Daryl Swanson PA-C - Last Filed: 06/10/24 13:44> Medical History Peripheral neuropathy Alcohol abuse Tobacco abuse History of narcotic addiction Leg pain TBI (traumatic brain injury) Surgical History History of cholecystectomy Family History Mother History of recurrent TIAs Father Heart disease Social History household members: spouse Smoking Status: Current some day smoker Smoking Status: Current some day smoker tobacco type: cigarettes and vaping alcohol intake frequency: a few times a week Alcohol type: beer, wine and hard liquor Exam <Daryl Swanson PA-C - Last Filed: 06/10/24 13:44> Narrative Exam Narrative: GENERAL: Well-developed patient, in mild distress. HEAD: Atraumatic. Normocephalic. EYES: Pupils equal round and reactive. Extraocular motions intact. No scleral icterus. No injection or drainage. ENT: Nose without bleeding, purulent drainage. Throat without erythema, tonsillar hypertrophy or exudate. Airway patent. NECK: Trachea midline. Non tender EXTREMITIES: No edema or joint tenderness. NEURO: AOx3. SKIN: No rash or erythema of visible areas CARDIOVASCULAR: Regular rate and rhythm without murmurs, gallops, or rubs. RESPIRATORY: Clear to auscultation. Breath sounds equal bilaterally. No wheezes, rales, or rhonchi. GASTROINTESTINAL: Abdomen soft, non-tender, nondistended. BACK: Nontender without deformity or crepitance. No flank tenderness. Initial Vital Signs Initial Vital Signs: Vital Signs Pulse Rate 118 H 06/10/24 11:45 Blood Pressure 148/83 H 06/10/24 11:45 Pulse Oximetry 92 06/10/24 11:45 <Daylin Martines DO - Last Filed: 06/11/24 19:25> Initial Vital Signs Initial Vital Signs: Vital Signs Pulse Rate 118 H 06/10/24 11:45 Blood Pressure 148/83 H 06/10/24 11:45 Pulse Oximetry 92 06/10/24 11:45 Course <Daryl Swanson PA-C - Last Filed: 06/10/24 13:44> Orders Ordered: ED Orders 06/10/24 11:50 Covid-19 + FLU A/B + RSV - PCR Stat 06/10/24 11:55 Chest [XR chest 2V] Stat Vital Signs Vital signs: Vital Signs - 8 hr 06/10/24 11:45 06/10/24 11:45 06/10/24 11:56 Temperature 99.1 F Pulse Rate 118 H 110 H Respiratory Rate 16 Blood Pressure 148/83 H 148/83 H Pulse Oximetry 92 96 Oxygen Delivery Method Room Air 06/10/24 12:00 06/10/24 12:32 06/10/24 13:00 Temperature Pulse Rate 109 H 102 H 89 Respiratory Rate Blood Pressure Pulse Oximetry 96 93 95 Oxygen Delivery Method <Daylin Martines DO - Last Filed: 06/11/24 19:25> Orders Ordered: ED Orders 06/10/24 11:50 Covid-19 + FLU A/B + RSV - PCR Stat 06/10/24 11:55 Chest [XR chest 2V] Stat Vital Signs Vital signs: Vital Signs - 8 hr 06/10/24 11:45 06/10/24 11:45 06/10/24 11:56 Temperature 99.1 F Pulse Rate 118 H 110 H Respiratory Rate 16 Blood Pressure 148/83 H 148/83 H Pulse Oximetry 92 96 Oxygen Delivery Method Room Air 06/10/24 12:00 06/10/24 12:32 06/10/24 13:00 Temperature Pulse Rate 109 H 102 H 89 Respiratory Rate Blood Pressure Pulse Oximetry 96 93 95 Oxygen Delivery Method MDM - URI/Sore Throat <Daryl Swanson PA-C - Last Filed: 06/10/24 13:44> Lab Data Labs: Lab Results 06/10/24 Range/Units 11:50 SARS-CoV-2 (PCR) Negative (Negative) Influenza A (RT-PCR) Flu a negative (NEGATIVE) Influenza B (RT-PCR) Flu b negative (NEGATIVE) RSV (PCR) Negative (Negative) Urine Dip Bedside Urine Glucose Negative Bedside Urine Bilirubin - Negative Bedside Urine Ketone +/- 5 Urine Specific [place] 1.010 Bedside Urine Occult Blood - Negative Bedside Urine pH 6.0 Bedside Urine Protein - Negative Bedside Urine Urobilinogen - Negative Bedside Urine Nitrite - Negative Bedside Urine Leukocytes - Negative Esterase Imaging Data Chest x-ray: Radiologist's Impression: [address] [address] XRay Report Signed Patient: Jenni Rosales MR#: [id number] : 1965 Acct:[id number] Age/Sex: 58 / F Date of Service: 06/10/24 Loc: ED Accession Number: [id number] Procedure: XR chest 2V Ordering Provider: Daryl Swanson PA-C PROCEDURE: XR CHEST 2V INDICATIONS: cough TECHNIQUE: 2 views of the chest were acquired. COMPARISON: [facility], , XR CHEST 2V, 07/03/2022, 16:02. FINDINGS: Surgical changes and devices: None. Lungs and pleura: Lungs are clear. No pleural effusions or pneumothorax. Mediastinum: Mediastinal contours are normal. Heart size is normal. Bones and chest wall: No suspicious bony abnormalities. Soft tissues appear unremarkable. IMPRESSION: No acute cardiopulmonary abnormality is seen. Dictated by: Simin Tomlinson MD, PhD on 06/10/2024 at 12:59 Approved by: Simin Tomlinson MD, PhD on 06/10/2024 at 12:59 [facility] Narrative Medical decision making narrative: ED course: this is a 58-year-old female presenting to the emergency department due to URI symptoms as well as continued diarrhea. Regarding the URI, COVID flu and RSV testing negative. Chest x-ray unremarkable as well. Suspect viral URI this should improve with supportive care. Regarding the diarrhea patient was recently seen and due to his diarrhea and treated with a course of ciprofloxacin. She was on her final day of antibiotics. Recommended she continue with a course with hopes for eventual improvement. She did also have a CT abdomen and pelvis as well as a lumbar MRI during her visit 4 days ago which were essentially unremarkable. Shared decision-making was utilized and no further antibiotics will be prescribed as patient would like to see how things go after discussing the possible risk for C diff infection. CC: Cough Complicating co-morbidities: history of chronic pain, liver failure, alcohol abuse Data collected from: Previous notes Medical records reviewed: Patient was last seen in this emergency department 4 days ago. History of chronic pain, liver failure, alcohol abuse. Was presenting to the emergency department with 5 days of fecal incontinence and diarrhea. Symptoms started in [place] where she was at about 8 days ago. Was constipated in [place] but then took a MiraLax to resolve the constipation. No recent antibiotic use. She was also reporting back pain that radiates down her bilateral legs. History of peripheral neuropathy, alcohol abuse, tobacco abuse, narcotic addiction, TBI. History of cholecystectomy. Patient was given a dose of ciprofloxacin, Dilaudid, normal saline, lactulose. CT abdomen and pelvis with contrast was ordered which did not show any acute findings other than constipation. MRI lumbar spine showed moderate spinal canal stenosis not severe. Stool specimen was positive for enteropathogenic E coli. Patient was given a course of oral Cipro. Ciprofloxacin 500 mg b.i.d. for 5 days. Differential considered, but not limited to: C diff, viral gastroenteritis, bacterial gastroenteritis, pneumonia, viral URI, bronchitis Exam documented above, pertinent findings include: unremarkable physical exam Lab Test results independently reviewed as above. Pertinent findings: COVID flu RSV negative Imaging studies independently reviewed: chest x-ray negative Scores Used: None MIPS Elements: None Consultations: None Treatments: none Re-evaluations: none Discussion: Discussed plan with the patient was comfortable with the plan Diagnosis: viral URI, acute gastroenteritis Disposition: see below, along with detailed discharge instructions that have been reviewed with patient as well as indications for ED re-evaluation and additional outpatient follow up <Daylin Martines DO - Last Filed: 12/14/24 19:25> Lab Data Labs: Lab Results 06/10/24 Range/Units 11:50 SARS-CoV-2 (PCR) Negative (Negative) Influenza A (RT-PCR) Flu a negative (NEGATIVE) Influenza B (RT-PCR) Flu b negative (NEGATIVE) RSV (PCR) Negative (Negative) Urine Dip Bedside Urine Glucose Negative Bedside Urine Bilirubin - Negative Bedside Urine Ketone +/- 5 Urine Specific [place] 1.010 Bedside Urine Occult Blood - Negative Bedside Urine pH 6.0 Bedside Urine Protein - Negative Bedside Urine Urobilinogen - Negative Bedside Urine Nitrite - Negative Bedside Urine Leukocytes - Negative Esterase Discharge Plan Departure Patient Disposition: Home Clinical Impression: Upper respiratory infection, viral Activity Restrictions/Additional Instructions: Thank you for coming to the [facility] Emergency Department today. As we discussed the COVID flu and RSV testing was negative. The chest x-ray was unremarkable as well and showed no evidence of pneumonia. I suspect this is viral in nature should improve over the next week or so. Please use [id number] Mucinex to help with your chest congestion. Regarding the diarrhea I recommend you continue with your final day of ciprofloxacin that you are prescribed. I suspect that should improve over time as well. Please remember to maintain adequate hydration as best you can. Please return to the emergency department if you develop any Significant abdominal pain, shortness of breath, or any other concerning signs or symptoms. I hope you feel better soon. Please follow up with your primary care provider within a week if your symptoms continue. If you do not have a primary care provider please contact the [facility] Resource line at [phone]. They will ask some questions about your medical history and help you get set up with a provider in the community. Prescriptions: No Action gabapentin [Neurontin] 300 MG capsule 600 mg PO TID Qty: 0 buprenorphine-naloxone [Suboxone] 8-2 mg film 8 film sublingual TID Patient Comments: dissolve 1 FILM under the tongue every 8 hours ondansetron 4 mg tablet,disintegrating 4 mg PO Q6H PRN (Reason: nausea and vomiting) Qty: 14 0RF atorvastatin 20 mg tablet 20 mg PO QPM Patient Comments: take 1 tablet by mouth every evening clonazepam 0.5 mg tablet 0.25 - 0.5 mg PO DAILY PRN (Reason: Anxiety) Patient Comments: take 1/2 to 1 tablet by mouth once daily if needed for VERTIGO mupirocin 2 % ointment 1 applic topical DAILY PRN (Reason: wound) Qty: 15 0RF ciprofloxacin HCl 500 mg tablet 500 mg PO BID 10 Days Qty: 20 0RF lactulose 20 gram/30 mL solution 20 g PO BID Qty: 600 0RF Referrals: Alissa Wolf MD [Primary Care Provider] - Stand Alone Forms: Patient Portal/API/Survey ED Sign-out <Daylin Martines DO - Last Filed: 06/11/24 19:25> Cosign ED Attending Cosignature Attestation: I was immediately available in the department for consultation.
--- NOTE | 2024-06-10 11:55 | DI.RAD.S_ITS ---
PROCEDURE: XR CHEST 2V INDICATIONS: cough TECHNIQUE: 2 views of the chest were acquired. COMPARISON: [facility], CR, XR CHEST 2V, 07/03/2022, 16:02. FINDINGS: Surgical changes and devices: None. Lungs and pleura: Lungs are clear. No pleural effusions or pneumothorax. Mediastinum: Mediastinal contours are normal. Heart size is normal. Bones and chest wall: No suspicious bony abnormalities. Soft tissues appear unremarkable. IMPRESSION: No acute cardiopulmonary abnormality is seen. Dictated by: Simin Tomlinson MD, PhD on 06/10/2024 at 12:59 Approved by: Smiin Tomlinson MD, PhD on 06/10/2024 at 12:59
[2024-06-10 11:56] VITALS: BP 148/83; PULSE 110; RESP 16; TEMP 37.3; O2SAT 96; BMI 18.4
[2024-06-10 12:00] VITALS: PULSE 109; O2SAT 96
[2024-06-10 12:32] VITALS: PULSE 102; O2SAT 93
[2024-06-10 12:45] LABS: Influenza A - CEPHEID Flu A NEGATIVE (NEGATIVE); Influenza B - CEPHEID Flu B NEGATIVE (NEGATIVE); Respiratory Syncytial Virus Negative (Negative)
[2024-06-10 12:46] LABS: COVID-19 CEPHEID 4-PLEX PCR Negative (Negative)
[2024-06-10 13:00] VITALS: PULSE 89; O2SAT 95
[2024-06-10 14:08] VITALS: BP 132/76; PULSE 78; RESP 17; O2SAT 97
== END 2024-06-10 14:09 | disposition home or self-care (01) ==
PROVIDERS: Emergency Provider Physician Assistant Medical; PCP Internal Medicine
DX: J06.9 Acute upper respiratory infection, unspecified (principal); F17.210 Nicotine dependence, cigarettes, uncomplicated; F17.290 Nicotine dependence, other tobacco product, uncomplicated
CPT/HCPCS: 0241U; 71046; 81003; 99283

== ENCOUNTER 2024-07-05 15:08 | Inpatient (IN) | payer MEDICARE, MEDICAID, SELFPAY ==
[2020-11-24 22:40] VITALS: BMI 25.4
[2024-07-05] VITALS (58 sets, daily range): BP systolic 104–138; BP diastolic 69–84; PULSE 53–106; RESP 15–64; TEMP 33.8–36.6; O2SAT 94–100; BMI 18.6; BMI 18.3
--- NOTE | 2024-07-05 15:14 | DI.RAD.S_ITS ---
PROCEDURE: XR CHEST 1V INDICATIONS: Intubation TECHNIQUE: One view of the chest was acquired. COMPARISON: [facility], CR, XR CHEST 2V, 06/10/2024, 12:19. FINDINGS: Surgical changes and devices: Nasogastric tube is present projecting below left hemidiaphragm. Side port projects over the gastroesophageal junction. Cholecystectomy clips are present. Endotracheal tube is approximately 4.4 cm superior to the kishore. Lungs and pleura: Lungs are clear. No pleural effusions or pneumothorax. Mediastinum: Mediastinal contours appear normal. Heart size is normal. Bones and chest wall: No suspicious bony lesions. Overlying soft tissues appear unremarkable. IMPRESSION: Nasogastric tube is present. For more optimal placement, recommend forward advancement by approximately 5-6 cm. Dictated by: Tamar Ochoa M.D. on 07/05/2024 at 15:45 Approved by: Tamar Ochoa M.D. on 07/05/2024 at 15:46
--- NOTE | 2024-07-05 15:14 | DI.CT.S_ITS ---
PROCEDURE: CT HEAD/BRAIN WO CON INDICATIONS: Fall/trauma Fall/trauma TECHNIQUE: Noncontrast 4.5 mm thick angled axial sections acquired from the foramen magnum to the vertex, with coronal and sagittal reformats. For radiation dose reduction, the following was used: automated exposure control, adjustment of mA and/or kV according to patient size. COMPARISON: [facility], CT, CT ANGIO CHEST PE PROTOCOL, 07/05/2024, 15:24. [facility], CT, CT ABDOMEN PELVIS W CON, 07/05/2024, 15:24. [facility], CT, CT CERVICAL SPINE WO CON, 07/05/2024, 15:15. [facility], CR, XR CHEST 1V, 07/05/2024, 15:11. [facility], CT, CT HEAD/BRAIN WO CON, 09/01/2022, 19:22. FINDINGS: Image quality: This examination is limited by involuntary motion artifact. CSF spaces: Basal cisterns are patent. No extra-axial fluid collections. Ventricles are normal in size and shape. Brain: No midline shift. No intracranial masses or hemorrhage. Fuentes-white matter interface is normal. Skull and face: Calvarium and visualized facial bones are intact, without suspicious lesions. Sinuses: There is fluid seen within the nasal cavity and within the nasopharynx. A small amount of fluid can be seen within the ethmoid air cells. No abnormal fluid is seen within the mastoid air cells. An endotracheal tube and an orogastric tube can be seen on the grinder set up operator thread image. IMPRESSION: Significant motion artifact, yet without a alfonso acute intracranial abnormality. If there remains strong clinical concern for intracranial abnormality, please consider a short-term follow-up study, when the patient is able to remain still. Fluid seen within the nasal cavity, the nasopharynx, and the ethmoid air cells, which is not considered to be pathologic in intubated patient. Dictated by: Gordo Shabazz M.D. on 07/05/2024 at 15:10 Approved by: Gordo Shabazz M.D. on 07/05/2024 at 15:12
--- NOTE | 2024-07-05 15:14 | DI.CT.S_ITS ---
PROCEDURE: CT CERVICAL SPINE WO CON INDICATIONS: Fall/trauma TECHNIQUE: Noncontrast 3 mm thick sections acquired from the skull base to the T4 level. Sagittal and coronal reformats were then constructed. For radiation dose reduction, the following was used: automated exposure control, adjustment of mA and/or kV according to patient size. COMPARISON: [facility], CT, CT ANGIO CHEST PE PROTOCOL, 07/05/2024, 15:24. [facility], CT, CT ABDOMEN PELVIS W CON, 07/05/2024, 15:24. [facility], CT, CT HEAD/BRAIN WO CON, 07/05/2024, 15:15. [facility], CR, XR CHEST 1V, 07/05/2024, 15:11. FINDINGS: Image quality: Diagnostic. Bones: No fractures or dislocations. Visualized superior ribs are intact. Moderate disc space narrowing can be seen at C5-C6 and C6-C7, with associated endplate irregularity and posteriorly directed endplate osteophytes. Milder degenerative changes are seen elsewhere. Soft tissues: Prevertebral soft tissues are normal in thickness. No paravertebral hematomas. No apical pneumothoraces. An endotracheal tube is seen. An orogastric tube is also seen. IMPRESSION: No displaced fracture or traumatic subluxation. Cervical spine degenerative changes are seen, which are worst inferiorly. An endotracheal tube and an orogastric tube can be seen. Dictated by: Gordo Shabazz M.D. on 07/05/2024 at 15:07 Approved by: Gordo Shabazz M.D. on 07/05/2024 at 15:09
--- NOTE | 2024-07-05 15:17 | DI.CT.S_ITS ---
PROCEDURE: CT ABDOMEN PELVIS W CON INDICATIONS: IV contrast only/Abdominal pain TECHNIQUE: After the administration of intravenous contrast, axial sections acquired from the lung bases to the pubic symphysis. Coronal and sagittal reformats were performed. For radiation dose reduction, the following was used: automated exposure control, adjustment of mA and/or kV according to patient size. COMPARISON: [facility], CT, CT ABDOMEN PELVIS W CON, 06/06/2024, 19:42. FINDINGS: Image quality: Diagnostic. Lower Chest: No significant findings. ABDOMEN: Liver: No solid mass. Gallbladder: Removed. Biliary ducts: No biliary dilation. Pancreas: No ductal dilation. Spleen: Size is within normal limits. Adrenal Glands: No adrenal nodules. Kidneys and Ureters: No hydronephrosis. No solid mass. No complex renal cystic lesion which requires follow up. Stomach and Bowel: Diffuse appearance of colonic wall thickening and inflammatory change. Mild inflammatory change of the terminal ileum is also prominent. Scattered areas dilated fluid-filled small bowel loops are also present. Peritoneum: No abnormal intraperitoneal fluid. No free air. Ventral Wall: No significant ventral hernia. Abdominal Nodes: No retroperitoneal or mesenteric adenopathy by size criteria. Vessels: Aorta and inferior vena cava are normal in size. PELVIS: Pelvic Organs: Unremarkable. Bladder: No bladder wall thickening, accounting for underdistention. Partially visualized catheter is present with Pelvic Nodes: No enlarged lymph nodes. Miscellaneous: No inguinal hernias are seen. Bones: No aggressive osseous abnormality. IMPRESSION: Diffuse colonic inflammatory change suggestive of colitis. There is appearance of dilated proximal small bowel loops likely related to developing ileus. Given terminal ileal involvement, and more proximal small bowel dilation, consider inflammatory bowel disease. Dictated by: Tamar Ochoa M.D. on 07/05/2024 at 16:15 Approved by: Tamar Ochoa M.D. on 07/05/2024 at 16:27
--- NOTE | 2024-07-05 15:17 | DI.CT.S_ITS ---
PROCEDURE: CT ANGIO CHEST PE PROTOCOL INDICATIONS: Respiratory failure TECHNIQUE: After the administration of intravenous contrast, 2 mm thick sections acquired from the pulmonary apices to the posterior costophrenic angles. 3-dimensional maximum intensity projection (MIP) coronal and sagittal reformats were then acquired through the thorax. For radiation dose reduction, the following was used: automated exposure control, adjustment of mA and/or kV according to patient size. COMPARISON: [facility], CT, CT CHEST ABD PEL W CON, 10/03/2022, 22:03. FINDINGS: Image quality: Diagnostic. Pulmonary arteries: Pulmonary arteries are normal in size, and demonstrate no intraluminal filling defects to suggest central pulmonary embolism. Lower Neck: No enlarged lymph nodes. Thyroid: No thyroid nodules which require sonographic follow up, per consensus guidelines. Axillae: No enlarged lymph nodes. Chest Wall: Unremarkable. Bones: Unremarkable. Lungs and Pleura: No pneumothorax or pleural effusions. No consolidations. Dependent changes within the lung bases. Heart: Heart size is normal. No pericardial effusion. Thoracic Vessels: No aortic aneurysm. Mediastinum and Zuleima: No enlarged lymph nodes. Endotracheal and nasogastric tubes are present. Esophagus: No wall thickening. No hiatal hernia. Upper Abdomen: Visualized upper abdomen solid organs and bowel loops appear normal. IMPRESSION: No pulmonary embolus. Mild dependent changes within the bases. Dictated by: Tamar Ochoa M.D. on 07/05/2024 at 16:07 Approved by: Tamar Ochoa M.D. on 07/05/2024 at 16:15
[2024-07-05 15:21] LABS: Add Manual Diff / Slide Review NO; Basophils Absolute Auto 0 /uL (0-100); Basophils Percent Auto 0.5 % (0-2); Eosinophils Absolute Auto 0 /uL (0-450); Eosinophils Percent Auto 0.8 % (2-4); Lymphocytes Absolute Auto 2100 /uL (1100-4500); Mean Corpuscular HGB Conc 34.1 % (30-36); Mean Corpuscular Hemoglobin 31.4 PG (26-34); Mean Corpuscular Volume 92.1 fL (80-100); Monocytes Absolute Auto 100 /uL (0-900); Monocytes Percent Auto 2.1 % (3-14); Neutrophils Absolute Auto 2200 /uL (1500-7000); Neutrophils Percent Auto 49.6 % (50-75); Platelet Count 216 X10^3/uL (150-400); Red Blood Cell Count 4.46 X10^6/uL (4.0-5.2); Red Cell Distribution Width 14.2 % (11.6-14.8); White Blood Cell Count 4.5 X10^3/uL (4.5-11.0)
--- NOTE | 2024-07-05 15:25 | ED_ITS ---
HPI - Overdose General Chief Complaint: Unresponsive Stated Complaint: Overdose Time Seen by Provider: 07/05/24 15:12 Source: EMS Mode of arrival: EMS History of Present Illness HPI Narrative: Patient brought in by ambulance from home for unresponsiveness. Blood sugar 114. Three doses of Narcan given prior to arrival without response. Patient was intubated in route. ET tube 7.0 23 cm at the teeth. Equal lung sounds bilaterally on arrival. Patient unresponsive to painful stimuli. Patient known history of alcohol abuse and opiate abuse. Per EMS family suspected patient was using opiates today. She has chronic pain. She was going to go to the hospital today for evaluation. However she collapsed, unwitnessed in the bathroom. Patient arrives with C-collar in place. ET tube confirmed by exam and auscultation and also chest x-ray. Related Data Home Medications Medication Instructions Recorded Confirmed alprazolam 0.5 mg tablet 0.5 mg PO DAILY PRN Anxiety 07/06/24 07/06/24 duloxetine 30 mg capsule,delayed 30 mg PO DAILY 07/06/24 07/06/24 release furosemide 20 mg tablet 20 mg PO DAILY 07/06/24 07/06/24 gabapentin 600 mg tablet 600 mg PO 3XD 07/06/24 07/06/24 hydromorphone 2 mg tablet 2 - 4 mg PO Q6H PRN pain 07/06/24 07/06/24 spironolactone 25 mg tablet 50 mg PO DAILY 07/06/24 07/06/24 Allergies Allergy/AdvReac Type Severity Reaction Status Date / Time codeine Allergy Unknown Verified 06/10/24 12:07 droperidol Allergy Unknown Verified 06/10/24 12:07 metoclopramide [From Reglan] Allergy Unknown Verified 06/10/24 12:07 Sulfa (Sulfonamide Allergy Unknown Verified 06/10/24 12:07 Antibiotics) abciximab AdvReac Intermediate Muscle Pain Verified 06/10/24 12:07 Review of Systems Review of Systems ROS Unobtainable: Unobtainable due to medical condition Patient History Medical History Peripheral neuropathy Alcohol abuse Tobacco abuse History of narcotic addiction Leg pain TBI (traumatic brain injury) Surgical History History of cholecystectomy Family History Mother History of recurrent TIAs Father Heart disease Social History household members: spouse Smoking Status: Current some day smoker alcohol intake: current Smoking Status: Current some day smoker tobacco type: cigarettes and vaping alcohol intake frequency: a few times a week Alcohol type: beer, wine and hard liquor Exam Narrative Exam Narrative: GENERAL: in no distress, not toxic not dyspneic HEAD: Normocephalic. No signs of trauma. EYES: Pupils equal round ENT: Mucous membranes moist. NECK: Trachea midline. Patient in C-collar CARDIOVASCULAR: Regular rate and rhythm RESPIRATORY: Clear to auscultation. Breath sounds equal bilaterally. No wheezes, rales, or rhonchi. GASTROINTESTINAL: Abdomen soft, and flat EXTREMITIES: No gross deformities. BACK: No flank tenderness. NEURO: Not responsive to pain stimuli. No spontaneous movements of the limbs. Patient is intubated prior to arrival SKIN: Warm and dry Initial Vital Signs Initial Vital Signs: Vital Signs Pulse Rate 59 L 07/05/24 15:11 Respiratory Rate 20 07/05/24 15:11 Blood Pressure 106/70 07/05/24 15:11 Pulse Oximetry 99 07/05/24 15:11 Oxygen Delivery Method Mechanical Ventilation 07/05/24 15:11 Course Orders Ordered: Discontinued Medications Chlorhexidine Gluconate (Chlorhexidine Gluconate 15 Ml Cup) [address] [facility] Last Admin: 07/06/24 05:52 Dose: 15 ml Documented By: Admin: 07/06/24 00:20 Dose: 15 ml Documented By: Admin: 07/05/24 20:31 Dose: 15 ml Documented By: Enoxaparin Sodium (Enoxaparin 40 Mg/0.4 Ml Syringe) [address] [facility] Last Admin: 07/06/24 09:07 Dose: Not Given Documented By: MS Hydromorphone HCl (Hydromorphone 2 Mg Tablet) 4 mg PO NOW ONE Stop: 07/06/24 09:53 Last Admin: 07/06/24 10:45 Dose: 4 mg Documented By: MS Hydromorphone HCl (Hydromorphone 2 Mg Tablet) 2 mg PO Q4HR PRN PRN Reason: Pain, Severe (7-10) Last Admin: 07/06/24 14:02 Dose: 2 mg Documented By: Propofol (Diprivan) 1,000 mg in 100 mls @ 1.623 mls/hr IV TITRATE LAURA; Protocol Last Titration: 07/06/24 09:40 Dose: 0 mcg/kg/min, 0 mls/hr Documented By: Titration: 07/06/24 09:09 Dose: 10 mcg/kg/min, 3.245 mls/hr Documented By: Titration: 07/06/24 08:58 Dose: 20 mcg/kg/min, 6.491 mls/hr Documented By: Admin: 07/06/24 07:58 Dose: 40 mcg/kg/min, 12.982 mls/hr Documented By: Titration: 07/06/24 07:58 Dose: Infused Documented By: Titration: 07/06/24 07:22 Dose: 40 mcg/kg/min, 12.982 mls/hr Documented By: Titration: 07/06/24 05:02 Dose: 35 mcg/kg/min, 11.359 mls/hr Documented By: Admin: 07/06/24 03:49 Dose: 30 mcg/kg/min, 9.736 mls/hr Documented By: Titration: 07/06/24 03:49 Dose: Infused Documented By: Titration: 07/06/24 00:35 Dose: 25 mcg/kg/min, 8.114 mls/hr Documented By: Titration: 07/06/24 00:20 Dose: 20 mcg/kg/min, 6.491 mls/hr Documented By: Titration: 07/05/24 20:32 Dose: 15 mcg/kg/min, 4.868 mls/hr Documented By: Titration: 07/05/24 19:00 Dose: 10 mcg/kg/min, 3.245 mls/hr Documented By: Admin: 07/05/24 16:25 Dose: 5 mcg/kg/min, 1.623 mls/hr Documented By: EMIGDIO Fentanyl 1,000 mcg/ Dextrose 250 mls @ 9.466 mls/hr IV TITRATE LAURA; Protocol Last Titration: 07/06/24 10:30 Dose: 0 mcg/kg/hr, 0 mls/hr Documented By: Titration: 07/06/24 08:58 Dose: 0.7 mcg/kg/hr, 9.466 mls/hr Documented By: Admin: 07/06/24 06:48 Dose: 1 mcg/kg/hr, 13.523 mls/hr Documented By: Titration: 07/06/24 06:48 Dose: Infused Documented By: Titration: 07/06/24 04:07 Dose: 1 mcg/kg/hr, 13.523 mls/hr Documented By: Titration: 07/06/24 00:20 Dose: 0.8 mcg/kg/hr, 10.818 mls/hr Documented By: Admin: 07/05/24 16:25 Dose: 0.7 mcg/kg/hr, 9.466 mls/hr Documented By: EMIGDIO Sodium Chloride (Normal Saline 0.9%) 1,000 mls @ 100 mls/hr IV CONT LAURA Last Admin: 07/06/24 05:52 Dose: 100 mls/hr Documented By: Infusion: 07/06/24 05:52 Dose: Infused Documented By: Admin: 07/05/24 20:21 Dose: 100 mls/hr Documented By: dexmedeTOMIDine in 0.9 % NaCL (Precedex) 400 mcg in 100 mls @ 2.65 mls/hr IV TITRATE LAURA; Protocol Last Titration: 07/06/24 11:45 Dose: 0 mcg/kg/hr, 0 mls/hr Documented By: Admin: 07/06/24 07:58 Dose: 0.2 mcg/kg/hr, 2.65 mls/hr Documented By: Naloxone HCl (Naloxone 0.4 Mg/Ml Vial) 0.2 mg IV Q2MIN PRN PRN Reason: Opiate Reversal Vital Signs Vital signs: Vital Signs - 8 hr 07/05/24 15:11 07/05/24 15:23 07/05/24 15:25 Temperature 93.0 F L Pulse Rate 59 L 70 Respiratory Rate 20 23 Blood Pressure 106/70 113/79 Pulse Oximetry 99 100 Oxygen Delivery Method Mechanical Ventilation Mechanical Ventilation Fraction of Inspired Oxygen 07/05/24 15:25 07/05/24 15:30 07/05/24 15:30 Temperature 93.2 F L 93.4 F L Pulse Rate 56 L 57 L Respiratory Rate 29 H 20 Blood Pressure 115/77 Pulse Oximetry 99 99 Oxygen Delivery Method Mechanical Ventilation Fraction of Inspired Oxygen 07/05/24 15:33 07/05/24 15:33 07/05/24 15:35 Temperature 93.4 F L Pulse Rate 57 L Respiratory Rate 20 Blood Pressure 115/79 113/79 Pulse Oximetry 99 Oxygen Delivery Method Fraction of Inspired Oxygen 07/05/24 15:35 07/05/24 15:40 07/05/24 15:40 Temperature 93.4 F L 93.4 F L Pulse Rate 56 L 54 L Respiratory Rate 18 23 Blood Pressure 117/80 Pulse Oximetry 99 98 Oxygen Delivery Method Fraction of Inspired Oxygen 07/05/24 15:45 07/05/24 15:45 07/05/24 15:48 Temperature 93.0 F L Pulse Rate 62 Respiratory Rate 31 H Blood Pressure 119/78 117/78 Pulse Oximetry 98 Oxygen Delivery Method Fraction of Inspired Oxygen 07/05/24 15:48 07/05/24 15:49 07/05/24 15:50 Temperature 93.0 F L 93.0 F L Pulse Rate 59 L 58 L Respiratory Rate 37 H 40 H Blood Pressure 121/76 Pulse Oximetry 98 99 Oxygen Delivery Method Mechanical Ventilation Fraction of Inspired Oxygen 07/05/24 15:50 07/05/24 15:55 07/05/24 15:55 Temperature 93.0 F L 92.8 F L Pulse Rate 64 53 L Respiratory Rate 45 H 45 H Blood Pressure 115/71 Pulse Oximetry 98 98 Oxygen Delivery Method Mechanical Ventilation Fraction of Inspired Oxygen 07/05/24 16:00 07/05/24 16:00 07/05/24 16:05 Temperature 92.8 F L Pulse Rate 55 L Respiratory Rate 38 H Blood Pressure 107/71 108/73 Pulse Oximetry 97 Oxygen Delivery Method Mechanical Ventilation Fraction of Inspired Oxygen 07/05/24 16:05 07/05/24 16:10 07/05/24 16:10 Temperature 92.8 F L 92.8 F L Pulse Rate 56 L 57 L Respiratory Rate 47 H 42 H Blood Pressure 105/70 Pulse Oximetry 98 98 Oxygen Delivery Method Fraction of Inspired Oxygen 07/05/24 16:15 07/05/24 16:15 07/05/24 16:20 Temperature 92.8 F L 92.8 F L Pulse Rate 57 L 71 Respiratory Rate 40 H 30 H Blood Pressure 104/70 Pulse Oximetry 98 98 Oxygen Delivery Method Fraction of Inspired Oxygen 07/05/24 16:20 07/05/24 16:25 07/05/24 16:25 Temperature 93.2 F L Pulse Rate 60 Respiratory Rate 35 H Blood Pressure 114/79 110/75 Pulse Oximetry 97 Oxygen Delivery Method Fraction of Inspired Oxygen 07/05/24 16:30 07/05/24 16:30 07/05/24 16:55 Temperature 93.4 F L Pulse Rate 60 Respiratory Rate 32 H Blood Pressure 117/77 Pulse Oximetry 97 Oxygen Delivery Method Mechanical Ventilation Fraction of Inspired Oxygen 50 MDM - Overdose Lab Data 07/05/24 15:00 07/05/24 15:00 Labs: Lab Results 07/05/24 07/05/24 07/05/24 Range/Units 15:00 15:30 15:30 WBC 4.5 (4.5-11.0) X10^3/uL RBC 4.46 (4.0-5.2) X10^6/uL Hgb 14.0 (12.0-16.0) g/dL Hct 41.0 (36-46) % MCV 92.1 (80-100) fL MCH 31.4 (26-34) PG MCHC 34.1 (30-36) % RDW 14.2 (11.6-14.8) % Plt Count 216 (150-400) X10^3/uL Neut % (Auto) 49.6 L (50-75) % Lymph % (Auto) 47.0 H (25-40) % Orange % (Auto) 2.1 L (3-14) % Eos % (Auto) 0.8 L (2-4) % Baso % (Auto) 0.5 (0-2) % Neut # (Auto) 2200 (1270-4585) /uL Lymph # (Auto) 2100 (8204-8164) /uL Orange # (Auto) 100 (0-900) /uL Eos # (Auto) 0 (0-450) /uL Baso # (Auto) 0 (0-100) /uL PT (9.4-12.5) SECONDS INR (0.9-1.3) APTT (25.1-36.5) SECONDS ABG pH (7.35-7.45) ABG pCO2 (35-45) mmHg ABG pO2 (80-100) mmHg ABG HCO3 (23-27) mmol/L ABG Total CO2 (23-27) mmol/L ABG O2 Saturation (95-100) % ABG Base Excess (-2-3) mmol/L Respiration Rate O2 Delivery Device FiO2 % % PEEP or CPAP Sodium 133 L (137-145) mmol/L Potassium 3.7 (3.4-5.1) mmol/L Chloride 93 L (98-107) mmol/L Carbon Dioxide 25 (22-32) mmol/L BUN 3 L (7-17) mg/dL Creatinine 0.48 L (0.52-1.04) mg/dL Estimated GFR > 60 (>60) mL/min BUN/Creatinine Ratio 6.3 (6-22) Glucose 111 H (70-100) mg/dL Lactate 2.2 H (0.7-2.1) mmol/L Calcium 8.7 (8.4-10.2) mg/dL Total Bilirubin 0.4 (0.2-1.3) mg/dL AST 71 H (14-36) IU/L ALT 33 (<35) IU/L Alkaline Phosphatase 134 H (38-126) U/L Ammonia (9-30) umol/L Total Creatine Kinase 126 (30-135) U/L Troponin I < 0.012 (0.01-0.034) ng/mL Total Protein 8.6 H (6.3-8.2) g/dL Albumin 4.9 (3.5-5.0) g/dL Globulin 3.7 (1.7-4.1) g/dL Albumin/Globulin Ratio 1.3 (1.0-2.8) TSH 0.608 (0.47-4.68) uIU/mL Urine Color Yellow Urine Appearance Clear Urine pH 7.5 Normal (4.5-8.0) Ur Specific [place] 1.010 (1.000-1.035) Urine Protein Negative (Negative) Urine Glucose (UA) Negative (Negative) g/dL Urine Ketones Negative (NEGATIVE) Urine Occult Blood Negative (Negative) Urine Nitrate Negative (Negative) Urine Bilirubin Negative (NEGATIVE) Urine Urobilinogen 0.2 (0.2) E.U./dL Ur Leukocyte Esterase Negative (NEGATIVE) Urine RBC None seen (0-5/HPF) Urine WBC None seen (0-5/HPF) Ur Squamous Epith Cells 0-1 /hpf (0-5/HPF) Urine Bacteria Occasional (0-1) (None) Ur Culture Indicated? Cult not indicated Vol Urine Centrifuged 10ml (spun) Salicylates < 1.0 (<20) mg/dL U Opiates 300ng/mL cut Positive H (Negative) Ur Oxycodone Screen Negative (Negative) Urine Methadone Screen Negative (Negative) Acetaminophen (10-30) ug/mL Ur Barbiturates Screen Negative (Negative) U Tricyclic Antidepress Negative (Negative) Ur Phencyclidine Scrn Negative (Negative) Ur Amphetamines Screen Negative (Negative) U Methamphetamines Scrn Negative (Negative) Ur MDMA Scrn (Ecstasy) Negative (Negative) U Benzodiazepines Scrn Positive H (Negative) [place] < 0.2 L (0.6-1.2) mmol/L Urine Cocaine Screen Negative (Negative) U Marijuana (THC) Screen Negative (Negative) Urine Specific [place] Normal (Normal) Ethyl Alcohol 477 H* ( - 10) mg/dL Ur Creatinine Normal (Normal) 07/05/24 07/05/24 07/05/24 Range/Units 16:05 16:07 16:37 WBC (4.5-11.0) X10^3/uL RBC (4.0-5.2) X10^6/uL Hgb (12.0-16.0) g/dL Hct (36-46) % MCV (80-100) fL MCH (26-34) PG MCHC (30-36) % RDW (11.6-14.8) % Plt Count (150-400) X10^3/uL Neut % (Auto) (50-75) % Lymph % (Auto) (25-40) % Orange % (Auto) (3-14) % Eos % (Auto) (2-4) % Baso % (Auto) (0-2) % Neut # (Auto) (7136-4325) /uL Lymph # (Auto) (0001-3982) /uL Orange # (Auto) (0-900) /uL Eos # (Auto) (0-450) /uL Baso # (Auto) (0-100) /uL PT 12.2 (9.4-12.5) SECONDS INR 1.1 (0.9-1.3) APTT 35 (25.1-36.5) SECONDS ABG pH 7.40 (7.35-7.45) ABG pCO2 41.4 (35-45) mmHg ABG pO2 132 H (80-100) mmHg ABG HCO3 25 (23-27) mmol/L ABG Total CO2 25 (23-27) mmol/L ABG O2 Saturation 99 (95-100) % ABG Base Excess 0.4 (-2-3) mmol/L Respiration Rate 15 O2 Delivery Device Adult ventilator FiO2 % 25.0 % % PEEP or CPAP 5 Sodium (137-145) mmol/L Potassium (3.4-5.1) mmol/L Chloride (98-107) mmol/L Carbon Dioxide (22-32) mmol/L BUN (7-17) mg/dL Creatinine (0.52-1.04) mg/dL Estimated GFR (>60) mL/min BUN/Creatinine Ratio (6-22) Glucose (70-100) mg/dL Lactate (0.7-2.1) mmol/L Calcium (8.4-10.2) mg/dL Total Bilirubin (0.2-1.3) mg/dL AST (14-36) IU/L ALT (<35) IU/L Alkaline Phosphatase (38-126) U/L Ammonia < 9 L (9-30) umol/L Total Creatine Kinase (30-135) U/L Troponin I (0.01-0.034) ng/mL Total Protein (6.3-8.2) g/dL Albumin (3.5-5.0) g/dL Globulin (1.7-4.1) g/dL Albumin/Globulin Ratio (1.0-2.8) TSH (0.47-4.68) uIU/mL Urine Color Urine Appearance Urine pH (4.5-8.0) Ur Specific [place] (1.000-1.035) Urine Protein (Negative) Urine Glucose (UA) (Negative) g/dL Urine Ketones (NEGATIVE) Urine Occult Blood (Negative) Urine Nitrate (Negative) Urine Bilirubin (NEGATIVE) Urine Urobilinogen (0.2) E.U./dL Ur Leukocyte Esterase (NEGATIVE) Urine RBC (0-5/HPF) Urine WBC (0-5/HPF) Ur Squamous Epith Cells (0-5/HPF) Urine Bacteria (None) Ur Culture Indicated? Vol Urine Centrifuged Salicylates < 1.0 (<20) mg/dL U Opiates 300ng/mL cut (Negative) Ur Oxycodone Screen (Negative) Urine Methadone Screen (Negative) Acetaminophen < 10 (10-30) ug/mL Ur Barbiturates Screen (Negative) U Tricyclic Antidepress (Negative) Ur Phencyclidine Scrn (Negative) Ur Amphetamines Screen (Negative) U Methamphetamines Scrn (Negative) Ur MDMA Scrn (Ecstasy) (Negative) U Benzodiazepines Scrn (Negative) [place] (0.6-1.2) mmol/L Urine Cocaine Screen (Negative) U Marijuana (THC) Screen (Negative) Urine Specific [place] (Normal) Ethyl Alcohol ( - 10) mg/dL Ur Creatinine (Normal) Point of Care Testing Glucose POC 114 Imaging Data Chest x-ray: Radiologist's Impression: [address] [address] XRay Report Signed Patient: Jenni Rosales MR#: [id number] : 1965 Acct:[id number] Age/Sex: 58 / F Date of Service: 07/05/24 Loc: ED Accession Number: [id number] Procedure: XR chest 1V Ordering Provider: Micah Byers MD PROCEDURE: XR CHEST 1V INDICATIONS: Intubation TECHNIQUE: One view of the chest was acquired. COMPARISON: [facility], , XR CHEST 2V, 06/10/2024, 12:19. FINDINGS: Surgical changes and devices: Nasogastric tube is present projecting below left hemidiaphragm. Side port projects over the gastroesophageal junction. Cholecystectomy clips are present. Endotracheal tube is approximately 4.4 cm superior to the kishore. Lungs and pleura: Lungs are clear. No pleural effusions or pneumothorax. Mediastinum: Mediastinal contours appear normal. Heart size is normal. Bones and chest wall: No suspicious bony lesions. Overlying soft tissues appear unremarkable. IMPRESSION: Nasogastric tube is present. For more optimal placement, recommend forward advancement by approximately 5-6 cm. Dictated by: Tamar Ochoa M.D. on 07/05/2024 at 15:45 Approved by: Tamar Ochoa M.D. on 07/05/2024 at 15:46 CT scan - abdomen/pelvis: Radiologist's Impression: [address] [address] [address] Scan Report Signed Patient: Jenni Rosales MR#: [id number] : 1965 Acct:[id number] Age/Sex: 58 / F Date of Service: 07/05/24 Loc: ED Accession Number: [id number] Procedure: CT abdomen pelvis w con Ordering Provider: Micah Byers MD PROCEDURE: CT ABDOMEN PELVIS W CON INDICATIONS: IV contrast only/Abdominal pain TECHNIQUE: After the administration of intravenous contrast, axial sections acquired from the lung bases to the pubic symphysis. Coronal and sagittal reformats were performed. For radiation dose reduction, the following was used: automated exposure control, adjustment of mA and/or kV according to patient size. COMPARISON: [facility], CT, CT ABDOMEN PELVIS W CON, 06/06/2024, 19:42. FINDINGS: Image quality: Diagnostic. Lower Chest: No significant findings. ABDOMEN: Liver: No solid mass. Gallbladder: Removed. Biliary ducts: No biliary dilation. Pancreas: No ductal dilation. Spleen: Size is within normal limits. Adrenal Glands: No adrenal nodules. Kidneys and Ureters: No hydronephrosis. No solid mass. No complex renal cystic lesion which requires follow up. Stomach and Bowel: Diffuse appearance of colonic wall thickening and inflammatory change. Mild inflammatory change of the terminal ileum is also prominent. Scattered areas dilated fluid-filled small bowel loops are also present. Peritoneum: No abnormal intraperitoneal fluid. No free air. Ventral Wall: No significant ventral hernia. Abdominal Nodes: No retroperitoneal or mesenteric adenopathy by size criteria. Vessels: Aorta and inferior vena cava are normal in size. PELVIS: Pelvic Organs: Unremarkable. Bladder: No bladder wall thickening, accounting for underdistention. Partially visualized catheter is present with Pelvic Nodes: No enlarged lymph nodes. Miscellaneous: No inguinal hernias are seen. Bones: No aggressive osseous abnormality. IMPRESSION: Diffuse colonic inflammatory change suggestive of colitis. There is appearance of dilated proximal small bowel loops likely related to developing ileus. Given terminal ileal involvement, and more proximal small bowel dilation, consider inflammatory bowel disease. Dictated by: Tamar Ochoa M.D. on 07/05/2024 at 16:15 Approved by: Tamar Ochoa M.D. on 07/05/2024 at 16:27 CT scan - chest: Radiologist's Impression: [address] [address] [address] Scan Report Signed Patient: Jenni Rosales MR#: [id number] : 1965 Acct:[id number] Age/Sex: 58 / F Date of Service: 07/05/24 Loc: ED Accession Number: [id number] Procedure: CT angio chest PE protocol Ordering Provider: Micah Byers MD PROCEDURE: CT ANGIO CHEST PE PROTOCOL INDICATIONS: Respiratory failure TECHNIQUE: After the administration of intravenous contrast, 2 mm thick sections acquired from the pulmonary apices to the posterior costophrenic angles. 3-dimensional maximum intensity projection (MIP) coronal and sagittal reformats were then acquired through the thorax. For radiation dose reduction, the following was used: automated exposure control, adjustment of mA and/or kV according to patient size. COMPARISON: [facility], CT, CT CHEST ABD PEL W CON, 10/03/2022, 22:03. FINDINGS: Image quality: Diagnostic. Pulmonary arteries: Pulmonary arteries are normal in size, and demonstrate no intraluminal filling defects to suggest central pulmonary embolism. Lower Neck: No enlarged lymph nodes. Thyroid: No thyroid nodules which require sonographic follow up, per consensus guidelines. Axillae: No enlarged lymph nodes. Chest Wall: Unremarkable. Bones: Unremarkable. Lungs and Pleura: No pneumothorax or pleural effusions. No consolidations. Dependent changes within the lung bases. Heart: Heart size is normal. No pericardial effusion. Thoracic Vessels: No aortic aneurysm. Mediastinum and [place]: No enlarged lymph nodes. Endotracheal and nasogastric tubes are present. Esophagus: No wall thickening. No hiatal hernia. Upper Abdomen: Visualized upper abdomen solid organs and bowel loops appear normal. IMPRESSION: No pulmonary embolus. Mild dependent changes within the bases. Dictated by: Tamar Ochoa M.D. on 07/05/2024 at 16:07 Approved by: Tamar Ochoa M.D. on 07/05/2024 at 16:15 CT scan - head: Radiologist's Impression: [address] [address] [address] Scan Report Signed Patient: Jenni Rosales MR#: [id number] : 1965 Acct:[id number] Age/Sex: 58 / F Date of Service: 07/05/24 Loc: ED Accession Number: [id number] Procedure: CT head/brain wo con Ordering Provider: Micah Byers MD PROCEDURE: CT HEAD/BRAIN WO CON INDICATIONS: Fall/trauma Fall/trauma TECHNIQUE: Noncontrast 4.5 mm thick angled axial sections acquired from the foramen magnum to the vertex, with coronal and sagittal reformats. For radiation dose reduction, the following was used: automated exposure control, adjustment of mA and/or kV according to patient size. COMPARISON: [facility], CT, CT ANGIO CHEST PE PROTOCOL, 07/05/2024, 15:24. [facility], CT, CT ABDOMEN PELVIS W CON, 07/05/2024, 15:24. [facility], CT, CT CERVICAL SPINE WO CON, 07/05/2024, 15:15. [facility], CR, XR CHEST 1V, 07/05/2024, 15:11. [facility], CT, CT HEAD/BRAIN WO CON, 09/01/2022, 19:22. FINDINGS: Image quality: This examination is limited by involuntary motion artifact. CSF spaces: Basal cisterns are patent. No extra-axial fluid collections. Ventricles are normal in size and shape. Brain: No midline shift. No intracranial masses or hemorrhage. Fuentes-white matter interface is normal. Skull and face: Calvarium and visualized facial bones are intact, without suspicious lesions. Sinuses: There is fluid seen within the nasal cavity and within the nasopharynx. A small amount of fluid can be seen within the ethmoid air cells. No abnormal fluid is seen within the mastoid air cells. An endotracheal tube and an orogastric tube can be seen on the customer associate image. IMPRESSION: Significant motion artifact, yet without a alfonso acute intracranial abnormality. If there remains strong clinical concern for intracranial abnormality, please consider a short-term follow-up study, when the patient is able to remain still. Fluid seen within the nasal cavity, the nasopharynx, and the ethmoid air cells, which is not considered to be pathologic in intubated patient. Dictated by: Gordo Shabazz M.D. on 07/05/2024 at 15:10 Approved by: Gordo Shabazz M.D. on 07/05/2024 at 15:12 CT - cervical spine: Radiologist's Impression: [address] [address] [address] Scan Report Signed Patient: Jenni Rosales MR#: [id number] : 1965 Acct:[id number] Age/Sex: 58 / F Date of Service: 07/05/24 Loc: ED Accession Number: [id number] Procedure: CT cervical spine wo con Ordering Provider: Micah Byers MD PROCEDURE: CT CERVICAL SPINE WO CON INDICATIONS: Fall/trauma TECHNIQUE: Noncontrast 3 mm thick sections acquired from the skull base to the T4 level. Sagittal and coronal reformats were then constructed. For radiation dose reduction, the following was used: automated exposure control, adjustment of mA and/or kV according to patient size. COMPARISON: [facility], CT, CT ANGIO CHEST PE PROTOCOL, 07/05/2024, 15:24. [facility], CT, CT ABDOMEN PELVIS W CON, 07/05/2024, 15:24. [facility], CT, CT HEAD/BRAIN WO CON, 07/05/2024, 15:15. [facility], CR, XR CHEST 1V, 07/05/2024, 15:11. FINDINGS: Image quality: Diagnostic. Bones: No fractures or dislocations. Visualized superior ribs are intact. Moderate disc space narrowing can be seen at C5-C6 and C6-C7, with associated endplate irregularity and posteriorly directed endplate osteophytes. Milder degenerative changes are seen elsewhere. Soft tissues: Prevertebral soft tissues are normal in thickness. No paravertebral hematomas. No apical pneumothoraces. An endotracheal tube is seen. An orogastric tube is also seen. IMPRESSION: No displaced fracture or traumatic subluxation. Cervical spine degenerative changes are seen, which are worst inferiorly. An endotracheal tube and an orogastric tube can be seen. Dictated by: Gordo Shabazz M.D. on 07/05/2024 at 15:07 Approved by: Gordo Shabazz M.D. on 07/05/2024 at 15:09 [facility] Narrative Medical decision making narrative: Patient brought in by ambulance from home for unresponsiveness. Blood sugar 114. Three doses of Narcan given prior to arrival without response. Patient was intubated in route. ET tube 7.0 23 cm at the teeth. Equal lung sounds bilaterally on arrival. Patient unresponsive to painful stimuli. Patient known history of alcohol abuse and opiate abuse. Per EMS family suspected patient was using opiates today. She has chronic pain. She was going to go to the hospital today for evaluation. However she collapsed, unwitnessed in the bathroom. Patient arrives with C-collar in place. ET tube confirmed by exam and auscultation and also chest x-ray After history and exam CBC CMP urine drug screen alcohol Tylenol aspirin CT head cervical spine chest CT PE/CT abdomen pelvis abdominal x-ray chest x-ray admit EKG [facility] Medical records reviewed: Differential considered: Includes but not limited to alcohol intoxication drug overdose stroke pulmonary embolism STEMI Lab Test results independently reviewed as above. Pertinent findings: WBC 4.5 hemoglobin 14.0 INR 1.1 pH 7.4 pCO2 41 PO2 132 sodium 133 BUN 3 creatinine 0.48 GFR greater than 60 glucose 111 lactic acid 2.2 calcium 8.7 AST 71 ALT 33 ammonia less than 9 troponin less than 0.012 Independently reviewed EKG sinus bradycardia rate 57 Imaging studies independently reviewed: CT head cervical spine chest abdomen pelvis no acute finding. X-ray chest and abdomen no acute finding. NG-tube in endotracheal tube in place. Consultations: 5:00 p.m.. Spoke with hospitalist, Dr. Duffy, who will admit to ICU. Treatments: Ventilator support, sedation medication Re-evaluations: 5:15 p.m.. Updated son at bedside, likely opiate overdose with alcohol intoxication. Will need admission for ICU. Will have better idea tomorrow morning metabolism Discussion: Appropriate for admission to ICU admit. Patient requiring mechanical ventilation. Family has been updated. Hospitalist will admit. Diagnosis: Opiate overdose alcohol intoxication Naloxone at Discharge Meets criteria for naloxone at discharge?: Yes, but RX not given (pt has been admitted ) Reason patient is not provided naloxone?: Already has reversal meds Critical Care Time Critical Care Time Attestation: Critical Care Time 35 minutes: Critical care time is separate from other billable procedures. This critical care time includes consultation with family and other consulting doctors, review of records, and interpretation of data from labs, EKGs, imaging, etc. Discharge Plan Departure Patient Disposition: Admitted As Inpatient Clinical Impression: Respiratory failure Qualifiers: Chronicity: acute Respiratory failure complication: unspecified whether with hypoxia or hypercapnia Qualified Code(s): J96.00 - Acute respiratory failure, unspecified whether with hypoxia or hypercapnia Alcohol intoxication Qualifiers: Complication of substance-induced condition: with unspecified complication Q ualified Code(s): F10.929 - Alcohol use, unspecified with intoxication, unspecified Overdose opiate Qualifiers: Encounter type: initial encounter Injury intent: undetermined intent Qualified Code(s): T40.604A - Poisoning by unspecified narcotics, undetermined, initial encounter Admit Date/Time: 07/05/24 17:03 Admit Provider: Jose A Duffy
[2024-07-05 15:36] LABS: Lithium < 0.2 mmol/L (0.6-1.2)
--- NOTE | 2024-07-05 15:36 | RT ---
Patient arrived to ED intubated with 7.0 ETT at 23 teeth. Patient placed on Perales ventilator, tidal volume 310, peep 5, rate 15 and fio2 50%. ETT placement confirmed via cxr, pushed ETT to 24 at teeth. Patient brought to CT with RT Edgar.
[2024-07-05 15:39] LABS: Alanine Aminotransferase 33 IU/L (<35); Albumin 4.9 g/dL (3.5-5.0); Albumin Globulin Ratio 1.3 (1.0-2.8); Alkaline Phosphatase 134 U/L (38-126); Aspartate Aminotransferase 71 IU/L (14-36); BUN Creatinine Ratio 6.3 (6-22); Bilirubin Total 0.4 mg/dL (0.2-1.3); Blood Urea Nitrogen 3 mg/dL (7-17); Calcium 8.7 mg/dL (8.4-10.2); Carbon Dioxide 25 mmol/L (22-32); Chloride 93 mmol/L (98-107); Creatine Kinase 126 U/L (30-135); Estimated Glomerular Filt Rate > 60 mL/min (>60); Globulin 3.7 g/dL (1.7-4.1); Glucose 111 mg/dL (70-100); HEMOLYSIS < 15 (0-50); Potassium 3.7 mmol/L (3.4-5.1); Salicylate < 1.0 mg/dL (<20); Sodium 133 mmol/L (137-145); Total Protein 8.6 g/dL (6.3-8.2)
[2024-07-05 15:40] LABS: Lactate (Lactic Acid) 2.2 mmol/L (0.7-2.1)
[2024-07-05 15:48] LABS: Ethanol (ETOH) 477 mg/dL
--- NOTE | 2024-07-05 15:48 | EKG_ITS ---
[address] [address] [place] [address] Test Date: 2024-07-05 Pat Name: Jenni Rosales Department: [facility] Room: Gender: Female [employer]: BENJAMIN : 1965 Requested By: Order Number: [id number] Reading MD: Samuel Norris MD Measurements Intervals [place] Rate: 57 P: 75 MT: 220 QRS: 65 QRSD: 102 T: 66 QT: 520 QTc: 506 Interpretive Statements Sinus bradycardia with sinus arrhythmia with 1st degree AV block Prolonged QT Electronically Signed On 07-06-2024 6:40:09 PST by Samuel Norris MD
[2024-07-05 15:51] LABS: Troponin I < 0.012 ng/mL (0.01-0.034)
[2024-07-05 16:09] LABS: Thyroid Stimulating Hormone 0.608 uIU/mL (0.47-4.68)
[2024-07-05 16:19] LABS: Appearance Urine UA CLEAR; Bilirubin Urine UA NEGATIVE (NEGATIVE); Color Urine UA YELLOW; Glucose Urine UA NEGATIVE (Negative); Ketones Urine UA NEGATIVE (NEGATIVE); Leukocyte Esterase Urine UA NEGATIVE (NEGATIVE); Nitrite Urine UA NEGATIVE (Negative); Occult Blood Urine UA NEGATIVE (Negative); Protein Urine UA NEGATIVE (Negative); Urobilinogen Urine UA 0.2 E.U./dL (0.2)
[2024-07-05 16:23] LABS: INR 1.1 (0.9-1.3); Prothrombin Time 12.2 SECONDS (9.4-12.5)
[2024-07-05 16:25] LABS: PTT Partial Thromboplastin Tim 35 SECONDS (25.1-36.5)
[2024-07-05 16:25] LABS: Ur Creatinine Normal (Normal)
[2024-07-05] MEDS: propofoL 1,000 MG/100 ML VIAL 1.623 MG IV (16:25)
[2024-07-05] MEDS: fentaNYL 1,000 MCG in DEXTROSE 5% IN WATER 230 ML 9.466 MCG IV (16:25)
[2024-07-05 16:26] LABS: Ammonia (NH3) < 9 umol/L (9-30)
[2024-07-05 16:26] LABS: UR Morphine/Opiate cutoff 300 Positive (Negative); Ur Specific Gravity Normal (Normal); Urine Amphetamines Negative (Negative); Urine Barbiturates Negative (Negative); Urine Benzodiazepines Positive (Negative); Urine Cocaine Negative (Negative); Urine MDMA Negative (Negative); Urine Methadone Negative (Negative); Urine Methamphetamines Negative (Negative); Urine Oxycodone Negative (Negative); Urine Phencyclidine Negative (Negative); Urine Tetrahydrocannabinol Negative (Negative); Urine Tricyclic Antidepressant Negative (Negative); Urine pH Normal (Normal)
[2024-07-05 16:41] LABS: Base Excess ABG 0.4 mmol/L (-2-3); Delivery System Adult Ventilator; HCO3 ABG 25 mmol/L (23-27); Oxygen Saturation ABG 99 % (95-100); PCO2 ABG 41.4 mmHg (35-45); PEEP 5; PO2 ABG 132 mmHg (80-100); Respiratory Rate 15; TCO2 ABG 25 mmol/L (23-27)
[2024-07-05 16:45] LABS: pH Urine UA 7.5 (4.5-8.0)
[2024-07-05 16:53] LABS: Reflexed Lactate in 2 Hours Y
[2024-07-05 16:53] LABS: Bacteria Urine Occasional (0-1); Culture Indicated Urine Cult Not Indicated; RBC Urine None Seen (0-5/HPF); Squamous Epithelial Cell Urine 0-1 /HPF (0-5/HPF); Urine Volume 10mL (spun); WBC Urine None Seen (0-5/HPF)
--- NOTE | 2024-07-05 17:05 | PC.NURSE ---
NG tube advanced 6cm per ED physician @ [id number]
--- NOTE | 2024-07-05 17:05 | PC.NURSE ---
Family at bedside: partner, adult son and adolescent son. Adult son states patient was loopy all day. Family believed the patient had stopped drinking 1.5 years ago.
--- NOTE | 2024-07-05 17:14 | PC.NURSE ---
Momentary restlessness @ 1630, RT called to bedside, Vent O2 changed to 21% by RT @ 1639.
[2024-07-05 18:05] LABS: Acetaminophen < 10 ug/mL (10-30); Salicylate < 1.0 mg/dL (<20)
--- NOTE | 2024-07-05 18:19 | PC.NURSE ---
Hrly neuro checks 1530 GCS 3, 1630 GCS 3, 1730 GCS 3, 1819 GCS 3. Pt tx to ICU.
--- NOTE | 2024-07-05 18:39 | PM.HP.1 ---
History of Present Illness History of Present Illness Date Patient Seen: 07/05/24 Time Patient Seen: 18:39 Chief complaint: Overdose Narrative: 58 F with PMH of EtOH, tobacco use, prior heavy EtOH but had stopped drinking for the past two years per her significant other who was noted to be quite wobbly today and found down in her bathroom later unresponsive. She was given 5 doses of Narcan per ER triage documentation without significant improvement and intubated in the field. Additional history is obtained from the ER provider and patient's significant other as the patient is unable to contribute to subjective history at this time. Her significant other reports that she had stopped drinking for the last 2 years, and was quite shocked when her alcohol level returned as high as it did. He did later find new alcohol bottles in the Fridge at home. In the emergency room laboratory evaluation showed an unremarkable CBC, normal coagulation studies. ABG with a pH of 7.4, pCO2 of 41.4, and PO2 of 132. Head CT was unremarkable. Chemistries showed a sodium of 133, with the remainder of her chemistries being fairly unremarkable except for mild AST elevation at 71. Ammonia was less than 9. Troponin was negative. TSH was 0.608. Urinalysis was negative. CT angiogram of her chest was also performed which was negative and did not show any signs of infection or volume overload. Urine drug screen was also positive for opiates, benzodiazepines. Alcohol level was 477. Tylenol and salicylates levels were ordered to be added on. [facility] Medical History Peripheral neuropathy Alcohol abuse Tobacco abuse History of narcotic addiction Leg pain TBI (traumatic brain injury) Surgical History History of cholecystectomy Family History Mother History of recurrent TIAs Father Heart disease Social History household members: spouse Smoking Status: Current some day smoker Meds Home Medications and Allergies Home Medications Medication Instructions Recorded Confirmed Type gabapentin 300 mg capsule 600 mg PO TID ##0 02/19/16 10/03/22 History (Neurontin) buprenorphine 8 mg-naloxone 2 mg 8 film sublingual TID 04/10/20 10/03/22 History sublingual film (Suboxone) ondansetron 4 mg disintegrating 4 mg PO Q6H PRN nausea and 09/01/22 10/03/22 Rx tablet vomiting #14 tabs atorvastatin 20 mg tablet 20 mg PO QPM 10/03/22 10/03/22 History clonazepam 0.5 mg tablet 0.25 - 0.5 mg PO DAILY PRN Anxiety 10/03/22 10/03/22 History mupirocin 2 % topical ointment 1 applic topical DAILY PRN wound 10/26/22 Rx #15 grams lactulose 20 gram/30 mL oral 20 g (30 mL) PO BID #600 mL 06/06/24 Rx solution Allergies Allergy/AdvReac Type Severity Reaction Status Date / Time codeine Allergy Unknown Verified 06/10/24 12:07 droperidol Allergy Unknown Verified 06/10/24 12:07 metoclopramide [From Reglan] Allergy Unknown Verified 06/10/24 12:07 Sulfa (Sulfonamide Allergy Unknown Verified 06/10/24 12:07 Antibiotics) abciximab AdvReac Intermediate Muscle Pain Verified 06/10/24 12:07 Review of Systems Review of Systems Narrative: Unable to be performed given the patient's current altered mental status. Exam Vital Signs (past 8 hours): - 07/05/24 15:11 07/05/24 15:23 07/05/24 15:25 Temperature 93.0 F L Pulse Rate 59 L 70 Respiratory Rate 20 23 Blood Pressure 106/70 113/79 Pulse Oximetry 99 100 Oxygen Delivery Method Mechanical Ventilation Mechanical Ventilation Fraction of Inspired Oxygen 07/05/24 15:25 07/05/24 15:30 07/05/24 15:30 Temperature 93.2 F L 93.4 F L Pulse Rate 56 L 57 L Respiratory Rate 29 H 20 Blood Pressure 115/77 Pulse Oximetry 99 99 Oxygen Delivery Method Mechanical Ventilation Fraction of Inspired Oxygen 07/05/24 15:33 07/05/24 15:33 07/05/24 15:35 Temperature 93.4 F L Pulse Rate 57 L Respiratory Rate 20 Blood Pressure 115/79 113/79 Pulse Oximetry 99 Oxygen Delivery Method Fraction of Inspired Oxygen 07/05/24 15:35 07/05/24 15:40 07/05/24 15:40 Temperature 93.4 F L 93.4 F L Pulse Rate 56 L 54 L Respiratory Rate 18 23 Blood Pressure 117/80 Pulse Oximetry 99 98 Oxygen Delivery Method Fraction of Inspired Oxygen 07/05/24 15:45 07/05/24 15:45 07/05/24 15:48 Temperature 93.0 F L Pulse Rate 62 Respiratory Rate 31 H Blood Pressure 119/78 117/78 Pulse Oximetry 98 Oxygen Delivery Method Fraction of Inspired Oxygen 07/05/24 15:48 07/05/24 15:49 07/05/24 15:50 Temperature 93.0 F L 93.0 F L Pulse Rate 59 L 58 L Respiratory Rate 37 H 40 H Blood Pressure 121/76 Pulse Oximetry 98 99 Oxygen Delivery Method Mechanical Ventilation Fraction of Inspired Oxygen 07/05/24 15:50 07/05/24 15:55 07/05/24 15:55 Temperature 93.0 F L 92.8 F L Pulse Rate 64 53 L Respiratory Rate 45 H 45 H Blood Pressure 115/71 Pulse Oximetry 98 98 Oxygen Delivery Method Mechanical Ventilation Fraction of Inspired Oxygen 07/05/24 16:00 07/05/24 16:00 07/05/24 16:05 Temperature 92.8 F L Pulse Rate 55 L Respiratory Rate 38 H Blood Pressure 107/71 108/73 Pulse Oximetry 97 Oxygen Delivery Method Mechanical Ventilation Fraction of Inspired Oxygen 07/05/24 16:05 07/05/24 16:10 07/05/24 16:10 Temperature 92.8 F L 92.8 F L Pulse Rate 56 L 57 L Respiratory Rate 47 H 42 H Blood Pressure 105/70 Pulse Oximetry 98 98 Oxygen Delivery Method Fraction of Inspired Oxygen 07/05/24 16:15 07/05/24 16:15 07/05/24 16:20 Temperature 92.8 F L 92.8 F L Pulse Rate 57 L 71 Respiratory Rate 40 H 30 H Blood Pressure 104/70 Pulse Oximetry 98 98 Oxygen Delivery Method Fraction of Inspired Oxygen 07/05/24 16:20 07/05/24 16:25 07/05/24 16:25 Temperature 93.2 F L Pulse Rate 60 Respiratory Rate 35 H Blood Pressure 114/79 110/75 Pulse Oximetry 97 Oxygen Delivery Method Fraction of Inspired Oxygen 07/05/24 16:30 07/05/24 16:30 07/05/24 16:39 Temperature 93.4 F L Pulse Rate 60 Respiratory Rate 32 H Blood Pressure 117/77 127/76 Pulse Oximetry 97 Oxygen Delivery Method Mechanical Ventilation Fraction of Inspired Oxygen 07/05/24 16:39 07/05/24 16:40 07/05/24 16:40 Temperature 93.7 F L 93.7 F L Pulse Rate 63 62 Respiratory Rate 22 15 Blood Pressure 110/78 Pulse Oximetry 97 97 Oxygen Delivery Method Mechanical Ventilation Mechanical Ventilation Fraction of Inspired Oxygen 07/05/24 16:45 07/05/24 16:45 07/05/24 16:50 Temperature 93.9 F L Pulse Rate 64 Respiratory Rate 18 Blood Pressure 115/76 107/75 Pulse Oximetry 96 Oxygen Delivery Method Mechanical Ventilation Fraction of Inspired Oxygen 07/05/24 16:50 07/05/24 16:55 07/05/24 16:55 Temperature 94.1 F L 94.3 F L Pulse Rate 64 65 Respiratory Rate 16 16 Blood Pressure 111/73 Pulse Oximetry 96 96 Oxygen Delivery Method Mechanical Ventilation Fraction of Inspired Oxygen 07/05/24 16:55 07/05/24 17:00 07/05/24 17:00 Temperature 94.6 F L Pulse Rate 66 Respiratory Rate 15 Blood Pressure 111/74 Pulse Oximetry 96 Oxygen Delivery Method Mechanical Ventilation Fraction of Inspired Oxygen 50 07/05/24 17:05 07/05/24 17:05 07/05/24 17:10 Temperature 94.8 F L 95.2 F L Pulse Rate 67 70 Respiratory Rate 16 15 Blood Pressure 111/74 Pulse Oximetry 96 96 Oxygen Delivery Method Mechanical Ventilation Mechanical Ventilation Fraction of Inspired Oxygen 07/05/24 17:10 07/05/24 17:15 07/05/24 17:15 Temperature 95.4 F L Pulse Rate 69 Respiratory Rate 15 Blood Pressure 115/76 115/77 Pulse Oximetry 96 Oxygen Delivery Method Mechanical Ventilation Fraction of Inspired Oxygen 07/05/24 17:20 07/05/24 17:20 07/05/24 17:25 Temperature 95.5 F L Pulse Rate 73 Respiratory Rate 15 Blood Pressure 116/73 121/79 Pulse Oximetry 96 Oxygen Delivery Method Mechanical Ventilation Fraction of Inspired Oxygen 07/05/24 17:25 07/05/24 17:30 07/05/24 17:30 Temperature 95.7 F L 96.1 F L Pulse Rate 76 74 Respiratory Rate 16 15 Blood Pressure 117/75 Pulse Oximetry 96 96 Oxygen Delivery Method Mechanical Ventilation Mechanical Ventilation Fraction of Inspired Oxygen 07/05/24 17:35 07/05/24 17:35 07/05/24 17:40 Temperature 96.3 F L Pulse Rate 75 Respiratory Rate 16 Blood Pressure 118/74 123/72 Pulse Oximetry 96 Oxygen Delivery Method Mechanical Ventilation Fraction of Inspired Oxygen 07/05/24 17:40 07/05/24 17:45 07/05/24 17:45 Temperature 96.6 F L 96.8 F L Pulse Rate 77 86 Respiratory Rate 18 20 Blood Pressure 125/81 Pulse Oximetry 96 96 Oxygen Delivery Method Mechanical Ventilation Fraction of Inspired Oxygen 07/05/24 17:50 07/05/24 17:50 07/05/24 17:55 Temperature 97.0 F L Pulse Rate 84 Respiratory Rate 17 Blood Pressure 116/75 112/76 Pulse Oximetry 97 Oxygen Delivery Method Fraction of Inspired Oxygen 07/05/24 17:55 07/05/24 18:00 07/05/24 18:00 Temperature 97.2 F L Pulse Rate 83 60 Respiratory Rate 16 15 Blood Pressure 118/73 Pulse Oximetry 97 Oxygen Delivery Method Fraction of Inspired Oxygen 07/05/24 18:00 07/05/24 18:05 07/05/24 18:05 Temperature 97.3 F L 97.5 F L Pulse Rate 84 97 H Respiratory Rate 20 18 Blood Pressure 126/79 Pulse Oximetry 96 96 Oxygen Delivery Method Fraction of Inspired Oxygen 07/05/24 18:10 07/05/24 18:10 07/05/24 18:15 Temperature 97.7 F 97.7 F Pulse Rate 100 H 102 H Respiratory Rate 20 20 Blood Pressure 124/80 Pulse Oximetry 96 96 Oxygen Delivery Method Mechanical Ventilation Fraction of Inspired Oxygen 07/05/24 18:15 07/05/24 18:20 07/05/24 18:20 Temperature 97.9 F Pulse Rate 88 Respiratory Rate 16 Blood Pressure 127/79 119/69 Pulse Oximetry 96 Oxygen Delivery Method Mechanical Ventilation Fraction of Inspired Oxygen Fraction of Inspired Oxygen 50 Oxygen Delivery Method Mechanical Ventilation Narrative Exam Narrative: Gen: WDWN female, no acute distress, intubated and sedated CV: RRR no m/r/g Pulm: CTA B/l Abd: S NT ND Ext: No edema b/l LE Objective ECG Impression: Sinus bradycardia with a first-degree AV block, no evidence of acute ischemia. Labs 07/05/24 15:00 07/05/24 15:00 Labs: Laboratory Results - last 24 hr 07/05/24 07/05/24 07/05/24 15:00 15:30 15:30 WBC 4.5 RBC 4.46 Hgb 14.0 Hct 41.0 MCV 92.1 MCH 31.4 MCHC 34.1 RDW 14.2 Plt Count 216 Neut % (Auto) 49.6 L Lymph % (Auto) 47.0 H [place] % (Auto) 2.1 L Eos % (Auto) 0.8 L Baso % (Auto) 0.5 Neut # (Auto) 2200 Lymph # (Auto) 2100 [place] # (Auto) 100 Eos # (Auto) 0 Baso # (Auto) 0 PT INR APTT ABG pH ABG pCO2 ABG pO2 ABG HCO3 ABG Total CO2 ABG O2 Saturation ABG Base Excess Respiration Rate O2 Delivery Device FiO2 % PEEP or CPAP Sodium 133 L Potassium 3.7 Chloride 93 L Carbon Dioxide 25 BUN 3 L Creatinine 0.48 L Estimated GFR > 60 BUN/Creatinine Ratio 6.3 Glucose 111 H Lactate 2.2 H Calcium 8.7 Total Bilirubin 0.4 AST 71 H ALT 33 Alkaline Phosphatase 134 H Ammonia Total Creatine Kinase 126 Troponin I < 0.012 Total Protein 8.6 H Albumin 4.9 Globulin 3.7 Albumin/Globulin Ratio 1.3 TSH 0.608 Urine Color Yellow Urine Appearance Clear Urine pH 7.5 Normal Ur Specific [place] 1.010 Urine Protein Negative Urine Glucose (UA) Negative Urine Ketones Negative Urine Occult Blood Negative Urine Nitrate Negative Urine Bilirubin Negative Urine Urobilinogen 0.2 Ur Leukocyte Esterase Negative Urine RBC None seen Urine WBC None seen Ur Squamous Epith Cells 0-1 /hpf Urine Bacteria Occasional (0-1) Ur Culture Indicated? Cult not indicated Vol Urine Centrifuged 10ml (spun) Salicylates < 1.0 U Opiates 300ng/mL cut Positive H Ur Oxycodone Screen Negative Urine Methadone Screen Negative Acetaminophen Ur Barbiturates Screen Negative U Tricyclic Antidepress Negative Ur Phencyclidine Scrn Negative Ur Amphetamines Screen Negative U Methamphetamines Scrn Negative Ur MDMA Scrn (Ecstasy) Negative U Benzodiazepines Scrn Positive H [place] < 0.2 L Urine Cocaine Screen Negative U Marijuana (THC) Screen Negative Urine Specific [place] Normal Ethyl Alcohol 477 H* Ur Creatinine Normal 07/05/24 07/05/24 07/05/24 16:05 16:07 16:37 WBC RBC Hgb Hct MCV MCH MCHC RDW Plt Count Neut % (Auto) Lymph % (Auto) [place] % (Auto) Eos % (Auto) Baso % (Auto) Neut # (Auto) Lymph # (Auto) [place] # (Auto) Eos # (Auto) Baso # (Auto) PT 12.2 INR 1.1 APTT 35 ABG pH 7.40 ABG pCO2 41.4 ABG pO2 132 H ABG HCO3 25 ABG Total CO2 25 ABG O2 Saturation 99 ABG Base Excess 0.4 Respiration Rate 15 O2 Delivery Device Adult ventilator FiO2 % 25.0 % PEEP or CPAP 5 Sodium Potassium Chloride Carbon Dioxide BUN Creatinine Estimated GFR BUN/Creatinine Ratio Glucose Lactate Calcium Total Bilirubin AST ALT Alkaline Phosphatase Ammonia < 9 L Total Creatine Kinase Troponin I Total Protein Albumin Globulin Albumin/Globulin Ratio TSH Urine Color Urine Appearance Urine pH Ur Specific [place] Urine Protein Urine Glucose (UA) Urine Ketones Urine Occult Blood Urine Nitrate Urine Bilirubin Urine Urobilinogen Ur Leukocyte Esterase Urine RBC Urine WBC Ur Squamous Epith Cells Urine Bacteria Ur Culture Indicated? Vol Urine Centrifuged Salicylates < 1.0 U Opiates 300ng/mL cut Ur Oxycodone Screen Urine Methadone Screen Acetaminophen < 10 Ur Barbiturates Screen U Tricyclic Antidepress Ur Phencyclidine Scrn Ur Amphetamines Screen U Methamphetamines Scrn Ur MDMA Scrn (Ecstasy) U Benzodiazepines Scrn [place] Urine Cocaine Screen U Marijuana (THC) Screen Urine Specific [place] Ethyl Alcohol Ur Creatinine Assessment & Plan Assessment & Plan narrative: Toxic encephalopathy, polysubstance intoxication - likely alcohol and polysubstance intoxication, suspect relapse of alcohol use - continue sedation overnight, continue IV fluids. Attempt sedation vacation in the morning - discussed with tele-manager of hospital whom will consult once on the floor. - may develop withdrawal, but unclear recent drinking history - also on suboxone and cloazepam - sedation with fentanyl and propofol - DVT with lovenox History of liver failure - reports by significant other this was in the past and improved - labs today show mild AST elevations, normal bilirubin - does have recent lactulose prescribed, unclear status currently Code: Full, surrogate decision maker is not known exactly, patient's significant other is with her currently. Previously was her sister in a prior admission. DVT: Lovenox daily I have utilized all available immediate resources to obtain, update, or review the patient's current medications. Dispo: patient admitted under inpatient status. Unclear if will be able to discharge home or possible SNF, will have PT/OT evaluations. Additional history obtained via discussions with the ER provider and patient's significant other. These discussions contributed to the creation of the above assessment and plan. I have reviewed patient's presenting documentation, labs, and imaging personally. I spent 40 minutes providing critical care management this patient. This excludes time spent in performing separately billed procedures. Time-Based Coding :: [TOTAL MINUTES] spent with patient and on the chart (including review of chart, obtaining history, exam, reviewing outside data, placing orders, documenting exam and treatment plan, and counseling patient) on [DATE].
[2024-07-05 18:58] LABS: Lactate 2HR (Lactic Acid Rflx) 2.8 mmol/L (0.7-2.1)
--- NOTE | 2024-07-05 19:09 | PM.PN.EICU ---
Subjective Subjective IF CAMERA ACTIVATED, patient seen via real-time interactive audiovisual communication: Camera activated Consent obtained for tele-assistant professor of art care: Yes Patient Location: ICU Provider location (State): [place] Other participants/roles: Dr. Duffy Interval history: 58 year old female with PMHx of F with PMH of EtOH, tobacco use found down in bathroom unresponsive. intubated in the field. CT head was negative and ETOh was negative. no response to narcan no acute issues since admission. Current Medications Current Medications Medications: Home Medications gabapentin 300 mg capsule (Neurontin) 600 mg PO TID ##0 02/19/16 [History Confirmed 10/03/22] buprenorphine 8 mg-naloxone 2 mg sublingual film (Suboxone) 8 film sublingual TID 04/10/20 [History Confirmed 10/03/22] ondansetron 4 mg disintegrating tablet 4 mg PO Q6H PRN nausea and vomiting #14 tabs 09/01/22 [Rx Confirmed 10/03/22] atorvastatin 20 mg tablet 20 mg PO QPM 10/03/22 [History Confirmed 10/03/22] clonazepam 0.5 mg tablet 0.25 - 0.5 mg PO DAILY PRN Anxiety 10/03/22 [History Confirmed 10/03/22] mupirocin 2 % topical ointment 1 applic topical DAILY PRN wound #15 grams 10/26/22 [Rx] lactulose 20 gram/30 mL oral solution 20 g (30 mL) PO BID #600 mL 06/06/24 [Rx] Visit Medications (administered) Generic Name Dose Route Start Last Admin Trade Name Freq PRN Reason Stop Dose Admin Propofol 1,000 mg in 100 mls @ 1.623 mls/hr 07/05/24 15:30 07/05/24 16:25 Diprivan IV 5 mcg/kg/min TITRATE LAURA 1.623 mls/hr Administration Protocol 5 MCG/KG/MIN Fentanyl 1,000 mcg/ Dextrose 250 mls @ 9.466 mls/hr 07/05/24 15:30 07/05/24 16:25 IV 0.7 mcg/kg/hr TITRATE LAURA 9.466 mls/hr Administration Protocol 0.7 MCG/KG/HR Objective Ventilator Parameters: Ventilator Settings FiO2 21 RT Vent Frequency 15 Ventilator Tidal Volume 310 Exhaled Positive End Expiratory 5 Pressure Inspiratory Phase Time 0.8 Patient Position HOB >= 30 degrees Labs 07/05/24 15:00 07/05/24 15:00 Labs: Laboratory Results - last 24 hr 07/05/24 07/05/24 07/05/24 15:00 15:30 15:30 WBC 4.5 RBC 4.46 Hgb 14.0 Hct 41.0 MCV 92.1 MCH 31.4 MCHC 34.1 RDW 14.2 Plt Count 216 Neut % (Auto) 49.6 L Lymph % (Auto) 47.0 H [place] % (Auto) 2.1 L Eos % (Auto) 0.8 L Baso % (Auto) 0.5 Neut # (Auto) 2200 Lymph # (Auto) 2100 [place] # (Auto) 100 Eos # (Auto) 0 Baso # (Auto) 0 PT INR APTT ABG pH ABG pCO2 ABG pO2 ABG HCO3 ABG Total CO2 ABG O2 Saturation ABG Base Excess Respiration Rate O2 Delivery Device FiO2 % PEEP or CPAP Sodium 133 L Potassium 3.7 Chloride 93 L Carbon Dioxide 25 BUN 3 L Creatinine 0.48 L Estimated GFR > 60 BUN/Creatinine Ratio 6.3 Glucose 111 H Lactate 2.2 H Calcium 8.7 Total Bilirubin 0.4 AST 71 H ALT 33 Alkaline Phosphatase 134 H Ammonia Total Creatine Kinase 126 Troponin I < 0.012 Total Protein 8.6 H Albumin 4.9 Globulin 3.7 Albumin/Globulin Ratio 1.3 TSH 0.608 Urine Color Yellow Urine Appearance Clear Urine pH 7.5 Normal Ur Specific [place] 1.010 Urine Protein Negative Urine Glucose (UA) Negative Urine Ketones Negative Urine Occult Blood Negative Urine Nitrate Negative Urine Bilirubin Negative Urine Urobilinogen 0.2 Ur Leukocyte Esterase Negative Urine RBC None seen Urine WBC None seen Ur Squamous Epith Cells 0-1 /hpf Urine Bacteria Occasional (0-1) Ur Culture Indicated? Cult not indicated Vol Urine Centrifuged 10ml (spun) Salicylates < 1.0 U Opiates 300ng/mL cut Positive H Ur Oxycodone Screen Negative Urine Methadone Screen Negative Acetaminophen Ur Barbiturates Screen Negative U Tricyclic Antidepress Negative Ur Phencyclidine Scrn Negative Ur Amphetamines Screen Negative U Methamphetamines Scrn Negative Ur MDMA Scrn (Ecstasy) Negative U Benzodiazepines Scrn Positive H Bliss < 0.2 L Urine Cocaine Screen Negative U Marijuana (THC) Screen Negative Urine Specific [place] Normal Ethyl Alcohol 477 H* Ur Creatinine Normal 07/05/24 07/05/24 07/05/24 16:05 16:07 16:37 WBC RBC Hgb Hct MCV MCH MCHC RDW Plt Count Neut % (Auto) Lymph % (Auto) [place] % (Auto) Eos % (Auto) Baso % (Auto) Neut # (Auto) Lymph # (Auto) [place] # (Auto) Eos # (Auto) Baso # (Auto) PT 12.2 INR 1.1 APTT 35 ABG pH 7.40 ABG pCO2 41.4 ABG pO2 132 H ABG HCO3 25 ABG Total CO2 25 ABG O2 Saturation 99 ABG Base Excess 0.4 Respiration Rate 15 O2 Delivery Device Adult ventilator FiO2 % 25.0 % PEEP or CPAP 5 Sodium Potassium Chloride Carbon Dioxide BUN Creatinine Estimated GFR BUN/Creatinine Ratio Glucose Lactate Calcium Total Bilirubin AST ALT Alkaline Phosphatase Ammonia < 9 L Total Creatine Kinase Troponin I Total Protein Albumin Globulin Albumin/Globulin Ratio TSH Urine Color Urine Appearance Urine pH Ur Specific [place] Urine Protein Urine Glucose (UA) Urine Ketones Urine Occult Blood Urine Nitrate Urine Bilirubin Urine Urobilinogen Ur Leukocyte Esterase Urine RBC Urine WBC Ur Squamous Epith Cells Urine Bacteria Ur Culture Indicated? Vol Urine Centrifuged Salicylates < 1.0 U Opiates 300ng/mL cut Ur Oxycodone Screen Urine Methadone Screen Acetaminophen < 10 Ur Barbiturates Screen U Tricyclic Antidepress Ur Phencyclidine Scrn Ur Amphetamines Screen U Methamphetamines Scrn Ur MDMA Scrn (Ecstasy) U Benzodiazepines Scrn Bliss Urine Cocaine Screen U Marijuana (THC) Screen Urine Specific [place] Ethyl Alcohol Ur Creatinine 07/05/24 18:01 WBC RBC Hgb Hct MCV MCH MCHC RDW Plt Count Neut % (Auto) Lymph % (Auto) [place] % (Auto) Eos % (Auto) Baso % (Auto) Neut # (Auto) Lymph # (Auto) [place] # (Auto) Eos # (Auto) Baso # (Auto) PT INR APTT ABG pH ABG pCO2 ABG pO2 ABG HCO3 ABG Total CO2 ABG O2 Saturation ABG Base Excess Respiration Rate O2 Delivery Device FiO2 % PEEP or CPAP Sodium Potassium Chloride Carbon Dioxide BUN Creatinine Estimated GFR BUN/Creatinine Ratio Glucose Lactate 2.8 H Calcium Total Bilirubin AST ALT Alkaline Phosphatase Ammonia Total Creatine Kinase Troponin I Total Protein Albumin Globulin Albumin/Globulin Ratio TSH Urine Color Urine Appearance Urine pH Ur Specific [place] Urine Protein Urine Glucose (UA) Urine Ketones Urine Occult Blood Urine Nitrate Urine Bilirubin Urine Urobilinogen Ur Leukocyte Esterase Urine RBC Urine WBC Ur Squamous Epith Cells Urine Bacteria Ur Culture Indicated? Vol Urine Centrifuged Salicylates U Opiates 300ng/mL cut Ur Oxycodone Screen Urine Methadone Screen Acetaminophen Ur Barbiturates Screen U Tricyclic Antidepress Ur Phencyclidine Scrn Ur Amphetamines Screen U Methamphetamines Scrn Ur MDMA Scrn (Ecstasy) U Benzodiazepines Scrn Bliss Urine Cocaine Screen U Marijuana (THC) Screen Urine Specific [place] Ethyl Alcohol Ur Creatinine Exam Vital Signs (past 8 hours): - 07/05/24 15:11 07/05/24 15:23 07/05/24 15:25 Temperature 93.0 F L Pulse Rate 59 L 70 Respiratory Rate 20 23 Blood Pressure 106/70 113/79 Pulse Oximetry 99 100 Oxygen Delivery Method Mechanical Ventilation Mechanical Ventilation Fraction of Inspired Oxygen 07/05/24 15:25 07/05/24 15:30 07/05/24 15:30 Temperature 93.2 F L 93.4 F L Pulse Rate 56 L 57 L Respiratory Rate 29 H 20 Blood Pressure 115/77 Pulse Oximetry 99 99 Oxygen Delivery Method Mechanical Ventilation Fraction of Inspired Oxygen 07/05/24 15:33 07/05/24 15:33 07/05/24 15:35 Temperature 93.4 F L Pulse Rate 57 L Respiratory Rate 20 Blood Pressure 115/79 113/79 Pulse Oximetry 99 Oxygen Delivery Method Fraction of Inspired Oxygen 07/05/24 15:35 07/05/24 15:40 07/05/24 15:40 Temperature 93.4 F L 93.4 F L Pulse Rate 56 L 54 L Respiratory Rate 18 23 Blood Pressure 117/80 Pulse Oximetry 99 98 Oxygen Delivery Method Fraction of Inspired Oxygen 07/05/24 15:45 07/05/24 15:45 07/05/24 15:48 Temperature 93.0 F L Pulse Rate 62 Respiratory Rate 31 H Blood Pressure 119/78 117/78 Pulse Oximetry 98 Oxygen Delivery Method Fraction of Inspired Oxygen 07/05/24 15:48 07/05/24 15:49 07/05/24 15:50 Temperature 93.0 F L 93.0 F L Pulse Rate 59 L 58 L Respiratory Rate 37 H 40 H Blood Pressure 121/76 Pulse Oximetry 98 99 Oxygen Delivery Method Mechanical Ventilation Fraction of Inspired Oxygen 07/05/24 15:50 07/05/24 15:55 07/05/24 15:55 Temperature 93.0 F L 92.8 F L Pulse Rate 64 53 L Respiratory Rate 45 H 45 H Blood Pressure 115/71 Pulse Oximetry 98 98 Oxygen Delivery Method Mechanical Ventilation Fraction of Inspired Oxygen 07/05/24 16:00 07/05/24 16:00 07/05/24 16:05 Temperature 92.8 F L Pulse Rate 55 L Respiratory Rate 38 H Blood Pressure 107/71 108/73 Pulse Oximetry 97 Oxygen Delivery Method Mechanical Ventilation Fraction of Inspired Oxygen 07/05/24 16:05 07/05/24 16:10 07/05/24 16:10 Temperature 92.8 F L 92.8 F L Pulse Rate 56 L 57 L Respiratory Rate 47 H 42 H Blood Pressure 105/70 Pulse Oximetry 98 98 Oxygen Delivery Method Fraction of Inspired Oxygen 07/05/24 16:15 07/05/24 16:15 07/05/24 16:20 Temperature 92.8 F L 92.8 F L Pulse Rate 57 L 71 Respiratory Rate 40 H 30 H Blood Pressure 104/70 Pulse Oximetry 98 98 Oxygen Delivery Method Fraction of Inspired Oxygen 07/05/24 16:20 07/05/24 16:25 07/05/24 16:25 Temperature 93.2 F L Pulse Rate 60 Respiratory Rate 35 H Blood Pressure 114/79 110/75 Pulse Oximetry 97 Oxygen Delivery Method Fraction of Inspired Oxygen 07/05/24 16:30 07/05/24 16:30 07/05/24 16:39 Temperature 93.4 F L Pulse Rate 60 Respiratory Rate 32 H Blood Pressure 117/77 127/76 Pulse Oximetry 97 Oxygen Delivery Method Mechanical Ventilation Fraction of Inspired Oxygen 07/05/24 16:39 07/05/24 16:40 07/05/24 16:40 Temperature 93.7 F L 93.7 F L Pulse Rate 63 62 Respiratory Rate 22 15 Blood Pressure 110/78 Pulse Oximetry 97 97 Oxygen Delivery Method Mechanical Ventilation Mechanical Ventilation Fraction of Inspired Oxygen 07/05/24 16:45 07/05/24 16:45 07/05/24 16:50 Temperature 93.9 F L Pulse Rate 64 Respiratory Rate 18 Blood Pressure 115/76 107/75 Pulse Oximetry 96 Oxygen Delivery Method Mechanical Ventilation Fraction of Inspired Oxygen 07/05/24 16:50 07/05/24 16:55 07/05/24 16:55 Temperature 94.1 F L 94.3 F L Pulse Rate 64 65 Respiratory Rate 16 16 Blood Pressure 111/73 Pulse Oximetry 96 96 Oxygen Delivery Method Mechanical Ventilation Fraction of Inspired Oxygen 07/05/24 16:55 07/05/24 17:00 07/05/24 17:00 Temperature 94.6 F L Pulse Rate 66 Respiratory Rate 15 Blood Pressure 111/74 Pulse Oximetry 96 Oxygen Delivery Method Mechanical Ventilation Fraction of Inspired Oxygen 50 07/05/24 17:05 07/05/24 17:05 07/05/24 17:10 Temperature 94.8 F L 95.2 F L Pulse Rate 67 70 Respiratory Rate 16 15 Blood Pressure 111/74 Pulse Oximetry 96 96 Oxygen Delivery Method Mechanical Ventilation Mechanical Ventilation Fraction of Inspired Oxygen 07/05/24 17:10 07/05/24 17:15 07/05/24 17:15 Temperature 95.4 F L Pulse Rate 69 Respiratory Rate 15 Blood Pressure 115/76 115/77 Pulse Oximetry 96 Oxygen Delivery Method Mechanical Ventilation Fraction of Inspired Oxygen 07/05/24 17:20 07/05/24 17:20 07/05/24 17:25 Temperature 95.5 F L Pulse Rate 73 Respiratory Rate 15 Blood Pressure 116/73 121/79 Pulse Oximetry 96 Oxygen Delivery Method Mechanical Ventilation Fraction of Inspired Oxygen 07/05/24 17:25 07/05/24 17:30 07/05/24 17:30 Temperature 95.7 F L 96.1 F L Pulse Rate 76 74 Respiratory Rate 16 15 Blood Pressure 117/75 Pulse Oximetry 96 96 Oxygen Delivery Method Mechanical Ventilation Mechanical Ventilation Fraction of Inspired Oxygen 07/05/24 17:35 07/05/24 17:35 07/05/24 17:40 Temperature 96.3 F L Pulse Rate 75 Respiratory Rate 16 Blood Pressure 118/74 123/72 Pulse Oximetry 96 Oxygen Delivery Method Mechanical Ventilation Fraction of Inspired Oxygen 07/05/24 17:40 07/05/24 17:45 07/05/24 17:45 Temperature 96.6 F L 96.8 F L Pulse Rate 77 86 Respiratory Rate 18 20 Blood Pressure 125/81 Pulse Oximetry 96 96 Oxygen Delivery Method Mechanical Ventilation Fraction of Inspired Oxygen 07/05/24 17:50 07/05/24 17:50 07/05/24 17:55 Temperature 97.0 F L Pulse Rate 84 Respiratory Rate 17 Blood Pressure 116/75 112/76 Pulse Oximetry 97 Oxygen Delivery Method Fraction of Inspired Oxygen 07/05/24 17:55 07/05/24 18:00 07/05/24 18:00 Temperature 97.2 F L Pulse Rate 83 60 Respiratory Rate 16 15 Blood Pressure 118/73 Pulse Oximetry 97 Oxygen Delivery Method Fraction of Inspired Oxygen 07/05/24 18:00 07/05/24 18:05 07/05/24 18:05 Temperature 97.3 F L 97.5 F L Pulse Rate 84 97 H Respiratory Rate 20 18 Blood Pressure 126/79 Pulse Oximetry 96 96 Oxygen Delivery Method Fraction of Inspired Oxygen 07/05/24 18:10 07/05/24 18:10 07/05/24 18:15 Temperature 97.7 F 97.7 F Pulse Rate 100 H 102 H Respiratory Rate 20 20 Blood Pressure 124/80 Pulse Oximetry 96 96 Oxygen Delivery Method Mechanical Ventilation Fraction of Inspired Oxygen 07/05/24 18:15 07/05/24 18:20 07/05/24 18:20 Temperature 97.9 F Pulse Rate 88 Respiratory Rate 16 Blood Pressure 127/79 119/69 Pulse Oximetry 96 Oxygen Delivery Method Mechanical Ventilation Fraction of Inspired Oxygen Fraction of Inspired Oxygen 50 Oxygen Delivery Method Mechanical Ventilation Assessment & Plan Assessment & Plan narrative: audio/visual connection established patient seen and evaluated on camera chart/labs/imaging reviewed 58 year old female admitted to ICU with: AMS substance abuse acute respiratory failure suggest -neurochecks/seizure precautions -thiamine/folate -ciwa protocol -repeat imaging prn -sedation prn, goal rass -1 -vent support, lung protective therapy -chest pt/pulm toilet -SAT/SBT daily -cxr/abg prn, adjust vent as needed -keep map above 65 -feeds as tolerated, monitor for refeeding syndrome -monitor ins/outs -replace lytes prn -repeat labs -check RUQ sono -keep glucose 140-180s -gi/dvt ppx -please call eICU if condition changes total ccm time 45 mins. Time-Based Coding :: [TOTAL MINUTES] spent with patient and on the chart (including review of chart, obtaining history, exam, reviewing outside data, placing orders, documenting exam and treatment plan, and counseling patient) on [DATE].
--- NOTE | 2024-07-05 19:31 | PC.NURSE ---
Admit Note Patient arrived to room 231 from ER at 1850, transferred to bed and RT connected patient to vent. Soft restraints in place to BUEs, pt does intermittently reach for tube. ET tube 24 at the teeth. OG tube in place. SpO2 96%. Large incontinent watery BM cleaned for pt and brief placed. 2 necklaces, 4 rings, and anklet placed in sterile cup at bedside. No family at bedside at this time. Propofol and fentanyl gtts infusing per emar.
[2024-07-05] MEDS: SODIUM CHLORIDE 0.9% 1,000 ML 100 ML IV (20:21)
[2024-07-05] MEDS: CHLORHEXIDINE GLUCONATE 15 ML CUP PO (20:31)
[2024-07-06] VITALS (27 sets, daily range): BP systolic 110–160; BP diastolic 67–99; PULSE 90–119; RESP 15–28; TEMP 36.3–38.2; O2SAT 93–98
[2024-07-06] MEDS: CHLORHEXIDINE GLUCONATE 15 ML CUP PO ×2 (00:20→05:52)
[2024-07-06 01:05] LABS: MRSA (Nasal) PCR NOT DETECTED (Not Detect)
[2024-07-06] MEDS: propofoL 1,000 MG/100 ML VIAL 9.736 MG IV (03:49)
--- NOTE | 2024-07-06 05:45 | PC.NURSE ---
pt intubated and sedated, opens eyes and follows commands to verbal stimuli, reaches for ETT, bilat soft wrist restraints maintained for therapy, VSS, afebrile, PPPx4, no edema, SR/ST 90-120s, lungs clear, mod amt blood tinged oral secretions, O2 sats >92%, abd soft, incont of stool, OGT to LIS for mod amt bloody/brown drainage, r/c draining clear yellow urine, skin warm and intact, abrasions to bilat knees, redness to L hip blanchable, periph IV sites patent, IV fluids infusing, sedation to keep RASS -2, frequent monitoring
[2024-07-06] MEDS: SODIUM CHLORIDE 0.9% 1,000 ML 100 ML IV (05:52)
[2024-07-06] MEDS: fentaNYL 1,000 MCG in DEXTROSE 5% IN WATER 230 ML 13.523 MCG IV (06:48)
[2024-07-06] MEDS: dexmedeTOMIDine in 0.9 % NaCL 400 MCG/100 ML PLAST..BAG IV (07:58)
[2024-07-06] MEDS: propofoL 1,000 MG/100 ML VIAL 12.982 MG IV (07:58)
--- NOTE | 2024-07-06 10:09 | PC.NURSE ---
Addendum entered by Beena Estrada R.N. 07/06/24 14:41: Pt doing well, tolerating food and water without difficulty. Able to ambulate SBA to bathroom, uses call light appropriately. Discharge orders received, PIV removed, at bedside, all belongings with patient, including 4 rings, 2 necklaces, and 1 anklet. All discharge instructions reviewed, questions answered, to take pt by private vehicle home. No further pt contact. Addendum entered by Beena Estrada R.N. 07/06/24 10:15: [id number] Sedation vacation started with the titration of Prop, fentanyl and addition of Precedex for ETOH withdrawal (see emar for titration) pt is aware of what is going on, able to make needs known, explained plan to pt the plan for extubation, pt agreeable to SBT, will follow commands. Dr Duffy at bedside, will start the extubation process after 0930 ICU rounds. 0944 Pt extubated, OG tube removed, suctioned at bedside, tolerated well. Pt passed bedside swallow, able to drink water and swallow without difficulty. All needs met at this time, care ongoing Original Note: Report received from Dominique KUMAR, pt is intubated and sedated, opens eyes, follows commands, able to make needs known via white board, nods in response to questions, bilat soft wrist restraints in place to prevent ETT removal, VSS, afebrile, PPPx4, no edema, SR/ST 90-120s, lungs clear, minimal amt blood tinged oral secretions, O2 sats >92%, abd soft, BT active, OGT to LIS for mod amt bloody/brown drainage, garza draining clear yellow urine, skin warm and intact, abrasions to bilat knees, redness to L hip blanchable, periph IV sites patent, IV fluids infusing as ordered, current RASS score 0/ +1, Care ongoing.
[2024-07-06] MEDS: HYDROMORPHONE 2 MG TABLET 4 MG PO (10:45)
--- NOTE | 2024-07-06 10:52 | P.TELICUPN_ITS ---
Subjective Subjective IF CAMERA ACTIVATED, patient seen via real-time interactive audiovisual communication: Camera activated Consent obtained for tele-consumer studies professor care: Yes Patient Location: ICU Provider location (State): [place] Other participants/roles: rn Interval history: pt doing well this AM, following commands , on precedex, extuabted successfully Current Medications Current Medications Medications: Home Medications gabapentin 300 mg capsule (Neurontin) 600 mg PO TID ##0 02/19/16 [History Confirmed 10/03/22] buprenorphine 8 mg-naloxone 2 mg sublingual film (Suboxone) 8 film sublingual TID 04/10/20 [History Confirmed 10/03/22] ondansetron 4 mg disintegrating tablet 4 mg PO Q6H PRN nausea and vomiting #14 tabs 09/01/22 [Rx Confirmed 10/03/22] atorvastatin 20 mg tablet 20 mg PO QPM 10/03/22 [History Confirmed 10/03/22] clonazepam 0.5 mg tablet 0.25 - 0.5 mg PO DAILY PRN Anxiety 10/03/22 [History Confirmed 10/03/22] mupirocin 2 % topical ointment 1 applic topical DAILY PRN wound #15 grams 10/26/22 [Rx] lactulose 20 gram/30 mL oral solution 20 g (30 mL) PO BID #600 mL 06/06/24 [Rx] Visit Medications (administered) Generic Name Dose Route Start Last Admin Trade Name Freq PRN Reason Stop Dose Admin Enoxaparin Sodium 40 mg 07/06/24 09:00 07/06/24 09:07 Enoxaparin 40 Mg/0.4 Ml Syringe SUBCUT Not Given DAILY LAURA Fentanyl 1,000 mcg/ Dextrose 250 mls @ 9.466 mls/hr 07/05/24 15:30 07/06/24 08:58 IV 0.7 mcg/kg/hr TITRATE LAURA 9.466 mls/hr Titration Protocol 0.7 MCG/KG/HR Sodium Chloride 1,000 mls @ 100 mls/hr 07/05/24 19:11 07/06/24 05:52 Normal Saline 0.9% IV 100 mls/hr CONT LAURA Administration dexmedeTOMIDine in 0.9 % NaCL 400 mcg in 100 mls @ 2.65 mls/hr 07/06/24 07:45 07/06/24 07:58 Precedex IV 0.2 mcg/kg/hr TITRATE LAURA 2.65 mls/hr Administration Protocol 0.2 MCG/KG/HR Objective Ventilator Parameters: Ventilator Settings FiO2 21 RT Vent Frequency 15 Ventilator Tidal Volume 310 Exhaled Positive End Expiratory 5 Pressure Inspiratory Phase Time 0.90 I:E Ratio 1:3.4 Patient Position HOB >= 30 degrees Labs 07/05/24 15:00 07/05/24 15:00 Labs: Laboratory Results - last 24 hr 07/05/24 07/05/24 07/05/24 15:00 15:30 15:30 WBC 4.5 RBC 4.46 Hgb 14.0 Hct 41.0 MCV 92.1 MCH 31.4 MCHC 34.1 RDW 14.2 Plt Count 216 Neut % (Auto) 49.6 L Lymph % (Auto) 47.0 H [place] % (Auto) 2.1 L Eos % (Auto) 0.8 L Baso % (Auto) 0.5 Neut # (Auto) 2200 Lymph # (Auto) 2100 [place] # (Auto) 100 Eos # (Auto) 0 Baso # (Auto) 0 PT INR APTT ABG pH ABG pCO2 ABG pO2 ABG HCO3 ABG Total CO2 ABG O2 Saturation ABG Base Excess Respiration Rate O2 Delivery Device FiO2 % PEEP or CPAP Sodium 133 L Potassium 3.7 Chloride 93 L Carbon Dioxide 25 BUN 3 L Creatinine 0.48 L Estimated GFR > 60 BUN/Creatinine Ratio 6.3 Glucose 111 H Lactate 2.2 H Calcium 8.7 Total Bilirubin 0.4 AST 71 H ALT 33 Alkaline Phosphatase 134 H Ammonia Total Creatine Kinase 126 Troponin I < 0.012 Total Protein 8.6 H Albumin 4.9 Globulin 3.7 Albumin/Globulin Ratio 1.3 TSH 0.608 Urine Color Yellow Urine Appearance Clear Urine pH 7.5 Normal Ur Specific [place] 1.010 Urine Protein Negative Urine Glucose (UA) Negative Urine Ketones Negative Urine Occult Blood Negative Urine Nitrate Negative Urine Bilirubin Negative Urine Urobilinogen 0.2 Ur Leukocyte Esterase Negative Urine RBC None seen Urine WBC None seen Ur Squamous Epith Cells 0-1 /hpf Urine Bacteria Occasional (0-1) Ur Culture Indicated? Cult not indicated Vol Urine Centrifuged 10ml (spun) Nasal Screen MRSA (PCR) Salicylates < 1.0 U Opiates 300ng/mL cut Positive H Ur Oxycodone Screen Negative Urine Methadone Screen Negative Acetaminophen Ur Barbiturates Screen Negative U Tricyclic Antidepress Negative Ur Phencyclidine Scrn Negative Ur Amphetamines Screen Negative U Methamphetamines Scrn Negative Ur MDMA Scrn (Ecstasy) Negative U Benzodiazepines Scrn Positive H [place] < 0.2 L Urine Cocaine Screen Negative U Marijuana (THC) Screen Negative Urine Specific [place] Normal Ethyl Alcohol 477 H* Ur Creatinine Normal 07/05/24 07/05/24 07/05/24 16:05 16:07 16:37 WBC RBC Hgb Hct MCV MCH MCHC RDW Plt Count Neut % (Auto) Lymph % (Auto) [place] % (Auto) Eos % (Auto) Baso % (Auto) Neut # (Auto) Lymph # (Auto) [place] # (Auto) Eos # (Auto) Baso # (Auto) PT 12.2 INR 1.1 APTT 35 ABG pH 7.40 ABG pCO2 41.4 ABG pO2 132 H ABG HCO3 25 ABG Total CO2 25 ABG O2 Saturation 99 ABG Base Excess 0.4 Respiration Rate 15 O2 Delivery Device Adult ventilator FiO2 % 25.0 % PEEP or CPAP 5 Sodium Potassium Chloride Carbon Dioxide BUN Creatinine Estimated GFR BUN/Creatinine Ratio Glucose Lactate Calcium Total Bilirubin AST ALT Alkaline Phosphatase Ammonia < 9 L Total Creatine Kinase Troponin I Total Protein Albumin Globulin Albumin/Globulin Ratio TSH Urine Color Urine Appearance Urine pH Ur Specific [place] Urine Protein Urine Glucose (UA) Urine Ketones Urine Occult Blood Urine Nitrate Urine Bilirubin Urine Urobilinogen Ur Leukocyte Esterase Urine RBC Urine WBC Ur Squamous Epith Cells Urine Bacteria Ur Culture Indicated? Vol Urine Centrifuged Nasal Screen MRSA (PCR) Salicylates < 1.0 U Opiates 300ng/mL cut Ur Oxycodone Screen Urine Methadone Screen Acetaminophen < 10 Ur Barbiturates Screen U Tricyclic Antidepress Ur Phencyclidine Scrn Ur Amphetamines Screen U Methamphetamines Scrn Ur MDMA Scrn (Ecstasy) U Benzodiazepines Scrn [place] Urine Cocaine Screen U Marijuana (THC) Screen Urine Specific [place] Ethyl Alcohol Ur Creatinine 07/05/24 07/05/24 18:01 19:14 WBC RBC Hgb Hct MCV MCH MCHC RDW Plt Count Neut % (Auto) Lymph % (Auto) [place] % (Auto) Eos % (Auto) Baso % (Auto) Neut # (Auto) Lymph # (Auto) [place] # (Auto) Eos # (Auto) Baso # (Auto) PT INR APTT ABG pH ABG pCO2 ABG pO2 ABG HCO3 ABG Total CO2 ABG O2 Saturation ABG Base Excess Respiration Rate O2 Delivery Device FiO2 % PEEP or CPAP Sodium Potassium Chloride Carbon Dioxide BUN Creatinine Estimated GFR BUN/Creatinine Ratio Glucose Lactate 2.8 H Calcium Total Bilirubin AST ALT Alkaline Phosphatase Ammonia Total Creatine Kinase Troponin I Total Protein Albumin Globulin Albumin/Globulin Ratio TSH Urine Color Urine Appearance Urine pH Ur Specific [place] Urine Protein Urine Glucose (UA) Urine Ketones Urine Occult Blood Urine Nitrate Urine Bilirubin Urine Urobilinogen Ur Leukocyte Esterase Urine RBC Urine WBC Ur Squamous Epith Cells Urine Bacteria Ur Culture Indicated? Vol Urine Centrifuged Nasal Screen MRSA (PCR) Not detected Salicylates U Opiates 300ng/mL cut Ur Oxycodone Screen Urine Methadone Screen Acetaminophen Ur Barbiturates Screen U Tricyclic Antidepress Ur Phencyclidine Scrn Ur Amphetamines Screen U Methamphetamines Scrn Ur MDMA Scrn (Ecstasy) U Benzodiazepines Scrn [place] Urine Cocaine Screen U Marijuana (THC) Screen Urine Specific [place] Ethyl Alcohol Ur Creatinine Exam Vital Signs (past 8 hours): - 07/06/24 03:00 07/06/24 03:00 07/06/24 03:30 Temperature 98.6 F Pulse Rate 92 H Respiratory Rate 17 Blood Pressure 152/90 H 150/95 H Pulse Oximetry 96 Oxygen Delivery Method 07/06/24 03:30 07/06/24 04:00 07/06/24 04:00 Temperature 98.2 F 99.0 F Pulse Rate 117 H 114 H Respiratory Rate 15 21 Blood Pressure 152/99 H Pulse Oximetry 96 97 Oxygen Delivery Method 07/06/24 04:30 07/06/24 04:30 07/06/24 05:00 Temperature 99.3 F Pulse Rate 97 H Respiratory Rate 18 Blood Pressure 160/94 H 154/91 H Pulse Oximetry 97 Oxygen Delivery Method 07/06/24 05:00 07/06/24 05:30 07/06/24 05:30 Temperature 99.5 F 99.7 F H Pulse Rate 101 H 117 H Respiratory Rate 19 21 Blood Pressure 153/94 H Pulse Oximetry 97 97 Oxygen Delivery Method 07/06/24 06:00 07/06/24 06:00 07/06/24 06:30 Temperature 100.0 F H Pulse Rate 106 H Respiratory Rate 15 Blood Pressure 159/90 H 156/90 H Pulse Oximetry 98 Oxygen Delivery Method 07/06/24 06:30 07/06/24 07:00 07/06/24 07:00 Temperature 100.2 F H 100.4 F H Pulse Rate 102 H 108 H Respiratory Rate 18 19 Blood Pressure 157/97 H Pulse Oximetry 98 98 Oxygen Delivery Method 07/06/24 07:00 07/06/24 07:30 07/06/24 07:30 Temperature 100.4 F H Pulse Rate 113 H Respiratory Rate 15 Blood Pressure 136/86 Pulse Oximetry 94 Oxygen Delivery Method Mechanical Ventilation 07/06/24 08:00 07/06/24 08:00 07/06/24 08:30 Temperature 100.6 F H 100.6 F H Pulse Rate 107 H 103 H Respiratory Rate 16 18 Blood Pressure 122/74 Pulse Oximetry 95 97 Oxygen Delivery Method 07/06/24 08:30 07/06/24 09:00 07/06/24 09:00 Temperature 100.4 F H Pulse Rate 113 H Respiratory Rate 27 H Blood Pressure 143/89 H 127/94 H Pulse Oximetry 98 Oxygen Delivery Method 07/06/24 10:00 07/06/24 10:00 07/06/24 10:30 Temperature 100.6 F H Pulse Rate 112 H Respiratory Rate 19 Blood Pressure 155/79 H 148/75 H Pulse Oximetry 93 Oxygen Delivery Method 07/06/24 10:30 07/06/24 10:30 Temperature 100.8 F H Pulse Rate 119 H Respiratory Rate 24 Blood Pressure 148/75 H Pulse Oximetry 98 Oxygen Delivery Method Fraction of Inspired Oxygen 50 Oxygen Delivery Method Mechanical Ventilation Narrative Exam Narrative: pt awake foll;owing comamnds inutbated rate controlled Quality TeleICU VTE Deep Vein Thrombosis/Pulmonary Embolism Present on Admission: No Assessment & Plan Assessment & Plan narrative: etoh abuse alcholoc intoxication acute respiratory failure etubate to [place] CIWA cont and wean precedex dilaudid for pain control ( home med) o2 prn adat trend labs monitor UO dvt ppx thiamine and folic acid total Critical care time = 35 min, Time-Based Coding :: [TOTAL MINUTES] spent with patient and on the chart (including review of chart, obtaining history, exam, reviewing outside data, placing orders, documenting exam and treatment plan, and counseling patient) on [DATE].
--- NOTE | 2024-07-06 11:01 | DIET.CONS ---
Dietary Consultation Note Admission Date: 07/05/2024 17:03 Assessment: 58 y F admitted for toxic encephalopathy, polysubstance intoxication and intubated in route to hospital. RD consulted for NPO on vent. Pt being extubated this morning, EMR reviewed. Diet order was placed by hospitalist for lunch today. Ht: 170.18 cm Wt: 53 kg BMI: 18.3 (underweight for age) UBW: 50.349 kg on 06/10/24 Last BM: 07/05/24 (07/05/24 17:07) MNA: 11 Addison Score: 16 Diet: 07/05/24 19:12 NPO Diet Diet Modifications: NPO Type: NPO except for Meds Labs: RBC 4.46 X10^6/uL (4.0-5.2) 07/05/24 15:00 Hgb 14.0 g/dL (12.0-16.0) 07/05/24 15:00 Hct 41.0 % (36-46) 07/05/24 15:00 Creatinine 0.48 mg/dL (0.52-1.04) L 07/05/24 15:00 Lactate 2.8 mmol/L (0.7-2.1) H 07/05/24 18:01 Nutrition Diagnosis: Excessive alcohol intake r/t alcohol misuse aeb toxic encephalopathy, alcohol level BMI underweight r/t inadequate oral intake aeb BMI 18.3 Interventions: 1. Monitoring PO intakes on diet order EER: [id number] kcals (30-35 kcals/kg per BMI) 65-80 g protein (1.2-1.5 g/kg per ICU status) Monitoring/Evaluations: F/u for further assessment and PO intakes Electronically Signed by: Christine Kent 07/06/24 11:01 Clinical Dietitian [address] [address]
--- NOTE | 2024-07-06 13:31 | CM.DANOTE ---
Initial DCP Assessment Note Pt is a 58 yo female, resident of [facility], presents from home via EMS, intubated in the field, found in the bathroom unresponsive. Patient's BAL upon arrival was 477. PCP: Alissa Wolf Payer: [facility] MCR/[facility] Patient lives independently with SO in [facility] and plans to return. Patient has three children, 28, 26 and 16yo. 16 yo had been living with his Dad until recently. See ASSISTED LIVING NURSING DIRECTOR note for GIOVANNY assessment. CHRISTINE Urena Discharge Planning/Care Management CM Discharge Assessment Start: 07/06/24 13:28 Freq: Status: Active Protocol: Document 07/06/24 13:28 TIFFANY (Rec: 07/06/24 13:31 TIFFANY [id number]) Discharge Planning Assessment Assigned High Value Associate CHRISTINE Boone DPOA/Assigned Designee Name Samuel Troncoso LES Contact Information [phone], Advance Directives? No History Provided By Patient,Significant Other, Medical Record Prior Living Arrangements House Household Members spouse Type of transporation used prior to Drives own vehicle admit Independent with ADL's Yes Is patient alert and oriented? Yes Barriers to Discharge No Discharge Plan Home Transportation Arrangement SO Referrals Initiated None needed
--- NOTE | 2024-07-06 13:35 | CM.SWNOTE ---
[facility] Note- GIOVANNY Assessment Patient awake and alert this morning, expected to be discharged this afternoon. Met w/patient and her SO Samuel, patient asks that Samuel stay for the conversation. Patient alert and oriented, denies current hallucination, calm mood, forthcoming with information, self reflective. Good eye contact. Psychosocial: Patient lives independently with her SO of 11 years, Samuel. Patient has three boys, 28, 26 and 16 yo. 16 yo son had been living with his Father up until recently, currently living with patient and SO. Patient currently unemployed. Patient lists her family, friends and SO as supports. Patient has an ex spouse that creates drama within their family. Current Use: Patient reports struggling with alcoholism since her 20s. Patient was sober during her pregnancies and had other periods of sobriety, up to 5 years; Most recently a 2 year period of sobriety- up until this relapse. Patient contributes her success in sobriety to staying busy, working, and that her SO quit drinking 2 years ago. Patient reviews the last few days; states her SO had a few drinks for his birthday during their family vacation to [place] and was able to stop at a few drinks. Patient felt she could do the same and had a few mixed drinks the day before admission, then opened a fifth of Rum the day of admission and drank the whole bottle. Patient denies illicit drug use. SO shares that he is a struggling, recovering alcoholic as well. SO further shares that patient is the type of drinker that drinks every drop until it's gone. SO states that this was the scariest event he and patient's family have witnessed in regards to patient. Chart review shows 18 ER/hospital visits since 2020. Hx Treatment: Patient reports s inpatient GIOVANNY treatment stays- first one at [facility] in [place], then [facility]. MH: Patient admits to MH struggle, admits to struggling with anxiety and panic attacks and has ativan if needed. Patient denies ever having a counselor and states she is unlikely to consider one now. Patient denies hx of or current suicidal ideation. Intervention: Had lengthy conversation w/patient and SO. Provided reflective listening. Patient remorseful today and sounds/appears consumed by her feelings of shame and guilt; especially in regards to the effect this event has had on her three children. Patient plans to remain sober after this hospitalization. Patient denies need for resources, says AA was never helpful and declines the need for a counselor. SO and patient state there were a number of triggers presented before patient started drinking, that neither SO or patient paid close attention to. This TECHNICAL SOLUTIONS DIRECTOR left the room as patient and SO started to receive numerous calls from family and friends. Updated JOSÉ Hargrove. Plan: Discharge home this afternoon, w/family to support, patient declines GIOVANNY resources. CHRISTINE Urena
--- NOTE | 2024-07-06 14:00 | P.DS_ITS ---
History of Present Illness History of Present Illness Date Patient Seen: 07/06/24 Time Patient Seen: 14:00 Chief complaint: Overdose Narrative: 58 F with PMH of EtOH, tobacco use, prior heavy EtOH but had stopped drinking for the past two years per her significant other who was noted to be quite wobbly today and found down in her bathroom later unresponsive. She was given 5 doses of Narcan per ER triage documentation without significant improvement and intubated in the field. Additional history is obtained from the ER provider and patient's significant other as the patient is unable to contribute to subjective history at this time. Her significant other reports that she had stopped drinking for the last 2 years, and was quite shocked when her alcohol level returned as high as it did. He did later find new alcohol bottles in the Fridge at home. In the emergency room laboratory evaluation showed an unremarkable CBC, normal coagulation studies. ABG with a pH of 7.4, pCO2 of 41.4, and PO2 of 132. Head CT was unremarkable. Chemistries showed a sodium of 133, with the remainder of her chemistries being fairly unremarkable except for mild AST elevation at 71. Ammonia was less than 9. Troponin was negative. TSH was 0.608. Urinalysis was negative. CT angiogram of her chest was also performed which was negative and did not show any signs of infection or volume overload. Urine drug screen was also positive for opiates, benzodiazepines. Alcohol level was 477. Tylenol and salicylates levels were ordered to be added on. Discharge Providers Provider Date of admission: 07/05/24 17:03 Discharge Date: 07/06/24 Primary care physician: Alissa Wolf MD Consults: 07/05/24 19:11 Consult to Dietitian, Adult Routine Comment: Reason For Exam: Patient on Ventilator and NPO 07/05/24 22:02 Consult to Dietitian, Adult Routine Comment: Reason For Exam: intubated Discharge provider: Jose A Duffy DO Summary Hospital Course Discharge Diagnosis: Toxic encephalopathy, polysubstance intoxication History of liver failure Hospital Course: 58 F with PMH of EtOH, tobacco use, prior heavy EtOH but had stopped drinking for the past two years per her significant other who was noted to be quite wobbly today and found down in her bathroom later unresponsive. She was given 5 doses of Narcan per ER triage documentation without significant improvement and intubated in the field. She was kept intubated overnight and the following morning she was awake and alert and passed both sedation vacation, and a spontaneous breathing trial. She improved much more quickly than anticipated. She was quickly extubated the following morning. After extubation the patient reported that she tried 1 drink of alcohol yesterday due to recently increased stress. She does not recall anything after the 1 drink. She was quite remorseful and was quite scared of where she ended up. She endorsed not wanting to drink again, case management did evaluate and the patient denied additional resources at this time. No changes to her chronic medications were recommended at the time of discharge Time Spent with Patient Time spent: Greater than 30 minutes Exam Vital Signs (past 8 hours): - 07/06/24 06:30 07/06/24 06:30 07/06/24 07:00 Temperature 100.2 F H Pulse Rate 102 H Respiratory Rate 18 Blood Pressure 156/90 H 157/97 H Pulse Oximetry 98 Oxygen Delivery Method 07/06/24 07:00 07/06/24 07:00 07/06/24 07:30 Temperature 100.4 F H Pulse Rate 108 H Respiratory Rate 19 Blood Pressure 136/86 Pulse Oximetry 98 Oxygen Delivery Method Mechanical Ventilation 07/06/24 07:30 07/06/24 08:00 07/06/24 08:00 Temperature 100.4 F H 100.6 F H Pulse Rate 113 H 107 H Respiratory Rate 15 16 Blood Pressure 122/74 Pulse Oximetry 94 95 Oxygen Delivery Method 07/06/24 08:30 07/06/24 08:30 07/06/24 09:00 Temperature 100.6 F H 100.4 F H Pulse Rate 103 H 113 H Respiratory Rate 18 27 H Blood Pressure 143/89 H Pulse Oximetry 97 98 Oxygen Delivery Method 07/06/24 09:00 07/06/24 10:00 07/06/24 10:00 Temperature 100.6 F H Pulse Rate 112 H Respiratory Rate 19 Blood Pressure 127/94 H 155/79 H Pulse Oximetry 93 Oxygen Delivery Method 07/06/24 10:30 07/06/24 10:30 07/06/24 10:30 Temperature 100.8 F H Pulse Rate 119 H Respiratory Rate 24 Blood Pressure 148/75 H 148/75 H Pulse Oximetry 98 Oxygen Delivery Method 07/06/24 11:00 07/06/24 11:00 07/06/24 11:00 Temperature 100.8 F H Pulse Rate 105 H Respiratory Rate 15 Blood Pressure 137/74 Pulse Oximetry 98 Oxygen Delivery Method Room Air 07/06/24 11:30 07/06/24 11:30 07/06/24 12:00 Temperature 100.8 F H Pulse Rate 108 H Respiratory Rate 28 H Blood Pressure 131/75 110/67 Pulse Oximetry 98 Oxygen Delivery Method 07/06/24 12:00 07/06/24 12:30 07/06/24 12:30 Temperature Pulse Rate 108 H 104 H Respiratory Rate 16 17 Blood Pressure 122/76 Pulse Oximetry 97 96 Oxygen Delivery Method Fraction of Inspired Oxygen 50 Oxygen Delivery Method Room Air Narrative Exam Narrative: Gen: WDWN female, no acute distress alert and oriented CV: RRR no m/r/g Pulm: CTA B/l Abd: S NT ND Ext: No edema b/l LE Objective Labs 07/05/24 15:00 07/05/24 15:00 Labs: Laboratory Results - last 24 hr 07/05/24 07/05/24 07/05/24 15:00 15:30 15:30 WBC 4.5 RBC 4.46 Hgb 14.0 Hct 41.0 MCV 92.1 MCH 31.4 MCHC 34.1 RDW 14.2 Plt Count 216 Neut % (Auto) 49.6 L Lymph % (Auto) 47.0 H [place] % (Auto) 2.1 L Eos % (Auto) 0.8 L Baso % (Auto) 0.5 Neut # (Auto) 2200 Lymph # (Auto) 2100 [place] # (Auto) 100 Eos # (Auto) 0 Baso # (Auto) 0 PT INR APTT ABG pH ABG pCO2 ABG pO2 ABG HCO3 ABG Total CO2 ABG O2 Saturation ABG Base Excess Respiration Rate O2 Delivery Device FiO2 % PEEP or CPAP Sodium 133 L Potassium 3.7 Chloride 93 L Carbon Dioxide 25 BUN 3 L Creatinine 0.48 L Estimated GFR > 60 BUN/Creatinine Ratio 6.3 Glucose 111 H Lactate 2.2 H Calcium 8.7 Total Bilirubin 0.4 AST 71 H ALT 33 Alkaline Phosphatase 134 H Ammonia Total Creatine Kinase 126 Troponin I < 0.012 Total Protein 8.6 H Albumin 4.9 Globulin 3.7 Albumin/Globulin Ratio 1.3 TSH 0.608 Urine Color Yellow Urine Appearance Clear Urine pH 7.5 Normal Ur Specific [place] 1.010 Urine Protein Negative Urine Glucose (UA) Negative Urine Ketones Negative Urine Occult Blood Negative Urine Nitrate Negative Urine Bilirubin Negative Urine Urobilinogen 0.2 Ur Leukocyte Esterase Negative Urine RBC None seen Urine WBC None seen Ur Squamous Epith Cells 0-1 /hpf Urine Bacteria Occasional (0-1) Ur Culture Indicated? Cult not indicated Vol Urine Centrifuged 10ml (spun) Nasal Screen MRSA (PCR) Salicylates < 1.0 U Opiates 300ng/mL cut Positive H Ur Oxycodone Screen Negative Urine Methadone Screen Negative Acetaminophen Ur Barbiturates Screen Negative U Tricyclic Antidepress Negative Ur Phencyclidine Scrn Negative Ur Amphetamines Screen Negative U Methamphetamines Scrn Negative Ur MDMA Scrn (Ecstasy) Negative U Benzodiazepines Scrn Positive H [employer] < 0.2 L Urine Cocaine Screen Negative U Marijuana (THC) Screen Negative Urine Specific [place] Normal Ethyl Alcohol 477 H* Ur Creatinine Normal 07/05/24 07/05/24 07/05/24 16:05 16:07 16:37 WBC RBC Hgb Hct MCV MCH MCHC RDW Plt Count Neut % (Auto) Lymph % (Auto) [place] % (Auto) Eos % (Auto) Baso % (Auto) Neut # (Auto) Lymph # (Auto) [place] # (Auto) Eos # (Auto) Baso # (Auto) PT 12.2 INR 1.1 APTT 35 ABG pH 7.40 ABG pCO2 41.4 ABG pO2 132 H ABG HCO3 25 ABG Total CO2 25 ABG O2 Saturation 99 ABG Base Excess 0.4 Respiration Rate 15 O2 Delivery Device Adult ventilator FiO2 % 25.0 % PEEP or CPAP 5 Sodium Potassium Chloride Carbon Dioxide BUN Creatinine Estimated GFR BUN/Creatinine Ratio Glucose Lactate Calcium Total Bilirubin AST ALT Alkaline Phosphatase Ammonia < 9 L Total Creatine Kinase Troponin I Total Protein Albumin Globulin Albumin/Globulin Ratio TSH Urine Color Urine Appearance Urine pH Ur Specific [place] Urine Protein Urine Glucose (UA) Urine Ketones Urine Occult Blood Urine Nitrate Urine Bilirubin Urine Urobilinogen Ur Leukocyte Esterase Urine RBC Urine WBC Ur Squamous Epith Cells Urine Bacteria Ur Culture Indicated? Vol Urine Centrifuged Nasal Screen MRSA (PCR) Salicylates < 1.0 U Opiates 300ng/mL cut Ur Oxycodone Screen Urine Methadone Screen Acetaminophen < 10 Ur Barbiturates Screen U Tricyclic Antidepress Ur Phencyclidine Scrn Ur Amphetamines Screen U Methamphetamines Scrn Ur MDMA Scrn (Ecstasy) U Benzodiazepines Scrn [employer] Urine Cocaine Screen U Marijuana (THC) Screen Urine Specific [place] Ethyl Alcohol Ur Creatinine 07/05/24 07/05/24 18:01 19:14 WBC RBC Hgb Hct MCV MCH MCHC RDW Plt Count Neut % (Auto) Lymph % (Auto) [place] % (Auto) Eos % (Auto) Baso % (Auto) Neut # (Auto) Lymph # (Auto) [place] # (Auto) Eos # (Auto) Baso # (Auto) PT INR APTT ABG pH ABG pCO2 ABG pO2 ABG HCO3 ABG Total CO2 ABG O2 Saturation ABG Base Excess Respiration Rate O2 Delivery Device FiO2 % PEEP or CPAP Sodium Potassium Chloride Carbon Dioxide BUN Creatinine Estimated GFR BUN/Creatinine Ratio Glucose Lactate 2.8 H Calcium Total Bilirubin AST ALT Alkaline Phosphatase Ammonia Total Creatine Kinase Troponin I Total Protein Albumin Globulin Albumin/Globulin Ratio TSH Urine Color Urine Appearance Urine pH Ur Specific [place] Urine Protein Urine Glucose (UA) Urine Ketones Urine Occult Blood Urine Nitrate Urine Bilirubin Urine Urobilinogen Ur Leukocyte Esterase Urine RBC Urine WBC Ur Squamous Epith Cells Urine Bacteria Ur Culture Indicated? Vol Urine Centrifuged Nasal Screen MRSA (PCR) Not detected Salicylates U Opiates 300ng/mL cut Ur Oxycodone Screen Urine Methadone Screen Acetaminophen Ur Barbiturates Screen U Tricyclic Antidepress Ur Phencyclidine Scrn Ur Amphetamines Screen U Methamphetamines Scrn Ur MDMA Scrn (Ecstasy) U Benzodiazepines Scrn [employer] Urine Cocaine Screen U Marijuana (THC) Screen Urine Specific [place] Ethyl Alcohol Ur Creatinine PFSH Medical History Peripheral neuropathy Alcohol abuse Tobacco abuse History of narcotic addiction Leg pain TBI (traumatic brain injury) Surgical History History of cholecystectomy Family History Mother History of recurrent TIAs Father Heart disease Social History household members: spouse Smoking Status: Current some day smoker alcohol intake: current Discharge Plan Discharge Plan Patient Disposition: Home Provider Discharge Comment: You were admitted to the hospital with alcohol intoxication and overdose, and required a breathing machine for a short period of time. While it may feel bad at this time, keep in mind how far you've come with regards to your alcohol use so far! No changes are recommended to your home medications. Recommend meeting with your PCP after discharge to review your hospitalization, preferrably in the next week or two. Discharge orders & Medications Prescriptions: Continued alprazolam 0.5 mg tablet 0.5 mg PO DAILY PRN (Reason: Anxiety) duloxetine 30 mg capsule,delayed release(DR/EC) 30 mg PO DAILY furosemide 20 mg tablet 20 mg PO DAILY gabapentin 600 mg tablet 600 mg PO 3XD hydromorphone 2 mg tablet 2 - 4 mg PO Q6H PRN (Reason: pain) spironolactone 25 mg tablet 50 mg PO DAILY Follow up/Referrals: Alissa Wolf MD [Primary Care Provider] - Diet/Activity/Treatments Diet: Diet as Tolerated and Regular Activity: As tolerated, no restrictions. Visit Report/Discharge Packet Instructions: Naloxone for Opiate Overdose - [facility] Stand Alone Forms: Patient Portal/API, Stroke Signs & Symptoms, Naloxone Standing Order [facility] Discharge Data Primary Care Provider: Alissa Wolf Quality VTE Deep Vein Thrombosis/Pulmonary Embolism Present on Admission: No
[2024-07-06] MEDS: HYDROMORPHONE 2 MG TABLET PO (14:02)
== END 2024-07-06 14:56 | disposition home or self-care (01) | DRG 896 ==
LOC: ED 15:33 → AC 17:03 → ICU 17:24
PROVIDERS: Admitting Provider Internal Medicine; Emergency Provider Emergency Medicine; PCP Internal Medicine; Referring Provider Emergency Medicine; Visit Provider Internal Medicine
DX: F10.129 Alcohol abuse with intoxication, unspecified (principal); G92.8 Other toxic encephalopathy; J96.00 Acute respiratory failure, unspecified whether with hypoxia or hypercapnia; T40.2X1A Poisoning by other opioids, accidental (unintentional), initial encounter; F17.200 Nicotine dependence, unspecified, uncomplicated; Y90.8 Blood alcohol level of 240 mg/100 ml or more; T42.4X5A Adverse effect of benzodiazepines, initial encounter; Z87.19 Personal history of other diseases of the digestive system
CPT/HCPCS: 36415; 36600; 70450; 71045; 71275; 72125; 74177; 80053; 80178; 80305; 80320; 80329; 81001; 82140; 82550; 82805; 82962; 83605; 84443; 84484; 85025; 85610; 85730; 87797; 93005; 93010; 94002; 94003; 94799; 96365; 96366; 99285; 99291; G0390; G0480; J2704; J3010; Q9967